=== PATIENT | female | born 1975 | race Caucasian/White ===

== ENCOUNTER 2022-01-02 11:44 | Emergency (ER) | payer MEDICAID, SELFPAY ==
--- NOTE | ~2022-01-02 | CT_ITS ---
EXAMINATION: CT ABDOMEN AND PELVIS WITHOUT CONTRAST CLINICAL INFORMATION: Left flank pain radiating to the left lower quadrant, history of stones. COMPARISON: None TECHNIQUE: Multidetector volumetric imaging was performed from the superior aspect of the liver through the pubic symphysis. Sagittal and coronal reformatted images were obtained on the technologist's workstation. Plaque of intravenous and oral contrast limits visceral evaluation. This CT examination was performed using dose optimization techniques as appropriate, variously including the following: *Automated exposure control *Adjustment of mA and/or kV according to patient size (this includes techniques or standardized protocols for targeted exams where dose is matched to indication/reason for exam; i.e. extremities or head) *Use of iterative reconstruction technique DLP: 496 mGy-cm FINDINGS: LUNG BASES: The visualized lung bases are unremarkable. LIVER, GALLBLADDER, AND BILIARY TREE: No hepatic abnormality. Status post cholecystectomy. PANCREAS: Unremarkable. SPLEEN: Unremarkable. ADRENAL GLANDS: Mild bilateral adrenal hypertrophy without definitive nodule. KIDNEYS AND URETERS: Nonobstructing intrarenal calculi bilaterally, left greater than right. A product support sales representative calculus in the interpolar left kidney measures 0.3 cm. No hydroureteronephrosis bilaterally. BLADDER: Mildly distended limiting evaluation without significant abnormality. GASTROINTESTINAL TRACT: The stomach and small bowel unremarkable. The appendix appears surgically absent with surgical changes at the cecal base. The colon shows a few scattered diverticuli without acute abnormality. LYMPH NODES: Mildly prominent inguinal lymph nodes bilaterally a product support sales representative right inguinal lymph node measures 1.1 cm VASCULAR: Unremarkable. PELVIC VISCERA: Unremarkable. Minimal free fluid in the cul-de-sac. OSSEOUS STRUCTURES: L5-S1 mild degenerative disc disease. SOFT TISSUES: Very small fat-containing umbilical and 2 adjacent midline supraumbilical ventral hernias (image 67, series 6). A subcutaneous nodule opacity seen posteriorly in the left inferior gluteal region measuring approximately 1.9 x 1.3 cm with surrounding subcutaneous infiltrative changes (image 88, series 3). This is seen to a lesser extent at the same level in the right side. An additional collection is seen to the left of midline at the level the distal coccyx extending anteriorly inferomedially into the peritoneum measuring approximately 7 cm in length (image 86, series 3). Linear tracts also extend to the level the left external and a running. CT/CT abdomen pelvis wo con IMPRESSION: 1. No acute intra-abdominal/pelvic abnormality to explain the patient's left flank pain. Nonobstructing intrarenal calculi, left greater than right, without hydronephrosis. 2. A few scattered colonic diverticuli without evidence for acute diverticulitis. 3. Subcutaneous changes and collections in the inferior gluteal region suggesting small cysts/abscesses. There is also a more linear tract on the left medially extending to the perineum and to the perianal region suggestive of fistulous tracts. Correlate with physical exam. Further evaluation with a contrast-enhanced MRI of the pelvis of this region is recommended. Mildly enlarged bilateral inguinal lymph nodes may be reactive to this process. 4. Several other incidental findings detailed above without significant/acute associated abnormality.
[2022-01-02 11:50] VITALS: BP 141/91; PULSE 99; RESP 18; TEMP 532.1; TEMP 989.8; O2SAT 97; BMI 26.5
[2022-01-02 12:22] VITALS: BP 109/65; PULSE 81; RESP 18; TEMP 37.2; O2SAT 97
--- NOTE | 2022-01-02 12:26 | ED_ITS ---
HPI - Abdominal Pain General Chief Complaint: Abdominal Pain Stated Complaint: kidney stones/infection Time Seen by Provider: 01/02/22 12:19 Source: patient Mode of arrival: ambulatory History of Present Illness HPI narrative: 46-year-old female with a past medical history renal stones, frequent UTIs, presenting to the ED complaining of left flank pain radiating to LLQ since yesterday. Reports pain initially intermittent and now constant/worsening. Admits to associated nausea and concentrated urine. Denies fever, chills, vomiting, dysuria, hematuria. Reports symptoms feel similar to prior stones/pyelo MD elicited complaint: flank pain Pertinent past history: kidney stones Onset (ago): day(s) Related Data Previous Rx's Medication Instructions Recorded ketorolac 10 mg tablet 10 mg PO TID PRN pain 5 days #15 01/02/22 tabs phenazopyridine 200 mg tablet 200 mg PO TID PRN pain 6 doses #6 01/02/22 (Pyridium) tabs Allergies Allergy/AdvReac Type Severity Reaction Status Date / Time Iodinated Contrast Media Allergy Unknown Verified 01/02/22 12:12 [Contrast Dye] Penicillins [PCN] Allergy Unknown Verified 01/02/22 12:12 shellfish derived Allergy Unknown Verified 01/02/22 12:12 Sulfa (Sulfonamide Allergy Unknown Verified 01/02/22 12:12 Antibiotics) tamsulosin [From Flomax] AdvReac Involuntary Verified 01/02/22 12:12 Spasms Review of Systems Review of Systems Constitutional: No Fever, No Chills, No Fatigue, No Malaise ENT/Mouth: No Hearing loss, No Ear Pain, No Nasal Congestion, No sore throat, No Rhinorrhea, No Swallowing Difficulty Eyes: No Eye Pain, No Swelling, No Redness Cardiovascular: No Chest Pain, No SOB, No Edema, No Palpitations Respiratory: No Cough, No Sputum, No Wheezing, No Smoke Exposure, No Dyspnea Gastrointestinal: + Nausea, No Vomiting, No Diarrhea, No Constipation, + Abdominal pain Genitourinary: No irregular bleeding, No Dysuria, No Urinary Frequency, No Hematuria, No Urinary Incontinence/retention, No Urgency, + Flank Pain, No Urinary Flow Changes, No Hesitancy Musculoskeletal: No joint pain, No Myalgias, No Joint Swelling Skin: No Skin Lesions, No rash Neuro: No Weakness,No Dizziness, No Headache Yes all other systems are reviewed and are negative Constitutional: Reports as per [facility] Past Medical History Attestation statement: The following information was validated with the patient. Medical History (Updated 01/02/22 @ 17:14 by Ronnie Ny MD) Hidradenitis suppurativa Social History Social History Alcohol intake: never Patient Tobacco Use Status: Current everyday Tobacco user Use of substances other than those prescribed or required for medical reasons: No Advance Directives: No Advance Directives Information Provided: No Physical Exam ED Vital Signs: Vital Signs - 24 hr 01/02/22 11:50 01/02/22 12:22 01/02/22 13:04 Temperature 989.8 F H 98.9 F Pulse Rate 99 81 79 Respiratory Rate 18 18 Blood Pressure 141/91 H 109/65 121/80 Pulse Oximetry 97 97 97 Oxygen Delivery Method Room Air Room Air Room Air BMI result Body Mass Index 26.5 Const General: cooperative, healthy appearing and no acute distress Orientation/consciousness: patient oriented x3 Limitations: no limitations HENMT Head: Yes normal to inspection and Yes atraumatic Ears: hearing grossly normal bilaterally General nose exam: Normal external nose present Face and sinus: Yes normal facial exam Eyes General: appearance normal, both eyes and all related structures EOM: EOMs intact bilaterally Neck Neck: Yes normal visual inspection and Yes no meningeal signs Resp Effort & Inspection: normal respiratory effort and no respiratory distress Auscultation: clear to auscultation bilaterally Cardio Rate: regular rate Heart sounds: S1 normal heart sound present and S2 normal heart sound present GI Inspection: Yes normal to inspection Palpation (GI): Soft to palpation, Tenderness to palpation present (GI) in the LLQ and suprapubicly, no guarding and not rigid General: Yes CVA tenderness on the left Back/Spine/Pelvis Back: CVA tenderness Skin Rashes: no rashes Wounds: no wounds Neuro General: patient oriented x3, tone normal and no meningeal signs Gait exam (Neuro): Normal gait present Extrem General: Yes normal to inspection Course Course Course Narrative: -1335--noted leukocytosis of 17.4 > likely reactive from pain. Labs otherwise reassuring >> lactic/blood cultures added. Low suspicion for severe sepsis at this time -UA with RBC's/not infected CT abdomen pelvis wo con IMPRESSION: 1. No acute intra-abdominal/pelvic abnormality to explain the patient's left flank pain. Nonobstructing intrarenal calculi, left greater than right, without hydronephrosis. 2. A few scattered colonic diverticuli without evidence for acute diverticulitis. 3. Subcutaneous changes and collections in the inferior gluteal region suggesting small cysts/abscesses. There is also a more linear tract on the left medially extending to the perineum and to the perianal region suggestive of fistulous tracts. Correlate with physical exam. Further evaluation with a contrast-enhanced MRI of the pelvis of this region is recommended. Mildly enlarged bilateral inguinal lymph nodes may be reactive to this process. 4. Several other incidental findings detailed above without significant/acute associated abnormality. ? > upon further evaluation patient reports history of hidradenitis has had multiple gluteal/rectal surgeries. On exam multiple indurated abscesses noted, no appreciable fluctuance/cellulitis, on rectal exam no appreciable fistula/drainage noted. Denies any pus drainage, rectal pain, vaginal bleeding/discharge >> will consult General surgery Dr. Ny -lactic acid negative -1700--Dr. Ny, general surgery evaluated patient in the ED, does not feel patient needs admission at this time. Patient refusing to take antibiotics due to past experiences. Results/plan discussed with patient, she is tearful, irritated/agitated no source of her pain was found. Discussed with patient cannot discharge on opiates without source of pain, she became very upset. Did offer patient admission for IV pain control, patient refused. Will give additional dose of IV morphine prior to discharge and discharged with prescription for Toradol and close PCP follow-up. Patient is in agreement with plan MDM - Abdominal Pain MDM Narrative Medical decision making narrative: 46-year-old female with a past medical history renal stones, frequent UTIs, presenting to the ED complaining of left flank pain radiating to LLQ since yesterday. On exam vital signs stable, NAD, nontoxic appearing, abdomen soft LLQ/suprapubic tenderness and left CVA tenderness, rebound or guarding. Concern for renal stone vs UTI/pyelo. Diverticulitis on differential, however lower. Lower suspicion for appendicitis/pancreatitis or cholecystitis/lithiasis Plan: Labs, UA, CT abdomen/pelvis, IVF, Zofran, pain management Differential Diagnosis Differential diagnosis: Likely abdominal pain, calculus of kidney, diverticulitis and renal colic Medical Records Attestation: I reviewed the patient's medical records. Lab Data Attestation: I reviewed the patient's lab results. Result diagrams: 01/02/22 12:54 01/02/22 12:54 Labs: Lab Results 01/02/22 01/02/22 01/02/22 Range/Units 12:54 12:54 12:54 WBC 17.4 H (4.8-10.8) X10*3/uL RBC 4.72 (4.20-5.50) X10*6/uL Hgb 15.7 (12.0-16.0) g/dl Hct 45.8 (37.0-47.0) % MCV 97.0 (80.0-98.0) fL MCH 33.3 H (27.0-33.0) pg MCHC 34.3 (31.0-35.0) g/dl RDW 12.5 (11.0-16.0) % Plt Count 390 (160-400) X10*3/uL MPV 8.5 L (9.4-12.3) fL Immature Gran % (Auto) 0.4 (0.0-0.4) % Neut % (Auto) 77.6 H (45-73) % Lymph % (Auto) 12.5 L (20-40) % [place] % (Auto) 7.9 (2-11) % Eos % (Auto) 1.2 (0-4) % Baso % (Auto) 0.4 (0-2) % Lymph # (Auto) 2.2 (1.2-4.9) X10*3/uL [place] # (Auto) 1.4 H (0.1-1.2) X10*3/uL Eos # (Auto) 0.2 (0.0-0.4) X10*3/uL Baso # (Auto) 0.1 (0.0-0.2) X10*3/uL Abs Immat Gran (auto) 0.07 H (0.00-0.03) X10*3/uL Absolute Neuts (auto) 13.5 H (2.0-8.3) x10*3/uL Absolute Nucleated RBC 0.000 (0.0-0.012) X10*3/uL Nucleated RBC % (auto) 0.0 (0.0-0.2) /100WBC Sodium 141 (135-145) mmol/L Potassium 4.0 (3.3-5.1) mmol/L Chloride 105 (96-108) mmol/L Carbon Dioxide 24 (22-29) mmol/L Anion Gap 16 (12-20) BUN 9 (9-16) mg/dL Creatinine 0.69 (0.5-1.4) mg/dL Estim Creat Clear Calc 94.3 Estimated GFR > 60 Random Glucose 94 (60-115) mg/dL Lactic Acid (0.5-2.0) mmol/L Calcium 9.6 (8.4-10.2) mg/dL Magnesium 2.0 (1.6-2.6) mg/dL Total Bilirubin 1.1 H (0.0-1.0) mg/dL Direct Bilirubin 0.5 (0.0-0.5) mg/dL AST 12 (5-31) U/L ALT 10 (0-31) U/L Alkaline Phosphatase 111 (39-117) U/L Total Protein 7.8 (6.5-8.0) g/dL Albumin 4.8 (3.5-5.0) g/dL Lipase 23 (8-78) U/L Urine Color YELLOW Urine Appearance HAZY Urine pH 6.0 (5.0-8.0) Ur Specific [place] 1.025 (1.005-1.025) Urine Protein 1+ H (NEG-TRACE) MG/DL Urine Glucose (UA) NEG (NEG) MG/DL Urine Ketones 5 (NEG) MG/DL Urine Blood 2+ H (NEG) Urine Nitrite NEG (NEG) Ur Leukocyte Esterase NEG (NEG) Urine RBC 5-9 H (0) /HPF Urine WBC 1-4 (0-4) /HPF Ur Squamous Epith Cells 1+ /LPF Calcium Oxalate Crystal 2+ /LPF Urine Bacteria TRACE /LPF Urine Mucus 2+ /LPF 01/02/22 Range/Units 14:30 WBC (4.8-10.8) X10*3/uL RBC (4.20-5.50) X10*6/uL Hgb (12.0-16.0) g/dl Hct (37.0-47.0) % MCV (80.0-98.0) fL MCH (27.0-33.0) pg MCHC (31.0-35.0) g/dl RDW (11.0-16.0) % Plt Count (160-400) X10*3/uL MPV (9.4-12.3) fL Immature Gran % (Auto) (0.0-0.4) % Neut % (Auto) (45-73) % Lymph % (Auto) (20-40) % [place] % (Auto) (2-11) % Eos % (Auto) (0-4) % Baso % (Auto) (0-2) % Lymph # (Auto) (1.2-4.9) X10*3/uL [place] # (Auto) (0.1-1.2) X10*3/uL Eos # (Auto) (0.0-0.4) X10*3/uL Baso # (Auto) (0.0-0.2) X10*3/uL Abs Immat Gran (auto) (0.00-0.03) X10*3/uL Absolute Neuts (auto) (2.0-8.3) x10*3/uL Absolute Nucleated RBC (0.0-0.012) X10*3/uL Nucleated RBC % (auto) (0.0-0.2) /100WBC Sodium (135-145) mmol/L Potassium (3.3-5.1) mmol/L Chloride (96-108) mmol/L Carbon Dioxide (22-29) mmol/L Anion Gap (12-20) BUN (9-16) mg/dL Creatinine (0.5-1.4) mg/dL Estim Creat Clear Calc Estimated GFR Random Glucose (60-115) mg/dL Lactic Acid 0.6 (0.5-2.0) mmol/L Calcium (8.4-10.2) mg/dL Magnesium (1.6-2.6) mg/dL Total Bilirubin (0.0-1.0) mg/dL Direct Bilirubin (0.0-0.5) mg/dL AST (5-31) U/L ALT (0-31) U/L Alkaline Phosphatase (39-117) U/L Total Protein (6.5-8.0) g/dL Albumin (3.5-5.0) g/dL Lipase (8-78) U/L Urine Color Urine Appearance Urine pH (5.0-8.0) Ur Specific [place] (1.005-1.025) Urine Protein (NEG-TRACE) MG/DL Urine Glucose (UA) (NEG) MG/DL Urine Ketones (NEG) MG/DL Urine Blood (NEG) Urine Nitrite (NEG) Ur Leukocyte Esterase (NEG) Urine RBC (0) /HPF Urine WBC (0-4) /HPF Ur Squamous Epith Cells /LPF Calcium Oxalate Crystal /LPF Urine Bacteria /LPF Urine Mucus /LPF Discharge Plan Discharge Clinical Impression: Abdominal pain Patient Disposition: Home, Self-Care Instructions: Abdominal Pain (ED) Additional Instructions: Your blood work showed an elevated white blood cell count, otherwise was reassuring. Her CT scan does not show any intra-abdominal/pelvic findings to explain her symptoms. You do have some subcutaneous changes/abscesses on her buttock which you are aware of. Our general surgeon evaluated you did not recommend surgery at this time. Toradol is an anti-inflammatory/pain medication, take with food. Pyridium will help with urinary discomfort Please have close follow-up with her doctor. If pain persist or worsen/becomes unbearable, your unable to urinate, developed fever please return to the emergency department Prescriptions: New ketorolac 10 mg tablet 10 mg PO TID PRN (Reason: pain) 5 Days Qty: 15 0RF phenazopyridine [Pyridium] 200 mg tablet 200 mg PO TID PRN (Reason: pain) Qty: 6 0RF Referrals: Zane Kelley MD [Physician] - 5 days
--- NOTE | 2022-01-02 12:29 | PC.NURSE ---
Pt alert and oriented, c/o 10/10 rigth flanks pain, lower abd pain. Pt stats she has hx of kidney stones and kidney infection. Reports nausea and vomiting, no fever. Denies any urinary frequency, or burning
[2022-01-02] MEDS: 0.9 % Sodium Chloride 1,000 ML 999 ML IV (12:57)
[2022-01-02 13:00] LABS: MANUAL DIFF FLAG NO
[2022-01-02] MEDS: ondansetron HCL 4 MG/2 ML VIAL IVPUSH (13:01)
[2022-01-02] MEDS: Ketorolac Tromethamine 15 MG/ML VIAL IVPUSH (13:01)
[2022-01-02 13:04] VITALS: BP 121/80; PULSE 79; O2SAT 97
[2022-01-02 13:04] LABS: Appearance Urine HAZY; Color Urine YELLOW; Glucose Urine UA NEG (NEG); Leukocyte Esterase Urine NEG (NEG); Nitrite Urine NEG (NEG); Specific Gravity - Urine 1.025 (1.005-1.025); UACC Culture Trigger NO; Urine Blood 2+ (NEG); Urine Ketones 5 MG/DL (NEG); Urine Protein 1+ MG/DL (NEG-TRACE)
[2022-01-02 13:05] LABS: Basophils Absolute Auto 0.1 X10*3/uL (0.0-0.2); Basophils Percent Auto 0.4 % (0-2); Eosinophils Absolute Auto 0.2 X10*3/uL (0.0-0.4); Eosinophils Percent Auto 1.2 % (0-4); Hematocrit 45.8 % (37.0-47.0); Hemoglobin 15.7 g/dl (12.0-16.0); Imm Gran Abs Auto 0.07 X10*3/uL (0.00-0.03); Imm Gran Pct Auto 0.4 % (0.0-0.4); Lymphocytes Absolute Auto 2.2 X10*3/uL (1.2-4.9); Lymphocytes Percent Auto 12.5 % (20-40); Mean Corpuscular HGB Conc 34.3 g/dl (31.0-35.0); Mean Corpuscular Hemoglobin 33.3 pg (27.0-33.0); Mean Platelet Volume 8.5 fL (9.4-12.3); Monocytes Absolute Auto 1.4 X10*3/uL (0.1-1.2); Monocytes Percent Auto 7.9 % (2-11); Neutrophils Absolute Auto 13.5 x10*3/uL (2.0-8.3); Neutrophils Percent Auto 77.6 % (45-73); Platelet Count 390 X10*3/uL (160-400); Red Blood Count 4.72 X10*6/uL (4.20-5.50); Red Cell Distribution Width 12.5 % (11.0-16.0); White Blood Count 17.4 X10*3/uL (4.8-10.8)
[2022-01-02 13:16] LABS: Bacteria Urine TRACE /LPF; Calcium Oxalate Crystals Urine 2+ /LPF; Mucus Urine 2+ /LPF; Squamous Epithelial Cell Urine 1+ /LPF
[2022-01-02 13:22] LABS: Alanine Aminotransferase 10 U/L (0-31); Albumin Level 4.8 g/dL (3.5-5.0); Alkaline Phosphatase 111 U/L (39-117); Anion Gap 16 (12-20); Aspartate Amino Transferase 12 U/L (5-31); Bilirubin Direct 0.5 mg/dL (0.0-0.5); Bilirubin Total 1.1 mg/dL (0.0-1.0); Blood Urea Nitrogen 9 mg/dL (9-16); Calcium 9.6 mg/dL (8.4-10.2); Carbon Dioxide 24 mmol/L (22-29); Chloride 105 mmol/L (96-108); Creatinine Clr Calc Pharmacy 94.3; Estimated Glomerular Filt Rate > 60; Glucose Random 94 mg/dL (60-115); Lipase 23 U/L (8-78); Sodium 141 mmol/L (135-145); Total Protein 7.8 g/dL (6.5-8.0)
[2022-01-02 14:47] LABS: Lactic Acid 0.6 mmol/L (0.5-2.0)
[2022-01-02] MEDS: Morphine Sulfate 2 MG/ML CARTRIDGE IVPUSH ×2 (15:25→17:34)
--- NOTE | 2022-01-02 17:06 | PM.CNGS ---
History of Present Illness Consult details Consult date: 01/02/22 Narrative: 46F referred to me for hidradenitis suppurativa. She says she actually came in today because of what she describes as flank pains bilaterally. She says she has a long hx of kidney stones and was certain that she was having another episode of pain from kidney stones or urinary tract infection. She had a CT scan showing multiple areas on the buttocks and the perianal with induration and fatty stranding c/w hidradenitis. She says she has had a hx severe hidradenitis on her buttocks, perineum and groin since she was a teenager. She has had multiple surgeries all her life for this. She says she used to see a surgeon in [place] for many years for her hidradeniitis but she had moved to [place] but just recently came back to [place]. She saysy she has long been aware of her hidradenitis but says this is not what she came to the ED for. Review of Systems Constitutional: Constitutional: Denies chills and Denies fever(s) Cardiovascular: Cardiovascular: Denies chest pain, Denies dyspnea and Denies dyspnea on exertion Respiratory: Respiratory: Denies cough, Denies dyspnea and Denies dyspnea on exertion Gastrointestinal: Gastrointestinal: Denies hematochezia and Denies change in bowel habits Genitourinary: Genitourinary: Denies hematuria Musculoskeletal: Musculoskeletal: Reports back pain and Denies limited range of motion Neurologic: Denies focal weakness and Denies convulsions Psychiatric: Psychiatric: Denies depression and Denies mood swings PMFSH Past Medical History Medical History (Updated 01/02/22 @ 17:14 by Ronnie Ny MD) Hidradenitis suppurativa Social History Social History Alcohol intake: never Patient Tobacco Use Status: Current everyday Tobacco user Use of substances other than those prescribed or required for medical reasons: No Advance Directives: No Advance Directives Information Provided: No Meds Allergies Allergy/AdvReac Type Severity Reaction Status Date / Time Iodinated Contrast Media Allergy Unknown Verified 01/02/22 12:12 [Contrast Dye] Penicillins [PCN] Allergy Unknown Verified 01/02/22 12:12 shellfish derived Allergy Unknown Verified 01/02/22 12:12 Sulfa (Sulfonamide Allergy Unknown Verified 01/02/22 12:12 Antibiotics) tamsulosin [From Flomax] AdvReac Involuntary Verified 01/02/22 12:12 Spasms Physical Exam Vital Signs: Vital Signs: Last Vital Signs Temp 98.9 F 01/02/22 12:22 Pulse 79 01/02/22 13:04 Resp 18 01/02/22 12:22 BP 121/80 01/02/22 13:04 Pulse Ox 97 01/02/22 13:04 O2 Del Method 01/02/22 13:04 BMI result Body Mass Index 26.5 Const: General: comfortable and no acute distress Orientation/consciousness: patient oriented x3 Neck: Neck: Yes no lymphadenopathy Resp: Auscultation: clear to auscultation bilaterally Cardio: Rhythm: regular rhythm GI: Palpation (GI): Soft to palpation, nontender and no guarding Back/Spine/Pelvis: Other: multiple areas of induration on the buttocks and perianal regions, no fluctuance, no active drainage, c/w hidradenitis Neuro: General: patient oriented x3 Results Labs Result diagrams: 01/02/22 12:54 01/02/22 12:54 Labs: Abnormal lab results 01/02/22 01/02/22 01/02/22 Range/Units 12:54 12:54 12:54 WBC 17.4 H (4.8-10.8) X10*3/uL MCH 33.3 H (27.0-33.0) pg MPV 8.5 L (9.4-12.3) fL Neut % (Auto) 77.6 H (45-73) % Lymph % (Auto) 12.5 L (20-40) % [place] # (Auto) 1.4 H (0.1-1.2) X10*3/uL Abs Immat Gran (auto) 0.07 H (0.00-0.03) X10*3/uL Absolute Neuts (auto) 13.5 H (2.0-8.3) x10*3/uL Total Bilirubin 1.1 H (0.0-1.0) mg/dL Urine Protein 1+ H (NEG-TRACE) MG/DL Urine Blood 2+ H (NEG) Urine RBC 5-9 H (0) /HPF Short CBC 01/02/22 Range/Units 12:54 WBC 17.4 H (4.8-10.8) X10*3/uL Hgb 15.7 (12.0-16.0) g/dl Hct 45.8 (37.0-47.0) % Plt Count 390 (160-400) X10*3/uL BMP 01/02/22 12:54 Sodium 141 Potassium 4.0 Chloride 105 Carbon Dioxide 24 BUN 9 Creatinine 0.69 Calcium 9.6 Liver Function 01/02/22 Range/Units 12:54 Total Bilirubin 1.1 H (0.0-1.0) mg/dL Direct Bilirubin 0.5 (0.0-0.5) mg/dL AST 12 (5-31) U/L ALT 10 (0-31) U/L Alkaline Phosphatase 111 (39-117) U/L Albumin 4.8 (3.5-5.0) g/dL Urine 01/02/22 Range/Units 12:54 Urine Color YELLOW Urine Appearance HAZY Urine pH 6.0 (5.0-8.0) Ur Specific [place] 1.025 (1.005-1.025) Urine Protein 1+ H (NEG-TRACE) MG/DL Urine Glucose (UA) NEG (NEG) MG/DL All other labs normal. Imaging Additional studies: Laboratory Results WBC 17.4 X10*3/uL (4.8-10.8) H 01/02/22 12:54 RBC 4.72 X10*6/uL (4.20-5.50) 01/02/22 12:54 Hgb 15.7 g/dl (12.0-16.0) 01/02/22 12:54 Hct 45.8 % (37.0-47.0) 01/02/22 12:54 MCV 97.0 fL (80.0-98.0) 01/02/22 12:54 MCH 33.3 pg (27.0-33.0) H 01/02/22 12:54 MCHC 34.3 g/dl (31.0-35.0) 01/02/22 12:54 RDW 12.5 % (11.0-16.0) 01/02/22 12:54 Plt Count 390 X10*3/uL (160-400) 01/02/22 12:54 MPV 8.5 fL (9.4-12.3) L 01/02/22 12:54 Immature Gran % (Auto) 0.4 % (0.0-0.4) 01/02/22 12:54 Neut % (Auto) 77.6 % (45-73) H 01/02/22 12:54 Lymph % (Auto) 12.5 % (20-40) L 01/02/22 12:54 [place] % (Auto) 7.9 % (2-11) 01/02/22 12:54 Eos % (Auto) 1.2 % (0-4) 01/02/22 12:54 Baso % (Auto) 0.4 % (0-2) 01/02/22 12:54 Lymph # (Auto) 2.2 X10*3/uL (1.2-4.9) 01/02/22 12:54 [place] # (Auto) 1.4 X10*3/uL (0.1-1.2) H 01/02/22 12:54 Eos # (Auto) 0.2 X10*3/uL (0.0-0.4) 01/02/22 12:54 Baso # (Auto) 0.1 X10*3/uL (0.0-0.2) 01/02/22 12:54 Abs Immat Gran (auto) 0.07 X10*3/uL (0.00-0.03) H 01/02/22 12:54 Absolute Neuts (auto) 13.5 x10*3/uL (2.0-8.3) H 01/02/22 12:54 Absolute Nucleated RBC 0.000 X10*3/uL (0.0-0.012) 01/02/22 12:54 Nucleated RBC % (auto) 0.0 /100WBC (0.0-0.2) 01/02/22 12:54 Sodium 141 mmol/L (135-145) 01/02/22 12:54 Potassium 4.0 mmol/L (3.3-5.1) 01/02/22 12:54 Chloride 105 mmol/L (96-108) 01/02/22 12:54 Carbon Dioxide 24 mmol/L (22-29) 01/02/22 12:54 Anion Gap 16 (12-20) 01/02/22 12:54 BUN 9 mg/dL (9-16) 01/02/22 12:54 Creatinine 0.69 mg/dL (0.5-1.4) 01/02/22 12:54 Estim Creat Clear Calc 94.3 01/02/22 12:54 Estimated GFR > 60 01/02/22 12:54 Random Glucose 94 mg/dL (60-115) 01/02/22 12:54 Lactic Acid 0.6 mmol/L (0.5-2.0) 01/02/22 14:30 Calcium 9.6 mg/dL (8.4-10.2) 01/02/22 12:54 Magnesium 2.0 mg/dL (1.6-2.6) 01/02/22 12:54 Total Bilirubin 1.1 mg/dL (0.0-1.0) H 01/02/22 12:54 Direct Bilirubin 0.5 mg/dL (0.0-0.5) 01/02/22 12:54 AST 12 U/L (5-31) 01/02/22 12:54 ALT 10 U/L (0-31) 01/02/22 12:54 Alkaline Phosphatase 111 U/L (39-117) 01/02/22 12:54 Total Protein 7.8 g/dL (6.5-8.0) 01/02/22 12:54 Albumin 4.8 g/dL (3.5-5.0) 01/02/22 12:54 Lipase 23 U/L (8-78) 01/02/22 12:54 Urine Color YELLOW 01/02/22 12:54 Urine Appearance HAZY 01/02/22 12:54 Urine pH 6.0 (5.0-8.0) 01/02/22 12:54 Ur Specific [place] 1.025 (1.005-1.025) 01/02/22 12:54 Urine Protein 1+ MG/DL (NEG-TRACE) H 01/02/22 12:54 Urine Glucose (UA) NEG MG/DL (NEG) 01/02/22 12:54 Urine Ketones 5 MG/DL (NEG) 01/02/22 12:54 Urine Blood 2+ (NEG) H 01/02/22 12:54 Urine Nitrite NEG (NEG) 01/02/22 12:54 Ur Leukocyte Esterase NEG (NEG) 01/02/22 12:54 Urine RBC 5-9 /HPF (0) H 01/02/22 12:54 Urine WBC 1-4 /HPF (0-4) 01/02/22 12:54 Ur Squamous Epith Cells 1+ /LPF 01/02/22 12:54 Calcium Oxalate Crystal 2+ /LPF 01/02/22 12:54 Urine Bacteria TRACE /LPF 01/02/22 12:54 Urine Mucus 2+ /LPF 01/02/22 12:54 Impressions Abdomen/Pelvis CT 01/02/22 12:43 IMPRESSION: 1. No acute intra-abdominal/pelvic abnormality to explain the patient's left flank pain. Nonobstructing intrarenal calculi, left greater than right, without hydronephrosis. 2. A few scattered colonic diverticuli without evidence for acute diverticulitis. 3. Subcutaneous changes and collections in the inferior gluteal region suggesting small cysts/abscesses. There is also a more linear tract on the left medially extending to the perineum and to the perianal region suggestive of fistulous tracts. Correlate with physical exam. Further evaluation with a contrast-enhanced MRI of the pelvis of this region is recommended. Mildly enlarged bilateral inguinal lymph nodes may be reactive to this process. 4. Several other incidental findings detailed above without significant/acute associated abnormality. Assessment and Plan (1) Hidradenitis suppurativa: Status: Acute She has hidradenitis suppurativa of her buttocks and perianal areas. She says she is aware of this and has had these for years. She says that these are not what is bothering her at this time. She says she used to see a surgeon in [place] for these. She says she is worried about kidney stones causing her flank pains. Her leukocytosis may be from her hidradenitis but there is no actual drainable abscess collection at this time. She does not want to be on oral antibiotics because she says she easily gets C diff colitis. I did tell her that if she has a problem with seeing her surgeon in [facility], she can see me in the office. Procedures Date of Service Date of Service: 01/06/22
[2022-01-02] MEDS: Phenazopyridine HCL 200 MG TABLET PO (17:33)
== END 2022-01-02 17:55 | disposition home or self-care (01) ==
PROVIDERS: Physician Assistant; Emergency Provider Internal Medicine
DX: R10.9 Unspecified abdominal pain (principal); F17.200 Nicotine dependence, unspecified, uncomplicated; L73.2 Hidradenitis suppurativa
CPT/HCPCS: 36415; 74176; 80048; 80076; 81001; 81003; 83605; 83690; 83735; 85025; 87040; 96361; 96374; 96375; 96376; 99284; J1885; J2270; J2405

== ENCOUNTER 2022-01-06 20:56 | Emergency (ER) | payer MEDICAID, SELFPAY ==
[2022-01-06 21:03] VITALS: BP 136/79; PULSE 96; RESP 18; TEMP 36.6; O2SAT 98; BMI 26.5
== END 2022-01-07 00:53 | disposition left against medical advice (07) ==
PROVIDERS: Emergency Provider Emergency Medicine
DX: L02.811 Cutaneous abscess of head [any part, except face] (principal)
CPT/HCPCS: 99281

== ENCOUNTER 2022-01-29 11:38 | Outpatient (REF) | payer MEDICAID, SELFPAY ==
[2022-01-29 13:33] LABS: MANUAL DIFF FLAG NO
[2022-01-29 13:39] LABS: Basophils Absolute Auto 0.1 X10*3/uL (0.0-0.2); Basophils Percent Auto 0.7 % (0-2); Eosinophils Absolute Auto 0.3 X10*3/uL (0.0-0.4); Eosinophils Percent Auto 2.1 % (0-4); Hematocrit 44.3 % (37.0-47.0); Hemoglobin 15.1 g/dl (12.0-16.0); Imm Gran Abs Auto 0.07 X10*3/uL (0.00-0.03); Imm Gran Pct Auto 0.4 % (0.0-0.4); Lymphocytes Absolute Auto 3.2 X10*3/uL (1.2-4.9); Lymphocytes Percent Auto 20.7 % (20-40); Mean Corpuscular HGB Conc 34.1 g/dl (31.0-35.0); Mean Corpuscular Hemoglobin 33.6 pg (27.0-33.0); Mean Corpuscular Volume 98.4 fL (80.0-98.0); Mean Platelet Volume 8.6 fL (9.4-12.3); Monocytes Percent Auto 6.7 % (2-11); Neutrophils Absolute Auto 10.9 x10*3/uL (2.0-8.3); Neutrophils Percent Auto 69.4 % (45-73); Platelet Count 391 X10*3/uL (160-400); Red Cell Distribution Width 12.5 % (11.0-16.0); White Blood Count 15.6 X10*3/uL (4.8-10.8)
[2022-01-29 13:51] LABS: Alanine Aminotransferase 12 U/L (0-31); Albumin Level 4.6 g/dL (3.5-5.0); Alkaline Phosphatase 95 U/L (39-117); Anion Gap 15 (12-20); Aspartate Amino Transferase 13 U/L (5-31); Bilirubin Total 0.3 mg/dL (0.0-1.0); Blood Urea Nitrogen 15 mg/dL (9-16); Calcium 9.5 mg/dL (8.4-10.2); Carbon Dioxide 25 mmol/L (22-29); Chloride 105 mmol/L (96-108); Cholesterol 134 mg/dL; Estimated Glomerular Filt Rate > 60; Glucose Random 81 mg/dL (60-115); HDL Cholesterol 48 mg/dL; LDL Cholesterol Calculated 79 mg/dl; Potassium 4.6 mmol/L (3.3-5.1); Sodium 140 mmol/L (135-145); Total Protein 7.7 g/dL (6.5-8.0); Triglycerides 36 mg/dL
[2022-01-29 14:13] LABS: Thyroid Stimulating Hormone 1.22 uIU/mL (0.32-4.0)
== END 2022-01-29 11:39 | disposition home or self-care (01) ==
LOC: HO.10HDL 11:38
PROVIDERS: Visit Provider Internal Medicine
DX: Z00.00 Encounter for general adult medical examination without abnormal findings (principal); N20.0 Calculus of kidney; F43.12 Post-traumatic stress disorder, chronic; L73.2 Hidradenitis suppurativa
CPT/HCPCS: 36415; 80053; 80061; 84443; 85025

== ENCOUNTER 2022-02-27 11:36 | Outpatient (REF) | payer MEDICAID, SELFPAY ==
[2022-02-28 06:17] LABS: HBsAGNum1 0.21 S/CO (0.00-0.99); HIV AB/AG Nonreactive (Nonreactive); HIV Num 1 0.07 S/CO (0.00-0.99); Hepatitis A Antibody IgM 0.14 Index (0-0.79); Hepatitis B Core Antibody Nonreactive (Nonreactive); Hepatitis B Surface Antigen Negative (Negative); ~HepC Num1 0.06 S/CO (0.00-0.79); ~Hepatitis A Antibody IgM Nonreactive (Nonreactive); ~Hepatitis B Surface Antibody REACTIVE (Nonreactive); ~Hepatitis C Antibody Nonreactive (Nonreactive)
[2022-02-28 18:32] LABS: Herpes Simplex Type 2 IgG <0.90 index
== END 2022-02-27 11:37 | disposition home or self-care (01) ==
LOC: HO.10HDL 11:36
PROVIDERS: Visit Provider Internal Medicine
DX: Z11.4 Encounter for screening for human immunodeficiency virus [HIV] (principal); F43.12 Post-traumatic stress disorder, chronic; M51.16 Intervertebral disc disorders with radiculopathy, lumbar region; Z72.0 Tobacco use
CPT/HCPCS: 36415; 86695; 86696; 86704; 86706; 86709; 86803; 87340; 87389

== ENCOUNTER 2023-05-19 13:31 | Outpatient (REF) | payer MEDICAID, SELFPAY ==
--- NOTE | ~2023-05-19 | MM_ITS ---
EXAMINATION: MM SCREENING DIGITAL BREAST TOMOSYNTHESIS, BILATERAL CLINICAL INFORMATION: Screening. Asymptomatic. COMPARISON: Mammography: There are no prior mammograms available for comparison. TECHNIQUE: Digital breast tomosynthesis is performed in both the craniocaudal and mediolateral oblique views along with computer-aided detection (CAD). Synthesized 2D images are generated from the tomosynthesis. FINDINGS: There are scattered areas of fibroglandular density (ACR BI-RADS breast composition Category b). There are no significant masses, abnormal calcifications, or other abnormalities. MM/MM tomosynthesis screening BI IMPRESSION: No mammographic evidence of malignancy. ASSESSMENT: BI-RADS BI-RADS 1 - Negative RECOMMENDATION: Routine annual mammography screening. 1 year F/U This examination should not preclude the clinical evaluation of a suspicious palpable abnormality. This patient's information was entered into a reminder system with a target due date for their next mammogram.
== END 2023-05-19 13:32 | disposition home or self-care (01) ==
LOC: HO.MAMMO 13:31
PROVIDERS: Visit Provider Internal Medicine
DX: Z12.31 Encounter for screening mammogram for malignant neoplasm of breast (principal)
CPT/HCPCS: 77063; 77067

== ENCOUNTER → 2023-05-19 13:45 | Outpatient (BNV) | payer MEDICAID, SELFPAY | PROVIDERS: Visit Provider Radiology Diagnostic Radiology | DX: Z12.31 Encounter for screening mammogram for malignant neoplasm of breast (principal) | CPT/HCPCS: 77063; 77067 ==

== ENCOUNTER 2023-09-09 14:03 | Emergency (ER) | payer MEDICAID, SELFPAY ==
--- NOTE | 2023-09-09 | ECG_ITS ---
Test Reason : cp Blood Pressure : / mmHG Vent. Rate : 102 BPM Atrial Rate : 102 BPM P-R Int : 134 ms QRS Dur : 078 ms QT Int : 334 ms P-R-T Axes : 064 079 049 degrees QTc Int : 435 ms Sinus tachycardia Otherwise normal ECG No previous ECGs available Referred By: Generic ED Physician Electronically Signed By:Demario Raman
--- NOTE | ~2023-09-09 | CT_ITS ---
EXAMINATION: CT ABDOMEN AND PELVIS WITHOUT CONTRAST CLINICAL INFORMATION: Question renal stone COMPARISON: CT abdomen pelvis 01/02/2022 TECHNIQUE: Multidetector volumetric imaging was performed from the superior aspect of the liver through the pubic symphysis. Sagittal and coronal reformatted images were obtained on the technologist's workstation. This CT examination was performed using dose optimization techniques as appropriate, variously including the following: *Automated exposure control *Adjustment of mA and/or kV according to patient size (this includes techniques or standardized protocols for targeted exams where dose is matched to indication/reason for exam; i.e. extremities or head) *Use of iterative reconstruction technique DLP: 454 mGy-cm FINDINGS: LUNG BASES: The visualized lung bases are unremarkable. LIVER, GALLBLADDER, AND BILIARY TREE: The liver is enlarged at 18.4 cm in greatest length but attenuation and shape is normal. No focal hepatic lesion or biliary ductal dilatation is present. Status post cholelithiasis. PANCREAS: Unremarkable. SPLEEN: Unremarkable. ADRENAL GLANDS: Unremarkable. KIDNEYS AND URETERS: The kidneys are normal in size, shape, and attenuation. No right-sided calculi are present. At least 10 small nonobstructing calculi are present in the left kidney the largest at the upper pole measuring 3 mm and 650 Hounsfield units. This was 8.9 cm from the posterior axillary line. When compared to the 01/02/2022 study the stone burden appears about the same to slightly decreased. No hydronephrosis, hydroureter, or ureteral calculi seen. No perinephric stranding. BLADDER: The but unremarkable. GASTROINTESTINAL TRACT: The small and large bowel are unremarkable. The appendix appears to have been removed. ABDOMINAL WALL: No significant hernia is appreciated. LYMPH NODES: Some shotty retroperitoneal lymph nodes are seen but there is no adenopathy. VASCULAR: Calcific atherosclerotic changes are present in the aorta and iliofemoral vessels. There is no evidence of an abdominal aortic aneurysm. PELVIC VISCERA: Unremarkable. OSSEOUS STRUCTURES: Mild degenerative changes present at L4-L5 and L5-S1. No bony destructive lesions. CT/CT abdomen pelvis wo IV con IMPRESSION: 1. Multiple nonobstructing left-sided renal calculi. 2. Incidental note made of mild hepatomegaly, cholelithiasis, appendectomy and degenerative changes in the spine. Fleischner guidelines were followed.
[2023-09-09 15:33] VITALS: BP 113/70; PULSE 99; RESP 18; TEMP 36.8; O2SAT 97; BMI 28.3
--- NOTE | 2023-09-09 15:33 | ED.GENADULT ---
HPI - General Adult General Chief complaint: Urogenital-Female Stated complaint: chest pain, kidney stone, fever Time Seen by Provider: 09/10/23 01:47 Source: patient Mode of arrival: ambulatory Limitations: no limitations History of Present Illness HPI narrative: 48-year-old female with a history of kidney stones, urinary tract infections, hidradenitis who presents emergency department for evaluation of fever left flank and left lower quadrant pain. Patient states that her symptoms began yesterday at around 18:00 hours. The patient developed fatigue, malaise and body aches. She then developed a fever of 103 degrees F and was incontinent of urine several times. She states that when she has had urinary tract infections in the past becomes incontinent. She denied dysuria or frequency. Patient states that she has not been able to eat or drink for the last 12 hours. She is currently complaining of moderate to severe right flank and right lower quadrant pain. Related Data Previous Rx's ?Medication ?Instructions ?Recorded ketorolac 10 mg tablet 10 mg PO TID PRN pain 5 days #15 01/02/22 tabs phenazopyridine 200 mg tablet 200 mg PO TID PRN pain 6 doses #6 01/02/22 (Pyridium) tabs cefuroxime axetil 250 mg tablet 250 mg PO Q12H 5 days #10 tabs 09/10/23 morphine 15 mg immediate release 15 mg PO Q6H PRN pain #10 tabs 09/10/23 tablet ondansetron 4 mg disintegrating 4 mg PO Q6-8H PRN nausea and 09/10/23 tablet vomiting #14 tabs phenazopyridine 200 mg tablet 200 mg PO TID PRN Burning with 09/10/23 (Pyridium) urination 3 days #9 tabs Allergies Allergy/AdvReac Type Severity Reaction Status Date / Time Iodinated Contrast Media Allergy Unknown Verified 09/09/23 15:37 [Contrast Dye] Penicillins [PCN] Allergy Unknown Verified 09/09/23 15:37 shellfish derived Allergy Unknown Verified 09/09/23 15:37 Sulfa (Sulfonamide Allergy Unknown Verified 09/09/23 15:37 Antibiotics) tamsulosin [From Flomax] AdvReac Involuntary Verified 09/09/23 15:37 Spasms Review of Systems Review of Systems: Yes all other systems are reviewed and are negative [facility] Past Medical History [facility] Narrative: Social history: She does smoke cigarettes. She denies alcohol use. She smokes marijuana. Medical History Hidradenitis suppurativa Social History Social History Alcohol intake: never Patient Tobacco Use Status: Current everyday Tobacco user Smoked in Last 30 Days: Yes Use of substances other than those prescribed or required for medical reasons: Yes Substance Use Type: Marijuana Advance Directives: No Advance Directives Information Provided: Yes Patient : No Physical Exam ED Vital Signs: Vital Signs - 24 hr 09/09/23 15:33 09/09/23 18:16 09/09/23 23:16 Temperature 98.2 F 98.0 F 97.1 F Pulse Rate 99 94 81 Respiratory Rate 18 16 16 Blood Pressure 113/70 138/80 141/84 H Pulse Oximetry 97 97 97 Oxygen Delivery Method Room Air Room Air Room Air 09/10/23 02:17 09/10/23 06:19 Temperature 98.3 F 97.5 F Pulse Rate 70 53 Respiratory Rate 15 16 Blood Pressure 123/60 114/62 Pulse Oximetry 97 97 Oxygen Delivery Method Room Air Room Air BMI result Body Mass Index 28.3 Vital signs were normal Exam: General: Awake, alert in no distress Head: Normocephalic, atraumatic EENT: PERRL, Lids normal, sclera normal, conjunctiva normal, nose normal , ears normal, throat without erythema or exudates Neck: Supple, no adenopathy Lung: breath sounds symmetric, no wheezing, rales or rhonchi Chest: symmetric movement, nontender Heart: regular rate and rhythm, normal S1, S2 no murmurs or rubs Abdomen: Soft, moderate left lower quadrant tenderness, normoactive bowel sounds, no rebound Back: no vertebral tenderness, mild to moderate left CVAT Extremities: no deformities, moves all extremities symmetrically Neuro: Awake, alert, oriented, normal speech, cranial nerves intact, moves all extremities symmetrically Psych: Pleasant, cooperative Course Course Course Narrative: RME: 48 yo female hx of renal stones, here with multiple complaints beginning yesterday. Reports?fever tmax 103 last night. endorses associated chest pain, urinary incontinence, left flank pain w/ radiation to left groin. denies hematuria, dysuria. labs, UA, viral swabs, ekg, ct ordered. Full HPI, ROS and PE to be performed by the primary ED provider. Medications Administered Discontinued Medications Generic Name Dose Route Start Last Admin Trade Name Azarq PRN Reason Stop Dose Admin Sodium Chloride 1,000 mls @ 999 mls/hr 09/10/23 02:06 09/10/23 03:42 Ns IV 09/10/23 03:06 Infused .Q1H1M STA Infusion Ceftriaxone Sodium 1 gm/ 50 mls @ 100 mls/hr 09/10/23 02:06 09/10/23 03:13 Sodium Chloride IV 09/10/23 02:35 Infused ONCE ONE Infusion Ibuprofen 600 mg 09/09/23 17:09 09/09/23 17:12 Ibuprofen 600 Mg Tablet PO 09/09/23 17:10 600 mg ONCE ONE Administration Ketorolac Tromethamine 15 mg 09/10/23 02:06 09/10/23 02:43 Ketorolac Tromethamine 15 Mg/Ml Vial IVPUSH 09/10/23 02:07 15 mg ONCE STA Administration Morphine Sulfate 4 mg 09/10/23 02:06 09/10/23 02:43 Morphine Sulfate 4 Mg/Ml Cartridge IVPUSH 09/10/23 02:07 4 mg ONCE STA Administration Protocol Morphine Sulfate 4 mg 09/10/23 04:15 09/10/23 04:28 Morphine Sulfate 4 Mg/Ml Cartridge IVPUSH 09/10/23 04:16 4 mg ONCE STA Administration Protocol Ondansetron HCl 4 mg 09/09/23 23:18 09/09/23 23:19 Ondansetron Odt 4 Mg Tab.Rapdis TRANSLINGU 09/09/23 23:19 4 mg ONCE ONE Administration Medical Decision Making Medical Decision Making MDM Narrative: 48-year-old female with a history of kidney stones, urinary tract infections, hidradenitis who presents emergency department for evaluation of fever, left flank and left lower quadrant pain, incontinent of urine x2 days. Vital signs were unremarkable, physical examination did reveal left lower quadrant and left CVA tenderness. Differential diagnosis: ?Includes but is not limited to pyelonephritis, urinary tract infection, viral syndrome, renal colic, ureteral colic, ureteral stone Following evaluation was ordered: CBC, CMP, lipase, magnesium, troponin, urinalysis, quantitative beta-hCG, urinalysis Patient was initially treated with the following: Normal saline IV x1 L, Toradol 15 mg IV, morphine 4 mg IV and ceftriaxone 1 g IV Course: 02:17 My interpretation patient's laboratory evaluation as follows: Elevated white blood count 27041. Elevated glucose 129. Troponin was below detectable limits. COVID, influenza and RSV were negative. Lipase was normal at 18. Urinalysis was positive for blood and leukocyte esterase. Microscopic revealed greater than 20 RBCs, 0-5 WBCs, 4+ bacteria and greater than [address] scan of the abdomen pelvis did not reveal a clear cause for the patient's pain, time I suspect the patient does have a urinary tract infection and possible early pyelonephritis. 08:57 The patient was ordered to get 1 more L of normal saline and 4 mg of morphine. Patient was discharged home with prescriptions for cefuroxime 250 mg q.12 hours x5 days, Pyridium, morphine and Zofran. She was given printed and verbal instructions prior to discharge Admission/Observation Consideration of admission/observation: Escalation of care including admission/observation considered Lab Data [facility] Lab Attestation statement: I reviewed the patient's lab results. 09/09/23 17:05 09/09/23 17:05 Labs: Lab Results 09/09/23 Range/Units 17:05 WBC 15.8 H (4.8-10.8) X10*3/uL RBC 4.64 (4.20-5.50) X10*6/uL Hgb 15.6 (12.0-16.0) g/dl Hct 44.8 (37.0-47.0) % MCV 96.6 (80.0-98.0) fL MCH 33.6 H (27.0-33.0) pg MCHC 34.8 (31.0-35.0) g/dl RDW 13.3 (11.0-16.0) % Plt Count 350 (160-400) X10*3/uL MPV 8.5 L (9.4-12.3) fL Immature Gran % (Auto) 0.4 (0.0-0.4) % Neut % (Auto) 72.9 (45-73) % Lymph % (Auto) 15.2 L (20-40) % Graves % (Auto) 10.5 (2-11) % Eos % (Auto) 0.4 (0-4) % Baso % (Auto) 0.6 (0-2) % Lymph # (Auto) 2.4 (1.2-4.9) X10*3/uL Graves # (Auto) 1.7 H (0.1-1.2) X10*3/uL Eos # (Auto) 0.1 (0.0-0.4) X10*3/uL Baso # (Auto) 0.1 (0.0-0.2) X10*3/uL Abs Immat Gran (auto) 0.06 H (0.00-0.03) X10*3/uL Absolute Neuts (auto) 11.5 H (2.0-8.3) x10*3/uL Absolute Nucleated RBC 0.000 (0.0-0.012) X10*3/uL Nucleated RBC % (auto) 0.0 (0.0-0.2) /100WBC Smear Tech's Comments VERIFIED Sodium 139 (135-145) mmol/L Potassium 3.6 (3.3-5.1) mmol/L Chloride 108 (96-108) mmol/L Carbon Dioxide 22 (22-29) mmol/L Anion Gap 13 (12-20) BUN 12 (9-16) mg/dL Creatinine 0.66 (0.5-1.4) mg/dL Estim Creat Clear Calc 99.5 Estimated GFR > 60 Random Glucose 129 H (60-115) mg/dL Calcium 9.3 (8.4-10.2) mg/dL Magnesium 2.2 (1.6-2.6) mg/dL Total Bilirubin 0.7 (0.0-1.0) mg/dL AST 11 (5-31) U/L ALT 11 (0-31) U/L Alkaline Phosphatase 100 (39-117) U/L Troponin I High Sens < 2.7 (<3.5-17.0) ng/L Total Protein 7.4 (6.5-8.0) g/dL Albumin 4.5 (3.5-5.0) g/dL Lipase 18 (8-78) U/L Beta HCG, Quant < 2 mIU/mL Urine Color Dark Yellow Urine Appearance Cloudy Urine pH 5.5 (5.0-9.0) Ur Specific [place] 1.025 (1.005-1.025) Urine Protein 30 (1+) H (Neg-Trace) mg/dL Urine Glucose (UA) Negative (Negative) mg/dL Urine Ketones 15 (Negative) mg/dL Urine Blood Small (1+) H (Negative) Urine Nitrite Negative (Negative) Ur Leukocyte Esterase Small (1+) H (Negative) Urine RBC >20 H (0-2) /HPF Urine WBC 0-5 (0-5) /HPF Ur Squamous Epith Cells >20 (0-2) /HPF Urine Bacteria 4+ (None Seen) Hyaline Casts 3-5 (0-2) /LPF Influenza Type A (PCR) NEGATIVE (Negative) Influenza Type B (PCR) NEGATIVE (Negative) RSV RNA Qual (PCR) NEGATIVE (Negative) SARS-CoV-2 RNA (RT-PCR) NEGATIVE (Negative) Radiology Impression Discussion of test interpretation with radiology: I have reviewed the radiologist's reading. Radiologist Impression: CT abdomen pelvis wo IV con IMPRESSION: 1. Multiple nonobstructing left-sided renal calculi. 2. Incidental note made of mild hepatomegaly, cholelithiasis, appendectomy and degenerative changes in the spine. Fleischner guidelines were followed. Dictated By: Guille Florence MD Prescription Management I considered prescription management with: Pain Medication and Antibiotic Critical Care Time Critical Care Time Critical Care Time: Yes Total Critical Care Time: 35 Attestation: Critical Care: The patient was critically ill with a high probability of imminent or life threatening deterioration. I spent greater than 30 minutes of discontinuous time evaluating the patient,delivering critical care at the bedside, discussing and evaluating pertinent data with consultants. Critical care time does not include time spent performing separately billable procedures or teaching. Total time spent performing critical care was 35 minutes. Discharge Plan Discharge Clinical Impression: Pyelonephritis, Fever, Acute dehydration Patient Disposition: Home, Self-Care Instructions: Kidney Infection (ED) Additional Instructions: Your treated with ceftriaxone 1 g IV, this is a cephalosporin antibiotic that will last for 24 hours. Take cefuroxime 250 mg pills, 1 pill every 12 hours for 5 days. Take your 1st dose this evening. Take morphine 15 mg pills, 1 pill every 6 hours as needed for pain. This medication will make you sleepy, do not drive or work while taking this medication. Morphine is a narcotic medication and can be addicting. If you are concerned about addiction you can ask the pharmacist for less pills or do not get this prescription filled. Take Zofran ODT 4 mg pills, 1 pill dissolved in your mouth every 8 hours as needed for nausea and vomiting. Take Pyridium 200 mg pills, 1 pill 3 times a day as needed for burning or discomfort with urination Follow-up with your doctor in 2 days. Please return to the emergency department if your symptoms get worse or if you develop any symptoms that are concerning to you. Prescriptions: New cefuroxime axetil 250 mg tablet 250 mg PO Q12H 5 Days Qty: 10 0RF morphine 15 mg tablet 15 mg PO Q6H PRN (Reason: pain) Qty: 10 0RF Rx Instructions: The patient may ask for partial fill; Partial Fill upon patient request. phenazopyridine [Pyridium] 200 mg tablet 200 mg PO TID PRN (Reason: Burning with urination) 3 Days Qty: 9 0RF ondansetron 4 mg tablet,disintegrating 4 mg PO Q6-8H PRN (Reason: nausea and vomiting) Qty: 14 0RF No Action ketorolac 10 mg tablet 10 mg PO TID PRN (Reason: pain) 5 Days Qty: 15 0RF phenazopyridine [Pyridium] 200 mg tablet 200 mg PO TID PRN (Reason: pain) Qty: 6 0RF Print Language: Ecuadorean
[2023-09-09] MEDS: Ibuprofen 600 MG TABLET PO (17:12)
[2023-09-09 17:14] LABS: Basophils Absolute Auto 0.1 X10*3/uL (0.0-0.2); Basophils Percent Auto 0.6 % (0-2); Eosinophils Absolute Auto 0.1 X10*3/uL (0.0-0.4); Eosinophils Percent Auto 0.4 % (0-4); Hematocrit 44.8 % (37.0-47.0); Hemoglobin 15.6 g/dl (12.0-16.0); Imm Gran Abs Auto 0.06 X10*3/uL (0.00-0.03); Imm Gran Pct Auto 0.4 % (0.0-0.4); Lymphocytes Absolute Auto 2.4 X10*3/uL (1.2-4.9); Lymphocytes Percent Auto 15.2 % (20-40); MANUAL DIFF FLAG SCAN; Mean Corpuscular HGB Conc 34.8 g/dl (31.0-35.0); Mean Corpuscular Hemoglobin 33.6 pg (27.0-33.0); Mean Corpuscular Volume 96.6 fL (80.0-98.0); Mean Platelet Volume 8.5 fL (9.4-12.3); Monocytes Absolute Auto 1.7 X10*3/uL (0.1-1.2); Monocytes Percent Auto 10.5 % (2-11); Neutrophils Absolute Auto 11.5 x10*3/uL (2.0-8.3); Neutrophils Percent Auto 72.9 % (45-73); Platelet Count 350 X10*3/uL (160-400); Red Blood Count 4.64 X10*6/uL (4.20-5.50); Red Cell Distribution Width 13.3 % (11.0-16.0); SCAN SMEAR FLAG 1; White Blood Count 15.8 X10*3/uL (4.8-10.8)
[2023-09-09 17:25] LABS: Appearance Urine Cloudy; Color Urine Dark Yellow; Glucose Urine UA Negative (Negative); Leukocyte Esterase Urine Small (1+) (Negative); Nitrite Urine Negative (Negative); PH 5.5 (5.0-9.0); Specific Gravity - Urine 1.025 (1.005-1.025); UMIC TRIGGER UACC YES; Urine Blood Small (1+) (Negative); Urine Ketones 15 mg/dL (Negative); Urine Protein 30 (1+) mg/dL (Neg-Trace)
[2023-09-09 17:31] LABS: Alanine Aminotransferase 11 U/L (0-31); Albumin Level 4.5 g/dL (3.5-5.0); Alkaline Phosphatase 100 U/L (39-117); Anion Gap 13 (12-20); Aspartate Amino Transferase 11 U/L (5-31); Bilirubin Total 0.7 mg/dL (0.0-1.0); Blood Urea Nitrogen 12 mg/dL (9-16); Calcium 9.3 mg/dL (8.4-10.2); Carbon Dioxide 22 mmol/L (22-29); Chloride 108 mmol/L (96-108); Creatinine Clr Calc Pharmacy 99.5; Estimated Glomerular Filt Rate > 60; Glucose Random 129 mg/dL (60-115); Lipase 18 U/L (8-78); Magnesium 2.2 mg/dL (1.6-2.6); Potassium 3.6 mmol/L (3.3-5.1); Sodium 139 mmol/L (135-145); Total Protein 7.4 g/dL (6.5-8.0)
[2023-09-09 17:39] LABS: Bacteria Urine 4+ (None Seen); RBC Urine >20 /HPF (0-2); Squamous Epithelial Cell Urine >20 /HPF (0-2); UACC Culture Trigger YES; WBC Urine 0-5 /HPF (0-5)
[2023-09-09 17:40] LABS: HCG Quantitative < 2 mIU/mL; Troponin-I High Sensitivity < 2.7 ng/L (<3.5-17.0)
[2023-09-09 17:49] LABS: SLIDE REVIEW VERIFIED
[2023-09-09 18:02] LABS: Influenza A PCR NEGATIVE (Negative); Influenza B PCR NEGATIVE (Negative); Resp Syncy Virus RNA Qual PCR NEGATIVE (Negative); SARS COV2 PCR INHOUSE NEGATIVE (Negative)
[2023-09-09 18:16] VITALS: BP 138/80; PULSE 94; RESP 16; TEMP 36.7; O2SAT 97
[2023-09-09 23:16] VITALS: BP 141/84; PULSE 81; RESP 16; TEMP 36.2; O2SAT 97
[2023-09-09] MEDS: Ondansetron ODT 4 MG TAB.RAPDIS TRANSLINGU (23:19)
--- OUTSIDE RECORDS SUMMARY | 2023-09-10 01:48 | XMS_ITS | Continuity of Care Document ---
[facility] [address] [id number]- Care Team Providers Care Rental Boats Caretaker Name Role Phone Not on Staff, PCP Primary Care Physician Unavail able Encounter [facility] NBR [id number] Date(s): 01/20/22 - 02/19/22 [facility] [address] [place] [address]- Attending Physician: Rao Allen Admitting Physician: Rao Allen Referring Physician: Rao Allen Allergies, Adverse Reactions, Alerts Substance Reaction Severity Status doxycycline vomiting Unknown Active shellfish throat closes Active Cipro rash vomiting Active Flomax Active Inapsine paranoia Unknown Active Prozac tremors vomiting Persistent Severe Active Betadine RASH Active Bactrim anaphylactic, hives Persistent Severe Act carter Optiray 320 1 hives Unknown Active traMADol agitation Active 1patient states previous reaction of hives following optiray IV contrast injection administered after a benadryl prep. Allergy was prep given due to family hx of radiocontrast dye injection Immunizations Not Given Vaccine Date Status Refusal Reason pneumococcal 23-valent vaccine 07/05/17 Not Given Parent Or Guardian Refuses pneumococcal 23-valent vaccine 08/09/13 Not Given Patient Refuses pneumococcal 23-valent vaccine 03/17/13 Not Given Parent Or Guardian Refuses influenza virus vaccine, inactivated 03/17/13 Not Given Parent Or Guardian Refuses Medications diazepam 5 mg oral tablet 5 mg, 1, tablet, By Mouth, 4 times a day, PRN, Refills 0, Maintenance, for anxiety, 07/01/17 15:21:38 Start Date: 07/01/17 Status: Ordered ProAir HFA 90 mcg/inh inhalation aerosol with adapter 1, puffs, Inhalation, Every 6 hours, PRN, # 8.5 Gm, Refills 2, Tot. Refills 2, Maintenance, 01/06/18 14:33:09 EDT, Aerosol, Route to Pharmacy Electronically, [id number], [facility] Start Date: 01/06/18 Status: Ordered Vicodin 5 mg-300 mg oral tablet 1 tablet, By Mouth, Every 4 hours, PRN as needed for pain, pt reports that she gets 20 of these a month, 0 Refills, Maintenance, 03/09/19 13:54:13 EDT, Tablet, Partial fill upon patient request Start Date: 03/09/19 Status: Ordered Problem List Condition Effective Dates Status Health Status Inform ant Abnormal androgen(Confirmed) Active Abnormal LFTs (liver functio n tests)(Confirmed) 01/27/13 Active Anxiety(Confirmed) Active Choledocholithiasis(Confirmed) 08/09/12 Active Clostridium difficile infection(Confirmed) Active Endometrial polyp(Confirmed) Active Endometriosis(Confirmed) Active Furunculosis(Confirmed) Active GERD (gastroesophageal reflu x disease)(Confirmed) Active Hypertrophy of breast(Confirmed) Active Bilateral kidney stones(Confirmed) Active LBP (low back pain)(Confirmed) 01/27/13 Active Low back pain(Confirmed) Active Chronic low back pain(Confirmed) Active PCO - Polycystic ovaries(Confirmed) Active Recurrent otitis externa(Confirmed) 10/11/12 Active Tobacco Use Disorder(Confirmed) 08/09/12 Active Moderate tobacco use disorder(Confirmed) Active Social History Social History Type Response Smoking Status Current every day harshil kirby; Other: quit in 2013; entered on: 11/05/17 Sex Care Team Personnel Name: Not on Staff, PCP
--- OUTSIDE RECORDS SUMMARY | 2023-09-10 01:48 | XMS_ITS | Continuity of Care Document ---
Author Organization [employer] Nikki nresmios [place] Address [address], [address] [place] [address]- Care Team Providers Care Forensic Pathologist Name Role Phone Not on Staff, PCP Primary Care Physician Unavail able Encounter [facility] Date(s): 06/06/22 - 07/06/22 [facility] [place] [facility] [address], [address]th [place] [address]- Attending Physician: Rao Allen Admitting Physician: Rao Allen Referring Physician: Rao Allen Allergies, Adverse Reactions, Alerts Substance Reaction Severity Status doxycycline vomiting Unknown Active shellfish throat closes Active Prozac tremors vomiting Persistent Severe Active traMADol agitation Active Cipro rash vomiting Active Flomax Active Inapsine paranoia Unknown Active Bactrim anaphylactic, hives Persistent Severe Act carter Betadine RASH Active Optiray 320 1 hives Unknown Active 1patient states previous reaction of hives [...] 14:33:09 EDT, Aerosol, Route to Pharmacy Electronically, [id number], [facility] Start Date: 01/06/18 Status: Ordered Vicodin 5 mg-300 mg oral tablet 1 tablet, By Mouth, Every 4 hours, PRN as needed for pain, pt reports that she gets 20 of these a month, 0 Refills, Maintenance, 03/09/19 13:54:13 EDT, Tablet, Partial fill upon patient request Start Date: 03/09/19 Status: Ordered Problem List Condition Confirmation Course Effective Dates Status Health Status Informant Abnormal androgen Confirmed Active Abnormal LFTs (liver function tests) Confirmed 01/27/13 Active Anxiety Confirmed Active Choledocholithiasis Confirmed 08/09/12 Active Clostridium difficile infection Confirmed Active Endometrial polyp Confirmed Active Endometriosis Confirmed Active Furunculosis Confirmed Active GERD (gastroesophageal reflux disease) Confirmed Active Hypertrophy of breast Confirmed Active Bilateral kidney stones Confirmed Active LBP (low back pain) Confirmed 01/27/13 Active Low back pain Confirmed Active Chronic low back pain Confirmed Active PCO - Polycystic ovaries Confirmed Active Recurrent otitis externa Confirmed 10/11/12 Active Tobacco Use Disorder Confirmed 08/09/12 Active Moderate tobacco use disorder Confirmed Active Social History Social History Type Response Smoking Status Current every day sm oker; Other: quit in 2013; entered on: 11/05/17 Sex Patient Care team information Care Team Personnel Name: Not on Staff, PCP Position: [facility] Physician (General Medicine) Member Role: PCP Name: Malorie Albrecht DO Position: [facility] INTERNET MEDIA PLANNER MD Member Role: [employer] INTERNET MEDIA PLANNER Physician Address: Address: [address] [place] [address] [place] [address]- Name: Suyapa Henry RN Position: [facility] RN Member Role: Primary Care Nurse Name: Candelario HANSON, Sangeeta Bhakta Position: [facility] Onco RN Member Role: Primary Care Nurse Care Team Related Persons Name: SALOMON HERMAN Address: home [address] [place] [id number] Name: OLIVIA CRAWLEY Address: home [address] [place] [address]
--- OUTSIDE RECORDS SUMMARY | 2023-09-10 01:48 | XMS_ITS | Continuity of Care Document ---
Author Organization [facility] Address [address] [id number]- Care Team Providers Care Cutter Inspector Name Role Phone Not on Staff, PCP Primary Care Physician Unavail able Encounter [facility] [id number] Date(s): 01/07/22 - 02/19/22 [facility] [address] [place] [id number]- Attending Physician: Seng Suarez MD Allergies, Adverse Reactions, Alerts Substance Reaction Severity [...] 14:33:09 EDT, Aerosol, Route to Pharmacy Electronically, [id number], [facility] Start Date: [...]
[2023-09-10 02:17] VITALS: BP 123/60; PULSE 70; RESP 15; TEMP 36.8; O2SAT 97
[2023-09-10] MEDS: 0.9 % Sodium Chloride 1,000 ML 999 ML IV ×2 (02:41→09:08)
[2023-09-10] MEDS: Morphine Sulfate 4 MG/ML CARTRIDGE IVPUSH ×3 (02:43→09:16)
[2023-09-10] MEDS: Ketorolac Tromethamine 15 MG/ML VIAL IVPUSH (02:43)
[2023-09-10] MEDS: cefTRIAXone sodium 1 GM in 0.9 % Sodium Chloride 50 ML IV (02:43)
--- NOTE | 2023-09-10 02:57 | PC.NURSE ---
assumed care of pt. pt a&ox4, respirations even and unlabored, reports x2 days of lower abdominal pain, urinary discomfort and headache. pt reports hx of kidney stones and hx of chronic infections. pt reports 8/10 pain at this time. pt denies n/v/d. 22G placed in right hand, pt medicated per jul. normal sinus on tele 80-84bpm.
[2023-09-10 06:19] VITALS: BP 114/62; PULSE 53; RESP 16; TEMP 36.4; O2SAT 97
--- NOTE | 2023-09-10 09:55 | PC.NURSE ---
LATE ENTRY: meds given and fluids started as ordered and documented.
[2023-09-10 10:41] VITALS: BP 132/70; PULSE 70; RESP 16; TEMP 36.6; O2SAT 98
[2023-09-10 11:02] VITALS: BP 144/84; PULSE 87; RESP 18; TEMP 36.9; O2SAT 100
== END 2023-09-10 11:04 | disposition home or self-care (01) ==
PROVIDERS: Physician Assistant Medical; Emergency Provider Emergency Medicine Emergency Medical Services; PCP Internal Medicine
DX: N12 Tubulo-interstitial nephritis, not specified as acute or chronic (principal); R07.89 Other chest pain; R50.9 Fever, unspecified; E86.0 Dehydration; F17.200 Nicotine dependence, unspecified, uncomplicated; Z11.52 Encounter for screening for COVID-19; Z20.822 Contact with and (suspected) exposure to COVID-19; Z79.899 Other long term (current) drug therapy
CPT/HCPCS: 0241U; 36415; 74176; 80053; 81001; 83690; 83735; 84484; 84702; 85025; 87086; 93005; 96361; 96374; 96375; 96376; 99285; J0696; J1885; J2270

== ENCOUNTER → 2023-09-09 14:06 | Outpatient (BNV) | payer MEDICAID, SELFPAY | PROVIDERS: Emergency Provider Emergency Medicine Emergency Medical Services; PCP Internal Medicine; Visit Provider Internal Medicine Cardiovascular Disease | DX: R07.9 Chest pain, unspecified (principal) | CPT/HCPCS: 93010 ==

== ENCOUNTER 2023-09-26 16:34 | Emergency (ER) | payer MEDICAID, SELFPAY ==
[2023-09-26 16:36] VITALS: BP 130/70; PULSE 100; RESP 16; TEMP 36.6; O2SAT 99; BMI 28.3
--- NOTE | 2023-09-26 16:37 | ED.GENADULT ---
HPI - General Adult General Chief complaint: Skin/Abscess/Foreign Body Stated complaint: abscess on back, ?infection Time Seen by Provider: 09/26/23 18:09 Source: patient, RN notes reviewed and old records reviewed Mode of arrival: ambulatory Limitations: no limitations History of Present Illness HPI narrative: 48-year-old female with past medical history significant for hidradenitis presents for evaluation abscess to her right upper back. Patient reports it has been there for a few days. She reports subjective fevers and feeling generally unwell She reports that she was given an antibiotic for a UTI 2 and half weeks ago She reports that she completed the antibiotic but still does not feel improved Patient follows with general surgery at [facility] for her hidradenitis Related Data Previous Rx's ?Medication ?Instructions ?Recorded ketorolac 10 mg tablet 10 mg PO TID PRN pain 5 days #15 01/02/22 tabs phenazopyridine 200 mg tablet 200 mg PO TID PRN pain 6 doses #6 01/02/22 (Pyridium) tabs cefuroxime axetil 250 mg tablet 250 mg PO Q12H 5 days #10 tabs 09/10/23 morphine 15 mg immediate release 15 mg PO Q6H PRN pain #10 tabs 09/10/23 tablet ondansetron 4 mg disintegrating 4 mg PO Q6-8H PRN nausea and 09/10/23 tablet vomiting #14 tabs phenazopyridine 200 mg tablet 200 mg PO TID PRN Burning with 09/10/23 (Pyridium) urination 3 days #9 tabs cephalexin 500 mg capsule 500 mg PO QID #28 caps 09/26/23 morphine 15 mg immediate release 15 mg PO Q8H PRN severe pain 09/26/23 tablet (scale score 7-10) #6 tabs Allergies Allergy/AdvReac Type Severity Reaction Status Date / Time Iodinated Contrast Media Allergy Unknown Verified 09/26/23 16:36 [Contrast Dye] Penicillins [PCN] Allergy Unknown Verified 09/26/23 16:36 shellfish derived Allergy Unknown Verified 09/26/23 16:36 Sulfa (Sulfonamide Allergy Unknown Verified 09/26/23 16:36 Antibiotics) tamsulosin [From Flomax] AdvReac Involuntary Verified 09/26/23 16:36 Spasms Review of Systems Constitutional: Constitutional: Denies body ache(s), Reports chills and Reports fever(s) Eyes: Eyes: Denies blurry vision ENT: Denies sinus pain and Denies sore throat Cardiovascular: Cardiovascular: Denies chest pain Respiratory: Respiratory: Denies cough Gastrointestinal: Gastrointestinal: Denies abdominal pain, Denies nausea and Denies vomiting Musculoskeletal: Musculoskeletal: Reports back pain Integumentary/Breasts: Skin/Breast: Reports erythema, Reports skin pain and Reports skin swelling PMFSH Past Medical History Medical History Hidradenitis suppurativa Social History Social History Alcohol intake: never Patient Tobacco Use Status: Current everyday Tobacco user Substance Use Type: Marijuana Advance Directives: No Advance Directives Information Provided: No Do you have a plan to hurt others: No Plan Physical Exam ED Vital Signs: Vital Signs - 24 hr 09/26/23 16:36 Temperature 97.9 F Pulse Rate 100 Respiratory Rate 16 Blood Pressure 130/70 Pulse Oximetry 99 Oxygen Delivery Method Room Air BMI result Body Mass Index 28.3 Const General: healthy appearing, comfortable, no acute distress, alert and awake Nutritional Appearance: well nourished Orientation/consciousness: patient oriented x3 HENMT Head: Yes normocephalic and Yes atraumatic Eyes Eyelids: Yes eyelids normal Conjunctivae: conjunctivae normal Sclerae: sclerae normal Corneas: corneas normal Pupils: Equal, round and reactive pupils present EOM: EOMs intact bilaterally Neck Neck: Yes full ROM Resp Effort & Inspection: normal respiratory effort, able to speak in complete sentences and not labored Skin Other: Patient has a 2 x 3 cm area of erythema with fluctuance to the right thoracic paraspinous region. This area is tender to palpation, there is no active drainage. General skin exam: elasticity normal Neuro General: patient oriented x3 Cranial nerves: Yes Equal, round and reactive pupils present and Yes Bilaterally intact EOM present Cognition (Neuro): normal cognition Extrem Other: Moving all extremities well without any obvious deformities Course Course Course Narrative: RME performed by Zandra Trinidad PA-C. Patient is a 48 year old assigned female at presenting to the emergency department with back pain and concern for infection. Patient seen on 09/09/2023 for a urinary tract infection. Detailed physical exam and review of systems are deferred to the correctional case manager. Labs and swabs ordered. Patient placed back in the waiting room pending room availability and results. Procedures Abscess I/D Site: back Side (if applicable): right Local Anesthetic: lidocaine 2% and with epi Amount of anesthesia used (mL): 3 Technique: incised with blade Amount of fluid expressed (mL): 6 Sent for culture/gram staining?: No Irrigation: Yes Packing used?: none Complications: pain Medical Decision Making Medical Decision Making [facility] Narrative: Patient had a simple abscess to the right upper back. See procedure note. There is no evidence of sepsis. She has a chronically elevated leukocytosis. Chemistries are within normal limits except for a slightly elevated glucose which was random draw. The patient reports that she will try to see your general surgeon next week Differential Diagnosis Differential Diagnoses: The differential diagnosis associated with the presentation includes Cellulitis Abscess Hidradenitis Sebaceous cyst Lab Data [facility] Lab Attestation statement: I reviewed the patient's lab results. See above 09/26/23 16:52 09/26/23 16:52 Labs: Lab Results 09/26/23 Range/Units 16:52 WBC 16.7 H (4.8-10.8) X10*3/uL RBC 4.51 (4.20-5.50) X10*6/uL Hgb 15.2 (12.0-16.0) g/dl Hct 43.1 (37.0-47.0) % MCV 95.6 (80.0-98.0) fL MCH 33.7 H (27.0-33.0) pg MCHC 35.3 H (31.0-35.0) g/dl RDW 13.0 (11.0-16.0) % Plt Count 360 (160-400) X10*3/uL MPV 8.6 L (9.4-12.3) fL Immature Gran % (Auto) 0.4 (0.0-0.4) % Neut % (Auto) 71.8 (45-73) % Lymph % (Auto) 20.0 (20-40) % Moffat % (Auto) 6.3 (2-11) % Eos % (Auto) 1.0 (0-4) % Baso % (Auto) 0.5 (0-2) % Lymph # (Auto) 3.3 (1.2-4.9) X10*3/uL [place]offat # (Auto) 1.1 (0.1-1.2) X10*3/uL Eos # (Auto) 0.2 (0.0-0.4) X10*3/uL Baso # (Auto) 0.1 (0.0-0.2) X10*3/uL Abs Immat Gran (auto) 0.07 H (0.00-0.03) X10*3/uL Absolute Neuts (auto) 11.9 H (2.0-8.3) x10*3/uL Absolute Nucleated RBC 0.000 (0.0-0.012) X10*3/uL Nucleated RBC % (auto) 0.0 (0.0-0.2) /100WBC Sodium 140 (135-145) mmol/L Potassium 3.9 (3.3-5.1) mmol/L Chloride 107 (96-108) mmol/L Carbon Dioxide 22 (22-29) mmol/L Anion Gap 15 (12-20) BUN 13 (9-16) mg/dL Creatinine 0.71 (0.5-1.4) mg/dL Estim Creat Clear Calc 92.5 Estimated GFR > 60 Random Glucose 138 H (60-115) mg/dL Calcium 9.3 (8.4-10.2) mg/dL Magnesium 1.9 (1.6-2.6) mg/dL Total Bilirubin 0.4 (0.0-1.0) mg/dL AST 13 (5-31) U/L ALT 11 (0-31) U/L Alkaline Phosphatase 92 (39-117) U/L Total Protein 7.3 (6.5-8.0) g/dL Albumin 4.3 (3.5-5.0) g/dL Beta HCG, Quant < 2 mIU/mL Influenza Type A (PCR) NEGATIVE (Negative) Influenza Type B (PCR) NEGATIVE (Negative) RSV RNA Qual (PCR) NEGATIVE (Negative) SARS-CoV-2 RNA (RT-PCR) NEGATIVE (Negative) Discharge Plan Discharge Clinical Impression: Abscess, Hidradenitis suppurativa Patient Disposition: Home, Self-Care Instructions: Abscess (ED), Hidradenitis Suppurativa (ED) Additional Instructions: Take cephalexin 4 times daily for the next week. Apply warm compresses to the area that was drained Use ibuprofen/Tylenol for pain You may use morphine as needed for severe breakthrough pain This may make you sleepy, did not drink alcohol or drive after taking it Follow-up with your primary doctor Prescriptions: New cephalexin 500 mg capsule 500 mg PO QID Qty: 28 0RF morphine 15 mg tablet 15 mg PO Q8H PRN (Reason: severe pain (scale score 7-10)) Qty: 6 0RF Rx Instructions: Partial Fill upon patient request. No Action ketorolac 10 mg tablet 10 mg PO TID PRN (Reason: pain) 5 Days Qty: 15 0RF phenazopyridine [Pyridium] 200 mg tablet 200 mg PO TID PRN (Reason: pain) Qty: 6 0RF cefuroxime axetil 250 mg tablet 250 mg PO Q12H 5 Days Qty: 10 0RF morphine 15 mg tablet 15 mg PO Q6H PRN (Reason: pain) Qty: 10 0RF Rx Instructions: The patient may ask for partial fill; Partial Fill upon patient request. phenazopyridine [Pyridium] 200 mg tablet 200 mg PO TID PRN (Reason: Burning with urination) 3 Days Qty: 9 0RF ondansetron 4 mg tablet,disintegrating 4 mg PO Q6-8H PRN (Reason: nausea and vomiting) Qty: 14 0RF Print Language: Tamazight
[2023-09-26 16:57] LABS: MANUAL DIFF FLAG NO
[2023-09-26 17:01] LABS: Basophils Absolute Auto 0.1 X10*3/uL (0.0-0.2); Basophils Percent Auto 0.5 % (0-2); Eosinophils Absolute Auto 0.2 X10*3/uL (0.0-0.4); Hematocrit 43.1 % (37.0-47.0); Hemoglobin 15.2 g/dl (12.0-16.0); Imm Gran Abs Auto 0.07 X10*3/uL (0.00-0.03); Imm Gran Pct Auto 0.4 % (0.0-0.4); Lymphocytes Absolute Auto 3.3 X10*3/uL (1.2-4.9); Mean Corpuscular HGB Conc 35.3 g/dl (31.0-35.0); Mean Corpuscular Hemoglobin 33.7 pg (27.0-33.0); Mean Corpuscular Volume 95.6 fL (80.0-98.0); Mean Platelet Volume 8.6 fL (9.4-12.3); Monocytes Absolute Auto 1.1 X10*3/uL (0.1-1.2); Monocytes Percent Auto 6.3 % (2-11); Neutrophils Absolute Auto 11.9 x10*3/uL (2.0-8.3); Neutrophils Percent Auto 71.8 % (45-73); Platelet Count 360 X10*3/uL (160-400); Red Blood Count 4.51 X10*6/uL (4.20-5.50); White Blood Count 16.7 X10*3/uL (4.8-10.8)
[2023-09-26 17:19] LABS: Alanine Aminotransferase 11 U/L (0-31); Albumin Level 4.3 g/dL (3.5-5.0); Alkaline Phosphatase 92 U/L (39-117); Anion Gap 15 (12-20); Aspartate Amino Transferase 13 U/L (5-31); Bilirubin Total 0.4 mg/dL (0.0-1.0); Blood Urea Nitrogen 13 mg/dL (9-16); Calcium 9.3 mg/dL (8.4-10.2); Carbon Dioxide 22 mmol/L (22-29); Chloride 107 mmol/L (96-108); Creatinine Clr Calc Pharmacy 92.5; Estimated Glomerular Filt Rate > 60; Glucose Random 138 mg/dL (60-115); Magnesium 1.9 mg/dL (1.6-2.6); Potassium 3.9 mmol/L (3.3-5.1); Sodium 140 mmol/L (135-145); Total Protein 7.3 g/dL (6.5-8.0)
[2023-09-26 17:25] LABS: HCG Quantitative < 2 mIU/mL
[2023-09-26 17:35] LABS: Influenza A PCR NEGATIVE (Negative); Influenza B PCR NEGATIVE (Negative); Resp Syncy Virus RNA Qual PCR NEGATIVE (Negative); SARS COV2 PCR INHOUSE NEGATIVE (Negative)
[2023-09-26] MEDS: cephALEXin 500 MG CAPSULE PO (19:10)
[2023-09-26 19:22] VITALS: BP 128/80; PULSE 95; RESP 16; TEMP 36.9; O2SAT 99
== END 2023-09-26 19:23 | disposition home or self-care (01) ==
PROVIDERS: Physician Assistant Medical; Emergency Provider Internal Medicine; PCP Internal Medicine
DX: L02.212 Cutaneous abscess of back [any part, except buttock and flank] (principal); L73.2 Hidradenitis suppurativa
CPT/HCPCS: 0241U; 10060; 80053; 83735; 84702; 85025; 99282; 99283

== ENCOUNTER 2024-09-06 10:43 | Outpatient (REF) | payer MEDICAID, SELFPAY ==
[2024-09-06 13:08] LABS: MANUAL DIFF FLAG NO
[2024-09-06 13:34] LABS: Basophils Absolute Auto 0.1 X10*3/uL (0.0-0.2); Basophils Percent Auto 0.6 % (0-2); Eosinophils Absolute Auto 0.3 X10*3/uL (0.0-0.4); Eosinophils Percent Auto 2.3 % (0-4); Hematocrit 45.3 % (37.0-47.0); Hemoglobin 15.2 g/dl (12.0-16.0); Imm Gran Abs Auto 0.06 X10*3/uL (0.00-0.03); Imm Gran Pct Auto 0.5 % (0.0-0.4); Lymphocytes Absolute Auto 2.8 X10*3/uL (1.2-4.9); Lymphocytes Percent Auto 22.2 % (20-40); Mean Corpuscular HGB Conc 33.6 g/dl (31.0-35.0); Mean Corpuscular Hemoglobin 33.2 pg (27.0-33.0); Mean Corpuscular Volume 98.9 fL (80.0-98.0); Mean Platelet Volume 8.4 fL (9.4-12.3); Monocytes Absolute Auto 0.9 X10*3/uL (0.1-1.2); Monocytes Percent Auto 7.5 % (2-11); Neutrophils Absolute Auto 8.3 x10*3/uL (2.0-8.3); Neutrophils Percent Auto 66.9 % (45-73); Platelet Count 523 X10*3/uL (160-400); Red Blood Count 4.58 X10*6/uL (4.20-5.50); Red Cell Distribution Width 12.4 % (11.0-16.0); White Blood Count 12.4 X10*3/uL (4.8-10.8)
[2024-09-06 14:19] LABS: Alanine Aminotransferase 10 U/L (0-31); Albumin Level 4.3 g/dL (3.5-5.0); Alkaline Phosphatase 116 U/L (39-117); Anion Gap 11 (12-20); Aspartate Amino Transferase 26 U/L (5-31); Bilirubin Total 0.5 mg/dL (0.0-1.0); Blood Urea Nitrogen 11 mg/dL (9-16); Calcium 9.9 mg/dL (8.4-10.2); Carbon Dioxide 26 mmol/L (22-29); Chloride 107 mmol/L (96-108); Cholesterol 138 mg/dL (<200); Estimated Glomerular Filt Rate > 60; Glucose Random 88 mg/dL (60-115); HDL Cholesterol 34 mg/dL (>40); LDL Cholesterol Calculated 90 mg/dL (<100); Potassium 3.8 mmol/L (3.3-5.1); Sodium 140 mmol/L (135-145); Total Protein 7.8 g/dL (6.5-8.0); Triglycerides 73 mg/dL (<150)
== END 2024-09-06 10:44 | disposition home or self-care (01) ==
LOC: HO.HMGCLDS 10:43
PROVIDERS: PCP Internal Medicine; Visit Provider Internal Medicine
DX: Z00.01 Encounter for general adult medical examination with abnormal findings (principal); F43.12 Post-traumatic stress disorder, chronic; I10 Essential (primary) hypertension; L73.2 Hidradenitis suppurativa; M26.622 Arthralgia of left temporomandibular joint
CPT/HCPCS: 36415; 80053; 80061; 85025

== ENCOUNTER 2024-11-23 22:53 | Inpatient (IN) | payer MEDICAID, SELFPAY ==
--- NOTE | ~2024-11-23 | CT_ITS ---
CLINICAL HISTORY: left flank pain, UTI, h o kidney stones Exam: CT abdomen pelvis without intravenous contrast. Comparison: September 09, 2023. Findings: CT abdomen: Minor scarring or atelectasis within the lung bases without pleural effusion or focal infiltrate. No acute bony abnormality. Gallbladder is surgically absent. Continued hepatomegaly. No focal hepatic lesions seen on the unenhanced exam. Unenhanced spleen, pancreas, and adrenal glands are unremarkable for acute findings. Numerous small stones are seen within the left kidney. These measure up to 3 mm in size. No hydronephrosis or perinephric stranding. No left ureteral calculi. Unenhanced right kidney is unremarkable. Moderate ingested contents within the stomach. Mild small bowel wall thickening within the central abdomen and left midabdomen. No significant small bowel dilation. No free fluid or free air. CT pelvis: No bladder calculi. No focal areas of colonic wall thickening. Appendix is surgically absent. Vascular calcification of the abdominal aorta and iliac arteries. Uterus and adnexa are unremarkable for a noncontrast exam. Impression: Numerous nonobstructing left renal calculi. Mild small bowel wall thickening within the central abdomen and left midabdomen can be seen with mild enteritis. No findings of obstruction. This document has been electronically signed by: Romel Arias MD on 11/24/2024 01:54:29
[2024-11-23 22:57] VITALS: BP 117/76; PULSE 107; RESP 18; TEMP 36.8; O2SAT 97; BMI 29.0
[2024-11-23 23:22] LABS: Hematocrit 43.7 % (37.0-47.0); Hemoglobin 15.4 g/dl (12.0-16.0); Mean Corpuscular HGB Conc 35.2 g/dl (31.0-35.0); Mean Corpuscular Hemoglobin 33.8 pg (27.0-33.0); Mean Platelet Volume 8.7 fL (9.4-12.3); Platelet Count 356 X10*3/uL (160-400); Red Blood Count 4.55 X10*6/uL (4.20-5.50); Red Cell Distribution Width 12.7 % (11.0-16.0); White Blood Count 14.5 X10*3/uL (4.8-10.8)
[2024-11-23 23:24] LABS: Appearance Urine Cloudy; Color Urine Dark Yellow; Glucose Urine UA Negative (Negative); Leukocyte Esterase Urine Trace (Negative); Nitrite Urine Positive (Negative); PH 5.5 (5.0-9.0); Specific Gravity - Urine 1.025 (1.005-1.025); UMIC TRIGGER UACC YES; Urine Blood Large (3+) (Negative); Urine Ketones Trace mg/dL (Negative); Urine Protein 30 (1+) mg/dL (Neg-Trace)
[2024-11-23 23:26] LABS: UPreg QC Valid YES; Urine Pregnancy NEGATIVE (NEGATIVE)
[2024-11-23 23:34] LABS: Bacteria Urine 4+ (None Seen); Calcium Oxalate Crystals Urine Present; Epith (RTE) Cast Present; Hyaline Casts Urine >20 /LPF (0-2); UACC Culture Trigger YES; WBC Urine 21-50 /HPF (0-5)
[2024-11-23 23:39] LABS: Alanine Aminotransferase 12 U/L (0-31); Albumin Level 4.7 g/dL (3.5-5.0); Alkaline Phosphatase 125 U/L (39-117); Anion Gap 15 (12-20); Aspartate Amino Transferase 17 U/L (5-31); Bilirubin Total 0.4 mg/dL (0.0-1.0); Blood Urea Nitrogen 23 mg/dL (9-16); Calcium 9.2 mg/dL (8.4-10.2); Carbon Dioxide 20 mmol/L (22-29); Chloride 108 mmol/L (96-108); Creatinine Clr Calc Pharmacy 73.6; Estimated Glomerular Filt Rate 53; Glucose Random 96 mg/dL (60-115); Potassium 4.5 mmol/L (3.3-5.1); Sodium 138 mmol/L (135-145); Total Protein 7.8 g/dL (6.5-8.0)
--- NOTE | 2024-11-23 23:54 | ED_ITS ---
HPI - Female Genitourinary General Chief complaint: Urogenital-Female Stated complaint: KIDNEY STONES Time Seen by Provider: 11/23/24 23:54 Source: patient Mode of arrival: ambulatory Limitations: no limitations History of Present Illness ED Provider: HPI Narrative: Patient's history of recurrent kidney stones status post lithotripsy and stent placement in the past last 1 was about 2 years ago comes here for 1 week of urgency frequency and left flank pain radiating to the suprapubic area no fever had chills yesterday and slight nausea no vomiting no gross hematuria Related Data Previous Rx's ?Medication ?Instructions ?Recorded ketorolac 10 mg tablet 10 mg PO TID PRN pain 5 days #15 01/02/22 tabs phenazopyridine 200 mg tablet 200 mg PO TID PRN pain 6 doses #6 01/02/22 (Pyridium) tabs cefuroxime axetil 250 mg tablet 250 mg PO Q12H 5 days #10 tabs 09/10/23 morphine 15 mg immediate release 15 mg PO Q6H PRN pain #10 tabs 09/10/23 tablet ondansetron 4 mg disintegrating 4 mg PO Q6-8H PRN naus ea and 09/10/23 tablet vomiting #14 tabs phenazopyridine 200 mg tablet 200 mg PO TID PRN Burnin g with 09/10/23 (Pyridium) urination 3 days #9 tabs cephalexin 500 mg capsule 500 mg PO QID #28 caps 09/25 morphine 15 mg immediate release 15 mg PO Q8H PRN angella re pain 09/26/23 tablet (scale score 7-10) #6 tabs Allergies Allergy/AdvReac Type Severity Reaction Status Date / Time Iodinated Contrast Media Allergy Unknown Verified 11/23/24 23:01 (Contrast Dye) Penicillins (PCN) Allergy Unknown Verified 11/23/24 23:01 shellfish derived Allergy Unknown Verified 11/23/24 23:01 Sulfa (Sulfonamide Allergy Unknown Verified 11/23/24 23:01 Antibiotics) prednisone AdvReac Agitated Verified 11/23/24 23:01 tamsulosin (From Flomax) AdvReac Involuntary Verified 11/23/24 23:01 Spasms Review of Systems 2 Review of Systems: Yes all other systems are reviewed and are negative PMFSH Past Medical History Medical History Hidradenitis suppurativa Social History Social History Alcohol intake: never Patient Tobacco Use Status: Current everyday Tobacco user Smoked in Last 30 Days: Yes Use of substances other than those prescribed or required for medical reasons: Yes Substance Use Type: Marijuana Advance Directives: No Advance Directives Information Provided: Yes Nutrition Risks: No Nutritional Risk Patient : No Physical Exam 2 Vital Signs: Vital Signs: Last Vital Signs Temp 98.2 F 11/24/24 01:16 Pulse 66 11/24/24 01:16 Resp 18 11/24/24 01:16 BP 87/38 L 11/24/24 01:16 Pulse Ox 97 11/24/24 01:16 O2 Del Method Room Air 11/24/24 01:16 BMI result Body Mass Index 29.0 Appearance: Alert. Oriented X3. No acute distress. Eyes: PERRLA, No Nystagmus ENT: Pharynx normal. Oral Mucosa moist Neck: Normal inspection. Neck supple. CVS: Normal heart rate and rhythm. Pulses normal. Respiratory: No respiratory distress. Equal air entry bilateral, no wheezing/rales/rhonchi Abdomen: Soft and nontender. Bowel sounds are present, no mass palpable, L CVA tenderness Skin: Skin warm and dry. Normal skin color. Normal skin turgor. Extremities: No lower extremity edema. No calf tenderness Neuro: Oriented X 3. No motor deficit. Medications Administered Discontinued Medications Generic Name Dose Route Start Last Admin Trade Name Freq PRN Reason Stop Dose Admin Ceftriaxone Sodium 1 gm 11/24/24 00:11 11/24/24 00:40 Ceftriaxone Sodium 1 Gm Vial IVPUSH 11/24/24 00:12 1 gm ONCE ONE Administration Sodium Chloride 1,000 mls @ 999 mls/hr 11/24/24 00:11 11/24/24 00:40 Ns IV 11/24/24 01:11 999 mls/hr .Q1H1M ONE Administration Ketorolac Tromethamine 30 mg 11/24/24 00:11 11/24/24 00:41 Ketorolac Tromethamine 30 Mg/Ml Vial IVPUSH 11/24/24 00:12 30 mg ONCE ONE Administration Morphine Sulfate 4 mg 11/24/24 00:11 11/24/24 00:40 Morphine Sulfate 4 Mg/Ml Cartridge IVPUSH 11/24/24 00:12 4 mg ONCE ONE Administration Protocol Nicotine 14 mg 11/24/24 01:38 11/24/24 01:48 Nicotine 14 Mg Patch.Td24 TRANSDERMA 11/24/24 01:39 14 mg ONCE ONE Administration Ondansetron HCl 4 mg 11/24/24 00:11 11/24/24 00:41 Ondansetron Hcl 4 Mg/2 Ml Vial IVPUSH 11/24/24 00:12 4 mg ONCE ONE Administration Phenazopyridine HCl 100 mg 11/24/24 01:38 11/24/24 01:49 Phenazopyridine Hcl 100 Mg Tablet PO 11/24/24 01:39 100 mg ONCE ONE Administration Medical Decision Making Medical Decision Making [facility] Narrative: Patient with UTI with history of kidney stone with leukocytosis meeting the criteria for pyelonephritis no obstructive kidney stone were seen will admit patient for IV antibiotic treatment Differential Diagnosis Differential Diagnoses: The differential diagnosis associated with the presentation includes Pyelonephritis/kidney stone Admission/Observation Consideration of admission/observation: Escalation of care including admission/observation considered Consult Healthcare Provider Management of the patient was discussed with: Hospitalist Lab Data [facility] Lab Attestation statement: I reviewed the patient's lab results. 11/23/24 23:17 11/23/24 23:17 Labs: Lab Results 11/23/24 11/24/24 Range/Units 23:17 00:34 WBC 14.5 H (4.8-10.8) X10*3/uL RBC 4.55 (4.20-5.50) X10*6/uL Hgb 15.4 (12.0-16.0) g/dl Hct 43.7 (37.0-47.0) % MCV 96.0 (80.0-98.0) fL MCH 33.8 H (27.0-33.0) pg MCHC 35.2 H (31.0-35.0) g/dl RDW 12.7 (11.0-16.0) % Plt Count 356 D (160-400) X10*3/uL MPV 8.7 L (9.4-12.3) fL Absolute Nucleated RBC 0.000 (0.0-0.012) X10*3/uL Nucleated RBC % (auto) 0.0 (0.0-0.2) /100WBC Sodium 138 (135-145) mmol/L Potassium 4.5 (3.3-5.1) mmol/L Chloride 108 (96-108) mmol/L Carbon Dioxide 20 L (22-29) mmol/L Anion Gap 15 (12-20) BUN 23 H (9-16) mg/dL Creatinine 1.10 (0.5-1.4) mg/dL Estim Creat Clear Calc 73.6 Estimated GFR 53 Random Glucose 96 (60-115) mg/dL Lactic Acid 0.7 (0.5-2.0) mmol/L Calcium 9.2 D (8.4-10.2) mg/dL Total Bilirubin 0.4 (0.0-1.0) mg/dL AST 17 (5-31) U/L ALT 12 (0-31) U/L Alkaline Phosphatase 125 H (39-117) U/L Total Protein 7.8 (6.5-8.0) g/dL Albumin 4.7 (3.5-5.0) g/dL Urine Color Dark Yellow Urine Appearance Cloudy Urine pH 5.5 (5.0-9.0) Ur Specific [place] 1.025 (1.005-1.025) Urine Protein 30 (1+) H (Neg-Trace) mg/dL Urine Glucose (UA) Negative (Negative) mg/dL Urine Ketones Trace (Negative) mg/dL Urine Blood Large (3+) H (Negative) Urine Nitrite Positive H (Negative) Ur Leukocyte Esterase Trace H (Negative) Urine RBC 6-10 H (0-2) /HPF Urine WBC 21-50 H (0-5) /HPF Ur Squamous Epith Cells 11-20 (0-2) /HPF Calcium Oxalate Crystal Present Urine Bacteria 4+ (None Seen) Epithelial Casts Present Hyaline Casts >20 (0-2) /LPF Urine Test NEGATIVE (NEGATIVE) Independent Interpretation I performed an independent interpretation of an: CT Scan Radiology Impression Discussion of test interpretation with radiology: I have reviewed the radiologist's reading. Radiologist Impression: Numerous nonobstructing left renal calculi. Mild small bowel wall thickening within the central abdomen and left midabdomen can be seen with mild enteritis. No findings of obstruction. Discharge Plan Discharge Clinical Impression: Acute pyelonephritis, Kidney calculi Patient Disposition: Admitted As Inpatient Print Language: Iraqi
[2024-11-24] VITALS (19 sets, daily range): BP systolic 73–130; BP diastolic 38–70; PULSE 56–78; RESP 16–18; TEMP 36.4–36.8; O2SAT 96–98
--- NOTE | 2024-11-24 00:25 | PM.IMHP ---
History of Present Illness Date of Service: 11/24/24 Chief Complaint: Flank pain, urinary urgency This has a 49-year-old female with pertinent history of UTI, kidney stones, mood disorder, hidradenitis suppurativa who presents to the emergency department for evaluation of dysuria and left flank pain. Patient states her symptoms started 1 week prior to presentation. She has been having dysuria and increased urinary frequency. Also has been having left flank pain which intermittently radiates to the suprapubic area and is without any relieving factors. She reports nausea and episodes of chills 1 day prior to presentation. No documented fever. Does have a history of lithotripsy and stent placement in the past. Patient denies chest pain, palpitations, shortness of breath, changes in bowel habits. In the emergency department, patient was found to be septic and resuscitated with IV crystalloids and given IV antibiotics. Urine concerning for UTI. Review of Systems Constitutional: Constitutional: Reports fatigue and Reports malaise Cardiovascular: Cardiovascular: Reports no additional cardiovascular complaints Respiratory: Respiratory: Reports no additional respiratory complaints Gastrointestinal: Gastrointestinal: Reports nausea Genitourinary: Genitourinary: Reports dysuria, Reports flank pain and Reports urinary urgency Endocrine: Endocrine: Reports fatigue PMFSH Medical History Hidradenitis suppurativa Pertinent family history: No family history of early CAD Social History Alcohol intake: never Patient Tobacco Use Status: Current everyday Tobacco user Smoked in Last 30 Days: Yes Use of substances other than those prescribed or required for medical reasons: Yes Substance Use Type: Marijuana Advance Directives: No Advance Directives Information Provided: Yes Nutrition Risks: No Nutritional Risk Patient : No Meds Allergies Allergy/AdvReac Type Severity Reaction Status Date / Time Iodinated Contrast Media Allergy Unknown Verified 11/23/24 23:01 (Contrast Dye) Penicillins (PCN) Allergy Unknown Verified 11/23/24 23:01 shellfish derived Allergy Unknown Verified 11/23/24 23:01 Sulfa (Sulfonamide Allergy Unknown Verified 11/23/24 23:01 Antibiotics) prednisone AdvReac Agitated Verified 11/23/24 23:01 tamsulosin (From Flomax) AdvReac Involuntary Verified 11/23/24 23:01 Spasms Active Medications: Current Medications Sodium Chloride (Ns) 1,000 mls @ 999 mls/hr IV .Q1H1M ONE Stop: 11/24/24 01:11 Physical Exam Vital Signs and Narrative: Vital Signs: Last Vital Signs Temp 98.2 F 11/23/24 22:57 Pulse 107 H 11/23/24 22:57 Resp 18 11/23/24 22:57 BP 117/76 11/23/24 22:57 Pulse Ox 97 11/23/24 22:57 O2 Del Method Room Air 11/23/24 22:57 BMI result Body Mass Index 29.0 Middle-aged female lying in bed in mild distress Neck supple, no JVD Regular rate and rhythm, S1-S2 heard Regular breath sounds bilaterally, no wheezing or crackles appreciated Left-sided CVA tenderness present Patient is awake, alert and oriented to self, place, time and person ; no focal motor deficit Psych: Normal mood No pedal edema Results Labs 11/23/24 23:17 11/23/24 23:17 Labs: Laboratory Results - last 24 hr 11/23/24 23:17 MCV 96.0 MCH 33.8 H MCHC 35.2 H RDW 12.7 Plt Count 356 D MPV 8.7 L Absolute Nucleated RBC 0.000 Nucleated RBC % (auto) 0.0 Anion Gap 15 Estim Creat Clear Calc 73.6 Estimated GFR 53 Random Glucose 96 Calcium 9.2 D Total Bilirubin 0.4 AST 17 ALT 12 Alkaline Phosphatase 125 H Total Protein 7.8 Albumin 4.7 Urine Color Dark Yellow Urine Appearance Cloudy Urine pH 5.5 Ur Specific [place] 1.025 Urine Protein 30 (1+) H Urine Glucose (UA) Negative Urine Ketones Trace Urine Blood Large (3+) H Urine Nitrite Positive H Ur Leukocyte Esterase Trace H Urine RBC 6-10 H Urine WBC 21-50 H Ur Squamous Epith Cells 11-20 Calcium Oxalate Crystal Present Urine Bacteria 4+ Epithelial Casts Present Hyaline Casts >20 Urine Test NEGATIVE Assessment and Plan (1) Acute pyelonephritis: Status: Acute Plan This has a 49-year-old female with pertinent history of UTI, kidney stones, mood disorder, hidradenitis suppurativa who presents to the emergency department for evaluation of dysuria and left flank pain. #. Sepsis due to acute left-sided clinical pyelonephritis: Resuscitated with IV crystalloids. Lactic acid and blood culture obtained. Initiating IV ceftriaxone. Follow urine culture #. Mood disorder: Continue home mood stabilizers Med rec pending DVT prophylaxis: Ryan Full code Admit as inpatient and will require two night minimum hospital stay for IV antibiotics (as above), which is not possible in a lesser acute setting. Quality Stroke Does the patient have a stroke diagnosis?: No VTE Prior VTE?: No VTE Risk Level:: Medical - moderate - high VTE Device Contraindication: Treatment Not Indicated VTE Drug Contraindication: N/A - Med Ordered
[2024-11-24] MEDS: 0.9 % Sodium Chloride 1,000 ML 999 ML IV (00:40)
[2024-11-24] MEDS: cefTRIAXone sodium 1 GM VIAL IVPUSH ×2 (00:40→21:11)
[2024-11-24] MEDS: Morphine Sulfate 4 MG/ML CARTRIDGE IVPUSH (00:40)
[2024-11-24] MEDS: ondansetron HCL 4 MG/2 ML VIAL IVPUSH ×2 (00:41→05:17)
[2024-11-24] MEDS: Ketorolac Tromethamine 30 MG/ML VIAL IVPUSH ×2 (00:41→05:17)
[2024-11-24 00:55] LABS: Lactic Acid 0.7 mmol/L (0.5-2.0)
[2024-11-24] MEDS: Nicotine 14 MG PATCH.TD24 TRANSDERMA ×2 (01:48→21:27)
[2024-11-24] MEDS: Phenazopyridine HCL 100 MG TABLET PO (01:49)
--- NOTE | 2024-11-24 01:56 | PC.NURSE ---
pt's BP decreased to 87/38, then 73/44. Hospitalist aware, LR bolus ordered.
[2024-11-24 03:26] LABS: Lactic Acid 1.3 mmol/L (0.5-2.0)
--- NOTE | 2024-11-24 04:47 | PC.NURSE ---
pt ambulated to the bathroom, asymptomatic. pt report she vomited while there d/t abd pain from not eating. pt provided with snacks and drinks. MD chacon
--- NOTE | 2024-11-24 05:22 | PC.NURSE ---
pt went to the bathroom again after trying to eat, vomited. pt medicated per JUL for pain and nausea. BP was 130/70 while sitting up eating.
[2024-11-24] MEDS: Magnesium Hydrox/Alum Hydrox 30 ML ORAL.SUSP PO (06:06)
[2024-11-24] MEDS: Lidocaine HCl Viscous 2 % 15 ML SOLUTION MUCOUS MEM (06:06)
[2024-11-24 06:24] LABS: Basophils Absolute Auto 0.1 X10*3/uL (0.0-0.2); Basophils Percent Auto 0.5 % (0-2); Eosinophils Absolute Auto 0.3 X10*3/uL (0.0-0.4); Eosinophils Percent Auto 1.8 % (0-4); Hematocrit 37.4 % (37.0-47.0); Hemoglobin 13.2 g/dl (12.0-16.0); Imm Gran Abs Auto 0.05 X10*3/uL (0.00-0.03); Imm Gran Pct Auto 0.3 % (0.0-0.4); Lymphocytes Absolute Auto 2.6 X10*3/uL (1.2-4.9); Lymphocytes Percent Auto 17.4 % (20-40); MANUAL DIFF FLAG NO; Mean Corpuscular HGB Conc 35.3 g/dl (31.0-35.0); Mean Corpuscular Hemoglobin 34.1 pg (27.0-33.0); Mean Corpuscular Volume 96.6 fL (80.0-98.0); Mean Platelet Volume 8.8 fL (9.4-12.3); Monocytes Percent Auto 6.9 % (2-11); Neutrophils Absolute Auto 10.9 x10*3/uL (2.0-8.3); Neutrophils Percent Auto 73.1 % (45-73); Platelet Count 292 X10*3/uL (160-400); Red Blood Count 3.87 X10*6/uL (4.20-5.50); Red Cell Distribution Width 12.8 % (11.0-16.0)
--- NOTE | 2024-11-24 06:41 | PC.NURSE ---
pt reporting abd pain/ sick stomach is worse now than the flank pain. MD aware. BP 96/53. pt in trendelenburg position for duration of low BPs
--- NOTE | 2024-11-24 06:43 | PC.NURSE ---
admission note: pt present to ED for 1 week L flank pain, and urinary sx. hx kidney stones. ADMIT: L pyelonephritis and stones, UTI. pt was hypotensive last night, after morphine. 2600ml LR given but BP remained around 80s/40s. lactic 0.7. BP got up to 130/70 while sitting up eating, pt then vomited. Bp now soft again. pt c/o abd pain now, n/v while in ED. pt A/O x4, ambulates independently, calm and cooperative with care. 20g IV RAC and L forearm. nicotine patch to L shoulder
[2024-11-24 06:53] LABS: Anion Gap 12 (12-20); Blood Urea Nitrogen 20 mg/dL (9-16); Calcium 8.2 mg/dL (8.4-10.2); Carbon Dioxide 22 mmol/L (22-29); Chloride 110 mmol/L (96-108); Creatinine Clr Calc Pharmacy 110.9; Estimated Glomerular Filt Rate > 60; Glucose Random 92 mg/dL (60-115); Potassium 3.7 mmol/L (3.3-5.1); Sodium 140 mmol/L (135-145)
--- NOTE | 2024-11-24 06:58 | PC.NURSE ---
Accepted care of pt - Pt still nauseas. Pt VSS at this time. Pt a&o x4. NAD
[2024-11-24] MEDS: Pantoprazole Sodium 40 MG/10 ML VIAL IVPUSH (07:46)
--- NOTE | 2024-11-24 08:21 | PHA.MEDREC ---
Pharmacy Consult ? Medication Reconciliation Pharmacy has completed the medication reconciliation. Spoke with pt at bedside. Pt states she is on Clonazepam but this has not been filled since 12/06/23, but this was left on the med rec as it is PRN. Pt states she is not consistent with nicotine, this was left off the med rec.
[2024-11-24] MEDS: 0.9 % Sodium Chloride Flush 3 ML SYRINGE IVFLUSH ×2 (08:42→08:43)
[2024-11-24] MEDS: Lactated Ringers 1,000 ML 100 ML IVCONT ×2 (08:51→19:30)
--- NOTE | 2024-11-24 08:56 | MHC.CM.PN ---
CM met with Patient at bedside, in the ED. 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 Home/self care is Patient's goal; her car is here for transport to home and her Mother can transport, if needed. CM has initiated and will follow for dc planning. PCP is Dr. Ayse Pierce.
[2024-11-24] MEDS: oxyCODONE HCl Immed Release 5 MG TABLET PO ×3 (10:06→19:29)
[2024-11-24] MEDS: Nicotine Polacrilex 2 MG GUM BUCCAL ×4 (10:10→22:09)
--- NOTE | 2024-11-24 11:11 | HO.PM.IMPN ---
Subjective Subjective Date of Service: 11/24/24 Interval History: F/u sepsis, pyelonephritis Patient feeling better. Still having left-sided flank pain as well as suprapubic pain radiating to the groin. Denies nausea, vomiting, fever or chills No history of hypotension in the past Review of Systems Review of Systems: Yes all other systems are reviewed and are negative Physical Exam Vital Signs: Vital Signs: Last Vital Signs Temp 97.9 F 11/24/24 06:37 Pulse 78 11/24/24 09:26 Resp 18 11/24/24 09:26 BP 107/61 11/24/24 09:26 Pulse Ox 96 11/24/24 09:26 O2 Del Method Room Air 11/24/24 09:26 BMI result Body Mass Index 29.0 General: AOx3, no acute distress Resp: no respiratory distress GI: L CVAT Skin: Warm, dry Neuro: Cranial nerves II-XII grossly intact bilaterally. Motor grossly intact bilaterally Extremities: No LE edema Psych: Appropriate affect Objective Data Active Medications Acetaminophen (Acetaminophen 325 Mg Tablet) 650 mg PO Q6H PRN PRN Reason: Pain, Mild 1-3,fever,headache Calcium Carbonate (Calcium Carbonate 750 Mg Tab.Chew) 750 mg PO Q4H PRN PRN Reason: Heartburn Ceftriaxone Sodium (Ceftriaxone Sodium 1 Gm Vial) 1 gm IVPUSH Q24H [facility] Lactated Ringer's (Lr) 1,000 mls @ 100 mls/hr IVCONT .Q10H [facility] Last Admin: 11/24/24 08:51 Dose: 100 mls/hr Documented By: TEJ Magnesium Hydroxide (Milk Of Magnesia 30 Ml Oral.Susp) 30 ml PO DAILY PRN PRN Reason: Constipation Melatonin (Melatonin 3 Mg Tablet) 6 mg PO BEDTIME PRN PRN Reason: Insomnia Morphine Sulfate (Morphine Sulfate 2 Mg/Ml Cartridge) 2 mg IVPUSH Q4H PRN; Protocol PRN Reason: Pain, Severe (Pain Scale 7-10) Nicotine (Nicotine 14 Mg Patch.Td24) 14 mg TRANSDERMA DAILY [facility] Nicotine Polacrilex (Nicotine Polacrilex 2 Mg Gum) 2 mg BUCCAL Q1H PRN PRN Reason: Nicotine Cravings Last Admin: 11/24/24 10:10 Dose: 2 mg Documented By: TEJ Ondansetron HCl (Ondansetron Hcl 4 Mg/2 Ml Vial) 4 mg IVPUSH Q8H PRN PRN Reason: Nausea and Vomiting Last Admin: 11/24/24 05:17 Dose: 4 mg Documented By: WENDY Oxycodone HCl (Oxycodone Hcl Immed Release 5 Mg Tablet) 5 mg PO Q4H PRN PRN Reason: Pain, Moderate(Pain Scale 4-6) Last Admin: 11/24/24 10:06 Dose: 5 mg Documented By: TEJ Sodium Chloride (0.9 % Sodium Chloride Flush 3 Ml Syringe) 3 ml IVFLUSH [facility] Last Admin: 11/24/24 08:43 Dose: 3 ml Documented By: TEJ Labs 11/24/24 06:11 11/24/24 06:11 Labs: Laboratory Results - last 24 hr 11/23/24 11/24/24 11/24/24 23:17 00:34 03:04 MCV 96.0 MCH 33.8 H MCHC 35.2 H RDW 12.7 Plt Count 356 D MPV 8.7 L Immature Gran % (Auto) Neut % (Auto) Lymph % (Auto) [place] % (Auto) Eos % (Auto) Baso % (Auto) Lymph # (Auto) [place] # (Auto) Eos # (Auto) Baso # (Auto) Abs Immat Gran (auto) Absolute Neuts (auto) Absolute Nucleated RBC 0.000 Nucleated RBC % (auto) 0.0 Anion Gap 15 Estim Creat Clear Calc 73.6 Estimated GFR 53 Random Glucose 96 Lactic Acid 0.7 1.3 Calcium 9.2 D Total Bilirubin 0.4 AST 17 ALT 12 Alkaline Phosphatase 125 H Total Protein 7.8 Albumin 4.7 Urine Color Dark Yellow Urine Appearance Cloudy Urine pH 5.5 Ur Specific [place] 1.025 Urine Protein 30 (1+) H Urine Glucose (UA) Negative Urine Ketones Trace Urine Blood Large (3+) H Urine Nitrite Positive H Ur Leukocyte Esterase Trace H Urine RBC 6-10 H Urine WBC 21-50 H Ur Squamous Epith Cells 11-20 Calcium Oxalate Crystal Present Urine Bacteria 4+ Epithelial Casts Present Hyaline Casts >20 Urine Test NEGATIVE 11/24/24 06:11 MCV 96.6 MCH 34.1 H MCHC 35.3 H RDW 12.8 Plt Count 292 MPV 8.8 L Immature Gran % (Auto) 0.3 Neut % (Auto) 73.1 H Lymph % (Auto) 17.4 L [place] % (Auto) 6.9 Eos % (Auto) 1.8 Baso % (Auto) 0.5 Lymph # (Auto) 2.6 [place] # (Auto) 1.0 Eos # (Auto) 0.3 Baso # (Auto) 0.1 Abs Immat Gran (auto) 0.05 H Absolute Neuts (auto) 10.9 H Absolute Nucleated RBC 0.000 Nucleated RBC % (auto) 0.0 Anion Gap 12 Estim Creat Clear Calc 110.9 Estimated GFR > 60 Random Glucose 92 Lactic Acid Calcium 8.2 L D Total Bilirubin AST ALT Alkaline Phosphatase Total Protein Albumin Urine Color Urine Appearance Urine pH Ur Specific [place] Urine Protein Urine Glucose (UA) Urine Ketones Urine Blood Urine Nitrite Ur Leukocyte Esterase Urine RBC Urine WBC Ur Squamous Epith Cells Calcium Oxalate Crystal Urine Bacteria Epithelial Casts Hyaline Casts Urine Test Assessment and Plan (1) Sepsis: Status: Acute (2) Acute pyelonephritis: Status: Acute (3) Tobacco use: Status: Acute Plan 49-year-old female admitted for sepsis, acute left-sided pyelonephritis Sepsis due to acute left-sided clinical pyelonephritis - improving, no longer meets sepsis criteria - leukocytosis unchanged - blood pressure soft but stable - Continue LR 100ml/hr - lactic acid x2 negative - blood cultures pending - UA+, culture pending - continue ceftriaxone - monitor CBC and BMP Mood disorder - continue clonazepam p.r.n. tobacco use disorder - smoking cessation discussed - nicotine gum/patch DVT prophylaxis: Lovenox Full code Continued need for inpatient stay: Sepsis, pyelonephritis Quality Stroke Does the patient have a stroke diagnosis?: No VTE Prior VTE?: No VTE Risk Level:: Medical - moderate - high VTE Device Contraindication: Treatment Not Indicated VTE Drug Contraindication: N/A - Med Ordered
[2024-11-24] MEDS: Morphine Sulfate 2 MG/ML CARTRIDGE IVPUSH ×3 (11:41→22:09)
[2024-11-24] MEDS: Ketorolac Tromethamine 15 MG/ML VIAL IVPUSH (21:26)
--- NOTE | 2024-11-24 21:34 | PC.NURSE ---
pt was given her first nicotine patch in the er 11/24/24 at 0148 and she refused the patch that was orderd this morning.she took a shower this evening and the patch she had on fell off and was requesting her patch, so new nicotine patch applied for todays dose.
[2024-11-25] MEDS: Nicotine Polacrilex 2 MG GUM BUCCAL ×7 (01:07→23:23)
[2024-11-25] MEDS: oxyCODONE HCl Immed Release 5 MG TABLET PO ×5 (03:10→23:30)
[2024-11-25] MEDS: Lactated Ringers 1,000 ML 100 ML IVCONT ×2 (04:24→16:47)
[2024-11-25 06:10] VITALS: BP 103/54
[2024-11-25] MEDS: Morphine Sulfate 2 MG/ML CARTRIDGE IVPUSH ×4 (06:15→22:16)
[2024-11-25 06:20] LABS: Hematocrit 38.2 % (37.0-47.0); Mean Corpuscular Hemoglobin 33.2 pg (27.0-33.0); Mean Corpuscular Volume 97.4 fL (80.0-98.0); Mean Platelet Volume 8.8 fL (9.4-12.3); Platelet Count 297 X10*3/uL (160-400); Red Blood Count 3.92 X10*6/uL (4.20-5.50); Red Cell Distribution Width 12.6 % (11.0-16.0); White Blood Count 10.4 X10*3/uL (4.8-10.8)
[2024-11-25 06:46] LABS: Anion Gap 11 (12-20); Blood Urea Nitrogen 12 mg/dL (9-16); Calcium 8.1 mg/dL (8.4-10.2); Carbon Dioxide 23 mmol/L (22-29); Chloride 109 mmol/L (96-108); Creatinine Clr Calc Pharmacy 144.6; Estimated Glomerular Filt Rate > 60; Glucose Random 85 mg/dL (60-115); Potassium 3.8 mmol/L (3.3-5.1); Sodium 139 mmol/L (135-145)
[2024-11-25 07:16] VITALS: BP 111/54; PULSE 67; RESP 16; TEMP 36.4; O2SAT 97
[2024-11-25] MEDS: Multivitamin TABLET 1 TAB PO (08:10)
[2024-11-25] MEDS: ondansetron HCL 4 MG/2 ML VIAL IVPUSH (08:24)
[2024-11-25 11:15] VITALS: BP 115/59; PULSE 71; RESP 16; TEMP 36.2; O2SAT 96
--- NOTE | 2024-11-25 11:27 | P.PNIM_ITS ---
Subjective Subjective Date of Service: 11/25/24 Interval History: F/U for pt with UTI/ question of pyelonephritis/nephrolithiasis Pt continues to complain of significant left flank pain radiating to lower abdomen, pelvis, and down left leg Poorly controlled with current analgesic regimen Pt describes pain as sharp and stabbing Reports significant hx of nephrolithiasis requiring previous surgical intervention x3 No N/V, fever or chills; has been able to tolerate p.o. intake Review of Systems Negative except for that which is stated in the HPI Physical Exam 2 Vital Signs: Vital Signs: Last Vital Signs Temp 97.2 F 11/25/24 11:15 Pulse 71 11/25/24 11:15 Resp 16 11/25/24 11:15 BP 115/59 L 11/25/24 11:15 Pulse Ox 96 11/25/24 11:15 O2 Del Method Room Air 11/25/24 11:15 BMI result Body Mass Index 29.0 General: AOx3, no acute distress Resp: CTA bilaterally CVS: S1, S2, RRR GI: +BS, no distention, mild LLQ tenderness though overall relatively benign Back: mild left CVA tenderness Skin: Warm, dry Neuro: Cranial nerves II-XII grossly intact bilaterally. Motor grossly intact bilaterally Extremities: No edema Psych: Appropriate affect Objective Data Active Medications Acetaminophen (Acetaminophen 325 Mg Tablet) 650 mg PO Q6H PRN PRN Reason: Pain, Mild 1-3,fever,headache Calcium Carbonate (Calcium Carbonate 750 Mg Tab.Chew) 750 mg PO Q4H PRN PRN Reason: Heartburn Ceftriaxone Sodium (Ceftriaxone Sodium 1 Gm Vial) 1 gm IVPUSH Q24H [facility] Last Admin: 11/24/24 21:11 Dose: 1 gm Documented By: ANDERSON Clonazepam (Clonazepam 0.5 Mg Tablet) 0.5 mg PO DAILY PRN PRN Reason: severe anxiety or insomnia Enoxaparin Sodium (Enoxaparin Sodium 40 Mg/0.4 Ml Syringe) 40 mg SUBCUT Q24H [facility] Last Admin: 11/24/24 17:37 Dose: Not Given Documented By: TL Non-Admin Reason: Patient Refused Lactated Ringer's (Lr) 1,000 mls @ 100 mls/hr IVCONT .Q10H [facility] Last Infusion: 11/25/24 10:46 Dose: 0 mls/hr Documented By: TL Ibuprofen (Ibuprofen 400 Mg Tablet) 400 mg PO Q6H PRN PRN Reason: Pain, Mild (Pain Scale 1-3) Magnesium Hydroxide (Milk Of Magnesia 30 Ml Oral.Susp) 30 ml PO DAILY PRN PRN Reason: Constipation Melatonin (Melatonin 3 Mg Tablet) 6 mg PO BEDTIME PRN PRN Reason: Insomnia Morphine Sulfate (Morphine Sulfate 2 Mg/Ml Cartridge) 2 mg IVPUSH Q4H PRN; Protocol PRN Reason: Pain, Severe (Pain Scale 7-10) Last Admin: 11/25/24 11:18 Dose: 2 mg Documented By: TL Multivitamins/Vitamin C (Multivitamin Tablet) 1 tab PO DAILY [facility] Last Admin: 11/25/24 08:10 Dose: 1 tab Documented By: TL Nicotine (Nicotine 14 Mg Patch.Td24) 14 mg TRANSDERMA DAILY [facility] Last Admin: 11/25/24 08:12 Dose: Not Given Documented By: TL Non-Admin Reason: Previously Administered Nicotine Polacrilex (Nicotine Polacrilex 2 Mg Gum) 2 mg BUCCAL Q1H PRN PRN Reason: Nicotine Cravings Last Admin: 11/25/24 09:43 Dose: 2 mg Documented By: TL Ondansetron HCl (Ondansetron Hcl 4 Mg/2 Ml Vial) 4 mg IVPUSH Q8H PRN PRN Reason: Nausea and Vomiting Last Admin: 11/25/24 08:24 Dose: 4 mg Documented By: TL Oxycodone HCl (Oxycodone Hcl Immed Release 5 Mg Tablet) 5 mg PO Q4H PRN PRN Reason: Pain, Moderate(Pain Scale 4-6) Last Admin: 11/25/24 08:10 Dose: 5 mg Documented By: TL Sodium Chloride (0.9 % Sodium Chloride Flush 3 Ml Syringe) [address] [facility] Last Admin: 11/25/24 07:16 Dose: Not Given Documented By: TL Non-Admin Reason: IV Running Labs 11/25/24 05:34 11/25/24 05:34 Labs: Laboratory Results - last 24 hr 11/25/24 05:34 MCV 97.4 MCH 33.2 H MCHC 34.0 RDW 12.6 Plt Count 297 MPV 8.8 L Absolute Nucleated RBC 0.000 Nucleated RBC % (auto) 0.0 Anion Gap 11 L Estim Creat Clear Calc 144.6 Estimated GFR > 60 Random Glucose 85 Calcium 8.1 L Microbiology Microbiology Results: Microbiology 11/24/24 00:40 Blood Culture - Preliminary Blood - Venous No growth after 24 hours. 11/24/24 00:34 Blood Culture - Preliminary Blood - Venous No growth after 24 hours. Assessment and Plan (1) Left flank pain: Status: Acute Plan Pt is a 49-year-old female with pertinent history of UTI, kidney stones, mood disorder, and hidradenitis suppurativa who presents to the emergency department for evaluation of dysuria and left flank pain. Admitted for sepsis, acute left- sided pyelonephritis. Sepsis due to acute left-sided clinical pyelonephritis Improving, no longer meets sepsis criteria Initially met sepsis criteria with tachycardia and leukocytosis, hypotension; currently no meeting sepsis criteria Blood pressure soft but stable Continue LR 100ml/hr UA consistent with UTI, culture pending; CT without diagnostic pyelonephritis Continue ceftriaxone, day 3 Follow urine cultures Hx of nephrolithiasis CT showing numerous nonobstructing left renal calculi Pt with continued significant left flank pain Analgesics for pain management Urology consult Mood disorder Continue clonazepam p.r.n. Tobacco use disorder Smoking cessation discussed Nicotine gum/patch DVT prophylaxis: Lovenox Full code Continued need for inpatient stay: Sepsis, pyelonephritis Quality Stroke Does the patient have a stroke diagnosis?: No VTE Prior VTE?: No VTE Risk Level:: Medical - moderate - high VTE Device Contraindication: Treatment Not Indicated VTE Drug Contraindication: N/A - Med Ordered
--- NOTE | 2024-11-25 15:09 | MHC.CM.PN ---
PER MD ROUNDS PT NOT CLEARED FOR DC, UROLOGY CONSULT PENDING DCP: HOME VIA PRIVATE TRANSPORT
[2024-11-25] MEDS: Phenazopyridine HCL 100 MG TABLET PO (15:15)
[2024-11-25] MEDS: Ketorolac Tromethamine 15 MG/ML VIAL IVPUSH (15:15)
[2024-11-25 15:37] VITALS: BP 98/55; PULSE 60; RESP 18; TEMP 36.6; O2SAT 98
[2024-11-25 17:18] VITALS: BP 129/58
[2024-11-25 19:02] VITALS: BP 118/56; PULSE 60; RESP 18; TEMP 36.7; O2SAT 98
[2024-11-25] MEDS: cefTRIAXone sodium 1 GM VIAL IVPUSH (21:47)
[2024-11-25] MEDS: 0.9 % Sodium Chloride Flush 3 ML SYRINGE IVFLUSH (21:47)
[2024-11-26 03:06] VITALS: BP 117/55; PULSE 67; RESP 16; TEMP 36.8; O2SAT 93
[2024-11-26] MEDS: Lactated Ringers 1,000 ML 100 ML IVCONT (03:26)
[2024-11-26] MEDS: Nicotine Polacrilex 2 MG GUM BUCCAL ×4 (03:32→12:02)
[2024-11-26] MEDS: Morphine Sulfate 2 MG/ML CARTRIDGE IVPUSH ×2 (03:32→09:02)
[2024-11-26 03:35] VITALS: BP 127/70; PULSE 67; RESP 18; TEMP 36.3; O2SAT 100
[2024-11-26] MEDS: Ketorolac Tromethamine 15 MG/ML VIAL IVPUSH ×2 (04:22→10:29)
[2024-11-26] MEDS: Phenazopyridine HCL 100 MG TABLET PO (04:37)
[2024-11-26 05:37] VITALS: RESP 18
[2024-11-26 07:53] VITALS: BP 124/63; PULSE 58; RESP 16; TEMP 36.6; O2SAT 94
[2024-11-26] MEDS: Multivitamin TABLET 1 TAB PO (09:03)
[2024-11-26] MEDS: Nicotine 14 MG PATCH.TD24 TRANSDERMA (09:05)
[2024-11-26] MEDS: oxyCODONE HCl Immed Release 5 MG TABLET PO (10:43)
[2024-11-26] MEDS: clonazePAM 0.5 MG TABLET PO (11:50)
--- NOTE | 2024-11-26 11:55 | PM.UROCN ---
History of Present Illness Consult details Consult date: 11/26/24 Narrative: CC: Left Flank Pain 49-year-old female Prior medical history of UTI, kidney stones, mood disorder Presents with dysuria and left flank pain proximally 7 days Ongoing spasm UA positive nitrites WBC 15 Imaging - CT Numerous small stones are seen within the left kidney. These measure up to 3 mm in size. No hydronephrosis or perinephric stranding. No left ureteral calculi.Unenhanced right kidney is unremarkable.Moderate ingested contents within the stomach.Mild small bowel wall thickening within the central abdomen and left midabdomen. No significant small bowel dilation - images reviewed, proximally 4 small stones all peripheral Does use marijuana recreationally Reports unable to take Tylenol secondary to liver function elevation, unable to take Toradol due to undefined allergy, unable to take Flomax due to non tolerability. Suggest medications from other classes including Myrbetriq. Useful for bladder spasm. Treat UTI conservatively 5 days antibiotics GI spasm pain may represent cannabinoid induced gastrointestinal disorder Review of Systems Constitutional: Constitutional: Reports as per HPI and Reports no additional constitutional complaints Cardiovascular: Cardiovascular: Reports as per HPI and Reports no additional cardiovascular complaints Respiratory: Respiratory: Reports as per HPI and Reports no additional respiratory complaints Gastrointestinal: Gastrointestinal: Reports as per HPI and Reports no additional gastrointestinal complaints Genitourinary: Genitourinary: Reports as per HPI Musculoskeletal: Musculoskeletal: Reports no additional musculoskeletal complaints and Reports as per HPI Neurologic: Reports system reviewed and no additional complaints, except as documented and Reports as per HPI [facility]LY [facility] Past Medical History Medical History Hidradenitis suppurativa Social History Social History Household Members: Family Housing: House Do you presently have visiting nurse or other home services: No Alcohol intake: never Patient Tobacco Use Status: Current everyday Tobacco user Tobacco use type: Cigarette Cigarette Packs Per Day: 1 Cigarettes Per Day: 20.0 Substance Use Type: Marijuana service: No Meds Allergies Allergy/AdvReac Type Severity Reaction Status Date / Time Iodinated Contrast Media Allergy Unknown Verified 11/23/24 23:01 (Contrast Dye) Penicillins (PCN) Allergy Unknown Verified 11/23/24 23:01 shellfish derived Allergy Unknown Verified 11/23/24 23:01 Sulfa (Sulfonamide Allergy Unknown Verified 11/23/24 23:01 Antibiotics) prednisone AdvReac Agitated Verified 11/23/24 23:01 tamsulosin (From Flomax) AdvReac Involuntary Verified 11/23/24 23:01 Spasms tramadol AdvReac Agitated Verified 11/24/24 09:56 Active Medications: Current Medications Acetaminophen (Acetaminophen 325 Mg Tablet) 650 mg PO Q6H PRN PRN Reason: Pain, Mild 1-3,fever,headache Calcium Carbonate (Calcium Carbonate 750 Mg Tab.Chew) 750 mg PO Q4H PRN PRN Reason: Heartburn Ceftriaxone Sodium (Ceftriaxone Sodium 1 Gm Vial) 1 gm IVPUSH Q24H [facility] Last Admin: 11/25/24 21:47 Dose: 1 gm Clonazepam (Clonazepam 0.5 Mg Tablet) 0.5 mg PO DAILY PRN PRN Reason: severe anxiety or insomnia Last Admin: 11/26/24 11:50 Dose: 0.5 mg Enoxaparin Sodium (Enoxaparin Sodium 40 Mg/0.4 Ml Syringe) 40 mg SUBCUT Q24H [facility] Last Admin: 11/25/24 16:45 Dose: Not Given Ibuprofen (Ibuprofen 400 Mg Tablet) 400 mg PO Q6H PRN PRN Reason: Pain, Mild (Pain Scale 1-3) Ketorolac Tromethamine (Ketorolac Tromethamine 15 Mg/Ml Vial) 15 mg IVPUSH Q6H PRN PRN Reason: Pain, Moderate(Pain Scale 4-6) Last Admin: 11/26/24 10:29 Dose: 15 mg Magnesium Hydroxide (Milk Of Magnesia 30 Ml Oral.Susp) 30 ml PO DAILY PRN PRN Reason: Constipation Melatonin (Melatonin 3 Mg Tablet) 6 mg PO BEDTIME PRN PRN Reason: Insomnia Morphine Sulfate (Morphine Sulfate 2 Mg/Ml Cartridge) 2 mg IVPUSH Q4H PRN; Protocol PRN Reason: Pain, Severe (Pain Scale 7-10) Last Admin: 11/26/24 09:02 Dose: 2 mg Multivitamins/Vitamin C (Multivitamin Tablet) 1 tab PO DAILY [facility] Last Admin: 11/26/24 09:03 Dose: 1 tab Nicotine (Nicotine 14 Mg Patch.Td24) 14 mg TRANSDERMA DAILY [facility] Last Admin: 11/26/24 09:05 Dose: 14 mg Nicotine Polacrilex (Nicotine Polacrilex 2 Mg Gum) 2 mg BUCCAL Q1H PRN PRN Reason: Nicotine Cravings Last Admin: 11/26/24 10:43 Dose: 2 mg Ondansetron HCl (Ondansetron Hcl 4 Mg/2 Ml Vial) 4 mg IVPUSH Q8H PRN PRN Reason: Nausea and Vomiting Last Admin: 11/25/24 08:24 Dose: 4 mg Oxycodone HCl (Oxycodone Hcl Immed Release 5 Mg Tablet) 5 mg PO Q4H PRN PRN Reason: Pain, Moderate(Pain Scale 4-6) Last Admin: 11/26/24 10:43 Dose: 5 mg Phenazopyridine HCl (Phenazopyridine Hcl 100 Mg Tablet) 100 mg PO TIDWM PRN PRN Reason: Urinary discomfort Stop: 11/27/24 14:17 Last Admin: 11/26/24 04:37 Dose: 100 mg Sodium Chloride (0.9 % Sodium Chloride Flush 3 Ml Syringe) 3 ml IVFLUSH [facility] Last Admin: 11/26/24 10:14 Dose: Not Given Home Medications ?Medication ?Instructions ?Recorded ?Confirmed ?Last Taken ?Type clonazepam 0.5 mg tablet 0.25 - 0.5 mg PO DAILY PRN severe 11/24/24 11/24/24 Unknown History anxiety or insomnia multivitamin 1 tab PO DAILY 11/24/24 11/24/24 2 Days Ago History ~11/22/24 Physical Exam Vital Signs: Vital Signs: Last Vital Signs Temp 98 F 11/26/24 07:53 Pulse 58 11/26/24 07:53 Resp 16 11/26/24 07:53 BP 124/63 11/26/24 07:53 Pulse Ox 94 11/26/24 07:53 O2 Del Method Room Air 11/26/24 07:53 BMI result Body Mass Index 29.0 Const: General: cooperative, healthy appearing, comfortable and no acute distress Orientation/consciousness: patient oriented x3 HEENT: Face and sinus: Yes normal facial exam Mouth: moist mucous membranes Neck: Neck: Yes normal visual inspection, Yes full ROM and Yes trachea midline Chest: Chest palpation & inspection: normal inspection of the chest Resp: Effort & Inspection: normal respiratory effort, able to speak in complete sentences and no respiratory distress GI: Inspection: Yes normal to inspection Back/Spine/Pelvis: Cervical Spine: normal cervical lordosis Thoracic/Lumbar Spine: thoracic and lumbar spine normal to inspection Skin: General skin exam: no rashes or lesions noted Neuro: General: patient oriented x3, tone normal and moves all extremities Extrem: General: Yes normal to inspection and Yes capillary refill normal Results Labs 11/25/24 05:34 11/25/24 05:34 Labs: Urine 11/23/24 Range/Units 23:17 Urine Color Dark Yellow Urine Appearance Cloudy Urine pH 5.5 (5.0-9.0) Ur Specific [place] 1.025 (1.005-1.025) Urine Protein 30 (1+) H (Neg-Trace) mg/dL Urine Glucose (UA) Negative (Negative) mg/dL Urine Test NEGATIVE (NEGATIVE) All other labs normal. Assessment and Plan (1) Kidney calculi: Status: Acute (2) Left flank pain: Status: Acute (3) Acute pyelonephritis: Status: Acute Plan Will require 7-10 days total antibiotics Procedures Date of Service Date of Service: 11/26/24
--- NOTE | 2024-11-26 12:14 | PM.DS ---
DS: Providers Provider Date of Service: 11/26/24 Date of admission: 11/24/24 00:24 Date of discharge: 11/26/24 Primary care physician: Ayse Pierce MD Consults: 11/25/24 09:12 Consult to Urology Routine Consulting Provider: [facility] Reason for consultation: Continue left flank pain, hx of stones DS: Diagnosis Discharge Diagnosis (1) Kidney calculi: Status: Acute (2) Left flank pain: Status: Acute (3) Acute pyelonephritis: Status: Acute DS: Summary Hospital Course Hospital Course: From the history and physical by the admitting hospitalist, David Herron MD, 11/24/24: This has a 49-year-old female with pertinent history of UTI, kidney stones, mood disorder, hidradenitis suppurativa who presents to the emergency department for evaluation of dysuria and left flank pain. Patient states her symptoms started 1 week prior to presentation. She has been having dysuria and increased urinary frequency. Also has been having left flank pain which intermittently radiates to the suprapubic area and is without any relieving factors. She reports nausea and episodes of chills 1 day prior to presentation. No documented fever. Does have a history of lithotripsy and stent placement in the past. Patient denies chest pain, palpitations, shortness of breath, changes in bowel habits. In the emergency department, patient was found to be septic and resuscitated with IV crystalloids and given IV antibiotics. Urine concerning for UTI. She was admitted to the medical-surgical unit and given IV fluid hydration and 3 days of IV ceftriaxone. Pain was treated with IV ketorolac, oxycodone, and IV morphine. Blood and urine cultures ultimately were negative. She was found to have nonobstructing L renal calculi on CT. Leukocytosis was likely reactive and tachycardia from pain from nephrolithiasis. She was discharged home and referred to [facility] as an outpatient. She was prescribed ibuprofen and oxycodone for pain control. She was prescribed NRT for smoking cessation. Time Attestation Discharge Coordination Time (in mins): 35 Quality: Safe Use of Opioids Does Pt have an Active Cancer Diagnosis on the Problem List?: No Quality: Stroke Does the patient have a stroke diagnosis?: No Physical Exam Vital Signs: Vital Signs: Last Vital Signs Temp 98 F 11/26/24 07:53 Pulse 58 11/26/24 07:53 Resp 16 11/26/24 07:53 BP 124/63 11/26/24 07:53 Pulse Ox 94 11/26/24 07:53 O2 Del Method Room Air 11/26/24 07:53 BMI result Body Mass Index 29.0 Gen: in no acute distress HEENT: sclera anicteric, moist mucus membranes Neck: supple Lungs: clear to auscultation bilaterally Heart: regular rate and rhythm, no murmurs Abd: soft, non-tender, non-distended Ext: no edema Skin: warm/well-perfused Neuro: alert and oriented x3, no focal findings Psych: appropriate affect DS: Data Data Completed and Pending Completed studies during hospitalization [Text1]: Laboratory Results WBC 10.4 X10*3/uL (4.8-10.8) 11/25/24 05:34 RBC 3.92 X10*6/uL (4.20-5.50) L 11/25/24 05:34 Hgb 13.0 g/dl (12.0-16.0) 11/25/24 05:34 Hct 38.2 % (37.0-47.0) 11/25/24 05:34 MCV 97.4 fL (80.0-98.0) 11/25/24 05:34 MCH 33.2 pg (27.0-33.0) H 11/25/24 05:34 MCHC 34.0 g/dl (31.0-35.0) 11/25/24 05:34 RDW 12.6 % (11.0-16.0) 11/25/24 05:34 Plt Count 297 X10*3/uL (160-400) 11/25/24 05:34 MPV 8.8 fL (9.4-12.3) L 11/25/24 05:34 Immature Gran % (Auto) 0.3 % (0.0-0.4) 11/24/24 06:11 Neut % (Auto) 73.1 % (45-73) H 11/24/24 06:11 Lymph % (Auto) 17.4 % (20-40) L 11/24/24 06:11 [place] % (Auto) 6.9 % (2-11) 11/24/24 06:11 Eos % (Auto) 1.8 % (0-4) 11/24/24 06:11 Baso % (Auto) 0.5 % (0-2) 11/24/24 06:11 Lymph # (Auto) 2.6 X10*3/uL (1.2-4.9) 11/24/24 06:11 [place] # (Auto) 1.0 X10*3/uL (0.1-1.2) 11/24/24 06:11 Eos # (Auto) 0.3 X10*3/uL (0.0-0.4) 11/24/24 06:11 Baso # (Auto) 0.1 X10*3/uL (0.0-0.2) 11/24/24 06:11 Abs Immat Gran (auto) 0.05 X10*3/uL (0.00-0.03) H 11/24/24 06:11 Absolute Neuts (auto) 10.9 x10*3/uL (2.0-8.3) H 11/24/24 06:11 Absolute Nucleated RBC 0.000 X10*3/uL (0.0-0.012) 11/25/24 05:34 Nucleated RBC % (auto) 0.0 /100WBC (0.0-0.2) 11/25/24 05:34 Sodium 139 mmol/L (135-145) 11/25/24 05:34 Potassium 3.8 mmol/L (3.3-5.1) 11/25/24 05:34 Chloride 109 mmol/L (96-108) H 11/25/24 05:34 Carbon Dioxide 23 mmol/L (22-29) 11/25/24 05:34 Anion Gap 11 (12-20) L 11/25/24 05:34 BUN 12 mg/dL (9-16) 11/25/24 05:34 Creatinine 0.56 mg/dL (0.5-1.4) 11/25/24 05:34 Estim Creat Clear Calc 144.6 11/25/24 05:34 Estimated GFR > 60 11/25/24 05:34 Random Glucose 85 mg/dL (60-115) 11/25/24 05:34 Lactic Acid 1.3 mmol/L (0.5-2.0) 11/24/24 03:04 Calcium 8.1 mg/dL (8.4-10.2) L 11/25/24 05:34 Total Bilirubin 0.4 mg/dL (0.0-1.0) 11/23/24 23:17 AST 17 U/L (5-31) 11/23/24 23:17 ALT 12 U/L (0-31) 11/23/24 23:17 Alkaline Phosphatase 125 U/L (39-117) H 11/23/24 23:17 Total Protein 7.8 g/dL (6.5-8.0) 11/23/24 23:17 Albumin 4.7 g/dL (3.5-5.0) 11/23/24 23:17 Urine Color Dark Yellow 11/23/24 23:17 Urine Appearance Cloudy 11/23/24 23:17 Urine pH 5.5 (5.0-9.0) 11/23/24 23:17 Ur Specific [place] 1.025 (1.005-1.025) 11/23/24 23:17 Urine Protein 30 (1+) mg/dL (Neg-Trace) H 11/23/24 23:17 Urine Glucose (UA) Negative mg/dL (Negative) 11/23/24 23:17 Urine Ketones Trace mg/dL (Negative) 11/23/24 23:17 Urine Blood Large (3+) (Negative) H 11/23/24 23:17 Urine Nitrite Positive (Negative) H 11/23/24 23:17 Ur Leukocyte Esterase Trace (Negative) H 11/23/24 23:17 Urine RBC 6-10 /HPF (0-2) H 11/23/24 23:17 Urine WBC 21-50 /HPF (0-5) H 11/23/24 23:17 Ur Squamous Epith Cells 11-20 /HPF (0-2) 11/23/24 23:17 Calcium Oxalate Crystal Present 11/23/24 23:17 Urine Bacteria 4+ (None Seen) 11/23/24 23:17 Epithelial Casts Present 11/23/24 23:17 Hyaline Casts >20 /LPF (0-2) 11/23/24 23:17 Urine Test NEGATIVE (NEGATIVE) 11/23/24 23:17 CT A/P 11/24/24 Numerous nonobstructing left renal calculi. Mild small bowel wall thickening within the central abdomen and left midabdomen can be seen with mild enteritis. No findings of obstruction. Discharge Plan Discharge Anticipated Discharge Date/Time: 11/26/24 12:02 Patient Disposition: Home, Self-Care Discharge Diagnosis: flank pain, non-obstructing kidney stones Referrals: [facility] [Provider Group, Urology] - 2 Weeks Ayse Pierce MD [Primary Care Provider, Internal Medicine] - 1 Week Discharge Medications: New nicotine 14 mg/24 hr Patch 24 Hour 14 mg transdermal DAILY Qty: 30 0RF nicotine (polacrilex) 2 mg Gum 2 mg buccal Q1H PRN (Reason: Nicotine Cravings) Qty: 100 0RF ibuprofen 400 mg Tablet 400 mg PO Q6H PRN (Reason: pain, mild-mod) Qty: 30 0RF oxycodone 5 mg Tablet 5 mg PO Q6H PRN (Reason: pain, severe) Qty: 12 0RF Rx Instructions: Partial Fill upon patient request. Continued multivitamin Tablet 1 tab PO DAILY clonazepam 0.5 mg tablet 0.25 - 0.5 mg PO DAILY PRN (Reason: severe anxiety or insomnia) Discharge Orders: Discharge Order (Routine); Ordered 11/26/24 Ordered By: Greer Mays Diet: Advance to usual diet Activity on Discharge: As tolerated Stand Alone Forms: Patient Portal Discharge page Print Language: Vietnamese Care Plan Goals: resolution of flank pain Health Concerns: flank pain, non-obstructing kidney stones Plan of Treatment: drink plenty of fluids take ibuprofen for mild-moderate pain, oxycodone for severe pain outpatient Urology referral Please follow up with your primary care doctor within 1 week. Return to the hospital if you experience recurrent or worsening symptoms. Assessment: See Discharge Summary. Discharge Date/Time: 11/26/24 13:40
--- NOTE | 2024-11-26 12:21 | MHC.CM.PN ---
Patient medically cleared for dc home self care via private transport.
== END 2024-11-26 13:40 | disposition home or self-care (01) | DRG 720 ==
LOC: HO.ED 11-24 01:54 → HO.EDOVER 11-24 03:02 → HO.S3 11-24 11:27
PROVIDERS: Physician Assistant; Admitting Provider Student in an Organized Health Care Education/Training Program; Emergency Provider Internal Medicine; PCP Internal Medicine; Visit Provider Family Medicine
DX: A41.9 Sepsis, unspecified organism (principal); F17.210 Nicotine dependence, cigarettes, uncomplicated; N20.0 Calculus of kidney; N10 Acute pyelonephritis; F39 Unspecified mood [affective] disorder; Z71.6 Tobacco abuse counseling; Z87.442 Personal history of urinary calculi; Z79.899 Other long term (current) drug therapy
CPT/HCPCS: 36415; 74176; 80048; 80053; 81001; 81025; 83605; 85025; 85027; 87040; 87086; 99285; J0696; J1885; J2270; J2405; J2470; J7120

== ENCOUNTER → 2024-11-24 00:24 | Outpatient (BNV) | payer MEDICAID, SELFPAY | PROVIDERS: Admitting Provider Student in an Organized Health Care Education/Training Program; Emergency Provider Internal Medicine; PCP Internal Medicine; Visit Provider Urology | DX: N20.0 Calculus of kidney (principal); R10.9 Unspecified abdominal pain; N10 Acute pyelonephritis | CPT/HCPCS: 99222 ==

== ENCOUNTER → 2024-11-24 00:24 | Outpatient (BNV) | payer MEDICAID, SELFPAY | PROVIDERS: Admitting Provider Student in an Organized Health Care Education/Training Program; Emergency Provider Internal Medicine; PCP Internal Medicine; Visit Provider Student in an Organized Health Care Education/Training Program | DX: N20.0 Calculus of kidney (principal); R10.9 Unspecified abdominal pain; N10 Acute pyelonephritis | CPT/HCPCS: 99233; 99239 ==

== ENCOUNTER → 2024-11-24 23:16 | Outpatient (BNV) | payer MEDICAID, SELFPAY | PROVIDERS: Emergency Provider Internal Medicine; PCP Internal Medicine; Visit Provider Radiology Diagnostic Radiology | DX: N20.0 Calculus of kidney (principal) | CPT/HCPCS: 74176 ==

== ENCOUNTER 2024-12-05 23:01 | Emergency (ER) | payer MEDICAID, SELFPAY ==
--- NOTE | ~2024-12-05 | CT_ITS ---
EXAMINATION: CT ABDOMEN PELVIS WITHOUT IV CONTRAST HISTORY: L flank pain, hematuria COMPARISON: Comparison is made with the prior examination dated 11/24/2024. TECHNIQUE: CT scan of the abdomen and pelvis was performed without contrast using standard departmental protocol. Coronal and sagittal reformatted images were generated and reviewed. Oral contrast material was not administered per department protocol. This CT exam was performed with one or more of the following dose reduction techniques: automated exposure control, adjustment of the mA and/or kV according to patient size, use of iterative reconstruction technique. DLP: 499 mGy-cm FINDINGS: LOWER CHEST: The visualized lung bases are clear. There is no pleural effusion. CARDIOVASCULATURE: The heart is normal in size. There is no pericardial effusion. LIVER: The liver is normal in size and contour. The liver has an unremarkable unenhanced appearance. GALLBLADDER / BILE DUCTS: The gallbladder is surgically absent. There is no intra or extrahepatic biliary ductal dilatation. SPLEEN: The spleen is normal in size and has an unremarkable unenhanced appearance. PANCREAS: The pancreas has an unremarkable unenhanced appearance. ADRENAL GLANDS: Unremarkable. KIDNEYS/RETROPERITONEUM: No right renal calculi are identified. There are multiple nonobstructing left renal calculi measuring up to 3 mm in size. There is no hydronephrosis or hydroureter. No ureteral calculi are identified. LYMPH NODES: No retroperitoneal lymphadenopathy is identified in the abdomen or pelvis. VASCULATURE: The abdominal aorta demonstrates atherosclerotic calcification, but is normal in caliber. MESENTERY/PERITONEUM: No free fluid. No masses. There is no free intraperitoneal gas. STOMACH: The stomach is collapsed, limiting evaluation. SMALL BOWEL: The small bowel is normal in caliber. COLON: There are scattered diverticula of the sigmoid colon, without evidence of diverticulitis. APPENDIX: The appendix is surgically absent. URINARY BLADDER/PELVIC ORGANS: The urinary bladder is collapsed, limiting evaluation. The uterus has an unremarkable unenhanced appearance. BONES / SOFT TISSUES: No suspicious bony or soft tissue abnormalities. CT/CT abdomen pelvis wo IV con IMPRESSION: Left nephrolithiasis as described, without evidence of ureteral obstruction. Electronically signed by: Sung Mendoza MD 12/06/2024 08:11 AM EDT
--- NOTE | ~2024-12-05 | US_ITS ---
EXAMINATION: US PELVIS TRANSABDOMINAL AND TRANSVAGINAL HISTORY: severe lower pelvic pain COMPARISON: Correlation is made with a CT of the abdomen and pelvis without contrast dated 12/06/2024. TECHNIQUE: Transabdominal and endovaginal real-time 2D rodarte-scale ultrasound was performed. FINDINGS: Uterus: The uterus is normal in size, measuring 9.4 x 3.9 x 5.8 cm. Myometrium has a normal echotexture. There is a fundal fibroid measuring 3.0 x 1.9 x 2.9 cm. Endometrium: The endometrial stripe measures 8 mm in thickness. There are nabothian cysts in the cervix. Right ovary: The right ovary measures 3.6 x 2.4 x 2.9 cm. There is a 2.1 x 1.5 x 2.2 cm simple cyst and a 1.8 x 1.6 x 2.0 cm complex cyst demonstrating low level internal echoes and a septation. Left ovary: The left ovary is surgically absent. Pelvic fluid: none. US/US pelvic and transvaginal IMPRESSION: 1. 3.0 x 1.9 x 2.9 cm fundal fibroid. 2. Multiple right ovarian cysts, one of which is complex, as described. A follow-up examination in 6 weeks, at a different time in the patient's menstrual cycle, is recommended to document resolution. Electronically signed by: Sung Mendoza MD 12/06/2024 10:19 AM [facility]MAN[facility]EL
[2024-12-05 23:16] VITALS: BP 128/70; PULSE 101; RESP 20; TEMP 36.3; O2SAT 97; BMI 26.7
[2024-12-05 23:40] LABS: Appearance Urine Cloudy; Glucose Urine UA Negative (Negative); Hematocrit 41.6 % (37.0-47.0); Hemoglobin 14.6 g/dl (12.0-16.0); Imm Gran Abs Auto 0.06 X10*3/uL (0.00-0.03); Imm Gran Pct Auto 0.4 % (0.0-0.4); Lymphocytes Absolute Auto 4.8 X10*3/uL (1.2-4.9); MANUAL DIFF FLAG NO; Mean Corpuscular HGB Conc 35.1 g/dl (31.0-35.0); Mean Corpuscular Hemoglobin 33.6 pg (27.0-33.0); Mean Corpuscular Volume 95.6 fL (80.0-98.0); NRBC Abs Auto 0.000 X10*3/uL (0.0-0.012); NRBC Pct Auto 0.0 /100WBC (0.0-0.2); PH 5.5 (5.0-9.0); PLT CLUMP 1; Red Blood Count 4.35 X10*6/uL (4.20-5.50); SCAN SMEAR FLAG 1; Specific Gravity - Urine 1.025 (1.005-1.025); UMIC TRIGGER UACC YES; White Blood Count 16.1 X10*3/uL (4.8-10.8)
[2024-12-05 23:52] LABS: UACC Culture Trigger YES
[2024-12-05 23:57] LABS: Platelet Count 410 X10*3/uL (160-400)
[2024-12-05 23:58] LABS: Alanine Aminotransferase 11 U/L (0-31); Albumin Level 4.2 g/dL (3.5-5.0); Alkaline Phosphatase 97 U/L (39-117); Anion Gap 14 (12-20); Aspartate Amino Transferase 21 U/L (5-31); Blood Urea Nitrogen 16 mg/dL (9-16); Calcium 8.9 mg/dL (8.4-10.2); Carbon Dioxide 18 mmol/L (22-29); Chloride 111 mmol/L (96-108); Creatinine Clr Calc Pharmacy 95.6; Estimated Glomerular Filt Rate > 60; Potassium 3.8 mmol/L (3.3-5.1); Sodium 139 mmol/L (135-145); Total Protein 7.2 g/dL (6.5-8.0)
[2024-12-06 06:25] VITALS: BP 116/70; PULSE 75; RESP 14; TEMP 36.3; O2SAT 99
--- NOTE | 2024-12-06 06:30 | ED.FEMALEGU ---
HPI - Female Genitourinary General Chief complaint: Urogenital-Female Stated complaint: Flank pain/Lower abdominal pain Time Seen by Provider: 12/06/24 06:25 Source: patient and old records reviewed Mode of arrival: ambulatory Limitations: no limitations History of Present Illness ED Provider: MICHAEL SOLIS Narrative: 49 yo female with PMH of renal colic, endometriosis s/p CT scan October 2024 with left renal calculi s/p admission on November 04 -11/26 for pyelo though urine negative she continues to have the pain and did not take her oxycodone as she didn't want to mask it. She c/o pelvic pain down into both legs along with urethra pain and feeling pressure. NO concern for STI not sexually active. She is frustrated as she is not feeling better. She has urinary symptoms and nausea but no fever MD elicited complaint: dysuria, pelvic pain and flank pain Onset (ago): day(s) (14 days but much worse over past 5 days) Location of symptoms: suprapubic Severity: moderate Consistency: constant Vaginal discharge: none Vaginal bleeding: none Urinary symptoms: Dysuria and Urgency Exacerbating factors: movement and palpation Relieving factors: none Associated symptoms: nausea Treatment prior to arrival: none Sexual activity: No Related Data Home Medications ?Medication ?Instructions ?Recorded ?Confirmed clonazepam 0.5 mg tablet 0.25 - 0.5 mg PO DAILY PRN severe 11/24/24 11/24/24 anxiety or insomnia multivitamin 1 tab PO DAILY 11/24/24 11/24/24 Previous Rx's ?Medication ?Instructions ?Recorded ibuprofen 400 mg tablet 400 mg PO Q6H PRN pain, mild-mod 11/26/24 #30 tabs nicotine (polacrilex) 2 mg gum 2 mg buccal Q1H PRN Nicotine 11/26/24 Cravings #100 ea nicotine 14 mg/24 hr daily 14 mg transdermal DAILY #30 ea 11/26/24 transdermal patch oxycodone 5 mg tablet 5 mg PO Q6H PRN pain, severe #12 11/26/24 tabs Allergies Allergy/AdvReac Type Severity Reaction Status Date / Time Iodinated Contrast Media Allergy Unknown Verified 12/05/24 23:19 (Contrast Dye) Penicillins (PCN) Allergy Unknown Verified 12/05/24 23:19 shellfish derived Allergy Unknown Verified 12/05/24 23:19 Sulfa (Sulfonamide Allergy Unknown Verified 12/05/24 23:19 Antibiotics) prednisone AdvReac Agitated Verified 12/05/24 23:19 tamsulosin (From Flomax) AdvReac Involuntary Verified 12/05/24 23:19 Spasms tramadol AdvReac Agitated Verified 12/05/24 23:19 Review of Systems Review of Systems: Constitutional : No Fever, No Chills ENT/Mouth : No sore throat Eyes: No Eye Pain, No Swelling, No Redness Cardiovascular : No Chest Pain, No SOB Respiratory : No Cough, No Sputum, No Wheezing Gastrointestinal : positive Nausea, no Vomiting, No Diarrhea, positive abdominal pain Genitourinary : positive Dysuria, positive urinary frequency, no Hematuria, positive Flank Pain Musculoskeletal : No joint pain, No Myalgias Skin : No Skin Lesions, No rash Neuro : No Weakness, No Numbness, No Headache Psych : No Anxiety/Panic, No Depression All other systems reviewed and are negative [facility] Past Medical History Attestation statement: The following information was validated with the patient. Source: old records reviewed Medical History Kidney calculi Hidradenitis suppurativa Social History Social History Household Members: Family Housing: House Do you presently have visiting nurse or other home services: No Alcohol intake: never Patient Tobacco Use Status: Current everyday Tobacco user Tobacco use type: Cigarette Cigarette Packs Per Day: 1 Cigarettes Per Day: 20.0 Smoked in Last 30 Days: No Use of substances other than those prescribed or required for medical reasons: No Substance Use Type: Marijuana Advance Directives: No Advance Directives Information Provided: Yes Do you have a plan to hurt others: No Plan Patient : No service: No Physical Exam Vital Signs: Vital Signs: Last Vital Signs Temp 97.6 F 12/06/24 10:28 Pulse 60 12/06/24 10:28 Resp 12 12/06/24 10:28 BP 111/76 12/06/24 10:28 Pulse Ox 98 12/06/24 10:28 O2 Del Method Room Air 12/06/24 10:28 BMI result Body Mass Index 26.7 Appearance: Alert. Oriented X3. No acute distress. Eyes: Pupils equal, round and reactive to light. ENT: Pharynx normal. Neck: Normal inspection. Neck supple. CVS: Normal heart rate and rhythm. Pulses normal. Respiratory: No respiratory distress. Breath sounds normal. Abdomen: Soft and ttp in lower abdomen but no rebound Skin: Skin warm and dry. Normal skin color. Normal skin turgor. Extremities: No lower extremity edema. No calf ttp Neuro: Oriented X 3. No motor deficit. No sensory deficit. CN2-12 intact Course Course Course Narrative: spoke to ultrasound they state flow in R ovary Medications Administered Discontinued Medications Generic Name Dose Route Start Last Admin Trade Name Azarq PRN Reason Stop Dose Admin Lactated Ringer's 1,000 mls @ 999 mls/hr 12/06/24 06:27 12/06/24 09:16 Lr IV 12/06/24 07:27 Infused .Q1H1M ONE Infusion Ketorolac Tromethamine 15 mg 12/06/24 07:50 12/06/24 08:16 Ketorolac Tromethamine 15 Mg/Ml Vial IVPUSH 12/06/24 07:51 15 mg ONCE ONE Administration Morphine Sulfate 4 mg 12/06/24 06:25 12/06/24 06:40 Morphine Sulfate 4 Mg/Ml Cartridge IVPUSH 12/06/24 06:26 4 mg ONCE ONE Administration Protocol Ondansetron HCl 4 mg 12/06/24 06:25 12/06/24 06:40 Ondansetron Hcl 4 Mg/2 Ml Vial IVPUSH 12/06/24 06:26 4 mg ONCE ONE Administration Medical Decision Making Medical Decision Making [facility] Narrative: 49 yo female with PMH of renal colic, endometriosis s/p CT scan October 2024 now here with recurrent pelvic pain and pain at urethra she states she think sit is a stone feels different from her endometriosis - at this time will give IV toradol/IV morphine for pain obtain labs, CT scan and UA - possible stone, endometriosis, constipation, ovarian cyst. Differential Diagnosis Differential Diagnoses: The differential diagnosis associated with the presentation includes ovarian cyst, renal colic, interstitial cystitis Admission/Observation Consideration of admission/observation: Escalation of care including admission/observation considered work up reassuring stable for DC Lab Data [facility] Lab Attestation statement: I reviewed the patient's lab results. wbc count is chronic and has hx of same 12/05/24 23:32 12/05/24 23:32 Labs: Lab Results 12/05/24 Range/Units 23:32 WBC 16.1 H (4.8-10.8) X10*3/uL RBC 4.35 (4.20-5.50) X10*6/uL Hgb 14.6 (12.0-16.0) g/dl Hct 41.6 (37.0-47.0) % MCV 95.6 (80.0-98.0) fL MCH 33.6 H (27.0-33.0) pg MCHC 35.1 H (31.0-35.0) g/dl RDW 12.9 (11.0-16.0) % Plt Count 410 H D (160-400) X10*3/uL MPV 8.8 L (9.4-12.3) fL Immature Gran % (Auto) 0.4 (0.0-0.4) % Neut % (Auto) 58.2 (45-73) % Lymph % (Auto) 29.6 (20-40) % Mcdonald % (Auto) 8.4 (2-11) % Eos % (Auto) 2.7 (0-4) % Baso % (Auto) 0.7 (0-2) % Lymph # (Auto) 4.8 (1.2-4.9) X10*3/uL Mcdonald # (Auto) 1.4 H (0.1-1.2) X10*3/uL Eos # (Auto) 0.4 (0.0-0.4) X10*3/uL Baso # (Auto) 0.1 (0.0-0.2) X10*3/uL Abs Immat Gran (auto) 0.06 H (0.00-0.03) X10*3/uL Absolute Neuts (auto) 9.4 H (2.0-8.3) x10*3/uL Absolute Nucleated RBC 0.000 (0.0-0.012) X10*3/uL Nucleated RBC % (auto) 0.0 (0.0-0.2) /100WBC Sodium 139 (135-145) mmol/L Potassium 3.8 (3.3-5.1) mmol/L Chloride 111 H (96-108) mmol/L Carbon Dioxide 18 L (22-29) mmol/L Anion Gap 14 (12-20) BUN 16 (9-16) mg/dL Creatinine 0.66 (0.5-1.4) mg/dL Estim Creat Clear Calc 95.6 Estimated GFR > 60 Random Glucose 107 (60-115) mg/dL Calcium 8.9 D (8.4-10.2) mg/dL Total Bilirubin 0.3 (0.0-1.0) mg/dL Direct Bilirubin 0.1 (0.0-0.5) mg/dL AST 21 (5-31) U/L ALT 11 (0-31) U/L Alkaline Phosphatase 97 (39-117) U/L Total Protein 7.2 (6.5-8.0) g/dL Albumin 4.2 (3.5-5.0) g/dL Urine Color Dark Yellow Urine Appearance Cloudy Urine pH 5.5 (5.0-9.0) Ur Specific Bulan 1.025 (1.005-1.025) Urine Protein Trace (Neg-Trace) mg/dL Urine Glucose (UA) Negative (Negative) mg/dL Urine Ketones Trace (Negative) mg/dL Urine Blood Moderate (2+) H (Negative) Urine Nitrite Negative (Negative) Ur Leukocyte Esterase Trace H (Negative) Urine RBC >20 H (0-2) /HPF Urine WBC 6-10 H (0-5) /HPF Ur Squamous Epith Cells >20 (0-2) /HPF Calcium Oxalate Crystal Present Urine Bacteria 1+ (None Seen) Hyaline Casts 3-5 (0-2) /LPF Independent Interpretation I performed an independent interpretation of an: Ultrasound (ovarian cyst) and CT Scan (no acute pathology ) Radiology Impression Discussion of test interpretation with radiology: I have reviewed the radiologist's reading. External Record Review External record reviewed: Inpatient record and Outpatient record Prescription Management I considered prescription management with: Pain Medication Discharge Plan Discharge Clinical Impression: Ovarian cyst Qualifiers: Laterality: right Qualified Code(s): N83.201 - Unspecified ovarian cyst, right side Patient Disposition: Home, Self-Care Instructions: Ovarian Cyst (ED) Additional Instructions: urine shows no infection CT scan shows chronic kidney stones but no obstruction your wbc count is 16 which is baseline for you ultrasound shows complex R ovarian cyst not seen on CT scan this should resolve but you need pain control and to see your OGBYN - should get repeat ultrasound in 6 weeks to ensure it is decreasing return for fevers, vomiting, unable to eat or drink, change in pain or any other concerns. FINDINGS: Uterus: The uterus is normal in size, measuring 9.4 x 3.9 x 5.8 cm. Myometrium has a normal echotexture. There is a fundal fibroid measuring 3.0 x 1.9 x 2.9 cm. Endometrium: The endometrial stripe measures 8 mm in thickness. There are nabothian cysts in the cervix. Right ovary: The right ovary measures 3.6 x 2.4 x 2.9 cm. There is a 2.1 x 1.5 x 2.2 cm simple cyst and a 1.8 x 1.6 x 2.0 cm complex cyst demonstrating low level internal echoes and a septation. Left ovary: The left ovary is surgically absent. Pelvic fluid: none. US/US pelvic and transvaginal IMPRESSION: 1. 3.0 x 1.9 x 2.9 cm fundal fibroid. 2. Multiple right ovarian cysts, one of which is complex, as described. A follow-up examination in 6 weeks, at a different time in the patient's menstrual cycle, is recommended to document resolution. Prescriptions: No Action multivitamin Tablet 1 tab PO DAILY clonazepam 0.5 mg tablet 0.25 - 0.5 mg PO DAILY PRN (Reason: severe anxiety or insomnia) nicotine 14 mg/24 hr Patch 24 Hour 14 mg transdermal DAILY Qty: 30 0RF nicotine (polacrilex) 2 mg Gum 2 mg buccal Q1H PRN (Reason: Nicotine Cravings) Qty: 100 0RF ibuprofen 400 mg Tablet 400 mg PO Q6H PRN (Reason: pain, mild-mod) Qty: 30 0RF oxycodone 5 mg Tablet 5 mg PO Q6H PRN (Reason: pain, severe) Qty: 12 0RF Rx Instructions: Partial Fill upon patient request. Print Language: [place]
[2024-12-06] MEDS: Lactated Ringers 1,000 ML 999 ML IV (06:41)
--- NOTE | 2024-12-06 07:07 | PC.NURSE ---
assumed care of pt. Pt medicated per MAR. respirations even and unlabored.
[2024-12-06 07:39] VITALS: BP 91/47; PULSE 63; RESP 18; TEMP 36.5; O2SAT 98
--- NOTE | 2024-12-06 07:45 | PC.NURSE ---
pt is calm, cooperative. A+Ox4 and ambulatory. C/o bilateral flank to central abdomen pain that radiates down to bilat knees, 01/08. Sts nausea but no recent vomitting. RR even and unlabored, denies SOB. Pt denies CP.
[2024-12-06 08:21] VITALS: BP 93/45; PULSE 55; RESP 16; TEMP 36.5; O2SAT 98
[2024-12-06 09:17] VITALS: BP 109/68; PULSE 73; RESP 16; O2SAT 97
--- NOTE | 2024-12-06 09:18 | PC.NURSE ---
Pt to US at this time.
[2024-12-06 10:28] VITALS: BP 111/76; PULSE 60; RESP 12; TEMP 36.4; O2SAT 98
[2024-12-06 10:52] VITALS: BP 111/76; PULSE 60; RESP 12; TEMP 36.4; O2SAT 98
[2024-12-06 11:10] LABS: Bacterial Vaginosis PCR POSITIVE (Negative); Candida Group PCR NOT DETECTED (Not Detect); Candida glab krusei PCR NOT DETECTED (Not Detect); Trichomonas vaginalis PCR NOT DETECTED (Not Detect)
[2024-12-06 11:40] LABS: CT PCR NOT DETECTED (Not Detect.); NG PCR NOT DETECTED (Not Detect.)
== END 2024-12-06 10:53 | disposition home or self-care (01) ==
PROVIDERS: Emergency Provider Emergency Medicine; PCP Internal Medicine
DX: N76.0 Acute vaginitis (principal); N83.201 Unspecified ovarian cyst, right side; R10.2 Pelvic and perineal pain
CPT/HCPCS: 36415; 74176; 76830; 76856; 80048; 80076; 81001; 81515; 85025; 87086; 87491; 87591; 96361; 96374; 96375; 99285; J1885; J2270; J2405; J7120

== ENCOUNTER → 2024-12-06 06:25 | Outpatient (BNV) | payer MEDICAID, SELFPAY | PROVIDERS: Emergency Provider Emergency Medicine; PCP Internal Medicine; Visit Provider Radiology Diagnostic Radiology | DX: R10.9 Unspecified abdominal pain (principal) | CPT/HCPCS: 74176; 76830; 76856 ==

== ENCOUNTER 2024-12-19 21:35 | Emergency (ER) | payer MEDICAID, SELFPAY ==
[2024-12-19 21:45] VITALS: BP 141/75; PULSE 82; RESP 18; TEMP 36.3; O2SAT 98; BMI 28.2
--- NOTE | 2024-12-20 03:32 | ED.SKABFB ---
HPI - Skin/Abscess/Foreign Bdy General Chief complaint: Skin/Abscess/Foreign Body Stated complaint: infection Time Seen by Provider: 12/20/24 03:23 Source: patient Mode of arrival: ambulatory Limitations: no limitations History of Present Illness ED Provider: Dr. Mary Cordero HPI narrative: Patient comes to the emergency room complaining of an abscess on the right middle back. Patient states that she has a history of hidradenitis suppurativa and has had multiple abscesses drained. Patient states that this 1 is particularly bigger than usual. Patient states it has been present for about 3 weeks. Denies fever chills. Related Data Home Medications ?Medication ?Instructions ?Recorded ?Confirmed clonazepam 0.5 mg tablet 0.25 - 0.5 mg PO DAILY PRN severe 11/24/24 11/24/24 anxiety or insomnia multivitamin 1 tab PO DAILY 11/24/24 11/24/24 Previous Rx's ?Medication ?Instructions ?Recorded ibuprofen 400 mg tablet 400 mg PO Q6H PRN pain, mild-mod 11/26/24 #30 tabs nicotine (polacrilex) 2 mg gum 2 mg buccal Q1H PRN Nicotine 11/26/24 Cravings #100 ea nicotine 14 mg/24 hr daily 14 mg transdermal DAILY #30 ea 11/26/24 transdermal patch oxycodone 5 mg tablet 5 mg PO Q6H PRN pain, severe #12 11/26/24 tabs metronidazole 500 mg tablet 500 mg PO BID #14 tabs 12/08/24 cephalexin 500 mg capsule 500 mg PO BID #14 caps 12/20/24 doxycycline monohydrate 100 mg 100 mg PO BID #14 caps 12/20/24 capsule ibuprofen 800 mg tablet 800 mg PO Q8H #20 tabs 12/20/24 oxycodone 5 mg tablet 5 mg PO BID PRN pain #7 tabs 12/20/24 Allergies Allergy/AdvReac Type Severity Reaction Status Date / Time Iodinated Contrast Media Allergy Unknown Verified 12/19/24 21:47 (Contrast Dye) Penicillins (PCN) Allergy Unknown Verified 12/19/24 21:47 shellfish derived Allergy Unknown Verified 12/19/24 21:47 Sulfa (Sulfonamide Allergy Unknown Verified 12/19/24 21:47 Antibiotics) prednisone AdvReac Agitated Verified 12/19/24 21:47 tamsulosin (From Flomax) AdvReac Involuntary Verified 12/19/24 21:47 Spasms tramadol AdvReac Agitated Verified 12/19/24 21:47 Review of Systems Review of Systems: Constitutional : No Weight loss, No Fever, No Chills, No Night Sweats, No Fatigue, No Malaise ENT/Mouth : No Hearing loss, No Ear Pain, No Nasal Congestion, No Sinus Pain, No Hoarseness, No sore throat, No Rhinorrhea, No Swallowing Difficulty Eyes: No Eye Pain, No Swelling, No Redness, No Foreign Body, No Discharge, No Vision Changes Cardiovascular : No Chest Pain, No SOB, No Dyspnea on Exertion, No Orthopnea, No Edema, No Palpitations Respiratory : No Cough, No Sputum, No Wheezing, No Smoke Exposure, No Dyspnea Gastrointestinal : No Nausea, No Vomiting, No Diarrhea, No Constipation, No abdominal Pain, No Hematochezia, No Melena Genitourinary : no irregular bleeding, No Dysuria, No Urinary Frequency, No Hematuria, No Urinary Incontinence, No Urgency, No Flank Pain, No Urinary Flow Changes, No Hesitancy Musculoskeletal : No joint pain, No Myalgias, No Joint Swelling Skin : Complaining of an abscess in the right upper back. Patient states she has had 0s of abscesses due to history of hidradenitis suppurativa Neuro : No Weakness, No Numbness, No Paresthesias, No Loss of Consciousness, No Dizziness, No Headache Psych : No Anxiety/Panic, No Depression, No SI/HI/AH/VH, No Social Issues, Heme/Lymph: No Bruising, No Bleeding,No Lymphadenopathy Endocrine : No Polyuria, No Polydipsia, No Temperature Intolerance [facility] Past Medical History Medical History Kidney calculi Hidradenitis suppurativa Social History Social History Household Members: Family Housing: House Do you presently have visiting nurse or other home services: No Alcohol intake: never Patient Tobacco Use Status: Current everyday Tobacco user Tobacco use type: Cigarette Cigarette Packs Per Day: 1 Cigarettes Per Day: 20.0 Substance Use Type: Marijuana Advance Directives: No Advance Directives Information Provided: Yes Do you have a plan to hurt others: No Plan service: No Physical Exam Exam: Exam: Appearance: Alert. Oriented X3. No acute distress. Eyes: Pupils equal, round and reactive to light. ENT: Pharynx normal. Neck: Normal inspection. Neck supple. No lymph nodes noted. No crepitus CVS: Normal heart rate and rhythm. Pulses normal. Normal S1 and S2 Respiratory: No respiratory distress. Breath sounds normal. No Wheezing. No rales Abdomen: Soft and nontender. No rigidity. No distention. Skin: Skin warm and dry. Normal skin color. Normal skin turgor. In the back, patient has a large abscess, a proximally 3 x 3 cm. Extremities: No lower extremity edema. No Lacerations. No Rash Neuro: Oriented X 3. No motor deficit. No sensory deficit. Moving all extremities. No slurred speech. CN 2 through 12 grossly intact Psych: calm, cooperative, normal affect Vital Signs: Vital Signs: Last Vital Signs Temp 97.4 F 12/19/24 21:45 Pulse 82 12/19/24 21:45 Resp 18 12/19/24 21:45 BP 141/75 H 12/19/24 21:45 Pulse Ox 98 12/19/24 21:45 O2 Del Method Room Air 12/19/24 21:45 BMI result Body Mass Index 28.2 Const: Other: Appearance: Alert. Oriented X3. No acute distress. Eyes: Pupils equal, round and reactive to light. ENT: Pharynx normal. Neck: Normal inspection. Neck supple. No lymph nodes noted. No crepitus CVS: Normal heart rate and rhythm. Pulses normal. Normal S1 and S2 Respiratory: No respiratory distress. Breath sounds normal. No Wheezing. No rales Abdomen: Soft and nontender. No rigidity. No distention. Skin: Skin warm and dry. Normal skin color. Normal skin turgor. On the patient's back in the right side, there is a 3 cm x 3 cm significantly enlarged abscess. Extremities: No lower extremity edema. No Lacerations. No Rash Neuro: Oriented X 3. No motor deficit. No sensory deficit. Moving all extremities. No slurred speech. CN 2 through 12 grossly intact Psych: calm, cooperative, normal affect Course Course Course Narrative: Patient has an abscess in the right middle back. Patient will be given p.o. cephalexin, doxycycline, oxycodone and then the area will be infiltrated with 2% lidocaine. I discussed with the patient that given the size of the abscess, she will need an I and D, patient is agreeable. Patient states she has had 0s of this abscesses drained before. Medications Administered Discontinued Medications Generic Name Dose Route Start Last Admin Trade Name Cassidy PRN Reason Stop Dose Admin Cephalexin HCl 500 mg 12/20/24 03:30 12/20/24 03:47 Cephalexin 500 Mg Capsule PO 12/20/24 03:31 500 mg ONCE ONE Administration Doxycycline Monohydrate 100 mg 12/20/24 03:30 12/20/24 03:47 Doxycycline Monohydrate 100 Mg Capsule PO 12/20/24 03:31 100 mg ONCE ONE Administration Lidocaine HCl 10 ml 12/20/24 03:30 12/20/24 03:47 Lidocaine Hcl 2 % Mpf 5 Ml Vial INFILTRATI 12/20/24 03:31 10 ml ONCE ONE Administration Oxycodone HCl 5 mg 12/20/24 03:31 12/20/24 03:47 Oxycodone Hcl Immed Release 5 Mg Tablet PO 12/20/24 03:32 5 mg ONCE ONE Administration Medical Decision Making Medical Decision Making MDM Narrative: I discussed with the patient that the abscesses about to burst. The patient's back was infiltrated with lidocaine 2% 4 mL. A small incision was made with an 11 size plate. A very large amount of pus was extracted. The cavity was thoroughly rinsed with normal saline and packing was applied. Patient received p.o. doxycycline and cephalexin and p.o. oxycodone. Patient instructed to return to the emergency room in 24-48 hours for a wound check. Procedures Abscess I/D Site: back Local Anesthetic: lidocaine 2% Amount of anesthesia used (mL): 4 Technique: incised with blade Sent for culture/gram staining?: No Irrigation: Yes Packing used?: iodoform Complications: pain Discharge Plan Discharge Clinical Impression: Abscess Patient Disposition: Home, Self-Care Instructions: Abscess (ED), Incision and Drainage (ED) Additional Instructions: Please return in 24-48 hours to have a wound check and possibly having your packing removed Please follow-up with your primary care physician tomorrow. If you have any worsening or new symptoms, please return to the emergency room or call 911 Prescriptions: New doxycycline monohydrate 100 mg capsule 100 mg PO BID Qty: 14 0RF ibuprofen 800 mg tablet 800 mg PO Q8H Qty: 20 0RF cephalexin 500 mg capsule 500 mg PO BID Qty: 14 0RF oxycodone 5 mg tablet 5 mg PO BID PRN (Reason: pain) Qty: 7 0RF Rx Instructions: Partial Fill upon patient request. No Action metronidazole 500 mg tablet 500 mg PO BID Qty: 14 0RF multivitamin Tablet 1 tab PO DAILY clonazepam 0.5 mg tablet 0.25 - 0.5 mg PO DAILY PRN (Reason: severe anxiety or insomnia) nicotine 14 mg/24 hr Patch 24 Hour 14 mg transdermal DAILY Qty: 30 0RF nicotine (polacrilex) 2 mg Gum 2 mg buccal Q1H PRN (Reason: Nicotine Cravings) Qty: 100 0RF ibuprofen 400 mg Tablet 400 mg PO Q6H PRN (Reason: pain, mild-mod) Qty: 30 0RF oxycodone 5 mg Tablet 5 mg PO Q6H PRN (Reason: pain, severe) Qty: 12 0RF Rx Instructions: Partial Fill upon patient request. Print Language: Irish
[2024-12-20] MEDS: Lidocaine HCl 2 % MPF 5 ML VIAL 10 ML INFILTRATI (03:47)
[2024-12-20] MEDS: oxyCODONE HCl Immed Release 5 MG TABLET PO (03:47)
[2024-12-20 06:00] VITALS: BP 141/75; PULSE 82; RESP 18; TEMP 36.3; O2SAT 98
== END 2024-12-20 06:00 | disposition home or self-care (01) ==
PROVIDERS: Emergency Provider Emergency Medicine; PCP Internal Medicine
DX: L02.212 Cutaneous abscess of back [any part, except buttock and flank] (principal); F17.210 Nicotine dependence, cigarettes, uncomplicated
CPT/HCPCS: 10060; 99283; 99284; J2003

== ENCOUNTER 2024-12-21 18:23 | Emergency (ER) | payer MEDICAID, SELFPAY ==
--- NOTE | 2024-12-21 18:29 | ED.GENADULT ---
HPI - General Adult General Chief complaint: Wound/Laceration Stated complaint: coming back for wound packing Time Seen by Provider: 12/21/24 18:38 Source: patient, RN notes reviewed, old records reviewed and sports physical therapist Mode of arrival: ambulatory Limitations: no limitations History of Present Illness ED Provider: Margie HPI narrative: Patient is a 49-year-old female with history of hidradenitis suppurativa presenting to the emergency department for wound check of abscess to her right mid back. She was seen here on 12/20 and advised to return in 24-48 hours for a wound check and packing removal. She reports that the packing fell out on its own in the shower prior to arrival. She denies any fevers, chills, body aches. Has been taking her antibiotics as prescribed MD complaint: wound check Related Data Home Medications ?Medication ?Instructions ?Recorded ?Confirmed clonazepam 0.5 mg tablet 0.25 - 0.5 mg PO DAILY PRN severe 11/24/24 11/24/24 anxiety or insomnia multivitamin 1 tab PO DAILY 11/24/24 11/24/24 Previous Rx's ?Medication ?Instructions ?Recorded ibuprofen 400 mg tablet 400 mg PO Q6H PRN pain, mild-mod 11/26/24 #30 tabs nicotine (polacrilex) 2 mg gum 2 mg buccal Q1H PRN Nicotine 11/26/24 Cravings #100 ea nicotine 14 mg/24 hr daily 14 mg transdermal DAILY #30 ea 11/26/24 transdermal patch oxycodone 5 mg tablet 5 mg PO Q6H PRN pain, severe #12 11/26/24 tabs metronidazole 500 mg tablet 500 mg PO BID #14 tabs 12/08/24 cephalexin 500 mg capsule 500 mg PO BID #14 caps 12/20/24 doxycycline monohydrate 100 mg 100 mg PO BID #14 caps 12/20/24 capsule ibuprofen 800 mg tablet 800 mg PO Q8H #20 tabs 12/20/24 oxycodone 5 mg tablet 5 mg PO BID PRN pain #7 tabs 12/20/24 Allergies Allergy/AdvReac Type Severity Reaction Status Date / Time Iodinated Contrast Media Allergy Unknown Verified 12/21/24 18:31 (Contrast Dye) Penicillins (PCN) Allergy Unknown Verified 12/21/24 18:31 shellfish derived Allergy Unknown Verified 12/21/24 18:31 Sulfa (Sulfonamide Allergy Unknown Verified 12/21/24 18:31 Antibiotics) prednisone AdvReac Agitated Verified 12/21/24 18:31 tamsulosin (From Flomax) AdvReac Involuntary Verified 12/21/24 18:31 Spasms tramadol AdvReac Agitated Verified 12/21/24 18:31 Review of Systems Review of Systems: as per hpi Yes all other systems are reviewed and are negative Constitutional: Constitutional: Reports as per HPI [facility] Past Medical History Medical History Kidney calculi Hidradenitis suppurativa Social History Social History Household Members: Family Housing: House Do you presently have visiting nurse or other home services: No Alcohol intake: never Patient Tobacco Use Status: Current everyday Tobacco user Tobacco use type: Cigarette Cigarette Packs Per Day: 1 Cigarettes Per Day: 20.0 Substance Use Type: Marijuana service: No Physical Exam ED Vital Signs: Vital Signs - 24 hr 12/21/24 18:30 Temperature 97.4 F Pulse Rate 90 Respiratory Rate 18 Blood Pressure 133/77 Pulse Oximetry 97 Oxygen Delivery Method Room Air BMI result Body Mass Index 27.5 Vital signs have been reviewed and appear to be correct. Blood pressure normal. Heart rate normal. Respiratory rate normal. Temperature normal. Oxygen saturation normal. Const General: cooperative, healthy appearing and no acute distress Orientation/consciousness: oriented to person, oriented to place, oriented to time and patient oriented x3 Limitations: no limitations [facility] Head: Yes normocephalic and Yes atraumatic Ears: external ears normal General nose exam: Normal external nose present Face and sinus: Yes face symmetric Mouth: oropharynx normal and moist mucous membranes Throat: Yes uvula midline Eyes Pupils: Equal, round and reactive pupils present Neck Neck: Yes normal visual inspection and Yes supple Resp Effort & Inspection: normal respiratory effort and able to speak in complete sentences Auscultation: clear to auscultation bilaterally Cardio Rate: regular rate Rhythm: regular rhythm Heart sounds: S1 normal heart sound present and S2 normal heart sound present GI Palpation (GI): Soft to palpation and nontender Auscultation: normoactive bowel sounds General: Yes no CVA tenderness Back/Spine/Pelvis Back: no CVA tenderness Skin General skin exam: elasticity normal and turgor normal Full body images:  1. erythema with 1cm incision, scant amount of purulent drainage Neuro General: oriented to person, oriented to place, oriented to time, patient oriented x3, moves all extremities, no focal motor deficits and CN's II-XI intact bilaterally Cranial nerves: Yes Equal, round and reactive pupils present Cognition (Neuro): normal cognition Extrem General: Yes full ROM, Yes no pedal edema and Yes no calf tenderness Psych Mental Status: mental status grossly normal Affect: normal affect Thought process: Normal thought process present Medical Decision Making Medical Decision Making [facility] Narrative: Patient is a 49-year-old female with history of hidradenitis suppurativa presenting to the emergency department for wound check of abscess to her right mid back. On exam patient is awake, A+Ox3, VS WNL, afebrile, normal neurological exam without focal deficits, physical exam findings as above. Given reported symptoms and physical exam findings, initial differential includes but is not limited to wound check, abscess, cellulitis. No significant discharge or drainage from wound. No evidence of worsening infection. Patient requesting wound be repacked. Given depth of wound, I am agreeable to this. Wound packed with quarter-inch iodoform gauze and covered with dressing. Advised patient to continue antibiotics as prescribed, return in 24-48 hours to have packing removed and/or wound checked. Return precautions discussed. Patient verbalized understanding of and agreement with plan. Differential Diagnosis Differential Diagnoses: The differential diagnosis associated with the presentation includes As per MDM Admission/Observation Consideration of admission/observation: Escalation of care including admission/observation considered Patient would have been admitted to the hospital had their clinical presentation warranted hospital admission. External Record Review External record reviewed: Inpatient record, Office record and Outpatient record Discharge Plan Discharge Clinical Impression: Visit for wound check Patient Disposition: Home, Self-Care Additional Instructions: You were evaluated in the emergency department today for a wound check. Your wound was packed with gauze which may fall out on it's own, or you can follow up with your PCP or return here in 24-48 hours for packing removal. Continue to take the previously prescribed antibiotics. Return to the emergency department with worsening redness, swelling, drainage, fevers or any other new or concerning symptoms. Prescriptions: No Action metronidazole 500 mg tablet 500 mg PO BID Qty: 14 0RF multivitamin Tablet 1 tab PO DAILY clonazepam 0.5 mg tablet 0.25 - 0.5 mg PO DAILY PRN (Reason: severe anxiety or insomnia) nicotine 14 mg/24 hr Patch 24 Hour 14 mg transdermal DAILY Qty: 30 0RF nicotine (polacrilex) 2 mg Gum 2 mg buccal Q1H PRN (Reason: Nicotine Cravings) Qty: 100 0RF ibuprofen 400 mg Tablet 400 mg PO Q6H PRN (Reason: pain, mild-mod) Qty: 30 0RF oxycodone 5 mg Tablet 5 mg PO Q6H PRN (Reason: pain, severe) Qty: 12 0RF Rx Instructions: Partial Fill upon patient request. doxycycline monohydrate 100 mg capsule 100 mg PO BID Qty: 14 0RF ibuprofen 800 mg tablet 800 mg PO Q8H Qty: 20 0RF cephalexin 500 mg capsule 500 mg PO BID Qty: 14 0RF oxycodone 5 mg tablet 5 mg PO BID PRN (Reason: pain) Qty: 7 0RF Rx Instructions: Partial Fill upon patient request. Print Language: Divehi
[2024-12-21 18:30] VITALS: BP 133/77; PULSE 90; RESP 18; TEMP 36.3; O2SAT 97; BMI 27.5
[2024-12-21 18:45] VITALS: BP 133/77; PULSE 90; RESP 18; TEMP 36.3; O2SAT 97
== END 2024-12-21 18:45 | disposition home or self-care (01) ==
PROVIDERS: Emergency Provider Emergency Medicine Emergency Medical Services; PCP Internal Medicine
DX: Z48.00 Encounter for change or removal of nonsurgical wound dressing (principal)
CPT/HCPCS: 99282

== ENCOUNTER 2025-01-16 15:56 | Inpatient (IN) | payer MEDICAID, SELFPAY ==
--- NOTE | ~2025-01-16 | CT_ITS ---
CLINICAL HISTORY: hx Hidradenitis, right lower deep perineum abscess --- Additional Notes or Special Instructions: PT WITH UNKNOWN IV CONTRAST ALLERGY, BARI BLOOM PREMEDICATING PT W BENEDRYL SOLUMEDROL CT Abdomen and Pelvis W Contrast COMPARISON: CT/[place]/[facility] - ABDOMEN ABD_PEL_WITHOUT (ADULT) - 12/06/24 07:24 EDT FINDINGS: Bibasilar atelectasis. Hepatomegaly. Normal spleen. Nonobstructing bilateral renal calculi. No visible ureteral calculi. Subcentimeter hypodensities in both kidneys, too small to accurately characterize. No hydronephrosis. Mild nonspecific hypertrophy of the bilateral adrenal glands. Normal pancreas. Status post cholecystectomy. No abnormal biliary dilation. No evidence of bowel obstruction. Mild thickening of the hogue of the rectum. No pneumatosis. Mild colonic diverticulosis without evidence of acute diverticulitis. Status post appendectomy. Unremarkable bladder. Unremarkable uterus. Unremarkable right ovary. Left ovary not well visualized. No ascites. No pneumoperitoneum. No lymphadenopathy. No acute fracture. Degenerative changes in the spine. No abdominal aortic aneurysm. Fat-containing umbilical hernia. Partially visualized asymmetric soft tissue induration in the right perineum measuring 4.7 x 1.8 cm (series 4, image [id number]). IMPRESSION: Partially visualized asymmetric right peroneal soft tissue induration, which could be due to cellulitis or partially visualized abscess. Rectal wall thickening, which could be due to underdistention or proctitis. Nonemergent/incidental findings above. This document has been electronically signed by: Josep Negron MD on 01/17/2025 04:18:05
[2025-01-16 16:54] VITALS: BP 118/56; PULSE 86; RESP 20; TEMP 37; O2SAT 98; BMI 25.7
--- NOTE | 2025-01-16 16:55 | ED.SKABFB ---
HPI - Skin/Abscess/Foreign Bdy General Chief complaint: Wound/Laceration Stated complaint: infection in groin Time Seen by Provider: 01/16/25 20:35 Source: patient Limitations: no limitations History of Present Illness ED Provider: Sofía Duran PA-C HPI narrative: 49-year-old female with a history of hidradenitis suppurativa, kidney stones, presents with abscess. Patient states she has a known region of inflammation within right gluteal cleft. Patient states she knows that she has a known ?fistulous tract . Over the past week, she has developed generalized malaise, new redness, swelling, warmth surrounding the site, it is now actively draining pus. Denies fever. Patient states she has required surgical intervention in the past. Related Data Home Medications ?Medication ?Instructions ?Recorded ?Confirmed No Known Home Meds 01/17/25 01/17/25 Allergies Allergy/AdvReac Type Severity Reaction Status Date / Time Iodinated Contrast Media Allergy Unknown Verified 01/16/25 16:57 (Contrast Dye) Penicillins (PCN) Allergy Unknown Verified 01/16/25 16:57 shellfish derived Allergy Unknown Verified 01/16/25 16:57 Sulfa (Sulfonamide Allergy Unknown Verified 01/16/25 16:57 Antibiotics) prednisone AdvReac Agitated Verified 01/16/25 16:57 tamsulosin (From Flomax) AdvReac Involuntary Verified 01/16/25 16:57 Spasms tramadol AdvReac Agitated Verified 01/16/25 16:57 Review of Systems Review of Systems: Yes all other systems are reviewed and are negative Constitutional: Constitutional: Reports fatigue, Denies fever(s) and Reports malaise Cardiovascular: Cardiovascular: Denies chest pain and Denies dyspnea Respiratory: Respiratory: Denies dyspnea Gastrointestinal: Gastrointestinal: Denies abdominal pain, Denies nausea and Denies vomiting Integumentary/Breasts: Skin/Breast: Reports sores and Reports wounds Endocrine: Endocrine: Reports fatigue PMFSH Past Medical History Attestation statement: The following information was validated with the patient. Medical History Kidney calculi Hidradenitis suppurativa Surgical History Hx of wisdom tooth extraction Hx of breast reduction, elective Hx of unilateral oophorectomy Hx of laparoscopy Hx of cholecystectomy Hx of appendectomy Hx of cystoscopy Social History Social History Household Members: Family Housing: House Do you presently have visiting nurse or other home services: No Alcohol intake: never Patient Tobacco Use Status: Current everyday Tobacco user Tobacco use type: Cigarette Cigarette Packs Per Day: 1 Cigarettes Per Day: 20.0 Use of substances other than those prescribed or required for medical reasons: Yes Substance Use Type: Marijuana Substance Use Type Other:: smoked--last used 01/16 Are you DNR?: No Advance Directives: No Advance Directives Information Provided: No service: No Physical Exam Exam: Exam: Alert, appears older than stated age Vital Signs: Vital Signs: Last Vital Signs Temp 97.3 F 01/17/25 17:35 Pulse 57 01/17/25 17:35 Resp 16 01/17/25 17:35 BP 135/64 01/17/25 17:35 Pulse Ox 98 01/17/25 17:35 O2 Del Method Room Air 01/17/25 17:35 BMI result Body Mass Index 25.7 Const: Orientation/consciousness: patient oriented x3 Resp: Effort & Inspection: normal respiratory effort Cardio: Other: Normal peripheral perfusion Skin: Other: Warm dry no rash Neuro: General: patient oriented x3, gait normal, no focal motor deficits and CN's II-XI intact bilaterally Extrem: Other: Indurated, erythematous lesion noted within right gluteal cleft, actively draining purulence where it is fluctuant Psych: Other: Cooperative Course Course Course Narrative: This is a Rapid Medical Examination (RME) performed by Cheryl Ramírez PA-C in triage. Full HPI, ROS, assessment and treatment plan per primary provider in the Main ED. Hx: 49 yo F hx of HS here for eval of abscess to right groin x2-3 days. has been attempting to drain the area with noted brown/red/green discharge. reports increasing redness surrounding the area. previously followed with a general surgeon however they recently retired. has been unable to follow up with them. no fevers but has felt chills the last few nights. PE/vitals: unable to visualize the area in triage. Plan: labs, further eval in back Reevaluation(s) Reevaluation #1: Signed out to night team pending consult by Dr. Pierre and final disposition Reevaluation #2: Patient with continued pain, added on Tylenol IV. Remains afebrile. Vital signs stable. Awaiting surgical consult. Time: 06:11 Consultations Consultation #1: per Gabby.... He will see the patient this morning on his morning rounds, will hold her in ED for now Time: 04:30 Consultation #2: Patient evaluated by Dr. Pierre, admitted to hospital for further care and evaluation of abscess. Time: 08:10 Medications Administered Generic Name Dose Route Start Last Admin Trade Name Freq PRN Reason Stop Dose Admin Hydromorphone HCl 0.5 mg 01/17/25 07:28 01/17/25 10:14 Hydromorphone Hcl 0.5 Mg/0.5 Ml Syringe IVPUSH 0.5 mg Q3H PRN Administration Pain, Severe (Pain Scale 7-10) Protocol Dextrose/Lactated Ringer's 1,000 mls @ 125 mls/hr 01/17/25 07:30 01/17/25 18:02 D5lr IVCONT 0 mls/hr .Q8H KIRTI Infusion Vancomycin HCl 1,250 mg/ 250 mls @ 166.667 mls/hr 01/17/25 17:00 01/17/25 17:57 Sodium Chloride IV 166.67 mls/hr Q12H KIRTI Administration Ondansetron HCl 4 mg 01/17/25 07:28 01/17/25 10:14 Ondansetron Hcl 4 Mg/2 Ml Vial IVPUSH 4 mg QID PRN Administration Nausea Sodium Chloride 3 ml 01/17/25 08:00 01/17/25 18:02 0.9 % Sodium Chloride Flush 3 Ml Syringe IVFLUSH 3 ml QSHIFT KIRTI Administration Discontinued Medications Generic Name Dose Route Start Last Admin Trade Name Freq PRN Reason Stop Dose Admin Diphenhydramine HCl 25 mg 01/16/25 21:25 01/17/25 01:38 Diphenhydramine Hcl 50 Mg/Ml Vial IVPUSH 01/16/25 21:26 25 mg ONCE ONE Administration Fentanyl 25 mcg 01/17/25 14:52 01/17/25 16:25 Fentanyl Citrate/Pf 100 Mcg/2 Ml Vial IVPUSH 01/17/25 20:52 25 mcg Q5M PRN Administration Pain, Moderate to Severe (Pain Scale 4-10) Sodium Chloride 1,000 mls @ 999 mls/hr 01/16/25 21:30 01/17/25 03:30 Ns IV 01/16/25 22:30 Infused .Q1H1M KIRTI Infusion Vancomycin HCl 1,500 mg/ 500 mls @ 333.333 mls/hr 01/17/25 04:43 01/17/25 09:37 Sodium Chloride IV 01/17/25 06:12 Infused ONCE ONE Infusion Acetaminophen 1,000 mg in 100 mls @ 400 mls/hr 01/17/25 05:25 01/17/25 06:30 Ofirmev IV 01/17/25 05:39 Infused ONCE ONE Infusion Lactated Ringer's 1,000 mls @ 50 mls/hr 01/17/25 13:30 01/17/25 17:35 Lr IVCONT Infused .Q20H KIRTI Infusion Iohexol 85 ml 01/17/25 02:51 01/17/25 02:52 Iohexol 350 Mg/Ml 100 Ml Infus..Btl IV 01/17/25 02:52 85 ml ONCE ONE Administration Methylprednisolone Sodium Succinate 60 mg 01/16/25 21:25 01/16/25 22:30 Methylprednisolone Sod Succ 125 Mg/2 Ml Vial IVPUSH 01/16/25 21:26 60 mg ONCE ONE Administration Medical Decision Making Medical Decision Making MDM Narrative: 49-year-old female with a history of hidradenitis suppurativa, kidney stones, presents with abscess. Patient states she has a known region of inflammation within right gluteal cleft. Patient states she knows that she has a known ?fistulous tract . Over the past week, she has developed generalized malaise, new redness, swelling, warmth surrounding the site, it is now actively draining pus. Denies fever. Patient states she has required surgical intervention in the past. Problem: Known hidradenitis History: Per patient I have considered the following differential diagnoses: Cellulitis, purulent cellulitis, abscess, deep fistula formation Plan: We will obtain imaging, the patient will not allow for I and D at bedside, she is also apprehensive about starting antibiotics unless absolutely necessary. Screening labs already obtained, we will order a CT scan. There was question whether the patient had a contrast dye allergy, she verified with her mother that she does not. She states she has a strong family history of iodine allergies. Airing on the side of caution we will premedicate. The patient emphatically denies that she has ever developed angioedema, difficulty swallowing, anaphylaxis, after having CT contrast dye scans. We will premedicate with Solu-Medrol and Benadryl, giving IV fluid therapy. I have independently reviewed the following tests: Labs: Leukocytosis noted, not anemic, no electrolyte abnormality, CRP CT abdomen and pelvis: FINDINGS: Bibasilar atelectasis. Hepatomegaly. Normal spleen. Nonobstructing bilateral renal calculi. No visible ureteral calculi. Subcentimeter hypodensities in both kidneys, too small to accurately characterize. No hydronephrosis. Mild nonspecific hypertrophy of the bilateral adrenal glands. Normal pancreas. Status post cholecystectomy. No abnormal biliary dilation. No evidence of bowel obstruction. Mild thickening of the hogue of the rectum. No pneumatosis. Mild colonic diverticulosis without evidence of acute diverticulitis. Status post appendectomy. Unremarkable bladder. Unremarkable uterus. Unremarkable right ovary. Left ovary not well visualized. No ascites. No pneumoperitoneum. No lymphadenopathy. No acute fracture. Degenerative changes in the spine. No abdominal aortic aneurysm. Fat-containing umbilical hernia. Partially visualized asymmetric soft tissue induration in the right perineum measuring 4.7 x 1.8 cm (series 4, image [id number]). IMPRESSION: Partially visualized asymmetric right peroneal soft tissue induration, which could be due to cellulitis or partially visualized abscess. Rectal wall thickening, which could be due to underdistention or proctitis. Nonemergent/incidental findings above. Admission/Observation Consideration of admission/observation: Escalation of care including admission/observation considered Consult Healthcare Provider Management of the patient was discussed with: Lens Molding Equipment Operator (general surgeon, Dr. Pierre) Lab Data MDM Lab Attestation statement: I reviewed the patient's lab results. 01/16/25 17:55 01/17/25 09:34 Labs: Lab Results 01/16/25 Range/Units 17:55 WBC 13.9 H (4.8-10.8) X10*3/uL RBC 4.25 (4.20-5.50) X10*6/uL Hgb 14.3 (12.0-16.0) g/dl Hct 41.7 (37.0-47.0) % MCV 98.1 H (80.0-98.0) fL MCH 33.6 H (27.0-33.0) pg MCHC 34.3 (31.0-35.0) g/dl RDW 12.9 (11.0-16.0) % Plt Count 357 (160-400) X10*3/uL MPV 8.6 L (9.4-12.3) fL Immature Gran % (Auto) 0.3 (0.0-0.4) % Neut % (Auto) 62.9 (45-73) % Lymph % (Auto) 24.9 (20-40) % [place] % (Auto) 8.3 (2-11) % Eos % (Auto) 3.0 (0-4) % Baso % (Auto) 0.6 (0-2) % Lymph # (Auto) 3.5 (1.2-4.9) X10*3/uL [place] # (Auto) 1.2 (0.1-1.2) X10*3/uL Eos # (Auto) 0.4 (0.0-0.4) X10*3/uL Baso # (Auto) 0.1 (0.0-0.2) X10*3/uL Abs Immat Gran (auto) 0.04 H (0.00-0.03) X10*3/uL Absolute Neuts (auto) 8.7 H (2.0-8.3) x10*3/uL Absolute Nucleated RBC 0.000 (0.0-0.012) X10*3/uL Nucleated RBC % (auto) 0.0 (0.0-0.2) /100WBC ESR 7 (0-20) MM/HR Sodium 141 (135-145) mmol/L Potassium 3.7 (3.3-5.1) mmol/L Chloride 111 H (96-108) mmol/L Carbon Dioxide 22 (22-29) mmol/L Anion Gap 12 (12-20) BUN 17 H (9-16) mg/dL Creatinine 0.60 (0.5-1.4) mg/dL Estim Creat Clear Calc 115.3 Estimated GFR > 60 Random Glucose 107 (60-115) mg/dL Calcium 8.8 (8.4-10.2) mg/dL Magnesium 2.0 (1.6-2.6) mg/dL Total Bilirubin 0.3 (0.0-1.0) mg/dL AST 17 (5-31) U/L ALT 12 (0-31) U/L Alkaline Phosphatase 110 (39-117) U/L C-Reactive Protein 1.18 H (< or = 0.50) mg/dL Total Protein 7.0 (6.5-8.0) g/dL Albumin 4.3 (3.5-5.0) g/dL Radiology Impression Discussion of test interpretation with radiology: I have reviewed the radiologist's reading. Chronic Conditions Patient?s care impacted by: Other (Hidradenitis suppurativa) Procedures Procedure Narrative Procedure Narrative: Ultrasound-guided IV 20 gauge 1-3/4 inch IV placed in left upper extremity. Adequate blood return, flushes well, secured with Tegaderm Discharge Plan Discharge Clinical Impression: Hidradenitis suppurativa, Abscess Patient Disposition: Admitted As Inpatient Discharge Date/Time: 01/17/25 13:00
[2025-01-16 18:00] LABS: MANUAL DIFF FLAG NO
[2025-01-16 18:03] LABS: Hematocrit 41.7 % (37.0-47.0); Hemoglobin 14.3 g/dl (12.0-16.0); Imm Gran Abs Auto 0.04 X10*3/uL (0.00-0.03); Imm Gran Pct Auto 0.3 % (0.0-0.4); Lymphocytes Absolute Auto 3.5 X10*3/uL (1.2-4.9); Mean Corpuscular HGB Conc 34.3 g/dl (31.0-35.0); Mean Corpuscular Hemoglobin 33.6 pg (27.0-33.0); Mean Corpuscular Volume 98.1 fL (80.0-98.0); NRBC Abs Auto 0.000 X10*3/uL (0.0-0.012); NRBC Pct Auto 0.0 /100WBC (0.0-0.2); Platelet Count 357 X10*3/uL (160-400); Red Blood Count 4.25 X10*6/uL (4.20-5.50); White Blood Count 13.9 X10*3/uL (4.8-10.8)
[2025-01-16 18:16] LABS: Alanine Aminotransferase 12 U/L (0-31); Albumin Level 4.3 g/dL (3.5-5.0); Alkaline Phosphatase 110 U/L (39-117); Anion Gap 12 (12-20); Aspartate Amino Transferase 17 U/L (5-31); Blood Urea Nitrogen 17 mg/dL (9-16); Calcium 8.8 mg/dL (8.4-10.2); Carbon Dioxide 22 mmol/L (22-29); Chloride 111 mmol/L (96-108); Creatinine Clr Calc Pharmacy 115.3; Estimated Glomerular Filt Rate > 60; Magnesium 2.0 mg/dL (1.6-2.6); Potassium 3.7 mmol/L (3.3-5.1); Sodium 141 mmol/L (135-145); Total Protein 7.0 g/dL (6.5-8.0)
[2025-01-16 18:39] LABS: Erythrocyte Sedimentation Rate 7 MM/HR (0-20)
--- NOTE | 2025-01-16 22:10 | PC.NURSE ---
unable to obtain IV access- PA Duran notified, willplace US line
--- NOTE | 2025-01-16 22:36 | PC.NURSE ---
CT aware of solumedrol administration, plan for administration of benadryl @ 0140, and CT scan @ 0240.
[2025-01-16 23:16] VITALS: BP 100/56; PULSE 61; RESP 18; TEMP 36.6; O2SAT 96
[2025-01-17] VITALS (16 sets, daily range): BP systolic 90–149; BP diastolic 40–92; PULSE 57–82; RESP 12–22; TEMP 36.1–36.6; O2SAT 97–100; BMI 26.9
[2025-01-17] MEDS: iohexoL 350 MG/ML 100 ML INFUS..BTL 85 ML IV (02:52)
--- NOTE | 2025-01-17 07:38 | PM.HPGS ---
History of Present Illness History of Present Illness Date of Service: 01/17/25 Chief complaint: infection in groin Narrative: Gini Fraga is a 49 year old female presenting with complaints of a chronic perineal hidradenitis previously operated by Dr. Manning at [facility] now presenting with a several week onset abscess located in the upper inner thigh. She is able to occasionally expressed some purulent material but recently the drainage has decreased. She reports increased pain with the associated malaise. She denies fever or chills but does feel weaker. She presented to the emergency department and was noted to have a mildly elevated WBC. A CT abdomen and pelvis did reveal areas of asymmetric soft tissue induration in the right perineum measuring 4.7 x 1.8 cm. She is admitted to the surgical service for management of this perineal infection/hidradenitis. Review of Systems Review of Systems: Yes all other systems are reviewed and are negative PMF Past Medical History Medical History Kidney calculi Hidradenitis suppurativa Social History Social History Household Members: Family Housing: House Do you presently have visiting nurse or other home services: No Alcohol intake: never Patient Tobacco Use Status: Current everyday Tobacco user Tobacco use type: Cigarette Cigarette Packs Per Day: 1 Cigarettes Per Day: 20.0 Substance Use Type: Marijuana Advance Directives: No Advance Directives Information Provided: No service: No Meds Allergies Allergy/AdvReac Type Severity Reaction Status Date / Time Iodinated Contrast Media Allergy Unknown Verified 01/16/25 16:57 (Contrast Dye) Penicillins (PCN) Allergy Unknown Verified 01/16/25 16:57 shellfish derived Allergy Unknown Verified 01/16/25 16:57 Sulfa (Sulfonamide Allergy Unknown Verified 01/16/25 16:57 Antibiotics) prednisone AdvReac Agitated Verified 01/16/25 16:57 tamsulosin (From Flomax) AdvReac Involuntary Verified 01/16/25 16:57 Spasms tramadol AdvReac Agitated Verified 01/16/25 16:57 Active Medications: Current Medications Hydromorphone HCl (Hydromorphone Hcl 0.5 Mg/0.5 Ml Syringe) 0.5 mg IVPUSH Q3H PRN; Protocol PRN Reason: Pain, Severe (Pain Scale 7-10) Acetaminophen (Ofirmev) 1,000 mg in 100 mls @ 400 mls/hr IV Q6H PRN PRN Reason: Pain, Mild (Pain Scale 1-3) Dextrose/Lactated Ringer's (D5lr) 1,000 mls @ 125 mls/hr IVCONT .Q8H KIRTI Ondansetron HCl (Ondansetron Hcl 4 Mg/2 Ml Vial) 4 mg IVPUSH QID PRN PRN Reason: Nausea Oxycodone HCl (Oxycodone Hcl Immed Release 5 Mg Tablet) 5 mg PO Q6H PRN PRN Reason: Pain, Moderate(Pain Scale 4-6) Pharmacy Consult (Consult Rx Vancomycin Dosing) 1 each MISCELLANE DAILY PRN PRN Reason: Consult order Sodium Chloride (0.9 % Sodium Chloride Flush 3 Ml Syringe) 3 ml IVFLUSH QSHIFT [facility] Home Medications ?Medication ?Instructions ?Recorded ?Confirmed ?Last Taken ?Type clonazepam 0.5 mg tablet 0.25 - 0.5 mg PO DAILY PRN severe 11/24/24 11/24/24 Unknown History anxiety or insomnia multivitamin 1 tab PO DAILY 11/24/24 11/24/24 2 Days Ago History ~11/22/24 Physical Exam Vital Signs: Vital Signs: Last Vital Signs Temp 97.8 F 01/16/25 23:16 Pulse 61 01/16/25 23:16 Resp 18 01/16/25 23:16 BP 100/56 L 01/16/25 23:16 Pulse Ox 96 01/16/25 23:16 O2 Del Method Room Air 01/16/25 23:16 BMI result Body Mass Index 25.7 Const: General: cooperative and no acute distress Nutritional Appearance: well nourished Orientation/consciousness: patient oriented x3 Limitations: no limitations HEENT: Head: Yes normocephalic and Yes atraumatic Ears: hearing grossly normal bilaterally Resp: Effort & Inspection: normal respiratory effort, no audible wheezes, no cough and no respiratory distress Cardio: Jugular venous distension: no JVD GI: Inspection: Yes normal to inspection : Female genitals images:  1. Area of induration located in the upper inner thigh extending inferiorly with an apparent fistulous track measuring at least 10 cm in length by 4 cm in width. An area of fluctuance is noted at the upper portion of the induration. This is exquisitely tender to palpation. Skin: Other: Warm, dry, no rash Neuro: General: patient oriented x3 Extrem: General: Yes no clubbing, cyanosis or edema Results Results Labs: Short CBC 01/16/25 Range/Units 17:55 WBC 13.9 H (4.8-10.8) X10*3/uL Hgb 14.3 (12.0-16.0) g/dl Hct 41.7 (37.0-47.0) % Plt Count 357 (160-400) X10*3/uL BMP 01/16/25 17:55 Sodium 141 Potassium 3.7 Chloride 111 H Carbon Dioxide 22 BUN 17 H Creatinine 0.60 Calcium 8.8 Liver Function 01/16/25 Range/Units 17:55 Total Bilirubin 0.3 (0.0-1.0) mg/dL AST 17 (5-31) U/L ALT 12 (0-31) U/L Alkaline Phosphatase 110 (39-117) U/L Albumin 4.3 (3.5-5.0) g/dL Abdomen CT scan report/results: image reviewed CT scan - pelvis: image reviewed Assessment and Plan (1) Hidradenitis suppurativa: Status: Acute (2) Abscess: Status: Acute Plan 49-year-old female patient with a long history of hidradenitis presenting now with a progressively enlarging abscess in the right upper inner thigh, causing increased pain and malaise. On examination there appears to be a large fluctuant collection with extension inferiorly suggestive of a fistulous track. I recommended admission for IV antibiotics as well as incision and drainage of the right upper inner thigh abscess in the OR. After discussion of the procedure, risks, and alternatives, she consents to the incision and drainage of right upper inner thigh abscess. She has been added onto the operative schedule for today. Quality Stroke Does the patient have a stroke diagnosis?: No VTE Prior VTE?: No VTE Risk Level:: Surgical - low VTE Device Contraindication: N/A - Device Ordered VTE Drug Contraindication: Treatment Not Indicated Procedures Date of Service Date of Service: 01/17/25
--- NOTE | 2025-01-17 08:57 | PHA.PROG ---
Admission Date/Time: January 17, 2025 07:29 Indication: SKIN Weight in k.1 kg Adjusted body weight in Kg: [place] body weight in Kg: Obesity Dosing Indication % IBW: Serum Creatinine - Last 168 Hours 01/16/25 17:55 Creatinine 0.60 Estimated CrCl and GFR - Last 168 Hours 01/16/25 17:55 Estim Creat Clear Calc 115.3 Estimated GFR > 60 Vancomycin Loading Dose: 1500 mg Current Vancomycin Dosing Regimen: 1250 mg Q12H Vancomycin Monitoring using AUC goal of 400 - 600 range with trough as surrogate marker: Predicted AUC = 524, Trough 15.3 Date and Time for next Vancomycin Level to be drawn: 01/18 @1500 Pharmacist Comments on Vancomycin Plan: Initial dosing regimen more aggressive due to improper load (correct load: 1750 mg). Will reevaluate with trough tomorrow. Vancomycin dosing will take advantage of [employer] as a clinical decision support tool that uses Bayesian modeling to calculate individual patient's pharmacokinetic parameters and forecast the patient's drug concentration time course with the target goal AUC 24 range of 400 - 600 mg/L/hr.
--- NOTE | 2025-01-17 09:09 | P.CONAN_ITS ---
Documented by User: Doreen Marrero NP 01/17/25 09:15 HPI - Anesthesia Eval Consult details Narrative: *HCG pending 49 yr old female for right thigh I&D Hidradenitis Inner Thigh No CP/SOB with mderate activity No recent illness; +smoker, occasional cough, no wheezing/SOB No problems with GA for multiple past surgeries PMFSH Active Problems Active Problems: All Active Problems (Updated 01/17/25 @ 04:25 by BARI Rojas) Abscess (Acute) Left flank pain (Acute) Tobacco use (Acute) Hidradenitis suppurativa (Acute) Past Medical History Medical History Kidney calculi Hidradenitis suppurativa Family History Family history of problems with anesthesia: No Surgical History Surgical History Hx of wisdom tooth extraction Hx of breast reduction, elective Hx of unilateral oophorectomy Hx of laparoscopy Hx of cholecystectomy Hx of appendectomy Hx of cystoscopy History of Problems with Anesthesia: No Social History Social History Household Members: Family Housing: House Do you presently have visiting nurse or other home services: No Alcohol intake: never Patient Tobacco Use Status: Current everyday Tobacco user Tobacco use type: Cigarette Cigarette Packs Per Day: 1 Cigarettes Per Day: 20.0 Use of substances other than those prescribed or required for medical reasons: Yes Substance Use Type: Marijuana Substance Use Type Other:: smoked--last used 01/16 Are you DNR?: No Advance Directives: No Advance Directives Information Provided: No service: No Meds Allergies Allergy/AdvReac Type Severity Reaction Status Date / Time Iodinated Contrast Media Allergy Unknown Verified 01/16/25 16:57 (Contrast Dye) Penicillins (PCN) Allergy Unknown Verified 01/16/25 16:57 shellfish derived Allergy Unknown Verified 01/16/25 16:57 Sulfa (Sulfonamide Allergy Unknown Verified 01/16/25 16:57 Antibiotics) prednisone AdvReac Agitated Verified 01/16/25 16:57 tamsulosin (From Flomax) AdvReac Involuntary Verified 01/16/25 16:57 Spasms tramadol AdvReac Agitated Verified 01/16/25 16:57 Active Medications: Current Medications Hydromorphone HCl (Hydromorphone Hcl 0.5 Mg/0.5 Ml Syringe) 0.5 mg IVPUSH Q3H PRN; Protocol PRN Reason: Pain, Severe (Pain Scale 7-10) Acetaminophen (Ofirmev) 1,000 mg in 100 mls @ 400 mls/hr IV Q6H PRN PRN Reason: Pain, Mild (Pain Scale 1-3) Dextrose/Lactated Ringer's (D5lr) 1,000 mls @ 125 mls/hr IVCONT .Q8H KIRTI Vancomycin HCl 1,250 mg/ (Sodium Chloride) 250 mls @ 166.667 mls/hr IV Q12H KIRTI Ondansetron HCl (Ondansetron Hcl 4 Mg/2 Ml Vial) 4 mg IVPUSH QID PRN PRN Reason: Nausea Oxycodone HCl (Oxycodone Hcl Immed Release 5 Mg Tablet) 5 mg PO Q6H PRN PRN Reason: Pain, Moderate(Pain Scale 4-6) Pharmacy Consult (Consult Rx Vancomycin Dosing) 1 each MISCELLANE DAILY PRN PRN Reason: Consult order Sodium Chloride (0.9 % Sodium Chloride Flush 3 Ml Syringe) 3 ml IVFLUSH QSHIFT [facility] Home Medications ?Medication ?Instructions ?Recorded ?Confirmed ?Last Taken ?Type No Known Home Meds 01/17/25 01/17/25 Un known History Exam Height,Weight and Vital Signs: Height 5 ft 6 in Weight 72.1 kg Last Vital Signs Temp 97.8 F 01/16/25 23:16 Pulse 61 01/16/25 23:16 Resp 18 01/16/25 23:16 BP 100/56 L 01/16/25 23:16 Pulse Ox 96 01/16/25 23:16 O2 Del Method Room Air 01/16/25 23:16 Pertinent Lab Results Pertinent Lab Results: Laboratory Tests 01/16/25 17:55 WBC 13.9 H RBC 4.25 Hgb 14.3 Hct 41.7 MCV 98.1 H MCH 33.6 H MCHC 34.3 RDW 12.9 Plt Count 357 MPV 8.6 L Immature Gran % (Auto) 0.3 Neut % (Auto) 62.9 Lymph % (Auto) 24.9 [place] % (Auto) 8.3 Eos % (Auto) 3.0 Baso % (Auto) 0.6 Lymph # (Auto) 3.5 [place] # (Auto) 1.2 Eos # (Auto) 0.4 Baso # (Auto) 0.1 Abs Immat Gran (auto) 0.04 H Absolute Neuts (auto) 8.7 H Absolute Nucleated RBC 0.000 Nucleated RBC % (auto) 0.0 ESR 7 Sodium 141 Potassium 3.7 Chloride 111 H Carbon Dioxide 22 Anion Gap 12 BUN 17 H Creatinine 0.60 Estim Creat Clear Calc 115.3 Estimated GFR > 60 Random Glucose 107 Calcium 8.8 Magnesium 2.0 Total Bilirubin 0.3 AST 17 ALT 12 Alkaline Phosphatase 110 C-Reactive Protein 1.18 H Total Protein 7.0 Albumin 4.3 Airway Mallampati Class: I TM Dist: >3cm Neck ROM: Full Loose/Missing/Broken Teeth: No Heart: RRR Lungs: CTAB Assessment and Plan Final Anesthetic Review Family History of Problems with Anesthesia: No History of Problems with Anesthesia: No Documented by User: Romana Deleon MD 01/17/25 14:52 PMFSH Past Medical History Medical History Kidney calculi Hidradenitis suppurativa Surgical History Surgical History Hx of wisdom tooth extraction Hx of breast reduction, elective Hx of unilateral oophorectomy Hx of laparoscopy Hx of cholecystectomy Hx of appendectomy Hx of cystoscopy Social History Social History Household Members: Family Housing: House Do you presently have visiting nurse or other home services: No Alcohol intake: never Patient Tobacco Use Status: Current everyday Tobacco user Tobacco use type: Cigarette Cigarette Packs Per Day: 1 Cigarettes Per Day: 20.0 Use of substances other than those prescribed or required for medical reasons: Yes Substance Use Type: Marijuana Substance Use Type Other:: smoked--last used 01/16 Are you DNR?: No Advance Directives: No Advance Directives Information Provided: No service: No Meds Allergies Allergy/AdvReac Type Severity Reaction Status Date / Time Iodinated Contrast Media Allergy Unknown Verified 01/16/25 16:57 (Contrast Dye) Penicillins (PCN) Allergy Unknown Verified 01/16/25 16:57 shellfish derived Allergy Unknown Verified 01/16/25 16:57 Sulfa (Sulfonamide Allergy Unknown Verified 01/16/25 16:57 Antibiotics) prednisone AdvReac Agitated Verified 01/16/25 16:57 tamsulosin (From Flomax) AdvReac Involuntary Verified 01/16/25 16:57 Spasms tramadol AdvReac Agitated Verified 01/16/25 16:57 Home Medications ?Medication ?Instructions ?Recorded ?Confirmed ?Last Taken ?Type No Known Home Meds 01/17/25 01/17/25 Un known History Assessment and Plan Assessment Anesthesia Assessment: Anesthesia Plan Discussed and Chart Reviewed Final Anesthetic Review NPO: Yes ASA Class: II Final Preanesthetic Review: No Changes in Pt Med Stat, Meds/Allgs Chart Reviewed, Consent Obtained/Reviewed and Anes Risks/Benef Reviewed Patient Risk: Intermediate Procedure Risk: Low Anesthetic Plan Anesthetic Plan: GA Disposition: Standard PACU
--- NOTE | 2025-01-17 09:37 | PHA.MEDREC ---
Addendum entered by Natali Gambino RPh 01/17/25 11:19: MED REC REVIEWED BY [facility] Original Note: Pharmacy Consult ? Medication Reconciliation Pharmacy has completed the medication reconciliation. Patient states she is not on any medications.
[2025-01-17] MEDS: Dextrose 5 % and Lactated Ring 1,000 ML 125 ML IVCONT ×2 (09:44→18:01)
[2025-01-17] MEDS: 0.9 % Sodium Chloride Flush 3 ML SYRINGE IVFLUSH ×2 (09:46→18:02)
[2025-01-17 09:48] LABS: UPreg QC Valid YES
[2025-01-17 10:16] LABS: Creatinine Clr Calc Pharmacy 121.4; Estimated Glomerular Filt Rate > 60
--- NOTE | 2025-01-17 12:41 | PC.NURSE ---
report given to LARRY Kramer RN
[2025-01-17] MEDS: Lactated Ringers 1,000 ML 50 ML IVCONT (13:29)
--- NOTE | 2025-01-17 15:28 | W.PM.OPN ---
Operative Note Operative Note Date of Service: 01/17/25 Narrative: Preoperative diagnosis: Hidradenitis right upper inner thigh Postoperative diagnosis: Same Procedure: Incision and drainage, debridement hidradenitis right upper inner thigh Surgeon: Vasyl Pierre MD Statistics Intern: Esther Magdaleno PA-C; Anesthesia: General LMA Indications for procedure: 49-year-old female patient with a chronic history of hidradenitis presenting with a painful swollen and fluctuant collection in the right upper inner thigh which would not drain spontaneously. She presented to the emergency department for further evaluation was noted to have an elevated WBC. CT confirmed a probable abscess collection. Operative findings: Acute and chronic inflammatory changes and small purulence collection Specimen: Wound culture, abscess cavity Estimated blood loss: 5 mL Complications: None Procedure details: Patient was brought to the OR placed in a supine position. After administering general anesthesia she was placed in a frog-leg position. The upper inner thigh was prepped with ChloraPrep and draped in a sterile fashion. Local anesthesia was then infiltrated circumferentially around the abscess cavity. An elliptical incision was then made directly over the abscess cavity and carried down into the subcutaneous tissue. Hard granulation tissue was noted in the subcutaneous tissue. This was grasped with an Allis clamp and excised using electrocautery. This granulation tissue was further debrided down to healthy fatty tissue. Hemostasis was assured using electrocautery. Wounds were irrigated with saline solution and suctioned dry. The incision was then packed with 1/2 inch iodoform gauze followed by fluff gauze and paper tape. The patient tolerated the procedure well. Sponge, instrument, and needle counts were reported as correct. The patient was transferred to PACU in stable condition.
[2025-01-18] MEDS: oxyCODONE HCl Immed Release 5 MG TABLET PO ×2 (00:01→08:15)
[2025-01-18 03:21] VITALS: BP 133/67; PULSE 64; RESP 18; TEMP 36.3; O2SAT 98
--- NOTE | 2025-01-18 05:09 | PC.NURSE ---
2300: pt reporting increased anxiety along d/t I&D packing falling out when she uses the bathroom, and reports that it is bleeding a lot. On assessment site has a steady flow of blood with visible clots in the wound bed, Dr. Bains made aware, with new orders placed. 2330: Dr. Bains at bedside assisting with sliver nitrate cauterization to stop the bleed, and pack the wound. Wound dressed CDI.
[2025-01-18 07:35] LABS: MANUAL DIFF FLAG NO
[2025-01-18 07:46] LABS: Hematocrit 41.2 % (37.0-47.0); Hemoglobin 13.6 g/dl (12.0-16.0); Imm Gran Abs Auto 0.07 X10*3/uL (0.00-0.03); Imm Gran Pct Auto 0.4 % (0.0-0.4); Lymphocytes Absolute Auto 3.1 X10*3/uL (1.2-4.9); Mean Corpuscular HGB Conc 33.0 g/dl (31.0-35.0); Mean Corpuscular Hemoglobin 32.7 pg (27.0-33.0); Mean Corpuscular Volume 99.0 fL (80.0-98.0); NRBC Abs Auto 0.000 X10*3/uL (0.0-0.012); NRBC Pct Auto 0.0 /100WBC (0.0-0.2); Platelet Count 344 X10*3/uL (160-400); Red Blood Count 4.16 X10*6/uL (4.20-5.50); White Blood Count 17.3 X10*3/uL (4.8-10.8)
[2025-01-18 07:56] VITALS: BP 126/63; PULSE 51; RESP 16; TEMP 36.3; O2SAT 97
[2025-01-18] MEDS: Dextrose 5 % and Lactated Ring 1,000 ML 125 ML IVCONT (08:07)
[2025-01-18 08:08] LABS: Creatinine Clr Calc Pharmacy 130.8; Estimated Glomerular Filt Rate > 60
--- NOTE | 2025-01-18 08:48 | HO.POSTANES ---
Post Anesthesia Evaluation Post Anesthesia Evaluation Date of Service: 01/18/25 Vital Signs: Vital Signs Temp Pulse Resp BP Pulse Ox O2 Del Method 01/18/25 07:56 97.4 F 51 16 126/63 97 Room Air 01/18/25 03:21 97.4 F 64 18 133/67 98 Room Air Anesthesia: General Mental Status: Awake Pain Control: Satisfactory Nausea/Vomiting: None Hydration: Adequate Anesthesia-Related Issues: No Anes. Related Issues
--- NOTE | 2025-01-18 08:58 | P.PNGS_ITS ---
Subjective Subjective Date of Service: 01/18/25 Interval history: Very tearful and anxious this morning. Apparently packing fell out multiple times last night. She was oozing from wound and bleeding all over the floor . Required cauterization with silver nitrate at bedside last night per patient. No dressing or packing in place at all at time of examination. Requiring IV dilaudid q3h for pain at the wound site. Physical Exam 2 Vital Signs: Vital Signs: Last Vital Signs Temp 97.4 F 01/18/25 07:56 Pulse 51 01/18/25 07:56 Resp 16 01/18/25 07:56 BP 126/63 01/18/25 07:56 Pulse Ox 97 01/18/25 07:56 O2 Del Method Room Air 01/18/25 07:56 BMI result Body Mass Index 26.9 Const: General: alert and anxious; No ill appearing O rientation/consciousness: patient oriented x3 Resp: Effort & Inspection: normal respiratory effort Skin: Other: right groin debridement site- wound base clean, small amount of granulation tissue, no active bleeding noted, surrounding erythema significantly improved. Neuro: General: patient oriented x3 and moves all extremities Objective Data Active Medications Hydromorphone HCl (Hydromorphone Hcl 0.5 Mg/0.5 Ml Syringe) 0.5 mg IVPUSH Q3H PRN; Protocol PRN Reason: Pain, Severe (Pain Scale 7-10) Last Admin: 01/18/25 05:48 Dose: 0.5 mg Documented By: JENNYFER Acetaminophen (Ofirmev) 1,000 mg in 100 mls @ 400 mls/hr IV Q6H PRN PRN Reason: Pain, Mild (Pain Scale 1-3) Dextrose/Lactated Ringer's (D5lr) 1,000 mls @ 125 mls/hr IVCONT .Q8H [facility] Last Admin: 01/18/25 08:07 Dose: 125 mls/hr Documented By: MAYCOL Vancomycin HCl 1,250 mg/ (Sodium Chloride) 250 mls @ 166.667 mls/hr IV Q12H [facility] Last Infusion: 01/18/25 07:23 Dose: Infused Documented By: MAYCOL Ketorolac Tromethamine (Ketorolac Tromethamine 15 Mg/Ml Vial) 15 mg IVPUSH Q6H PRN PRN Reason: Pain, Mild (Pain Scale 1-3) Lorazepam (Lorazepam 1 Mg Tablet) 1 mg PO Q6H PRN PRN Reason: Anxiety Ondansetron HCl (Ondansetron Hcl 4 Mg/2 Ml Vial) 4 mg IVPUSH QID PRN PRN Reason: Nausea Last Admin: 01/17/25 10:14 Dose: 4 mg Documented By: MELQUIADES Oxycodone HCl (Oxycodone Hcl Immed Release 5 Mg Tablet) 5 mg PO Q6H PRN PRN Reason: Pain, Moderate(Pain Scale 4-6) Last Admin: 01/18/25 08:15 Dose: 5 mg Documented By: MAYCOL Pharmacy Consult (Consult Rx Vancomycin Dosing) 1 each MISCELLANE DAILY PRN PRN Reason: Consult order Sodium Chloride (0.9 % Sodium Chloride Flush 3 Ml Syringe) 3 ml IVFLUSH QSHIFT [facility] Last Admin: 01/18/25 07:23 Dose: Not Given Documented By: MAYCOL Non-Admin Reason: IV Running Labs 01/18/25 07:22 01/18/25 07:22 Labs: Laboratory Results - last 24 hr 01/17/25 01/17/25 01/18/25 09:34 09:36 07:22 MCV 99.0 H MCH 32.7 MCHC 33.0 RDW 12.9 Plt Count 344 MPV 8.9 L Immature Gran % (Auto) 0.4 Neut % (Auto) 72.5 Lymph % (Auto) 18.1 L [place] % (Auto) 8.6 Eos % (Auto) 0.2 Baso % (Auto) 0.2 Lymph # (Auto) 3.1 [place] # (Auto) 1.5 H Eos # (Auto) 0.0 Baso # (Auto) 0.0 Abs Immat Gran (auto) 0.07 H Absolute Neuts (auto) 12.6 H Absolute Nucleated RBC 0.000 Nucleated RBC % (auto) 0.0 Estim Creat Clear Calc 121.4 130.8 Estimated GFR > 60 > 60 Urine Test NEGATIVE Microbiology Microbiology Results: Microbiology 01/17/25 Unknown Gram Stain - Final Groin, Right Routine Culture - Preliminary No growth to date. 01/17/25 05:13 Blood Culture - Preliminary Blood - Venous No growth after 24 hours. 01/17/25 04:52 Blood Culture - Preliminary Blood - Venous No growth after 24 hours. Procedures Date of Service Date of Service: 01/18/25 Progress Note: A&P Assessment and plan (1) Hidradenitis suppurativa: Status: Acute (2) Abscess: Status: Acute Plan POD #1 s/p Incision and drainage, debridement hidradenitis right upper inner thigh. Surrounding cellulitis improved. She is significantly anxious about the dressing changed and tearful. Wound itself is clean appearing with some granulation, no active bleeding. She is insistent on using a 2x2 to ensure tight packing of the area despite being educated that the wound is larger and requires more than one 2x2 sponge which increases chance of retained packing. Cont wet to dry saline soaked 2x2 to wound base followed by dry fluff and tape. Cont IV abx. F/u wound culture. Likely home tomorrow if pain controlled. Time Spent With Patient Time: Total time managing care of this patient today ____ minutes. Quality Stroke Does the patient have a stroke diagnosis?: No VTE Prior VTE?: No VTE Risk Level:: Surgical - low VTE Device Contraindication: N/A - Device Ordered VTE Drug Contraindication: Treatment Not Indicated
[2025-01-18 15:27] VITALS: BP 116/60; PULSE 54; RESP 16; TEMP 36.7; O2SAT 95
--- NOTE | 2025-01-18 15:37 | HE.PHANOTE ---
Re: Lisa Pt's renal has improved. Trough returned at 15.4. Pt is therapeutic. Dose slightly reduced to keep in goal trough range of 10-15. Dose of 1,000mg q12h with predicted AUC 417, predicted trough 12. Next trough 01/19 @ 1500.
--- NOTE | 2025-01-18 15:44 | MHC.CM.PN ---
DX Abscess and hidradentis R UPPER/INNER THIGH s/p OR 01/17/25 She lives with her Mother. She is independent, no AD No DME PCP Ayse Pierce Requested copy of HCP. DP home self care. Patient's Mother will provide transportation home.
[2025-01-18 19:09] VITALS: BP 138/69; PULSE 58; RESP 16; TEMP 36.2; O2SAT 98
--- NOTE | 2025-01-18 19:16 | PC.NURSE ---
OR team assessing and speaking with pt this AM. BARI performed dressing change pt c/o constipation, informed.
--- NOTE | 2025-01-18 23:55 | PC.NURSE ---
2039 pt's blood sugar was 285, pt bolused herself with 1 unit and her basal rate is 0.55.
[2025-01-19] MEDS: 0.9 % Sodium Chloride Flush 3 ML SYRINGE IVFLUSH ×2 (00:27→08:53)
[2025-01-19 03:24] VITALS: BP 111/59; PULSE 53; RESP 16; TEMP 36.1; O2SAT 98
[2025-01-19] MEDS: Milk of Magnesia 30 ML ORAL.SUSP PO (04:55)
[2025-01-19] MEDS: oxyCODONE HCl Immed Release 5 MG TABLET PO (06:09)
[2025-01-19 06:48] LABS: Creatinine Clr Calc Pharmacy 123.9; Estimated Glomerular Filt Rate > 60
[2025-01-19 07:59] VITALS: BP 154/70; PULSE 57; RESP 18; TEMP 36.1; O2SAT 99
--- NOTE | 2025-01-19 12:55 | PM.PNGS ---
Subjective Subjective Date of Service: 01/19/25 Interval history: Feels well. Pain improved. Comfortable doing dressing changes at home. Would like to go home. Physical Exam Vital Signs: Vital Signs: Last Vital Signs Temp 96.9 F 01/19/25 07:59 Pulse 57 01/19/25 07:59 Resp 18 01/19/25 07:59 BP 154/70 H 01/19/25 07:59 Pulse Ox 99 01/19/25 07:59 O2 Del Method Room Air 01/19/25 07:59 BMI result Body Mass Index 26.9 Const: General: comfortable, no acute distress and alert Orientation/consciousness: patient oriented x3 Resp: Effort & Inspection: normal respiratory effort Skin: Other: right groin erythema resolved, very mild residual induration ; packing changed previously by RN Neuro: General: patient oriented x3 and moves all extremities Objective Data Active Medications Diphenhydramine HCl (Diphenhydramine Hcl 50 Mg/Ml Vial) 12.5 mg IVPUSH Q6H PRN PRN Reason: itching Docusate Sodium (Docusate Sodium 100 Mg Capsule) 100 mg PO BID PRN PRN Reason: Constipation Hydromorphone HCl (Hydromorphone Hcl 0.5 Mg/0.5 Ml Syringe) 0.5 mg IVPUSH Q3H PRN; Protocol PRN Reason: Pain, Severe (Pain Scale 7-10) Last Admin: 01/19/25 08:48 Dose: 0.5 mg Documented By: ELISEO Acetaminophen (Ofirmev) 1,000 mg in 100 mls @ 400 mls/hr IV Q6H PRN PRN Reason: Pain, Mild (Pain Scale 1-3) Vancomycin HCl 1,000 mg/ (Sodium Chloride) 270 mls @ 270 mls/hr IV Q12H KIRTI Last Infusion: 01/19/25 07:37 Dose: Infused Documented By: ELISEO Ketorolac Tromethamine (Ketorolac Tromethamine 15 Mg/Ml Vial) 15 mg IVPUSH Q6H PRN PRN Reason: Pain, Mild (Pain Scale 1-3) Last Admin: 01/19/25 10:22 Dose: 15 mg Documented By: ELISEO Lorazepam (Lorazepam 1 Mg Tablet) 1 mg PO Q6H PRN PRN Reason: Anxiety Last Admin: 01/19/25 12:15 Dose: 1 mg Documented By: TOMMY Magnesium Hydroxide (Milk Of Magnesia 30 Ml Oral.Susp) 30 ml PO DAILY PRN PRN Reason: Constipation Last Admin: 01/19/25 04:55 Dose: 30 ml Documented By: ANDERSON Ondansetron HCl (Ondansetron Hcl 4 Mg/2 Ml Vial) 4 mg IVPUSH QID PRN PRN Reason: Nausea Last Admin: 01/18/25 18:26 Dose: 4 mg Documented By: SOFFAHazel Oxycodone HCl (Oxycodone Hcl Immed Release 5 Mg Tablet) 5 mg PO Q6H PRN PRN Reason: Pain, Moderate(Pain Scale 4-6) Last Admin: 01/19/25 06:09 Dose: 5 mg Documented By: ANDERSON Pharmacy Consult (Consult Rx Vancomycin Dosing) 1 each MISCELLANE DAILY PRN PRN Reason: Consult order Polyethylene Glycol (Polyethylene Glycol 3350 17 Gm Powd.Pack) 17 gm PO DAILY PRN PRN Reason: Constipation Sodium Chloride (0.9 % Sodium Chloride Flush 3 Ml Syringe) 3 ml IVFLUSH QSHIFT [facility] Last Admin: 01/19/25 08:53 Dose: 3 ml Documented By: KELLENBBAJ Labs 01/18/25 07:22 01/19/25 05:54 Labs: Laboratory Results - last 24 hr 01/18/25 01/19/25 15:01 05:54 Estim Creat Clear Calc 123.9 Estimated GFR > 60 Vancomycin Trough 15.4 Microbiology Microbiology Results: Microbiology 01/17/25 Unknown Gram Stain - Final Groin, Right Routine Culture - Preliminary No growth to date. 01/17/25 05:13 Blood Culture - Preliminary Blood - Venous No growth after 48 hours. 01/17/25 04:52 Blood Culture - Preliminary Blood - Venous No growth after 48 hours. Procedures Date of Service Date of Service: 01/19/25 Progress Note: A&P Assessment and plan (1) Hidradenitis suppurativa: Status: Acute Plan POd # 2 s/p I&D and debridement of hidradenitis suppurativa. Clinically improved and cellulitis appears resolved. She feels comfortable for dc to home today, pain well controlled, transition to oral abx. F/u in office in 1 week. She will do wound care herself. Time Spent With Patient Time: Total time managing care of this patient today ____ minutes. Quality Stroke Does the patient have a stroke diagnosis?: No VTE Prior VTE?: No VTE Risk Level:: Surgical - low VTE Device Contraindication: N/A - Device Ordered VTE Drug Contraindication: Treatment Not Indicated
--- NOTE | 2025-01-19 13:28 | MHC.CM.PN ---
Patient is discharged to home self care. She will perform dressing changes. She has experience with wound management. She will self transport home. [place] [facility] [place]
[2025-01-19 13:36] VITALS: BP 142/67; PULSE 73; TEMP 36.1; O2SAT 98
--- NOTE | 2025-01-19 14:51 | PM.DS ---
DS: Providers Provider Date of Service: 01/19/25 Date of admission: 01/17/25 07:29 Date of discharge: 01/19/25 Primary care physician: Ayse Pierce MD Attending physician on admission: Vasyl Pierre Attending physician on discharge: Vasyl Pierre DS: Diagnosis Discharge Diagnosis (1) Hidradenitis suppurativa: Status: Acute DS: Summary Hospital Course Hospital Course: HPI AT ADMISSION: Gini Fraga is a 49 year old female presenting with complaints of a chronic perineal hidradenitis previously operated by Dr. Manning at [facility] now presenting with a several week onset abscess located in the upper inner thigh. She is able to occasionally expressed some purulent material but recently the drainage has decreased. She reports increased pain with the associated malaise. She denies fever or chills but does feel weaker. She presented to the emergency department and was noted to have a mildly elevated WBC. A CT abdomen and pelvis did reveal areas of asymmetric soft tissue induration in the right perineum measuring 4.7 x 1.8 cm. HOSPITAL COURSE: She was admitted to the surgical service for management of this perineal infection/hidradenitis. Given the concern for abscess, it was recommended to proceed with I&D and debridement of the area under anesthesia in the OR. On 01/17/25, incision and drainage, debridement hidradenitis right upper inner thigh was performed by Dr. Pierre without immediate complications. The patient tolerated the procedure well. She remained inpatient for 2 days for IV abx and pain control. On the day of discharge, the cellulitis was significantly improved and nearly resolved. She was hemodynamically stable. She was comfortable with her own wound care at home with wet to dry packing followed by dry dressing and tape. She was discharged to home on 01/19/25 in stable condition. She is to follow up in the office in 1 week for wound check. Status at Discharge Functional status at discharge: independent ambulation Overall status at discharge: patient is progressing back to baseline Time Attestation Discharge Coordination Time (in mins): 25 Quality: Safe Use of Opioids Does Pt have an Active Cancer Diagnosis on the Problem List?: No Quality: Stroke Does the patient have a stroke diagnosis?: No Physical Exam Vital Signs: Vital Signs: Last Vital Signs Temp 96.9 F 01/19/25 13:36 Pulse 73 01/19/25 13:36 Resp 18 01/19/25 07:59 BP 142/67 H 01/19/25 13:36 Pulse Ox 98 01/19/25 13:36 O2 Del Method Room Air 01/19/25 13:36 BMI result Body Mass Index 26.9 Const: General: comfortable, no acute distress, alert and anxious Orientation/consciousness: patient oriented x3 Resp: Effort & Inspection: normal respiratory effort Skin: Other: right groin- debridement site- clean appearing, very mild residual induration, no erythema, no purulent drainage, no fluctuance Neuro: General: patient oriented x3 and moves all extremities DS: Data Data Completed and Pending Completed studies during hospitalization [Text1]: Pending at discharge 01/17/25 15:22 Surgical [PTH] Routine Skin, right groin, excision: Benign skin and subcutis with fibrosis, inflammation, abscess, and granulation tissue Labs on day of discharge: Preliminary micro results at discharge 01/17/25 05:13 Blood Culture - Preliminary Blood - Venous No growth after 48 hours. 01/17/25 04:52 Blood Culture - Preliminary Blood - Venous No growth after 48 hours. Discharge Plan Discharge Anticipated Discharge Date/Time: 01/19/25 12:41 Patient Disposition: Home, Self-Care Discharge Diagnosis: hidradenitis right groin, s/p I&D and debridement Referrals: Vasyl Pierre MD [Physician, General Surgery] - 1 Week PhysicianHowie [Physician, Medical] - 1 Week Discharge Medications: New docusate sodium [Colace] 100 mg capsule 100 mg PO BID PRN (Reason: constipation) Qty: 30 0RF oxycodone 5 mg tablet 5 mg PO Q4H PRN (Reason: pain (scale score 7-10)) Qty: 26 0RF Rx Instructions: Partial Fill upon patient request. doxycycline monohydrate 100 mg capsule 100 mg PO BID Qty: 10 0RF ondansetron 8 mg tablet,disintegrating 8 mg PO Q8H PRN (Reason: nausea and vomiting) Qty: 30 0RF Discharge Orders: Discharge Order (Routine); Ordered 01/19/25 Ordered By: Esther Magdaleno Diet: Advance to usual diet Activity on Discharge: As tolerated Stand Alone Forms: Patient Portal Discharge page Print Language: Filipino Activity Restrictions/Additional Instructions: Wound care: Wet to dry saline soaked 2x2 gauze packed into wound bed followed by dry fluff and tape. Daily dressing change and as needed. Follow up in office in a week. ([phone]) Call Your Doctor Or Return to ED If: -Your temperature exceeds 101.5? F -You experience excessive pain or swelling -You have an unexpected reaction to medication -You experience continued vomiting/nausea Care Plan Goals: Return to baseline health and resume normal activities as tolerated. Wound care and eventual wound healing. Health Concerns: hidradenitis suppurative with cellulitis and abscess Plan of Treatment: s/p I&D and debridement of abscess and hidradenitis suppurative IV transitioned to oral antibiotics Assessment: Improved. Patient Instructions: Abscess (GEN), Acute Wounds (DC) Discharge Date/Time: 01/19/25 13:29
== END 2025-01-19 13:29 | disposition home or self-care (01) | DRG 364 ==
LOC: HO.ED 01-17 07:47 → HO.EDOVER 01-17 07:52 → HO.S3 01-17 15:27
PROVIDERS: Nurse Practitioner; Physician Assistant Medical; Admitting Provider Surgery; Emergency Provider Emergency Medicine; PCP Internal Medicine; Visit Provider Surgery
PROC: 0JDL0ZZ Extraction of Right Upper Leg Subcutaneous Tissue and Fascia, Open Approach (ICD-10-PCS; CPT 11462; principal; 2025-01-17 14:20)
DX: L73.2 Hidradenitis suppurativa (principal)
CPT/HCPCS: 11462; 36415; 74177; 80053; 80202; 81025; 82565; 83735; 85025; 85652; 86140; 87040; 87070; 87205; 88305; 99221; 99284; J0131; J1100; J1171; J1200; J1885; J2405; J2704; J2919; J3010; J3374; J7120; Q9967

== ENCOUNTER → 2025-01-16 17:47 | Outpatient (BNV) | payer MEDICAID, SELFPAY | PROVIDERS: Emergency Provider Emergency Medicine; Visit Provider Surgery | DX: L73.2 Hidradenitis suppurativa (principal); L02.91 Cutaneous abscess, unspecified | CPT/HCPCS: 11462; 99024; 99222; 99238 ==

== ENCOUNTER → 2025-01-17 02:40 | Outpatient (BNV) | payer MEDICAID, SELFPAY | PROVIDERS: Emergency Provider Emergency Medicine; Visit Provider Radiology Diagnostic Radiology | DX: L02.91 Cutaneous abscess, unspecified (principal) | CPT/HCPCS: 74177 ==

== ENCOUNTER 2025-01-27 10:01 | Outpatient (AMB) | payer MEDICAID, SELFPAY ==
--- NOTE | 2025-01-27 10:07 | MHC.OFFVIS ---
Vital Signs 01/27/25 10:15 Height 5 ft 6 in Weight 161 lb 4 oz BMI 26.0 BP 107/52 L Blood Pressure Location Lt brachial Position Sitting Pulse 79 Intake Visit Reasons: s/p hidranitis Intake Note: Patient is seen in office for post op assessment post Incision and drainage, debridement hidradenitis right upper inner thigh. 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: No Revenue Accounting Manager: Revenue Accounting Manager Present Accompanied by: Self / Same As Patient Allergies Iodinated Contrast Media (Contrast Dye) Allergy (Verified 01/27/25 10:15) Unknown Penicillins (PCN) Allergy (Verified 01/27/25 10:15) Unknown shellfish derived Allergy (Verified 01/27/25 10:15) Unknown Sulfa (Sulfonamide Antibiotics) Allergy (Verified 01/27/25 10:15) Unknown prednisone Adverse Reaction (Verified 01/27/25 10:15) Agitated tamsulosin (From Flomax) Adverse Reaction (Verified 01/27/25 10:15) Involuntary Spasms tramadol Adverse Reaction (Verified 01/27/25 10:15) Agitated HPI Comments Details: 49-year-old female returning following recent admission for an abscess of the right upper inner thigh related to hidradenitis. She underwent incision and drainage with debridement of the overlying skin and returns today for wound check. She feels the wounds are healing appropriately. She is packing the wound wet-to-dry feels the pain is much improved. She is also concerned about a cyst on the left foot which was previously excised by her previous surgeon but has subsequently returned. She also has an ulcer on the plantar surface over the metatarsal head. She denies diabetes. [facility] Medical History Abscess Kidney calculi Hidradenitis suppurativa Surgical History History of incision and drainage (01/17/25) Hx of wisdom tooth extraction Hx of breast reduction, elective Hx of unilateral oophorectomy Hx of laparoscopy Hx of cholecystectomy Hx of appendectomy Hx of cystoscopy Social History Household Members: Family Household Members Other:: mother Housing: House Do you presently have visiting nurse or other home services: No Alcohol intake: never Patient Tobacco Use Status: Current everyday Tobacco user Tobacco use type: Cigarette Cigarette Packs Per Day: 1 Cigarettes Per Day: 20.0 Second Hand Smoke Exposure: No Substance Use Type: Marijuana service: No Physical Exam Vital Signs: Last Vital Signs Pulse 79 01/27/25 10:15 BP 107/52 L 01/27/25 10:15 BMI result Body Mass Index 26.0 Const General: no acute distress Nutritional Appearance: well nourished Orientation/consciousness: patient oriented x3 Limitations: no limitations Resp Effort & Inspection: normal respiratory effort Skin Other: Warm, dry, no rash Neuro General: patient oriented x3 Extrem Other: Open wound of the right upper inner thigh is clean with granulation tissue at the base. Wounds were repacked with saline soaked 3 x 3 gauze followed by dry gauze and paper tape. No evidence of residual abscess. Left foot with a cystic lesion over the 3rd to 4th metatarsal, nontender to palpation. Does not appear to be ganglion. Also has an ulcer measuring approximately 0.5 cm with no surrounding erythema. Assessment & Plan Assessment & Plan (1) Hidradenitis suppurativa: Comment: multiple i&d's Code(s): L73.2 - Hidradenitis suppurativa Category: Medical Plan: Continue local wound care wet-to-dry dressings. Follow up in 1 month for wound check (2) Plantar ulcer of left foot: Code(s): L97.529 - Non-pressure chronic ulcer of other part of left foot with unspecified severity Category: Medical Plan: Recommend Podiatry consultation for evaluation of the recurrent cyst and plantar ulcer. Referral placed. Orders: Referrals Podiatry Referral L72.9 - Follicular cyst of the skin and subcutaneous tissue, unspecified, L97.529 - Non-pressure chronic ulcer of other part of left foot with unspecified severity Coding Level of Care Code Est Pt Level 3 (35257) Diagnoses Hidradenitis suppurativa L73.2 Plantar ulcer of left foot L97.529
[2025-01-27 10:15] VITALS: BP 107/52; PULSE 79; BMI 26.0
--- OUTSIDE RECORDS SUMMARY | 2025-01-27 10:46 | XMS_ITS | Encounter Summary ---
Author Organization [facility] Address [address] [place] [id number] Phone Care Team Providers Care Mobility Manager Name Role Phone Jong Nolen MD Unavailable [phone] Ayse Pierce MD Primary Care Provider Encounter Details Date Type Department Care Team (Late st Contact Info) Description 06/29/2023 Procedure Pass OR Admitting Dept - Virtual Department [address] [place] [address] Social History Tobacco Use Types Packs/Day Years Used Date Smoking Tobacco: Every Day Cigarettes Smokeless Tobacco: Current Comments:using E cigarette Alcohol Use Standard Drinks/Week Comments No 0 (1 standard drink = 0.6 oz pur e alcohol) Education Answer Date Recorded Are you interested in more education? Not on bekah e 09/26/2022 Are you concerned about learning? Not on file 09/26/2022 No 09/26/2022 No 09/26/2022 Digital Access Answer Date Recorded No 10/27/2022 No 10/27/2022 Reliable internet access at home? Not on file 10/27/2022 Device with a working camera? Not on file Intimate Partner Violence Answer Date R ecorded Are you denied basic needs s uch as food, clothing, or medical care? No 06/29/2023 In the past 12 months have y ou been in a relationship with a person who hurts, threatens, or tries to control you? No 06/29/2023 Are you denied basic needs s uch as food, clothing, or medical care? No 06/29/2023 In the past 12 months have y ou been in a relationship with a person who hurts, threatens, or tries to control you? No 06/29/2023 Comments No Sex and Gender Information Value Date Recorded Sex Assigned at Not on file Legal Sex Female 9:28 PM EDT Gender Identity Not on file Sexual Orientation Not on file Occupation Industry Job Start Date Job End Date Disability Not on file Not on file Not on file documented as of this encounter Plan of Treatment Scheduled Procedures Name Priority Associated Diagnoses Date/Ti me LAPAROSCOPIC HYSTERECTOMY TO HATTIE WITH BILATERAL SALPINGECTOMY Endometriosis determined by laparoscopy documented as of this encounter Visit Diagnoses Not on filedocumented in this encounter Care Teams Mobility Manager Relationship Specialty Start Date End Date Ayse Pierce MD [address] [place] [address] [place] [address] PCP - General Internal Medicine 02/05/22 Jong Nolen MD [address] [place] [address], [facility] [address] [place] [address] [email or web address] Historical LMR Provider 03/21/17 documented as of this encounter Additional Source Comments The information contained in this document represents components of the legal health record. It is not the complete legal health record.[facility]
--- OUTSIDE RECORDS SUMMARY | 2025-01-27 10:46 | XMS_ITS | Clinical Summary ---
Author Organization [facility] Address [address] [place], [place] [id number] Phone Care Team Providers Care Door Frame Builder Name Role Phone Jong Nolen MD Unavailable [phone] Ayse Pierce MD Primary Care Provider Allergies Active Allergy Reactions Criticality Noted Date Comments Adhesive Unknown Low 06/26/2017 Sulfamethoxazole-Trimethoprim Anaphylaxis High 06/26 Povidone-Iodine Unknown Low 06/26/2017 Oxybutynin Chloride Tremor Low 04/08/2018 Doxycycline Hyclate Unknown Low 05/12/2017 Tamsulosin Unknown Low 07/02/2017 Droperidol Unknown Low 06/26/2017 Milk Containing Products (Dairy) Unknown Low Penicillins Unknown Low 06/26/2017 Fluoxetine Dizziness Low 06/26/2017 Shellfish Containing Products Unknown Low 2017 Sulfa (Sulfonamide Antibiotics) Anaphylaxis High 05/2017 Tramadol Anxiety Low 04/08/2018 Medications nicotine (NICODERM CQ) 14 mg/24 hr APPLY 1 PATCH TOPICALLY TO THE SKIN DAILY 5 Active nicotine polacrilex (NICORETTE) [address] GUM ON INSIDE OF CHEEK EVERY 1 HOUR NEEDED 5 Active Active Problems Problem Noted Date Diagnosed Date Endometriosis 07/22/2017 Endometriosis determined by laparoscopy 06/29/19 18 Overview (06/29/2017): Maintained on 20 of Vicodin per month Assessment & Plan (08/16/2024 5:09 PM EDT): She has not reached the point where her symptoms have worsened and she would like to consider definitive treatment via hysterectomy. She has tried multiple medical modalities in the past without success. She essentially has been dealing with it for many years and would just like the process to be over. I explained that hysterectomy would certainly lead to resolution of her heavy bleeding and dysmenorrhea but I could not guarantee resolution of her chronic pelvic pain. She feels strongly about proceeding with definitive treatment via hysterectomy for the heavy bleeding and for possible chronic pelvic pain. Encounters Date Type Department Care Team Description 01/16/2025 Telephone [facility] [address] [place] [address] Keo Garcia LPN Imaging Follow Up 12/19/2024 Telephone [facility] [address] [place] [address] Jong Nolen MD Surgery Scheduling 12/16/2024 2:30 PM EDT Office Visit [facility] [address] [place] [address] Jong Nolen MD Endometriosis determined by laparoscopy (Primary Dx); Breast pain, left from Last 3 Months Family History Medical History Relation Comments Cancer Father Tumor in jaw Breast cancer Maternal Aunt Diabetes mellitus Maternal Grandfather Lung cancer Maternal Grandfather Urinary tract infection Maternal Grandmother Diabetes Mother Obesity Mother Uterine cancer Mother Breast cancer Paternal Aunt hepatitis c Paternal Aunt Heart attack Paternal Grandfather Diabetes Paternal Grandmother Cervical cancer Sister Relation Status Comments Father Maternal Aunt Alive Maternal Grandfather Maternal Grandmother Mother Alive Paternal Aunt Paternal Grandfather Paternal Grandmother Sister Social History Tobacco Use Types Packs/Day Years Used Date Smoking Tobacco: Every Day Cigarettes Smokeless Tobacco: Current Tobacco Cessation:Ready to Q uit: Not Asked; Counseling Given: Not Answered Comments:using E cigarette Alcohol Use Standard Drinks/Week [...] file Not on file Not on file Last Filed Vital Signs Vital Sign Reading Time Taken Comments Blood Pressure 118/74 12/16/2024 2:44 PM EDT Pulse 81 06/29/2023 9:00 AM EST Temperature 36.6 C (97.9 F) 06/29/2023 9:44 AM EST Respiratory Rate 18 06/29/2023 9:44 AM EST Oxygen Saturation 97% 06/29/2023 9:44 AM EST Inhaled Oxygen Concentration - - Weight 71.2 kg (157 lb) 08/16/2024 1:54 PM EDT Height 160 cm (5' 3 ) 08/16/2024 1:54 PM EDT Body Mass Index 27.81 08/16/2024 1:54 PM EDT Plan of Treatment Scheduled Procedures Name Priority Associated Diagnoses Date/Ti me LAPAROSCOPIC HYSTERECTOMY TO HATTIE WITH BILATERAL SALPINGECTOMY Endometriosis determined by laparoscopy Health Maintenance Due Date Last Done Comments Adult Td,Tdap Booster 1975 LIPID PANEL 1975 DEPRESSION SCREENING 1987 SMOKING Hx and SMOKELESS TOBACCO SCREENING 1988 PNEUMOCOCCAL VACCINES (0-49 years) (1 of 2 - PCV) 1994 MAMMOGRAM 2015 COLOGUARD 2020 COLONOSCOPY 2020 COLORECTAL CANCER SCREENING 2020 FIT TEST 2020 FOBT 2020 SIGMOIDOSCOPY 2020 VIRTUAL COLONOSCOPY 2020 SCREENING FOR DIABETES 03/12/2021 03/12/2018 COVID-19 VACCINE (1 - 2023-2 5 season) 2024 INFLUENZA VACCINE (#1) 2024 PAP SMEAR 06/17/2026 06/17/2023, 01/05/2017 HEPATITIS C SCREENING Completed 08/16/2024 , 06/17/2023 HIV ONE-TIME SCREENING (18-6 5 YEARS) Completed 08/16/2024 HEPATITIS A VACCINES Aged Out No long er eligible based on patient's age to complete this topic HIB VACCINES Aged Out No longer eligi ble based on patient's age to complete this topic MENINGOCOCCAL VACCINES (ACWY) Aged Out No longer eligible based on patient's age to complete this topic MENINGOCOCCAL VACCINES (B) Aged Out N o longer eligible based on patient's age to complete this topic Medical Devices Not on file Procedures Procedure Name Priority Date/Time Associated Diagnosis Comments HEPATITIS C ANTIBODY, QUALITATIVE Routine 08/16/2024 2:43 PM EDT Screening for STD (sexually transmitted disease) PAP TEST Routine 06/17/2023 12:00 AM EST from Last 3 Months or Most Recently Relevant to Health Maintenance Results * Hepatitis C antibody, qualitative (08/16/2024 2:43 PM EDT) HCV NON-REACTIV E NON-REACTI VE [facility] Blood 08/16/2024 2:43 PM EDT 08/16/2024 2:45 PM EDT us Jong Nolen MD LAB BLOOD ORDERABLES Final Re sult [facility] [address] [place] [address] * Pap Test (06/17/2023 12:00 AM EST) 06/17/2023 06/18/2023 9:3 4 AM EST Narrative SEE NARRATIVE - 06/19/2023 3:33 [place] [address] Assistant Corporate Controller: Alisha Dean MD MANAGER SUBWAY Cytology Report FINAL DIAGNOSIS A. PAP SMEAR (SUREPATH) CE: SPECIMEN ADEQUACY: Satisfactory for evaluation; transformation zone present. INTERPRETATION: NEGATIVE FOR INTRAEPITHELIAL LESION OR MALIGNANCY. Coccobacilli consistent with shift in shane Electronically Signed Out By: ALICE Myers(ASCP) The Pap test is a screening test primarily for squamous cancers and precursors and has associated false-negative and false-positive results. New technologies such as liquid-based preparations may decrease but will not eliminate all false-negative results. Regular sampling and follow-up of unexplained clinical signs and symptoms are recommended to minimize false negative results. PROCEDURES/ADDENDA HPV Testing (Requested) Ordered Date: 06/18/2023 A. PAP SMEAR (SUREPATH) CE: Human Papilloma Virus Test NEGATIVE for high-risk Human Papilloma Virus types 16, 18, 45 and the Other high risk probe set (Includes 31, 33, 35, 39, 51, 52, 56, 58, 59, 66, 68) Note: Testing performed by [facility] Onclarity HR-HPV analysis. Clinical correlation is advised. This HPV test was performed at [facility], [address] [place] [address]. This test has been FDA approved for SurePath cervical cytology specimens. The accuracy and precision of this test for all other specimen sources has been verified in the Cytopathology Laboratory of the [facility] and has not been cleared or approved by the U.S. Food and Drug Administration. Clinical correlation is advised. CLINICAL HISTORY Date of Last Menstrual Period: 04-15-2023 Other Clinical Conditions: Screening Pap SPECIMEN SOURCE A: PAP SMEAR (SUREPATH) CE Patient Name: GINI FRAGA : 1975 (Age: 48) Sex: F Institution: [facility] Location: [facility] Date of Collection: 06/17/2023 Date of Reported: 06/19/2023 15:33 Results to: Jong Nolen MD, BS us Jong Nolen MD CYTOLOGY ORDERABLES Final Res ult SEE NARRATIVE from Last 3 Months or Most Recently Relevant to Health Maintenance Insurance [facility] [place] [address] [place] [address] [place] [address] [place] [address] [place] [address] PCC Care Teams Door Frame Builder Relationship Specialty Start Date End Date Ayse Pierce MD [address] [place] [address] [place] [address] PCP - General Internal Medicine 02/05/22 Jong Nolen MD 22 [facility], [address] [address] [email or web address] Historical LMR Provider 03/21/17 Additional Source Comments The information contained in this document represents components of the legal health record. It is not the complete legal health record.[facility]
--- OUTSIDE RECORDS SUMMARY | 2025-01-27 10:47 | XMS_ITS | Encounter Summary ---
Author Organization [facility] Address [address] [place], [place] [address] Phone Care Team Providers Care Missileman Name Role Phone Seng Suarez MD Unavailable [phone] Emily Albrecht CNM Unavailable [phone] Nia Skinner SIGN SHOP SUPERVISOR Unavailable [phone] Georgiana Mcknight SIGN SHOP SUPERVISOR Unavailable [phone] Jong Nolen MD Unavailable [phone] Star Ramon MD Unavailable [phone] Seng Suarez MD Primary Care Provider [phone] Ayse Pierce MD Primary Care Provider Encounter Details Date Type Department Care Team (Late st Contact Info) Description 07/22/2017 Procedure Pass OR Admitting Dept - Virtual Department [address] [place] [address] Social History Tobacco Use Types Packs/Day Years Used Date Smoking Tobacco: Every Day Smokeless Tobacco: Current Comments:using E cigarette Alcohol Use Standard Drinks/Week Comments No 0 (1 standard drink = 0.6 oz pur e alcohol) Comments No Sex and Gender Information Value [...] Diagnoses Not on filedocumented in this encounter Additional Health Concerns Infection Onset Date Last Indicated Resolved Time 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 Infection Utility 07/19/2012 07/19/2012 07/16/2022 1:[address] documented as of this encounter Care Teams Missileman Relationship Specialty Start Date End Date Seng Suarez MD [address] [place] [address] PCP - General 06/04/17 02/04/22 Ayse Pierce MD [address] [place] [address] [place] [address] PCP - General Internal Medicine 02/05/22 Seng Suarez MD [address] [place] [address] Historical LMR Provider 03/21/17 2 Emily Albrecht CNM [address] [place] [address] Historical LMR Provider 03/21/17 2 Nia Skinner NP [address] [place] [address] Historical LMR Provider 03/21/17 06/08/21 Georgiana Mcknight NP [address] [place] [address] Historical LMR Provider 03/21/17 2 Jong Nolen MD [address] [place] [address] Historical LMR Provider 03/21/17 Star Ramon MD [address] [place] [address] Historical LMR Provider 03/21/1706/08/ 2 documented as of this encounter Additional Source Comments The information contained in this document represents components of the legal health record. It is not the complete legal health record.[facility]
--- OUTSIDE RECORDS SUMMARY | 2025-01-27 10:47 | XMS_ITS | Encounter Summary ---
Author Organization [facility] Address [address] [place], [place] [address] Phone Care Team Providers Care Program Therapist Name Role Phone Jong Nolen MD Unavailable [phone] Ayse Pierce MD Primary Care Provider Encounter Details Date Type Department Care Team (Late st Contact Info) Description 02/13/2022 Procedure Pass OR Admitting Dept - Virtual Department [address] [place] [address] Social History Tobacco Use Types Packs/Day Years [...] documented as of this encounter Care Teams Program Therapist Relationship Specialty Start Date End Date Ayse Pierce MD [address] [place] [address] [place] [address] PCP - General Internal Medicine 02/05/22 Jong Nolen MD [address] [place] [address] [email or web address] Historical LMR Provider 03/21/17 documented as of this encounter Additional Source Comments The information contained in this document represents components of the legal health record. It is not the complete legal health record.[facility]
--- OUTSIDE RECORDS SUMMARY | 2025-01-27 10:47 | XMS_ITS | Encounter Summary ---
Author Organization [facility] Address [address] [place], [place] [address] Phone Care Team Providers Care Residential Treatment Specialist Name Role Phone Seng Suarez MD Unavailable [phone] Emily Albrecht CNM Unavailable [phone] Nia Skinner CERTIFIED MASTER SAFE TECHNICIAN Unavailable [phone] Georgiana Mcknight CERTIFIED MASTER SAFE TECHNICIAN Unavailable [phone] Jong Nolen MD Unavailable [phone] Star Ramon MD Unavailable [phone] Seng Suarez MD Primary Care Provider Ayse Pierce MD Primary Care Provider Encounter Details Date Type Department Care Team (Late st Contact Info) Description 04/08/2018 Procedure Pass OR Admitting Dept - Virtual Department [address] [place] [address] Social History Tobacco Use Types Packs/Day Years [...] documented as of this encounter Care Teams Residential Treatment Specialist Relationship Specialty Start Date End Date Seng Suarez MD [address] [place] [address] PCP - General 06/04/17 02/04/22 Ayse Pierce MD [address] [place] [address] [place] [address] PCP - General Internal Medicine 02/05/22 Seng Suarez MD [address] [place] [address] Historical LMR Provider 03/21/17 2 Emily Albrecht CNM [address] [place] [address] Historical LMR Provider 03/21/17 2 Nia Skinner NP [address] [place] [address] Historical LMR Provider 03/21/17 06/08/21 Georgiana Mcknight NP [address] [place] [address] Historical LMR Provider 03/21/17 2 Jong Nolen MD [address] [place] [address] Historical LMR Provider 03/21/17 Star Ramon MD [address] [place] [address] Historical LMR Provider 03/21/1706/08/ 2 documented as of this encounter Additional Source Comments The information contained in this document represents components of the legal health record. It is not the complete legal health record.[facility]
--- OUTSIDE RECORDS SUMMARY | 2025-01-27 10:47 | XMS_ITS | Encounter Summary ---
Author Organization [facility] Address [address] [place], [place] [address] Phone Care Team Providers Care Auto Slip Cover Installer Name Role Phone Seng Suarez MD Unavailable [phone] Emily Albrecht CNM Unavailable [phone] Nia Skinner ECOMMERCE MARKETING MANAGER Unavailable [phone] Georgiana Mcknight ECOMMERCE MARKETING MANAGER Unavailable [phone] Jong Nolen MD Unavailable [phone] Star Ramon MD Unavailable [phone] Seng Suarez MD Primary Care Provider [phone] Ayse Pierce MD Primary Care Provider Encounter Details Date Type Department Care Team (Late st Contact Info) Description 03/13/2018 Ancillary Orders [facility], [address] [address] Judson Martínez MD [address] [place] [address] [email or web address] Pelvic pain; Hematuria, unspecified type; Urinary urgency Social History Tobacco Use Types Packs/Day Years [...] by laparoscopy documented as of this encounter Results * US Kidneys and Bladder (03/13/2018 12:06 PM EDT) Anatomical Region Laterality Modality Abdomen, Kidney Ultrasound 03/13/2018 7:15 PM EDT Impressions 03/13/2018 7:18 PM EDT Questionable small non-obstructing calculus in the interpolar region of the left kidney. No other significant renal abnormalities. Bladder could not be adequately evaluated due to underdistention. POS [id number] Narrative 03/13/2018 7:18 PM EDT HISTORY: Hematuria, urgency. COMPARISON: MRI abdomen 07/22/2012 FINDINGS: Right Kidney: The kidney is normal in size and echogenicity. It measures 12.1 cm in the long axis. No evidence of masses, calculi, pelvocaliectasis or significant cortical thinning. Left Kidney: The kidneys normal in size measuring 11.0 cm in the long axis. 4 mm echogenic focus near the cortical medullary junction in the interpolar region does not clearly attenuate sound posteriorly. No other findings suspicious for calculi. No suspicious masses. No pelvocaliectasis. No evidence of significant cortical thinning. Bladder: The bladder is poorly evaluated due to underdistention. Procedure Note Lion Elise MD - 03/13/2018 HISTORY: Hematuria, urgency. COMPARISON: MRI abdomen 07/22/2012 FINDINGS: Right Kidney: The kidney is normal in size and echogenicity. It nkwsmtyp62.1 cm in the long axis. No evidence of masses, calculi,pelvocaliectasis or significant cortical thinning. Left Kidney: The kidneys normal in size measuring 11.0 cm in the longaxis. 4 mm echogenic focus near the cortical medullary junction in theinterpolar region does not clearly attenuate sound posteriorly. No otherfindings suspicious for calculi. No suspicious masses. Nopelvocaliectasis. No evidence of significant cortical thinning. Bladder: The bladder is poorly evaluated due to underdistention. IMPRESSION: Questionable small non-obstructing calculus in the interpolar region ofthe left kidney. No other significant renal abnormalities. Bladder couldnot be adequately evaluated due to underdistention. POS [id number] us Judson Martínez MD IMG US RENAL Final Re sult * US PELVIS TRANSABDOMINAL PLUS TRANSVAGINAL (03/13/2018 12:06 PM EDT) Anatomical Region Laterality Modality Pelvis, Uterus/Adnexa Ultrasound 03/13/2018 7:13 PM EDT Impressions 03/13/2018 7:15 PM EDT No explanation for pain. POS - [id number] Narrative 03/13/2018 7:15 PM EDT HISTORY: Pelvic pain, history of endometriosis. Status post left oophorectomy. COMPARISON: Pelvic ultrasound 06/30/2017 FINDINGS: Initially transabdominal study performed. This is followed by transvaginal exam for attempted better detail the ovaries and endometrium. Uterus normal in size and echogenicity measuring 7.2 cm x 4.2 cm x 3.4 cm. No evidence of uterine masses. Endometrial stripe normal measuring 5 mm in diameter. The right ovary is normal in size and contains small follicles. It measures 3.4 cm x 3.0 cm x 2.0 cm. Small amount of free fluid within the dependent portion of the pelvis, within physiologic range. Procedure Note Lion Elise MD - 03/13/2018 HISTORY: Pelvic pain, history of endometriosis. Status post leftoophorectomy. COMPARISON: Pelvic ultrasound 06/30/2017 FINDINGS: Initially transabdominal study performed. This is followed bytransvaginal exam for attempted better detail the ovaries andendometrium. Uterus normal in size and echogenicity measuring 7.2 cm x 4.2 cm x 3.4 cm.No evidence of uterine masses. Endometrial stripe normal measuring 5 mmin diameter. The right ovary is normal in size and contains small follicles. Itmeasures 3.4 cm x 3.0 cm x 2.0 cm. Small amount of free fluid within the dependent portion of the pelvis,within physiologic range. IMPRESSION: No explanation for pain. 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 Infection Utility 07/19/2012 07/19/2012 07/16/2022 1:[address] documented as of this encounter Care Teams Auto Slip Cover Installer Relationship Specialty Start Date End Date Seng Suarez MD [address] [place] [address] PCP - General 06/04/17 02/04/22 Ayse Pierce MD [address] [place] [address] [place] [address] PCP - General Internal Medicine 02/05/22 Seng Suarez MD [address] [place] [address] Historical LMR Provider 03/21/17 2 Emily Albrecht CNM [address] [place] [address] Historical LMR Provider 03/21/17 2 Nia Skinner NP [address] [place] [address] Historical LMR Provider 03/21/17 06/08/21 Georgiana Mcknight NP [address] [place] [address] Historical LMR Provider 03/21/17 2 Jong Nolen MD [address] [place] [address] [email or web address] Historical LMR Provider 03/21/17 Star Ramon MD [address] [place] [address] Historical LMR Provider 03/21/17 2 documented as of this encounter Additional Source Comments The information contained in this document represents components of the legal health record. It is not the complete legal health record.[facility]
== END 2025-01-27 15:10 | disposition home or self-care (01) ==
LOC: HO.HGS 10:02
PROVIDERS: PCP Internal Medicine; Visit Provider Surgery
DX: L73.2 Hidradenitis suppurativa (principal); L97.529 Non-pressure chronic ulcer of other part of left foot with unspecified severity
CPT/HCPCS: 99024

== ENCOUNTER → 2025-01-27 10:01 | Outpatient (BNVA) | payer MEDICAID, SELFPAY | PROVIDERS: PCP Internal Medicine; Visit Provider Surgery | DX: L73.2 Hidradenitis suppurativa (principal); L97.429 Non-pressure chronic ulcer of left heel and midfoot with unspecified severity | CPT/HCPCS: 99212 ==

== ENCOUNTER 2025-02-10 15:43 | Outpatient (AMB) | payer MEDICAID, SELFPAY ==
--- NOTE | 2025-02-10 15:51 | A.OFFVIS_ITS ---
Vital Signs 02/10/25 15:53 Height 5 ft 3 in Weight 161 lb BMI 28.5 Intake Visit Reasons: New Pt- Ulcer and cyst of the left foot Intake Note: Gini is a 49 year old female who presents today as a new patient for an evaluation of her plantar ulcer and cyst of the left foot. She mentions this has been going on for about 2 years. Patient reports she has had prior surgery on your left foot to remove the cyst but it re grew back. Allergies Iodinated Contrast Media (Contrast Dye) Allergy (Verified 02/10/25 15:51) Unknown Penicillins (PCN) Allergy (Verified 02/10/25 15:51) Unknown shellfish derived Allergy (Verified 02/10/25 15:51) Unknown Sulfa (Sulfonamide Antibiotics) Allergy (Verified 02/10/25 15:51) Unknown prednisone Adverse Reaction (Verified 02/10/25 15:51) Agitated tamsulosin (From Flomax) Adverse Reaction (Verified 02/10/25 15:51) Involuntary Spasms tramadol Adverse Reaction (Verified 02/10/25 15:51) Agitated HPI HPI New Pt- Ulcer and cyst of the left foot: Details: The patient is a 49-year-old female no pertinent past medical history, presents for initial evaluation of a recurrent left foot mass and a painful lesion to the ball of her foot. The mass was previously excised about 12 to 13 months ago with her general surgeon but has since reappeared, causing discomfort, especially when wearing certain footwear. She notes a lump in the ball of her foot with recent fluid/drainage, which is causing her increased pain. The patient also reports significant foot pain due to high arches, and also reports a leg length discrepancy that affects her posture and gait. The patient has a history of chronic kidney stones, with three stones surgically removed and others passed spontaneously. She also has a history of hidradenitis suppurativa, previously managed by a general surgeon. [facility] Medical History Abscess Kidney calculi Hidradenitis suppurativa Surgical History History of incision and drainage (01/17/25) Hx of wisdom tooth extraction Hx of breast reduction, elective Hx of unilateral oophorectomy Hx of laparoscopy Hx of cholecystectomy Hx of appendectomy Hx of cystoscopy Social History Household Members: Family Household Members Other:: mother Housing: House Do you presently have visiting nurse or other home services: No Alcohol intake: never Patient Tobacco Use Status: Current everyday Tobacco user Tobacco use type: Cigarette Cigarette Packs Per Day: 1 Cigarettes Per Day: 20.0 Second Hand Smoke Exposure: No Substance Use Type: Marijuana service: No Review of Systems Const All systems reviewed & are unremarkable except as noted in HPI and below Physical Exam Vital Signs: BMI result Body Mass Index 28.5 Extrem Other: *Bilateral Lower Extremity Focused Exam Vascular: DP/PT 2/4, CFT<3s to digits, TG warm to cool, no pedal edema Derm: - Left dorsal lateral 0.5cm x 0.5cm nodule, firm, mobile, no pain on palpation or motion. - Left sub-met-1 0.2cm x 0.1cm opening with no drainage, hyperkeratotic borders. - Palpable firm posibly fluctuant mass at the medial aspect of the sesamoid complex. - left submet5 and right plantar hallux hyperkeratotic lesion. Neuro: Protective sensation grossly intact to bilateral lower extremities MSK: Mild tenderness on palpation along the left submet 1 lesion. - On weight-bearing exam, moderate to high arch bilaterally. Right calcaneus relatively neutral, right rearfoot slightly pronating with mild knee flexion. Office Procedures AMB Debridement/Avulsion Podia Details: Debridement of left submet 1 lesion was performed sharply using a 15. Blade. After debridement, it was noted that she has an opening to the plantar aspect of the foot to the level of deep dermis, no noted exposed subcutaneous tissue layer. No fluid collection visible at this time, no sinus tract. 24503-Vcsybhaihwc of active wound <20cm Procedure code (CPT) selection complete Assessment & Plan Assessment & Plan (1) Mass of soft tissue of foot: Comment: Dorsal left foot Code(s): M79.89 - Other specified soft tissue disorders Category: Medical Plan: * Discussed the etiology of her recurrence soft tissue mass. Explained that it does appear to be superficial and does not violate the deeper aspects of her foot. * An MRI is recommended to assess the depth and origin of the recurrent foot mass, particularly to determine if it involves deeper structures at the level of fascia, muscle, tendon. * Surgical excision is planned, with consideration for a larger margin if the MRI indicates deeper involvement. * Rx left foot MRI without contrast. (2) Metatarsalgia of both feet: Code(s): M77.41 - Metatarsalgia, right foot; M77.42 - Metatarsalgia, left foot Category: Medical Plan: * Rx weight-bearing x-ray bilateral feet * Recommended supportive shoe wear and high arch orthotics. * If there is minimal improvement by next visit, we will fabricate metatarsal pad and dancer's pads. (3) Other bursal cyst, left ankle and foot: Code(s): M71.372 - Other bursal cyst, left ankle and foot Category: Medical Plan: * Differential diagnosis includes verrucous wart, ganglion cyst, pressure ulcer. * Debrided left submet 1 lesion. Applied triple antibiotic ointment and Band- Aid. * Instructed patient to begin use of antibiotic ointment and Band-Aid daily for the next 2 weeks. * Recommended supportive shoe wear to offload the forefoot. She is currently wearing sandals, which is likely contributing to her abnormal loading. (4) Leg length discrepancy: Code(s): M21.70 - Unequal limb length (acquired), unspecified site Plan: * Patient will require a CT scanogram to evaluate for limb length discrepancy. There may be a muscular in nature component, as there was not an obvious structural discrepancy from the level of the knee to the ankles. * We will plan to formally perform a full length biomechanical exam and measure possible discrepancy at next visit. She may require heel lifts if there is a noted structural deformity limb length discrepancy. (5) Cavus deformity of both feet: Code(s): Q66.71 - Congenital pes cavus, right foot; Q66.72 - Congenital pes cavus, left foot Category: Medical Plan: * Educated the patient on her foot type. Explained that his high arch foot type (Cavus feet) can lead to altered weight distribution, resulting in increased pressure on the heel and forefoot. Patients may experience symptoms such as pain, callus formation, tendinitis, instability, lateral ankle sprains, and, in some cases, development of digital deformities (e.g., claw toes or hammertoes). Discussed the importance of shoe type with heel and forefoot padding and support. Orders: Orders MR foot LT wo con 02/10/25 M79.89 - Other specified soft tissue disorders XR Foot Ji 3V 02/10/25 M77.41 - Metatarsalgia, right foot, M77.42 - Metatarsalgia, left foot AMB Debridement/Avulsion Podiatry 02/10/25 M71.372 - Other bursal cyst, left ankle and foot Coding Level of Care Code New Pt Level 3 (48635) Diagnoses Mass of soft tissue of foot M79.89 Metatarsalgia of both feet M77.41; M77.42 Other bursal cyst, left ankle and foot M71.372 Leg length discrepancy M21.70 Cavus deformity of both feet Q66.71; Q66.72 CPT Codes Skin Debridement - CPT: 50326-Igoxttglyhb of active wound <20cm ([id number]) Time Spent (min) 35
[2025-02-10 15:53] VITALS: BMI 28.5
--- OUTSIDE RECORDS SUMMARY | 2025-02-10 17:46 | XMS_ITS | Encounter Summary ---
Author Organization [facility] Address [address] [place], [place] [address] Phone Care Team Providers Care Pump Room Operator Name Role Phone Seng Suarez MD Unavailable [phone] Emily Albrecht CNM Unavailable [phone] Nia Skinner PAPER FOLDING MACHINE OPERATOR Unavailable [phone] Georgiana Mckinght PAPER FOLDING MACHINE OPERATOR Unavailable [phone] Jong Nolen MD Unavailable [phone] Star Ramon MD Unavailable [phone] Seng Suarez MD Primary Care Provider [phone] Ayse Pierce MD Primary Care Provider Encounter Details Date Type Department Care Team (Late st Contact Info) Description 03/13/2018 Ancillary Orders [facility], [address] [address] Judson Martínez MD [address] [place] [phone] [email or web address] Pelvic pain; Hematuria, unspecified type; [...] be adequately evaluated due to underdistention. POS [id number] Narrative 03/13/2018 7:18 PM EDT HISTORY: Hematuria, [...] is normal in size and echogenicity. It yrjilsrb12.1 cm in the long axis. No evidence [...] be adequately evaluated due to underdistention. POS [id number] us Judson Martínez MD IMG US RENAL Final Re sult * US PELVIS TRANSABDOMINAL PLUS TRANSVAGINAL (03/13/2018 12:06 PM EDT) Anatomical Region Laterality Modality Pelvis, Uterus/Adnexa Ultrasound 03/13/2018 7:13 PM EDT Impressions 03/13/2018 7:15 PM EDT No explanation for pain. POS - [id number] Narrative 03/13/2018 7:15 PM EDT HISTORY: Pelvic [...] IMPRESSION: No explanation for pain. POS - [id number] us Judson Martínez MD IMG US PELVIS [...] documented as of this encounter Care Teams Pump Room Operator Relationship Specialty Start Date End Date Seng Suarez MD [address] [place] [address] PCP - General 06/04/17 02/04/22 Ayse Pierce MD [address] [place] [address] [place] [address] PCP - General Internal Medicine 02/05/22 Seng Suarez MD [address] [place] [address] Historical LMR Provider 03/21/17 2 Emily Albrecht CNM [address] [place] [address] Historical LMR Provider 03/21/17 2 Nia Skinner NP [address] [place] [address] Historical LMR Provider 03/21/17 06/08/21 Georgiana Mcknight NP [address] [place] [address] Historical LMR Provider 03/21/17 2 Jong Nolen MD [address] [place] [address] [email or web address] Historical LMR Provider 03/21/17 Star Ramon MD [address] [place] [address] Historical LMR Provider 03/21/17 2 documented as of this encounter Additional Source Comments The information contained in this document represents components of the legal health record. It is not the complete legal health record.[facility]
--- OUTSIDE RECORDS SUMMARY | 2025-02-10 17:46 | XMS_ITS | Encounter Summary ---
Author Organization [facility] Address [address] [place], [place] [address] Phone Care Team Providers Care Shank Sander Name Role Phone Seng Suarez MD Unavailable [phone] Emily Albrecht CNM Unavailable [phone] Nia Skinner TANK TERMINAL GAUGER Unavailable [phone] Georgiana Mcknight TANK TERMINAL GAUGER Unavailable [phone] Jong Nolen MD Unavailable [phone] Star Ramon MD Unavailable [phone] Seng Suarez MD Primary Care Provider [phone] Ayse Pierce MD Primary Care Provider Encounter Details Date Type Department Care Team (Late st Contact Info) Description 04/08/2018 Procedure Pass OR Admitting Dept - Virtual Department [address] [place] [address] Social History Tobacco Use Types Packs/Day Years [...] documented as of this encounter Care Teams Shank Sander Relationship Specialty Start Date End Date Seng Suarez MD [address] [place] [address] PCP - General 06/04/17 02/04/22 Ayse Pierce MD [address] [place] [address] [place] [address] PCP - General Internal Medicine 02/05/22 Seng Suarez MD [address] [place] [address] Historical LMR Provider 03/21/17 2 Emily Albrecht CNM [address] [place] [address] Historical LMR Provider 03/21/17 2 Nia Skinner NP [address] [place] [address] Historical LMR Provider 03/21/17 06/08/21 Georgiana Mcknight NP [address] [place] [address] Historical LMR Provider 03/21/17 2 Jong Nolen MD [address] [place] [address] Historical LMR Provider 03/21/17 Star Ramon MD [address] [place] [address] Historical LMR Provider 03/21/1706/08/ 2 documented as of this encounter Additional Source Comments The information contained in this document represents components of the legal health record. It is not the complete legal health record.[facility]
--- OUTSIDE RECORDS SUMMARY | 2025-02-10 17:46 | XMS_ITS | Encounter Summary ---
Author Organization [facility] Address [address] [place], [place] [address] Phone Care Team Providers Care Bottle Line Worker Name Role Phone Seng Suarez MD Unavailable [phone] Emily Albrecht CNM Unavailable [phone] Nia Skinner CLINICAL SAFETY MANAGER Unavailable [phone] Georgiana Mcknight CLINICAL SAFETY MANAGER Unavailable [phone] Jong Nolen MD Unavailable [phone] Star Ramon MD Unavailable [phone] Seng Suarez MD Primary Care Provider [phone] Ayse Pierce MD Primary Care Provider Encounter Details Date Type Department Care Team (Late st Contact Info) Description 07/22/2017 Procedure Pass [place] Admitting Dept - Virtual Department [address] [place] [address] Social History Tobacco Use Types Packs/Day Years [...] documented as of this encounter Care Teams Bottle Line Worker Relationship Specialty Start Date End Date Seng Suarez MD [address] [place] [address] PCP - General 06/04/17 02/04/22 Ayse Pierce MD [address] [place] [address] [place] [address] PCP - General Internal Medicine 02/05/22 Seng Suarez MD [address] [place] [address] Historical LMR Provider 03/21/17 2 Emily Albrecht CNM [address] [place] [address] Historical LMR Provider 03/21/17 2 Nia Skinner NP [address] [place] [address] Historical LMR Provider 03/21/17 06/08/21 Georgiana Mcknight NP [address] [place] [address] Historical LMR Provider 03/21/17 2 Jong Nolen MD [address] [place] [address] Historical LMR Provider 03/21/17 Star Ramon MD [address] [place] [address] Historical LMR Provider 03/21/1706/08/ 2 documented as of this encounter Additional Source Comments The information contained in this document represents components of the legal health record. It is not the complete legal health record.[facility]
--- OUTSIDE RECORDS SUMMARY | 2025-02-10 17:46 | XMS_ITS | Encounter Summary ---
Author Organization [facility] Address [address] [place] [address] Phone Care Team Providers Care Optical Coating Technician Name Role Phone Jong Nolen MD Unavailable [phone] Ayse Pierce MD Primary Care Provider Encounter Details Date Type Department Care Team (Late st Contact Info) Description 06/29/2023 Procedure Pass [place] Admitting Dept - Virtual Department [address] [place] [address] Social History Tobacco Use Types Packs/Day Years [...] on filedocumented in this encounter Care Teams Optical Coating Technician Relationship Specialty Start Date End Date Ayse Pierce MD [address] [place] [address] [place] [address] PCP - General Internal Medicine 02/05/22 Jong Nolen MD [address] [place] [address], [facility] [address] [place] [address] [email or web address] Historical LMR Provider 03/21/17 documented as of this encounter Additional Source Comments The information contained in this document represents components of the legal health record. It is not the complete legal health record.[facility]
--- OUTSIDE RECORDS SUMMARY | 2025-02-10 17:46 | XMS_ITS | Encounter Summary ---
Author Organization [facility] Address [address] [place], [place] [address] Phone Care Team Providers Care Cnc Mill Set Up Operator Name Role Phone Jong Nolen MD Unavailable [phone] Ayse Pierce MD Primary Care Provider Encounter Details Date Type Department Care Team (Late st Contact Info) Description 02/13/2022 Procedure Pass [place] Admitting Dept - Virtual Department [address] [place] [address] Social History Tobacco Use Types Packs/Day Years [...] documented as of this encounter Care Teams Cnc Mill Set Up Operator Relationship Specialty Start Date End Date Ayse Pierce MD [address] [place] [address] [place] [address] PCP - General Internal Medicine 02/05/22 Jong Nolen MD [address] [place] [address] [email or web address] Historical LMR Provider 03/21/17 documented as of this encounter Additional Source Comments The information contained in this document represents components of the legal health record. It is not the complete legal health record.[facility]
--- OUTSIDE RECORDS SUMMARY | 2025-02-10 17:46 | XMS_ITS | Clinical Summary ---
Author Organization [facility] Address [address] [place], [place] [address] Phone Care Team Providers Care Hebrew Professor Name Role Phone Jong Nolen MD Unavailable [phone] Ayse Pierce MD Primary Care Provider Allergies [...] Telephone [facility] [address] [place] [address] Keo Garcia LPN Imaging Follow Up 12/19/2024 Telephone [facility] [address] [place] [address] Jong Nolen MD Surgery Scheduling 12/16/2024 2:30 PM EDT Office Visit [facility] [address] [place] [address] Jong Nolen MD Endometriosis determined by laparoscopy [...] COLONOSCOPY 2020 SCREENING FOR DIABETES 03/12/2021 03/12/2018 INFLUENZA VACCINE (#1) 2024 COVID-19 VACCINE (2023-2 5 season) 2025 PAP SMEAR 06/17/2026 06/17/2023, 01/05/2017 HEPATITIS C [...] PM EDT) HCV NON-REACTIV E NON-REACTI VE [facility] Blood 08/16/2024 2:43 PM EDT 08/16/2024 2:45 PM EDT us Jong Nolen MD LAB BLOOD ORDERABLES Final Re sult [facility] [address] [place] [address] * Pap Test (06/17/2023 12:00 AM EST) 06/17/2023 06/18/2023 9:3 4 AM EST Narrative SEE NARRATIVE - 06/19/2023 3:33 [place] [address] Shot Hole Shooter: Alisha Dean MD UPHOLSTERY HANDLER Cytology Report FINAL DIAGNOSIS A. PAP SMEAR [...] 59, 66, 68) Note: Testing performed by [employer] On[employer] HR-HPV analysis. Clinical correlation is advised. This HPV test was performed at [facility], [address] [place] [address]. This test has been FDA approved for [facility] cervical cytology specimens. The accuracy and precision of this test for all other specimen sources has been verified in the Cytopathology Laboratory of the [facility] and has not been cleared or approved by the U.S. Food and Drug Administration. Clinical correlation is advised. CLINICAL HISTORY Date of Last Menstrual Period: 04-15-2023 Other Clinical Conditions: Screening Pap SPECIMEN SOURCE A: PAP SMEAR (SUREPATH) CE Patient Name: GINI FRAGA : 1975 (Age: 48) Sex: F Institution: [facility] Location: [facility] Date of Collection: 06/17/2023 Date of Reported: 06/19/2023 15:33 Results to: Jong Nolen MD, BS us Jong Nolen MD CYTOLOGY ORDERABLES Final Res ult SEE NARRATIVE from Last 3 Months or Most Recently Relevant to Health Maintenance Insurance [facility] [place] [address] [place] [address] [place] [address] [place] [address] [place] [address] PCC Care Teams Hebrew Professor Relationship Specialty Start Date End Date Ayse Pierce MD [address] [place] [address] [place] [address] PCP - General Internal Medicine 02/05/22 Jong Nolen MD 22 [facility], [address] [address] [email or web address] Historical LMR Provider 03/21/17 Additional Source Comments The information contained in this document represents components of the legal health record. It is not the complete legal health record.[facility]
== END 2025-02-10 16:24 | disposition home or self-care (01) ==
LOC: HO.HPODS 15:44
PROVIDERS: PCP Internal Medicine; Visit Provider Student in an Organized Health Care Education/Training Program
DX: M79.89 Other specified soft tissue disorders (principal); M77.41 Metatarsalgia, right foot; M77.42 Metatarsalgia, left foot; M71.372 Other bursal cyst, left ankle and foot; M21.70 Unequal limb length (acquired), unspecified site; Q66.71 Congenital pes cavus, right foot; Q66.72 Congenital pes cavus, left foot
CPT/HCPCS: 97597; 99203

== ENCOUNTER → 2025-02-10 15:43 | Outpatient (BNVA) | payer MEDICAID, SELFPAY | PROVIDERS: PCP Internal Medicine; Visit Provider Student in an Organized Health Care Education/Training Program | DX: M79.89 Other specified soft tissue disorders (principal); M71.372 Other bursal cyst, left ankle and foot; M21.70 Unequal limb length (acquired), unspecified site; Q66.71 Congenital pes cavus, right foot; Q66.72 Congenital pes cavus, left foot | CPT/HCPCS: 97597; 99202 ==

== ENCOUNTER 2025-02-20 09:57 | Outpatient (AMB) | payer MEDICAID, SELFPAY ==
--- NOTE | 2025-02-20 10:01 | MHC.OFFVIS ---
Vital Signs 02/20/25 10:03 Height 5 ft 3 in Weight 161 lb BMI 28.5 Intake Visit Reasons: Lt foot cyst infected, swollen, Intake Note: Gini is a 49 year old female who presents today for a follow up in her left foot Cyst due to possible infection. Cyst site is red and swollen and 2 days ago it had drained puss. She states pain prevents her from walking. Allergies Iodinated Contrast Media (Contrast Dye) Allergy (Verified 02/20/25 10:04) Unknown Penicillins (PCN) Allergy (Verified 02/20/25 10:04) Unknown shellfish derived Allergy (Verified 02/20/25 10:04) Unknown Sulfa (Sulfonamide Antibiotics) Allergy (Verified 02/20/25 10:04) Unknown prednisone Adverse Reaction (Verified 02/20/25 10:04) Agitated tamsulosin (From Flomax) Adverse Reaction (Verified 02/20/25 10:04) Involuntary Spasms tramadol Adverse Reaction (Verified 02/20/25 10:04) Agitated HPI HPI Lt foot cyst infected, swollen,: Details: The patient is a 49-year-old female past medical history of hidradenitis, spine infection, (+) tobacco use, presenting for 2 week follow up for left foot cyst. She states that starting yesterday, her left foot started to become more swollen with increased redness, pain, and drainage. The patient reports a history of hydradenitis, which she attributes to her father's side of the family. She has undergone multiple treatments, including a breast reduction to alleviate symptoms associated with hydradenitis. 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 The patient is a smoker, which she monitors closely Medical History: - Spine infection between T6 and T7 - Hydradenitis - History of Clostridioides difficile infection Social History: - Smoker [facility] Medical History Abscess Kidney calculi Hidradenitis suppurativa Surgical History History of incision and drainage (01/17/25) Hx of wisdom tooth extraction Hx of breast reduction, elective Hx of unilateral oophorectomy Hx of laparoscopy Hx of cholecystectomy Hx of appendectomy Hx of cystoscopy Social History Household Members: Family Household Members Other:: mother Housing: House Do you presently have visiting nurse or other home services: No Alcohol intake: never Patient Tobacco Use Status: Current everyday Tobacco user Tobacco use type: Cigarette Cigarette Packs Per Day: 1 Cigarettes Per Day: 20.0 Second Hand Smoke Exposure: No Substance Use Type: Marijuana service: No Review of Systems Const All systems reviewed & are unremarkable except as noted in HPI and below Physical Exam Vital Signs: BMI result Body Mass Index 28.5 Extrem Other: *Bilateral Lower Extremity Focused Exam Vascular: DP/PT 2/4, CFT<3s to digits, TG warm to cool, moderate plantar left submet 1 edema. Derm: - Left dorsal lateral 0.5cm x 0.5cm nodule, firm, mobile, no pain on palpation or motion. - Left sub-met-1 0.2cm x 0.1cm opening with no active drainage, periwound erythema, no extension to the midfoot or hallux. Neuro: Protective sensation grossly intact to bilateral lower extremities MSK: Moderate tenderness on palpation along the left submet 1 wound/lesion. - On weight-bearing exam, moderate to high arch bilaterally. Right calcaneus relatively neutral, right rearfoot slightly pronating with mild knee flexion. Office Procedures AMB Podiatry Dressing Details of Procedure: Procedure: left lower extremity ankle/foot dressing Indication: Left lower extremity wound/abscess Description: The left foot and ankle was dressed using topical antibiotic ointment to the submet 1 ulcer, 4 x 4 gauze, and Lance bandage wrapped past the level of the ankle. Tolerance: Patient tolerated procedure well, no immediate complications. *The patient was dispensed a surgical shoe. 56933 - Strapping of foot/ankle Procedure code (CPT) selection complete Assessment & Plan Assessment & Plan (1) Foot abscess, left: Code(s): L02.612 - Cutaneous abscess of left foot Category: Medical Plan: The patient was advised to present to the emergency room for treatment of left foot abscess and infection. This will require imaging studies, lab studies to rule out sepsis, antibiotic treatment, and likely an incision and drainage procedure. She was recommended an incision and drainage procedure today in the office however the patient states that she prefers going to the emergency room to have the procedure done there. The left foot wound was dressed with antibiotic ointment, 4 x 4 gauze, and an Lance bandage. Orders: Orders AMB Podiatry Dressing Today L02.612 - Cutaneous abscess of left foot Coding Level of Care Code Est Pt Level 3 (84216) Diagnoses Foot abscess, left L02.612 CPT Codes Podiatry Dressing - CPT: 24858 - Strapping of foot/ankle ([id number]) Time Spent (min) 20 Comment Patient was recommended presentation to the ER for foot infection
[2025-02-20 10:03] VITALS: BMI 28.5
--- OUTSIDE RECORDS SUMMARY | 2025-02-20 12:13 | XMS_ITS | Encounter Summary ---
Author Organization [facility] Address [address] [place] [address] Phone Care Team Providers Care Rail Splitter Name Role Phone Jong Nolen MD Unavailable Ayse Pierce MD Primary Care Provider Encounter Details Date Type Department Care Team (Late st Contact Info) Description 06/29/2023 Procedure Pass OR Admitting Dept - Virtual Department [address] [place] [address] Social History Tobacco Use Types Packs/Day Years [...] on filedocumented in this encounter Care Teams Rail Splitter Relationship Specialty Start Date End Date Ayse Pierce MD [address] [place] [address] [place] [address] PCP - General Internal Medicine 02/05/22 Jong Nolen MD [address] [place] [address], [facility] [address] [place] [address] [email or web address] Historical LMR Provider 03/21/17 documented as of this encounter Additional Source Comments The information contained in this document represents components of the legal health record. It is not the complete legal health record.[facility]
--- OUTSIDE RECORDS SUMMARY | 2025-02-20 12:13 | XMS_ITS | Encounter Summary ---
Author Organization [facility] Address [address] [place], [place] [address] Phone Care Team Providers Care Mill House Supervisor Name Role Phone Seng Suarez MD Unavailable [phone] Emily Albrecht CNM Unavailable [phone] Nia Skinner WEBLOGIC ADMINISTRATOR Unavailable [phone] Georgiana Mcknight WEBLOGIC ADMINISTRATOR Unavailable [phone] Jong Nolen MD Unavailable [phone] Star Ramon MD Unavailable [phone] Seng Suarez MD Primary Care Provider [phone] Ayse Pierce MD Primary Care Provider Encounter Details Date Type Department Care Team (Late st Contact Info) Description 03/13/2018 Ancillary Orders [facility], [address] [address] Judson Martínez MD [address] [place] [address] [email or web address] Pelvic pain; Hematuria, unspecified type; [...] be adequately evaluated due to underdistention. POS [id number] Narrative 03/13/2018 7:18 PM EDT HISTORY: Hematuria, [...] is normal in size and echogenicity. It [id number] cm in the long axis. No evidence [...] be adequately evaluated due to underdistention. POS [id number] us Judson Martínez MD IMG US RENAL Final Re sult * US PELVIS TRANSABDOMINAL PLUS TRANSVAGINAL (03/13/2018 12:06 PM EDT) Anatomical Region Laterality Modality Pelvis, Uterus/Adnexa Ultrasound 03/13/2018 7:13 PM EDT Impressions 03/13/2018 7:15 PM EDT No explanation for pain. POS - [id number] Narrative 03/13/2018 7:15 PM EDT HISTORY: Pelvic [...] IMPRESSION: No explanation for pain. POS - [id number] us Judson Martínez MD IMG US PELVIS [...] documented as of this encounter Care Teams Mill House Supervisor Relationship Specialty Start Date End Date Seng Suarez MD [address] [place] [address] PCP - General 06/04/17 02/04/22 Ayse Pierce MD [address] [place] [address] [place] [address] PCP - General Internal Medicine 02/05/22 Seng Suarez MD [address] [place] [address] Historical LMR Provider 03/21/17 2 Emily Albrecht CNM [address] [place] [address] Historical LMR Provider 03/21/17 2 Nia Skinner NP [address] [place] [address] Historical LMR Provider 03/21/17 06/08/21 Georgiana Mcknight NP [address] [place] [address] Historical LMR Provider 03/21/17 2 Jong Nolen MD [address] [place] [address] [email or web address] Historical LMR Provider 03/21/17 Star aRmon MD [address] [place] [address] Historical LMR Provider 03/21/17 2 documented as of this encounter Additional Source Comments The information contained in this document represents components of the legal health record. It is not the complete legal health record.[facility]
--- OUTSIDE RECORDS SUMMARY | 2025-02-20 12:13 | XMS_ITS | Encounter Summary ---
Author Organization [facility] Address [address] [place], [place] [address] Phone Care Team Providers Care Systems Architect Name Role Phone Seng Suarez MD Unavailable [phone] Emily Albrecht CNM Unavailable [phone] Nia Skinner OPERATIONS AND MAINTENANCE TECHNICAN Unavailable [phone] Georgiana Mcknight OPERATIONS AND MAINTENANCE TECHNICAN Unavailable [phone] Jong Nolen MD Unavailable [phone] Star Ramon MD Unavailable [phone] Seng Suarez MD Primary Care Provider [phone] Ayse Pierce MD Primary Care Provider Encounter Details Date Type Department Care Team (Late st Contact Info) Description 04/08/2018 Procedure Pass OR Admitting Dept - Virtual Department [address] [place] [address] Social History Tobacco Use Types Packs/Day Years [...] documented as of this encounter Care Teams Systems Architect Relationship Specialty Start Date End Date Seng Suarez MD [address] [place] [address] PCP - General 06/04/17 02/04/22 Ayse Pierce MD [address] [place] [address] [place] [address] PCP - General Internal Medicine 02/05/22 Seng Suarez MD [address] [place] [address] Historical LMR Provider 03/21/17 2 Emily Albrecht CNM [address] [place] [address] Historical LMR Provider 03/21/17 2 Nia Skinner NP [address] [place] [address] Historical LMR Provider 03/21/17 06/08/21 Georgiana Mcknight NP [address] [place] [address] Historical LMR Provider 03/21/17 2 Jong Nolen MD [address] [place] [address] Historical LMR Provider 03/21/17 Star Ramon MD [address] [place] [address] Historical LMR Provider 03/21/1706/08/ 2 documented as of this encounter Additional Source Comments The information contained in this document represents components of the legal health record. It is not the complete legal health record.[facility]
--- OUTSIDE RECORDS SUMMARY | 2025-02-20 12:13 | XMS_ITS | Encounter Summary ---
Author Organization [facility] Address [address] [place], [place] [address] Phone Care Team Providers Care Candy Cutter Hand Name Role Phone Jong Nolen MD Unavailable [phone] Ayse Pierce MD Primary Care Provider Encounter Details Date Type Department Care Team (Late st Contact Info) Description 02/13/2022 Procedure Pass OR Admitting Dept - Virtual Department [address] [place] [address] Social History Tobacco Use Types Packs/Day Years [...] documented as of this encounter Care Teams Candy Cutter Hand Relationship Specialty Start Date End Date Ayse Pierce MD [address] [place] [address] [place] [address] PCP - General Internal Medicine 02/05/22 Jong Nolen MD [address] [place] [address] [email or web address] Historical LMR Provider 03/21/17 documented as of this encounter Additional Source Comments The information contained in this document represents components of the legal health record. It is not the complete legal health record.[facility]
--- OUTSIDE RECORDS SUMMARY | 2025-02-20 12:13 | XMS_ITS | Encounter Summary ---
Author Organization [facility] Address [address] [place], [place] [address] Phone Care Team Providers Care Internal Affairs Commander Name Role Phone Seng Suarez MD Unavailable [phone] Emily Albrecht CNM Unavailable [phone] Nia Skinner GRAPHIC ILLUSTRATOR Unavailable [phone] Georgiana Mcknight GRAPHIC ILLUSTRATOR Unavailable [phone] Jong Nolen MD Unavailable [phone] Star Ramon MD Unavailable [phone] Seng Suarez MD Primary Care Provider Ayse Pierce MD Primary Care Provider Encounter Details Date Type Department Care Team (Late st Contact Info) Description 07/22/2017 Procedure Pass OR Admitting Dept - Virtual Department [address] [place] [address] Social History Tobacco Use Types Packs/Day Years [...] documented as of this encounter Care Teams Internal Affairs Commander Relationship Specialty Start Date End Date Seng Suarez MD [address] [place] [address] PCP - General 06/04/17 02/04/22 Ayse Pierce MD [address] [place] [address] [place] [address] PCP - General Internal Medicine 02/05/22 Seng Suarez MD [address] [place] [address] Historical LMR Provider 03/21/17 2 Emily Albrecht CNM [address] [place] [address] Historical LMR Provider 03/21/17 2 Nia Skinner NP [address] [place] [address] Historical LMR Provider 03/21/17 06/08/21 Georgiana Mcknight NP [address] [place] [phone] Historical LMR Provider 03/21/17 2 Jong Nolen MD [address] [place] [address] Historical LMR Provider 03/21/17 Star Ramon MD [address] [place] [address] Historical LMR Provider 03/21/1706/08/ 2 documented as of this encounter Additional Source Comments The information contained in this document represents components of the legal health record. It is not the complete legal health record.[facility]
--- OUTSIDE RECORDS SUMMARY | 2025-02-20 12:13 | XMS_ITS | Clinical Summary ---
Author Organization [facility] Address [address] [place], [place] [phone] Phone Care Team Providers Care Coin Counter And Wrapper Name Role Phone Jong Nolen MD Unavailable [phone] Ayse Pierce MD Primary Care Provider [...] [facility]phone [facility] [address] [place] [address] Keo Garcia LPN Imaging Follow Up 12/19/2024 Telephone [facility] [address] [place] [address] Jong Nolen MD Surgery Scheduling 12/16/2024 2:30 PM EDT Office Visit [facility] [address] [place] [address] Jong Nolen MD Endometriosis determined by laparoscopy [...] PM EDT) HCV NON-REACTIV E NON-REACTI VE [facility] Blood 08/16/2024 2:43 PM EDT 08/16/2024 2:45 PM EDT us Jong Nolen MD LAB BLOOD ORDERABLES Final Re sult [facility] [address] [place] [address] * Pap Test (06/17/2023 12:00 AM EST) 06/17/2023 06/18/2023 9:3 4 AM EST Narrative SEE NARRATIVE - 06/19/2023 3:33 [place] [address] Officer Captain: Alisha Dean MD ATMOSPHERIC TECHNICIAN Cytology Report FINAL DIAGNOSIS A. PAP SMEAR [...] 59, 66, 68) Note: Testing performed by [employer] On[employer] HR-HPV analysis. Clinical correlation is advised. This HPV test was performed at [facility], [address] [place] [address]. This test has been FDA approved for [employer] cervical cytology specimens. The accuracy and precision of this test for all other specimen sources has been verified in the Cytopathology Laboratory of the [facility] and has not been cleared or approved by the U.S. Food and Drug Administration. Clinical correlation is advised. CLINICAL HISTORY Date of Last Menstrual Period: 04-15-2023 Other Clinical Conditions: Screening Pap SPECIMEN SOURCE A: PAP SMEAR (SUREPATH) CE Patient Name: GINI FRAGA : 1975 (Age: 48) Sex: F Institution: [facility] Location: [facility] Date of Collection: 06/17/2023 Date of Reported: 06/19/2023 15:33 Results to: Jong Nolen MD, BS us Jong Nolen MD CYTOLOGY ORDERABLES Final Res ult SEE NARRATIVE from Last 3 Months or Most Recently Relevant to Health Maintenance Insurance [facility] [address] [place] [address] [place] [address] [place] [address] [place] [address] PCC Care Teams Coin Counter And Wrapper Relationship Specialty Start Date End Date Ayse Pierce MD [address] [place] [address] [place] [address] PCP - General Internal Medicine 02/05/22 Jong Nolen MD 22 [facility], [address] [address] [email or web address] Historical LMR Provider 03/21/17 Additional Source Comments The information contained in this document represents components of the legal health record. It is not the complete legal health record.[facility]
== END 2025-02-20 10:32 | disposition home or self-care (01) ==
LOC: HO.HPODS 09:57
PROVIDERS: PCP Internal Medicine; Visit Provider Student in an Organized Health Care Education/Training Program
DX: L02.612 Cutaneous abscess of left foot (principal)
CPT/HCPCS: 29540; 99214

== ENCOUNTER → 2025-02-20 09:57 | Outpatient (BNVA) | payer MEDICAID, SELFPAY | PROVIDERS: PCP Internal Medicine; Visit Provider Student in an Organized Health Care Education/Training Program | DX: L02.612 Cutaneous abscess of left foot (principal) | CPT/HCPCS: 29540; 99212 ==

== ENCOUNTER 2025-02-20 12:16 | Inpatient (IN) | payer MEDICAID, SELFPAY ==
--- NOTE | ~2025-02-20 | XR_ITS ---
EXAMINATION: XR FOOT 3 OR MORE VIEWS LEFT HISTORY: ?abscess to ball of foot, bone pain COMPARISON: There are no prior studies available for comparison. FINDINGS: Three views of the left foot are submitted. Osseous mineralization is normal. There is no fracture or dislocation. The joint spaces are preserved. The soft tissues are unremarkable. XR/XR foot LT min 3V IMPRESSION: No osseous abnormality is identified. Electronically signed by: Sung Mendoza MD 02/20/2025 12:42 PM EDT
[2025-02-20 12:24] VITALS: BP 112/55; PULSE 102; RESP 16; TEMP 36.1; O2SAT 97; BMI 23.2
--- NOTE | 2025-02-20 12:26 | ED.LOWEXIN ---
HPI - Extremity Injury (Lower) General Chief Complaint: Wound/Laceration Stated Complaint: Podiatry- abscess on foot Time Seen by Provider: 02/20/25 13:42 Source: patient Mode of arrival: ambulatory Limitations: no limitations History of Present Illness ED Provider: HPI Narrative: 49-year-old woman who was sent in by her certified medical asst Dr. Anderson for reported infected food abscess on the left side, patient was seen at his office on February 10 and afterwards patient described increased pain and reportedly drainage and subjective fevers. Patient has history of hidradenitis suppurativa. Related Data Allergies Allergy/AdvReac Type Severity Reaction Status Date / Time Iodinated Contrast Media Allergy Unknown Verified 02/20/25 12:27 (Contrast Dye) Penicillins (PCN) Allergy Unknown Verified 02/20/25 12:27 shellfish derived Allergy Unknown Verified 02/20/25 12:27 Sulfa (Sulfonamide Allergy Unknown Verified 02/20/25 12:27 Antibiotics) prednisone AdvReac Agitated Verified 02/20/25 12:27 tamsulosin (From Flomax) AdvReac Involuntary Verified 02/20/25 12:27 Spasms tramadol AdvReac Agitated Verified 02/20/25 12:27 Review of Systems Constitutional: Constitutional: Reports as per [facility] Past Medical History Medical History Abscess Kidney calculi Hidradenitis suppurativa Surgical History History of incision and drainage (01/17/25) Hx of wisdom tooth extraction Hx of breast reduction, elective Hx of unilateral oophorectomy Hx of laparoscopy Hx of cholecystectomy Hx of appendectomy Hx of cystoscopy Social History Social History Household Members: Family Household Members Other:: mother Housing: House Do you presently have visiting nurse or other home services: No Alcohol intake: never Patient Tobacco Use Status: Current everyday Tobacco user Tobacco use type: Cigarette Cigarette Packs Per Day: 1 Cigarettes Per Day: 20.0 Smoked in Last 30 Days: Yes Second Hand Smoke Exposure: No Use of substances other than those prescribed or required for medical reasons: Yes Substance Use Type: Marijuana Advance Directives: Yes Advance Directives Information Provided: Yes Advance Directives on File: No Patient : No service: No Physical Exam Vital Signs: Vital Signs: Last Vital Signs Temp 96.9 F 02/20/25 14:05 Pulse 90 02/20/25 14:05 Resp 16 02/20/25 14:05 BP 130/79 02/20/25 14:05 Pulse Ox 97 02/20/25 14:05 O2 Del Method Room Air 02/20/25 14:05 BMI result Body Mass Index 23.2 Const: Other: Submetatarsal erythema, no drainage, area of prior callus, distal pulses intact, compartments are soft, ankle joint is not involved-left side Alert and oriented x 4 Course Course Course Narrative: This is a Rapid Medical Examination (RME) performed by Cheryl Ramírez PA-C in triage. Full HPI, ROS, assessment and treatment plan per primary provider in the Main ED. Hx: 49 yo F here for concerns of abscess to L foot. presents from podiatrists office for 1 week of swelling, redness, and pain extending from ball of foot into ankle. admits this began after the certified medical asst lanced the area 1 week ago. hx of HS - follows with [facility] general surgery. no hx DM. Plan: labs, xr Medical Decision Making Medical Decision Making MDM Narrative: 2:34 PM 02/20/2025 (Dr. Sarabjit Car): Patient was sent in from Podiatry for an abscess to the plantar aspect of the left foot, ultrasound does reveal a collection in the foot, I contacted Dr. Pierre from General surgery's going to come down and evaluate the patient, I will cover the patient with IV antibiotics there was some surrounding erythema, this is possibly infected cyst, recently certified medical asst attempted incision and drainage Differential Diagnosis Differential Diagnoses: The differential diagnosis associated with the presentation includes (Abscess, cellulitis, infected cyst, DVT, osteomyelitis) Admission/Observation Consideration of admission/observation: Escalation of care including admission/observation considered Consult Healthcare Provider Management of the patient was discussed with: Rn Lpn Lvn (Dr. Pierre is going to take the patient to the OR tomorrow) Lab Data 02/20/25 13:00 02/20/25 13:00 Labs: Lab Results 02/20/25 02/20/25 Range/Units 13:00 13:48 WBC 15.4 H (4.8-10.8) X10*3/uL RBC 4.35 (4.20-5.50) X10*6/uL Hgb 14.5 (12.0-16.0) g/dl Hct 42.5 (37.0-47.0) % MCV 97.7 (80.0-98.0) fL MCH 33.3 H (27.0-33.0) pg MCHC 34.1 (31.0-35.0) g/dl RDW 12.8 (11.0-16.0) % Plt Count 341 (160-400) X10*3/uL MPV 8.7 L (9.4-12.3) fL Immature Gran % (Auto) 0.5 H (0.0-0.4) % Neut % (Auto) 66.6 (45-73) % Lymph % (Auto) 20.7 (20-40) % Rawlins % (Auto) 8.8 (2-11) % Eos % (Auto) 2.8 (0-4) % Baso % (Auto) 0.6 (0-2) % Lymph # (Auto) 3.2 (1.2-4.9) X10*3/uL Rawlins # (Auto) 1.4 H (0.1-1.2) X10*3/uL Eos # (Auto) 0.4 (0.0-0.4) X10*3/uL Baso # (Auto) 0.1 (0.0-0.2) X10*3/uL Abs Immat Gran (auto) 0.08 H (0.00-0.03) X10*3/uL Absolute Neuts (auto) 10.3 H (2.0-8.3) x10*3/uL Absolute Nucleated RBC 0.000 (0.0-0.012) X10*3/uL Nucleated RBC % (auto) 0.0 (0.0-0.2) /100WBC ESR 5 (0-20) MM/HR Sodium 141 (135-145) mmol/L Potassium 3.8 (3.3-5.1) mmol/L Chloride 110 H (96-108) mmol/L Carbon Dioxide 23 (22-29) mmol/L Anion Gap 12 (12-20) BUN 14 (9-16) mg/dL Creatinine 0.65 (0.5-1.4) mg/dL Estim Creat Clear Calc 90.4 Estimated GFR > 60 Random Glucose 75 (60-115) mg/dL Lactic Acid 1.3 (0.5-2.0) mmol/L Calcium 9.0 (8.4-10.2) mg/dL Magnesium 2.3 (1.6-2.6) mg/dL Total Bilirubin 0.4 (0.0-1.0) mg/dL AST 18 (5-31) U/L ALT 14 (0-31) U/L Alkaline Phosphatase 122 H (39-117) U/L C-Reactive Protein 0.47 (< or = 0.50) mg/dL Total Protein 7.3 (6.5-8.0) g/dL Albumin 4.6 (3.5-5.0) g/dL Procedures Ultrasound ED POC Ultrasound: Sample soft tissue ultrasound note Date of Exam:?February 20, 2025 Referring Physician:?Dr. Car Indication:?Example: Palpable subcutaneous mass on the patient's left foot, with associated pain and tenderness. The patient is requesting evaluation of the mass. High-frequency linear array transducer was used Examination was performed on the left foot Images recorded and stored Collection size 1.49 cm x1.48 cm Ovoid, non lobulated, well-defined CPT Code(s): 55999: Critical Care Time Critical Care Time Critical Care Time: Yes Total Critical Care Time: 35 Attestation: Time is exclusive of separately billable procedures. Time includes: direct patient care, patient reassessment, coordination of patient care, interpretation of data (laboratory data, pulse oximetry, arterial blood gases and chest xrays), review of patient's medical records, medical consultation and documentation of patient care. Procedures excluded from critical care time: central intravenous line placement and electrocardiography. Discharge Plan Discharge Clinical Impression: Abscess of left foot excluding toes Patient Disposition: Admitted As Inpatient Print Language: Hungarian
[2025-02-20 13:06] LABS: MANUAL DIFF FLAG NO
[2025-02-20 13:07] LABS: Hematocrit 42.5 % (37.0-47.0); Hemoglobin 14.5 g/dl (12.0-16.0); Imm Gran Abs Auto 0.08 X10*3/uL (0.00-0.03); Imm Gran Pct Auto 0.5 % (0.0-0.4); Lymphocytes Absolute Auto 3.2 X10*3/uL (1.2-4.9); Mean Corpuscular HGB Conc 34.1 g/dl (31.0-35.0); Mean Corpuscular Hemoglobin 33.3 pg (27.0-33.0); Mean Corpuscular Volume 97.7 fL (80.0-98.0); NRBC Abs Auto 0.000 X10*3/uL (0.0-0.012); NRBC Pct Auto 0.0 /100WBC (0.0-0.2); Platelet Count 341 X10*3/uL (160-400); Red Blood Count 4.35 X10*6/uL (4.20-5.50); White Blood Count 15.4 X10*3/uL (4.8-10.8)
[2025-02-20 13:24] LABS: Alanine Aminotransferase 14 U/L (0-31); Albumin Level 4.6 g/dL (3.5-5.0); Alkaline Phosphatase 122 U/L (39-117); Anion Gap 12 (12-20); Aspartate Amino Transferase 18 U/L (5-31); Blood Urea Nitrogen 14 mg/dL (9-16); Calcium 9.0 mg/dL (8.4-10.2); Carbon Dioxide 23 mmol/L (22-29); Chloride 110 mmol/L (96-108); Creatinine Clr Calc Pharmacy 90.4; Estimated Glomerular Filt Rate > 60; Magnesium 2.3 mg/dL (1.6-2.6); Potassium 3.8 mmol/L (3.3-5.1); Sodium 141 mmol/L (135-145); Total Protein 7.3 g/dL (6.5-8.0)
[2025-02-20 14:05] VITALS: BP 130/79; PULSE 90; RESP 16; TEMP 36.1; O2SAT 97
--- NOTE | 2025-02-20 14:07 | PC.NURSE ---
Patient presents to ED c/o left foot pain Patient has calus on the ball of her left foot Patient reported going to PCP who shaved the calus and pus came out. Patient reports the calus to have increased redness and swelling Patient afebrile +CMS +ROM Provider in to see patient Plan of care on going
--- NOTE | 2025-02-20 15:17 | PM.HPGS ---
History of Present Illness History of Present Illness Date of Service: 02/20/25 Chief complaint: Left Foot Abscess Narrative: Gini Fraga is a 49 year old female presenting for evaluation of a left foot abscess. She previously underwent a drainage procedure as an outpatient by her human relations manager, Dr. Anderson. She began to note increased redness and swelling with the associated pain with ambulation. She was seen today in the office and was subsequently sent in the emergency department for further evaluation. The pain is mainly located in the ball of the foot below the great toe. She denies any bleeding or discharge from the site. Review of Systems Review of Systems: Yes all other systems are reviewed and are negative PMFSH Past Medical History Medical History Abscess Kidney calculi Hidradenitis suppurativa Surgical History Surgical History History of incision and drainage (01/17/25) Hx of wisdom tooth extraction Hx of breast reduction, elective Hx of unilateral oophorectomy Hx of laparoscopy Hx of cholecystectomy Hx of appendectomy Hx of cystoscopy Social History Social History Household Members: Family Household Members Other:: mother Housing: House Do you presently have visiting nurse or other home services: No Alcohol intake: never Patient Tobacco Use Status: Current everyday Tobacco user Tobacco use type: Cigarette Cigarette Packs Per Day: 1 Cigarettes Per Day: 20.0 Smoked in Last 30 Days: Yes Second Hand Smoke Exposure: No Use of substances other than those prescribed or required for medical reasons: Yes Substance Use Type: Marijuana Advance Directives: Yes Advance Directives Information Provided: Yes Advance Directives on File: No Patient : No service: No Meds Allergies Allergy/AdvReac Type Severity Reaction Status Date / Time Iodinated Contrast Media Allergy Unknown Verified 02/20/25 12:27 (Contrast Dye) Penicillins (PCN) Allergy Unknown Verified 02/20/25 12:27 shellfish derived Allergy Unknown Verified 02/20/25 12:27 Sulfa (Sulfonamide Allergy Unknown Verified 02/20/25 12:27 Antibiotics) prednisone AdvReac Agitated Verified 02/20/25 12:27 tamsulosin (From Flomax) AdvReac Involuntary Verified 02/20/25 12:27 Spasms tramadol AdvReac Agitated Verified 02/20/25 12:27 Active Medications: Current Medications Calcium Carbonate (Calcium Carbonate 750 Mg Tab.Chew) 750 mg PO Q4H PRN PRN Reason: Heartburn Hydromorphone HCl (Hydromorphone Hcl 0.5 Mg/0.5 Ml Syringe) 0.5 mg IVPUSH Q3H PRN; Protocol PRN Reason: Pain, Severe (Pain Scale 7-10) Acetaminophen (Ofirmev) 1,000 mg in 100 mls @ 400 mls/hr IV Q6H PRN PRN Reason: Pain, Mild (Pain Scale 1-3) Dextrose/Lactated Ringer's (D5lr) 1,000 mls @ 125 mls/hr IVCONT .Q8H [facility] Levofloxacin (Levaquin) 500 mg in 100 mls @ 100 mls/hr IV Q24H [facility] Metronidazole (Flagyl) 500 mg in 100 mls @ 100 mls/hr IV Q8H [facility] Magnesium Hydroxide (Milk Of Magnesia 30 Ml Oral.Susp) 30 ml PO DAILY PRN PRN Reason: Constipation Melatonin (Melatonin 3 Mg Tablet) 6 mg PO BEDTIME PRN PRN Reason: Insomnia Ondansetron HCl (Ondansetron Hcl 4 Mg/2 Ml Vial) 4 mg IVPUSH QID PRN PRN Reason: Nausea Oxycodone HCl (Oxycodone Hcl Immed Release 5 Mg Tablet) 5 mg PO Q6H PRN PRN Reason: Pain, Moderate(Pain Scale 4-6) Sodium Chloride (0.9 % Sodium Chloride Flush 3 Ml Syringe) 3 ml IVFLUSH QSHIFT [facility] Physical Exam Vital Signs: Vital Signs: Last Vital Signs Temp 96.9 F 02/20/25 14:05 Pulse 90 02/20/25 14:05 Resp 16 02/20/25 14:05 BP 130/79 02/20/25 14:05 Pulse Ox 97 02/20/25 14:05 O2 Del Method Room Air 02/20/25 14:05 BMI result Body Mass Index 23.2 Const: General: cooperative and no acute distress Nutritional Appearance: well nourished Orientation/consciousness: patient oriented x3 Limitations: no limitations HEENT: Head: Yes normocephalic and Yes atraumatic Ears: hearing grossly normal bilaterally Resp: Effort & Inspection: normal respiratory effort, no audible wheezes, no cough and no respiratory distress Cardio: Jugular venous distension: no JVD GI: Inspection: Yes normal to inspection Skin: Other: Warm, dry, no rash Neuro: General: patient oriented x3 Extrem: Other: Left foot with an area of redness fluctuance noted at the distal metatarsal head with tenderness to palpation suggestive of an underlying abscess. The remainder of the foot appears normal. There is a skin lesion located in the dorsum which is not infected. Results Results Labs: Short CBC 02/20/25 Range/Units 13:00 WBC 15.4 H (4.8-10.8) X10*3/uL Hgb 14.5 (12.0-16.0) g/dl Hct 42.5 (37.0-47.0) % Plt Count 341 (160-400) X10*3/uL BMP 02/20/25 13:00 Sodium 141 Potassium 3.8 Chloride 110 H Carbon Dioxide 23 BUN 14 Creatinine 0.65 Calcium 9.0 Liver Function 02/20/25 Range/Units 13:00 Total Bilirubin 0.4 (0.0-1.0) mg/dL AST 18 (5-31) U/L ALT 14 (0-31) U/L Alkaline Phosphatase 122 H (39-117) U/L Albumin 4.6 (3.5-5.0) g/dL Assessment and Plan (1) Foot abscess, left: Status: Acute Plan Patient to be admitted to the surgical service for IV antibiotics. She will be scheduled for the OR tomorrow for incision and drainage of the foot abscess. I reviewed the procedure, risks and alternatives in detail with the patient she consents to the surgery. She will be NPO after midnight. Quality Stroke Does the patient have a stroke diagnosis?: No VTE Prior VTE?: No VTE Risk Level:: Surgical - low VTE Device Contraindication: N/A - Device Ordered VTE Drug Contraindication: Treatment Not Indicated Procedures Date of Service Date of Service: 02/20/25
[2025-02-20] MEDS: metroNIDAZOLE/NS 500 MG/100 ML PIGGYBACK 100 MG IV (15:24)
--- NOTE | 2025-02-20 15:54 | PHA.MEDREC ---
Addendum entered by Joyce Nuno RPh 02/20/25 15:57: Reviewed by [facility] Original Note: Pharmacy Consult ? Medication Reconciliation Pharmacy has completed the medication reconciliation. Spoke with pt and she confirmed she only takes an Efficient-C mix packet when she feels like it and has some on her person and does not take anything else at this time.
[2025-02-20] MEDS: Dextrose 5 % and Lactated Ring 1,000 ML 125 ML IVCONT (17:53)
[2025-02-20 21:47] VITALS: BP 130/73; PULSE 73; RESP 16; TEMP 36.6; O2SAT 98
[2025-02-20 22:13] VITALS: BP 128/79; PULSE 73; RESP 18; TEMP 36.7; O2SAT 99
[2025-02-21] VITALS (18 sets, daily range): BP systolic 94–143; BP diastolic 48–73; PULSE 61–98; RESP 13–18; TEMP 36–36.7; O2SAT 94–99; BMI 23.2
[2025-02-21] MEDS: metroNIDAZOLE/NS 500 MG/100 ML PIGGYBACK 100 MG IV ×3 (00:01→17:01)
--- NOTE | 2025-02-21 00:01 | PC.NURSE ---
Called pharmacy to adjust antibiotic, due to being administered and completed at a different time by previous nurse.
[2025-02-21] MEDS: Dextrose 5 % and Lactated Ring 1,000 ML 125 ML IVCONT ×3 (01:09→16:19)
--- NOTE | 2025-02-21 01:38 | PC.NURSE ---
medicated per jul, second ultra sound Iv in place, pt assisted out bed to bathroom.
--- NOTE | 2025-02-21 01:45 | PC.NURSE ---
pt medicated per mar.
--- NOTE | 2025-02-21 03:58 | PC.NURSE ---
pt sleeping at this time, no sign of distress.
--- NOTE | 2025-02-21 08:05 | PC.NURSE ---
report given to RN in short stay at this time. pt remains NPO. vss and up to date aside from being slightly hypotensive. IVF/abx continues to infuse per provider order. pending transfer to bed assignment. plan of care ongoing. call patel placed within reach.
--- NOTE | 2025-02-21 08:29 | PM.PNGS ---
Subjective Subjective Date of Service: 02/21/25 Interval history: Patient continues to report left foot pain. Reports pain medication is not helping. She has been applying warm compresses all night. Physical Exam Vital Signs: Vital Signs: Last Vital Signs Temp 98.1 F 02/21/25 07:22 Pulse 66 02/21/25 07:22 Resp 18 02/21/25 07:22 BP 105/53 L 02/21/25 07:22 Pulse Ox 97 02/21/25 07:22 O2 Del Method Room Air 02/21/25 07:22 BMI result Body Mass Index 23.2 Const: General: no acute distress Nutritional Appearance: well nourished Orientation/consciousness: patient oriented x3 Resp: Effort & Inspection: normal respiratory effort, no audible wheezes and no cough Skin: Other: Warm, dry, no rash Neuro: General: patient oriented x3 Extrem: Other: Left foot distal metatarsal head on the plantar surface remains red, fluctuant. Clear evidence of abscess in this location. Objective Data Active Medications Calcium Carbonate (Calcium Carbonate 750 Mg Tab.Chew) 750 mg PO Q4H PRN PRN Reason: Heartburn Hydromorphone HCl (Hydromorphone Hcl 0.5 Mg/0.5 Ml Syringe) 1 mg IVPUSH Q3H PRN; Protocol PRN Reason: Pain, Severe (Pain Scale 7-10) Acetaminophen (Ofirmev) 1,000 mg in 100 mls @ 400 mls/hr IV Q6H PRN PRN Reason: Pain, Mild (Pain Scale 1-3) Dextrose/Lactated Ringer's (D5lr) 1,000 mls @ 125 mls/hr IVCONT .Q8H [facility] Last Admin: 02/21/25 07:40 Dose: 125 mls/hr Documented By: BILLY Metronidazole (Flagyl) 500 mg in 100 mls @ 100 mls/hr IV Q8H [facility] Last Admin: 02/21/25 07:42 Dose: 100 mls/hr Documented By: BILLY Levofloxacin (Levaquin) 500 mg in 100 mls @ 100 mls/hr IV Q24H [facility] Magnesium Hydroxide (Milk Of Magnesia 30 Ml Oral.Susp) 30 ml PO DAILY PRN PRN Reason: Constipation Melatonin (Melatonin 3 Mg Tablet) 6 mg PO BEDTIME PRN PRN Reason: Insomnia Ondansetron HCl (Ondansetron Hcl 4 Mg/2 Ml Vial) 4 mg IVPUSH QID PRN PRN Reason: Nausea Oxycodone HCl (Oxycodone Hcl Immed Release 5 Mg Tablet) 5 mg PO Q6H PRN PRN Reason: Pain, Moderate(Pain Scale 4-6) Sodium Chloride (0.9 % Sodium Chloride Flush 3 Ml Syringe) 3 ml IVFLUSH QSHIFT [facility] Last Admin: 02/21/25 07:41 Dose: Not Given Documented By: BILLY Non-Admin Reason: IV Running Labs 02/21/25 04:14 02/21/25 04:14 Labs: Laboratory Results - last 24 hr 02/20/25 02/20/25 02/21/25 13:00 13:48 04:14 MCV 97.7 99.3 H MCH 33.3 H 33.7 H MCHC 34.1 34.0 RDW 12.8 12.7 Plt Count 341 313 MPV 8.7 L 9.0 L Immature Gran % (Auto) 0.5 H 0.4 Neut % (Auto) 66.6 55.8 Lymph % (Auto) 20.7 29.2 [place] % (Auto) 8.8 9.8 Eos % (Auto) 2.8 4.1 H Baso % (Auto) 0.6 0.7 Lymph # (Auto) 3.2 4.0 [place] # (Auto) 1.4 H 1.4 H Eos # (Auto) 0.4 0.6 H Baso # (Auto) 0.1 0.1 Abs Immat Gran (auto) 0.08 H 0.05 H Absolute Neuts (auto) 10.3 H 7.7 Absolute Nucleated RBC 0.000 0.000 Nucleated RBC % (auto) 0.0 0.0 ESR 5 Anion Gap 12 14 Estim Creat Clear Calc 90.4 89.0 Estimated GFR > 60 > 60 Random Glucose 75 93 Lactic Acid 1.3 Calcium 9.0 8.8 Magnesium 2.3 Total Bilirubin 0.4 AST 18 ALT 14 Alkaline Phosphatase 122 H C-Reactive Protein 0.47 Total Protein 7.3 Albumin 4.6 Procedures Date of Service Date of Service: 02/21/25 Progress Note: A&P Assessment and plan (1) Foot abscess, left: Status: Acute Plan Patient is scheduled for incision and drainage of the left foot abscess. I reviewed the procedure, risks, and alternatives in detail and she consents to the incision and drainage left foot. Continue NPO, IV fluids, IV antibiotics. Time Spent With Patient Time: Total time managing care of this patient today ____ minutes. Quality Stroke Does the patient have a stroke diagnosis?: No VTE Prior VTE?: No VTE Risk Level:: Surgical - low VTE Device Contraindication: N/A - Device Ordered VTE Drug Contraindication: Treatment Not Indicated
--- NOTE | 2025-02-21 09:47 | MHC.CM.PN ---
DX Foot abscess Lives with Mother Independent with all functional mobility. Plan is O.R. today 02/21 PCP Melissa Villalobos New HCP has been documented. [facility] referred at patients request DP Home with new [facility]. Mother will transport home.
[2025-02-21] MEDS: Nicotine 14 MG PATCH.TD24 TRANSDERMA (11:11)
[2025-02-21] MEDS: oxyCODONE HCl Immed Release 5 MG TABLET PO ×2 (11:18→17:18)
--- NOTE | 2025-02-21 13:15 | P.CONAN_ITS ---
Documented by User: Doreen Marrero NP 02/21/25 08:16 HPI - Anesthesia Eval Consult details Narrative: 49 yr old female for left I&D of foot abscess s/p excision hidradendritis with GA, LMA 4 12/2024 +Smoker [facility] Active Problems Active Problems: All Active Problems Abscess of left foot excluding toes (Acute) Foot abscess, left (Acute) Other bursal cyst, left ankle and foot (Acute) Cavus deformity of both feet (Acute) Mass of soft tissue of foot (Acute) Metatarsalgia of both feet (Acute) Skin cyst (Acute) Plantar ulcer of left foot (Acute) Left flank pain (Acute) Tobacco use (Acute) Hidradenitis suppurativa (Acute) Past Medical History Medical History Abscess Kidney calculi Hidradenitis suppurativa Family History Family history of problems with anesthesia: No Surgical History Surgical History History of incision and drainage (01/17/25) Hx of wisdom tooth extraction Hx of breast reduction, elective Hx of unilateral oophorectomy Hx of laparoscopy Hx of cholecystectomy Hx of appendectomy Hx of cystoscopy History of Problems with Anesthesia: No Social History Social History Household Members: Family Household Members Other:: mother Housing: House Are you a primary campground caretaker to a significant other at home: No Do you presently have visiting nurse or other home services: No Alcohol intake: never Patient Tobacco Use Status: Current everyday Tobacco user Tobacco use type: Cigarette Cigarette Packs Per Day: 1 Cigarettes Per Day: 20.0 Second Hand Smoke Exposure: No Substance Use Type: Marijuana Advance Directives Date on File: 02/21/25 service: No Meds Allergies Allergy/AdvReac Type Severity Reaction Status Date / Time Iodinated Contrast Media Allergy Unknown Verified 02/20/25 12:27 (Contrast Dye) Penicillins (PCN) Allergy Unknown Verified 02/20/25 12:27 shellfish derived Allergy Unknown Verified 02/20/25 12:27 Sulfa (Sulfonamide Allergy Unknown Verified 02/20/25 12:27 Antibiotics) prednisone AdvReac Agitated Verified 02/20/25 12:27 tamsulosin (From Flomax) AdvReac Involuntary Verified 02/20/25 12:27 Spasms tramadol AdvReac Agitated Verified 02/20/25 12:27 Active Medications: Current Medications Calcium Carbonate (Calcium Carbonate 750 Mg Tab.Chew) 750 mg PO Q4H PRN PRN Reason: Heartburn Hydromorphone HCl (Hydromorphone Hcl 0.5 Mg/0.5 Ml Syringe) 0.5 mg IVPUSH Q3H PRN; Protocol PRN Reason: Pain, Severe (Pain Scale 7-10) Last Admin: 02/21/25 06:25 Dose: 0.5 mg Acetaminophen (Ofirmev) 1,000 mg in 100 mls @ 400 mls/hr IV Q6H PRN PRN Reason: Pain, Mild (Pain Scale 1-3) Dextrose/Lactated Ringer's (D5lr) 1,000 mls @ 125 mls/hr IVCONT .Q8H [facility] Last Admin: 02/21/25 07:40 Dose: 125 mls/hr Metronidazole (Flagyl) 500 mg in 100 mls @ 100 mls/hr IV Q8H [facility] Last Admin: 02/21/25 07:42 Dose: 100 mls/hr Levofloxacin (Levaquin) 500 mg in 100 mls @ 100 mls/hr IV Q24H [facility] Magnesium Hydroxide (Milk Of Magnesia 30 Ml Oral.Susp) 30 ml PO DAILY PRN PRN Reason: Constipation Melatonin (Melatonin 3 Mg Tablet) 6 mg PO BEDTIME PRN PRN Reason: Insomnia Ondansetron HCl (Ondansetron Hcl 4 Mg/2 Ml Vial) 4 mg IVPUSH QID PRN PRN Reason: Nausea Oxycodone HCl (Oxycodone Hcl Immed Release 5 Mg Tablet) 5 mg PO Q6H PRN PRN Reason: Pain, Moderate(Pain Scale 4-6) Sodium Chloride (0.9 % Sodium Chloride Flush 3 Ml Syringe) 3 ml IVFLUSH QSHIFT [facility] Last Admin: 02/21/25 07:41 Dose: Not Given Home Medications ?Medication ?Instructions ?Recorded ?Confirmed ?Last Taken ?Type No Known Home Meds 02/20/25 02/20/25 Un known History Exam Height,Weight and Vital Signs: Height 5 ft 4 in Weight 61.235 kg Last Vital Signs Temp 98.1 F 02/21/25 07:22 Pulse 66 02/21/25 07:22 Resp 18 02/21/25 07:22 BP 105/53 L 02/21/25 07:22 Pulse Ox 97 02/21/25 07:22 O2 Del Method Room Air 02/21/25 07:22 Pertinent Lab Results Pertinent Lab Results: Laboratory Tests 02/20/25 02/20/25 02/21/25 13:00 13:48 04:14 WBC 15.4 H 13.8 H RBC 4.35 4.33 Hgb 14.5 14.6 Hct 42.5 43.0 MCV 97.7 99.3 H MCH 33.3 H 33.7 H MCHC 34.1 34.0 RDW 12.8 12.7 Plt Count 341 313 MPV 8.7 L 9.0 L Immature Gran % (Auto) 0.5 H 0.4 Neut % (Auto) 66.6 55.8 Lymph % (Auto) 20.7 29.2 [place] % (Auto) 8.8 9.8 Eos % (Auto) 2.8 4.1 H Baso % (Auto) 0.6 0.7 Lymph # (Auto) 3.2 4.0 [place] # (Auto) 1.4 H 1.4 H Eos # (Auto) 0.4 0.6 H Baso # (Auto) 0.1 0.1 Abs Immat Gran (auto) 0.08 H 0.05 H Absolute Neuts (auto) 10.3 H 7.7 Absolute Nucleated RBC 0.000 0.000 Nucleated RBC % (auto) 0.0 0.0 ESR 5 Sodium 141 142 Potassium 3.8 4.2 Chloride 110 H 111 H Carbon Dioxide 23 21 L Anion Gap 12 14 BUN 14 16 Creatinine 0.65 0.66 Estim Creat Clear Calc 90.4 89.0 Estimated GFR > 60 > 60 Random Glucose 75 93 Lactic Acid 1.3 Calcium 9.0 8.8 Magnesium 2.3 Total Bilirubin 0.4 AST 18 ALT 14 Alkaline Phosphatase 122 H C-Reactive Protein 0.47 Total Protein 7.3 Albumin 4.6 Assessment and Plan Final Anesthetic Review Family History of Problems with Anesthesia: No History of Problems with Anesthesia: No Documented by User: Kamille Sanchez DO 02/21/25 13:16 PMF Past Medical History Medical History Abscess Kidney calculi Hidradenitis suppurativa Family History Family history of problems with anesthesia: No Surgical History Surgical History History of incision and drainage (01/17/25) Hx of wisdom tooth extraction Hx of breast reduction, elective Hx of unilateral oophorectomy Hx of laparoscopy Hx of cholecystectomy Hx of appendectomy Hx of cystoscopy History of Problems with Anesthesia: No Social History Social History Household Members: Family Household Members Other:: mother Housing: House Are you a primary campground caretaker to a significant other at home: No Do you presently have visiting nurse or other home services: No Alcohol intake: never Patient Tobacco Use Status: Current everyday Tobacco user Tobacco use type: Cigarette Cigarette Packs Per Day: 1 Cigarettes Per Day: 20.0 Second Hand Smoke Exposure: No Substance Use Type: Marijuana Advance Directives Date on File: 02/21/25 service: No Meds Allergies Allergy/AdvReac Type Severity Reaction Status Date / Time Iodinated Contrast Media Allergy Unknown Verified 02/20/25 12:27 (Contrast Dye) Penicillins (PCN) Allergy Unknown Verified 02/20/25 12:27 shellfish derived Allergy Unknown Verified 02/20/25 12:27 Sulfa (Sulfonamide Allergy Unknown Verified 02/20/25 12:27 Antibiotics) prednisone AdvReac Agitated Verified 02/20/25 12:27 tamsulosin (From Flomax) AdvReac Involuntary Verified 02/20/25 12:27 Spasms tramadol AdvReac Agitated Verified 02/20/25 12:27 Home Medications ?Medication ?Instructions ?Recorded ?Confirmed ?Last Taken ?Type No Known Home Meds 02/20/25 02/20/25 Un known History Exam Exam Date and Time: 02/21/25 1315 Airway Mallampati Class: I TM Dist: >3cm Neck ROM: Full Loose/Missing/Broken Teeth: No (patient denies any loose or broken teeth) Heart: S1S2 Lungs: CTAB Assessment and Plan Assessment Anesthesia Assessment: Anesthesia Plan Discussed and Chart Reviewed Final Anesthetic Review Family History of Problems with Anesthesia: No History of Problems with Anesthesia: No NPO: Yes ASA Class: II Final Preanesthetic Review: No Changes in Pt Med Stat, Meds/Allgs Chart Reviewed, Consent Obtained/Reviewed and Anes Risks/Benef Reviewed Patient Risk: Low Procedure Risk: Low Anesthetic Plan Anesthetic Plan: GA and Agree w/ Assess. and Plan Disposition: Standard PACU
--- NOTE | 2025-02-21 13:57 | P.OP_ITS ---
Operative Note Operative Note Date of Service: 02/21/25 Narrative: Preoperative diagnosis: Abscess left foot Postoperative diagnosis: Abscess left foot Procedure: Incision and drainage abscess left foot Surgeon: Vasyl Pierre MD Emergency Department Manager: Esther Magdaleno PA-C; LATOSHA Morejon Anesthesia: General, LMA Indications for procedure: 49-year-old female patient referred by Podiatry with a new abscess located at the distal 1st metatarsal head. Patient reports severe pain with palpation. Examination reveals a fluctuant area on the plantar surface 1st metatarsal head. Findings suggestive of an underlying abscess. Operative findings: Purulence collection, foul-smelling. Specimen: Wound culture Estimated blood loss: Less than 2 mL Complications: None Procedure details: Patient was brought to the OR placed in a supine position. After administering general anesthesia the patient's left foot was prepped with Betadine and draped in a sterile fashion. A surgical time-out was called the consent confirmed. Patient received preoperative antibiotics and Venodyne boots were in place. Local anesthesia was infiltrated over the central portion of the abscess cavity on the plantar surface 1st metatarsal head. A 15 blade was then used to incise the abscess. A large collection was immediately drained of white purulent fluid. Wound cultures were obtained. Wounds were then irrigated with saline solution and peroxide. No foreign body was noted within the abscess cavity. Wounds were then packed with quarter-inch iodoform packing. This was then covered with 4 x 4 gauze ABD and Kerlix. The patient tolerated the procedure well. Sponge, instrument, and needle counts reported as correct. The patient was transferred to PACU in stable condition.
--- NOTE | 2025-02-21 14:07 | PC.NURSE ---
Pt has Levaquin IV scheduled for 1800 today. Pt received IV Levaquin today during surgery at 1340. Pharmacy contacted, [facility] states next dose will be scheduled for 1300 tomorrow.
[2025-02-21] MEDS: 0.9 % Sodium Chloride Flush 3 ML SYRINGE IVFLUSH (22:55)
--- NOTE | 2025-02-22 02:20 | PC.NURSE ---
Addendum entered by Precious Orellana RN 02/22/25 03:18: US guided 20G placed at 0240. Flagyl administration began at 0248. Original Note: pt IV infiltrated. Two nurses tried to set new IV without success. Ultrasound IV team notified. They will place IV when they can.
[2025-02-22] MEDS: metroNIDAZOLE/NS 500 MG/100 ML PIGGYBACK 100 MG IV ×3 (02:48→16:25)
[2025-02-22] MEDS: Dextrose 5 % and Lactated Ring 1,000 ML 125 ML IVCONT (04:23)
--- NOTE | 2025-02-22 07:33 | P.PNGS_ITS ---
Subjective Subjective Date of Service: 02/22/25 Interval history: Having pain at I&D site- on toradol ATC and IV dilaudid. Has been able to get OOB and ambulate to bathroom. Tolerating solid diet. Physical Exam 2 Vital Signs: Vital Signs: Last Vital Signs Temp 97.6 F 02/21/25 20:11 Pulse 83 02/21/25 20:11 Resp 18 02/21/25 20:11 BP 132/60 02/21/25 20:11 Pulse Ox 94 02/21/25 20:11 O2 Del Method Room Air 02/21/25 20:11 O2 Flow Rate 6 02/21/25 14:05 BMI result Body Mass Index 23.2 Const: General: comfortable, no acute distress and alert Resp: Effort & Inspection: normal respiratory effort Extrem: Other: left with foot with moderate edema and erythema as well as ecchymosis over plantar aspect of first metatarsal, no further purulent drainage noted or further fluctuance Objective Data Active Medications Calcium Carbonate (Calcium Carbonate 750 Mg Tab.Chew) 750 mg PO Q4H PRN PRN Reason: Heartburn Hydromorphone HCl (Hydromorphone Hcl 1 Mg/Ml Syringe) 1 mg IVPUSH Q3H PRN; Protocol PRN Reason: Pain, Severe (Pain Scale 7-10) Last Admin: 02/22/25 03:10 Dose: 1 mg Documented By: EMILIANA Acetaminophen (Ofirmev) 1,000 mg in 100 mls @ 400 mls/hr IV Q6H PRN PRN Reason: Pain, Mild (Pain Scale 1-3) Last Infusion: 02/21/25 16:14 Dose: Infused Documented By: DUSTIN Dextrose/Lactated Ringer's (D5lr) 1,000 mls @ 125 mls/hr IVCONT .Q8H [facility] Last Admin: 02/22/25 04:23 Dose: 125 mls/hr Documented By: EMILIANA Levofloxacin (Levaquin) 500 mg in 100 mls @ 100 mls/hr IV Q24H [facility] Metronidazole (Flagyl) 500 mg in 100 mls @ 100 mls/hr IV Q8H [facility] Last Infusion: 02/22/25 04:07 Dose: Infused Documented By: EMILIANA Ketorolac Tromethamine (Ketorolac Tromethamine 15 Mg/Ml Vial) 15 mg IVPUSH Q6H [facility] Stop: 02/26/25 15:59 Last Admin: 02/22/25 04:26 Dose: 15 mg Documented By: EMILIANA Magnesium Hydroxide (Milk Of Magnesia 30 Ml Oral.Susp) 30 ml PO DAILY PRN PRN Reason: Constipation Melatonin (Melatonin 3 Mg Tablet) 6 mg PO BEDTIME PRN PRN Reason: Insomnia Last Admin: 02/21/25 22:11 Dose: 6 mg Documented By: EMILIANA Naloxone HCl (Naloxone Hcl 0.4 Mg/Ml Vial) 0.04 mg IVPUSH Q5M PRN PRN Reason: Excessive sedation or RR < 8 Nicotine (Nicotine 14 Mg Patch.Td24) 14 mg TRANSDERMA DAILY [facility] Last Admin: 02/21/25 11:11 Dose: 14 mg Documented By: DUSTIN Ondansetron HCl (Ondansetron Hcl 4 Mg/2 Ml Vial) 4 mg IVPUSH QID PRN PRN Reason: Nausea Oxycodone HCl (Oxycodone Hcl Immed Release 5 Mg Tablet) 5 mg PO Q6H PRN PRN Reason: Pain, Moderate(Pain Scale 4-6) Last Admin: 02/21/25 17:18 Dose: 5 mg Documented By: DUSTIN Sodium Chloride (0.9 % Sodium Chloride Flush 3 Ml Syringe) [facility] Last Admin: 02/22/25 07:16 Dose: Not Given Documented By: ROSA MARIA Non-Admin Reason: IV Running Labs 02/21/25 04:14 02/21/25 04:14 Labs: Laboratory Results - last 24 hr 02/21/25 04:14 Beta HCG, Quant < 2 Microbiology Microbiology Results: Microbiology 02/20/25 13:48 Blood Culture - Preliminary Blood - Venous No growth after 24 hours. 02/20/25 13:48 Blood Culture - Preliminary Blood - Venous No growth after 24 hours. 02/21/25 Unknown Gram Stain - Final Foot Left Routine Culture - Preliminary Procedures Date of Service Date of Service: 02/22/25 Progress Note: A&P Assessment and plan (1) Abscess of left foot excluding toes: Status: Acute Plan POD #1 s/p I&D of left foot abscess. Doing well post op. Having difficulty with pain control especially during packing change. No further fluctuance or purulent drainage. Will need one more day of IV abx, IV analgesics pain control. Cont left leg elevation to reduce edema. F/u cultures. Bowel regimen. Time Spent With Patient Time: Total time managing care of this patient today ____ minutes. Quality Stroke Does the patient have a stroke diagnosis?: No VTE Prior VTE?: No VTE Risk Level:: Surgical - low VTE Device Contraindication: N/A - Device Ordered VTE Drug Contraindication: Treatment Not Indicated
[2025-02-22 07:55] VITALS: BP 121/63; PULSE 64; RESP 16; TEMP 36; O2SAT 99
--- NOTE | 2025-02-22 08:22 | HO.POSTANES ---
Post Anesthesia Evaluation Post Anesthesia Evaluation Date of Service: 02/22/25 Vital Signs: Vital Signs Temp Pulse Resp BP Pulse Ox O2 Del Method 02/22/25 07:55 96.8 F 64 16 121/63 99 Room Air Anesthesia: General Mental Status: Awake Pain Control: Satisfactory Nausea/Vomiting: None Hydration: Adequate Anesthesia-Related Issues: No Anes. Related Issues
[2025-02-22] MEDS: Nicotine 14 MG PATCH.TD24 TRANSDERMA (08:42)
[2025-02-22 15:37] VITALS: BP 147/77; PULSE 79; RESP 18; TEMP 36.1; O2SAT 99
--- NOTE | 2025-02-22 15:45 | MHC.CM.PN ---
S/P I+D of L foot abscess. [facility] has been notified of possible discharge tomorrow. DP home with [facility]. Pts Mother will provide transport home.
[2025-02-22] MEDS: 0.9 % Sodium Chloride Flush 3 ML SYRINGE IVFLUSH ×2 (16:25→21:14)
[2025-02-22 19:29] VITALS: BP 147/67; PULSE 93; RESP 18; TEMP 36.1; O2SAT 97
[2025-02-23] MEDS: metroNIDAZOLE/NS 500 MG/100 ML PIGGYBACK 100 MG IV ×2 (01:11→09:51)
[2025-02-23 04:00] VITALS: BP 137/62; PULSE 78; RESP 18; TEMP 36; O2SAT 97
--- NOTE | 2025-02-23 06:40 | PM.PNGS ---
Subjective Subjective Date of Service: 02/23/25 Interval history: Patient is a 49 year old female who presented for incision and drainage of an abscess on the plantar aspect of the first metatarsal of her left foot on 02/21/2025. This is post operative day #2. No events overnight. Continues to receive IV Dilaudid and Toradol for pain management. Continues to have throbbing 6/10 pain at the incision site. Pain is worse with packing changes and ambulating. However she has been ambulating to use the bathroom. Urinating without issue. Last bowel movement was yesterday 02/22. Appetite is baseline, tolerating solid food, reports had 3 meals yesterday 02/22. Physical Exam Vital Signs: Vital Signs: Last Vital Signs Temp 96.8 F 02/23/25 04:00 Pulse 78 02/23/25 04:00 Resp 18 02/23/25 04:00 BP 137/62 02/23/25 04:00 Pulse Ox 97 02/23/25 04:00 O2 Del Method Room Air 02/23/25 04:00 O2 Flow Rate 6 02/21/25 14:05 BMI result Body Mass Index 23.2 Const: General: cooperative, no acute distress and alert Orientation/consciousness: patient oriented x3 Resp: Effort & Inspection: normal respiratory effort and able to speak in complete sentences Neuro: General: patient oriented x3 Extrem: Left lower extremity: foot Details: normal capillary refill, no edema and vascular exam Details: dorsalis pedis pulse present Objective Data Active Medications Calcium Carbonate (Calcium Carbonate 750 Mg Tab.Chew) 750 mg PO Q4H PRN PRN Reason: Heartburn Docusate Sodium (Docusate Sodium 100 Mg Capsule) 100 mg PO BID [facility] Last Admin: 02/22/25 20:52 Dose: 100 mg Documented By: GENESIS Hydromorphone HCl (Hydromorphone Hcl 1 Mg/Ml Syringe) 1 mg IVPUSH Q3H PRN; Protocol PRN Reason: Pain, Severe (Pain Scale 7-10) Last Admin: 02/22/25 21:13 Dose: 1 mg Documented By: GENESIS Acetaminophen (Ofirmev) 1,000 mg in 100 mls @ 400 mls/hr IV Q6H PRN PRN Reason: Pain, Mild (Pain Scale 1-3) Last Infusion: 02/21/25 16:14 Dose: Infused Documented By: DUSTIN Levofloxacin (Levaquin) 500 mg in 100 mls @ 100 mls/hr IV Q24H [facility] Last Infusion: 02/22/25 14:37 Dose: Infused Documented By: ROSA MARIA Metronidazole (Flagyl) 500 mg in 100 mls @ 100 mls/hr IV Q8H [facility] Last Infusion: 02/23/25 02:11 Dose: Infused Documented By: GENESIS Ketorolac Tromethamine (Ketorolac Tromethamine 15 Mg/Ml Vial) 15 mg IVPUSH Q6H [facility] Stop: 02/26/25 15:59 Last Admin: 02/23/25 04:24 Dose: 15 mg Documented By: GENESIS Magnesium Hydroxide (Milk Of Magnesia 30 Ml Oral.Susp) 30 ml PO DAILY PRN PRN Reason: Constipation Melatonin (Melatonin 3 Mg Tablet) 6 mg PO BEDTIME PRN PRN Reason: Insomnia Last Admin: 02/21/25 22:11 Dose: 6 mg Documented By: EMILIANA Naloxone HCl (Naloxone Hcl 0.4 Mg/Ml Vial) 0.04 mg IVPUSH Q5M PRN PRN Reason: Excessive sedation or RR < 8 Nicotine (Nicotine 14 Mg Patch.Td24) 14 mg TRANSDERMA DAILY [facility] Last Admin: 02/22/25 08:42 Dose: 14 mg Documented By: ROSA MARIA Ondansetron HCl (Ondansetron Hcl 4 Mg/2 Ml Vial) 4 mg IVPUSH QID PRN PRN Reason: Nausea Oxycodone HCl (Oxycodone Hcl Immed Release 5 Mg Tablet) 5 mg PO Q6H PRN PRN Reason: Pain, Moderate(Pain Scale 4-6) Last Admin: 02/21/25 17:18 Dose: 5 mg Documented By: DUSTIN Sodium Chloride (0.9 % Sodium Chloride Flush 3 Ml Syringe) 3 ml IVFLUSH QSHIFT [facility] Last Admin: 02/22/25 21:14 Dose: 3 ml Documented By: GENESIS Labs 02/21/25 04:14 02/21/25 04:14 Microbiology Microbiology Results: Microbiology 02/20/25 13:48 Blood Culture - Preliminary Blood - Venous No growth after 48 hours. 02/20/25 13:48 Blood Culture - Preliminary Blood - Venous No growth after 48 hours. 02/21/25 Unknown Gram Stain - Final Foot Left Routine Culture - Preliminary No growth to date. Procedures Date of Service Date of Service: 02/23/25 Progress Note: A&P Assessment and plan Plan Patient is a 49 year old female s/p L foot abscess incision and drainage post op day #2. Plan to complete IV antibiotic administration today 02/23. May need one more day given that pain still persists and is controlled with IV Dilaudid and Toradol. Can trial PO pain medications today and assess for adequate pain management. Time Spent With Patient Time: Total time managing care of this patient today ____ minutes. Quality Stroke Does the patient have a stroke diagnosis?: No VTE Prior VTE?: No VTE Risk Level:: Surgical - low VTE Device Contraindication: N/A - Device Ordered VTE Drug Contraindication: Treatment Not Indicated
[2025-02-23 07:27] VITALS: BP 126/73; PULSE 72; RESP 16; TEMP 36.4; O2SAT 99
[2025-02-23] MEDS: Nicotine 14 MG PATCH.TD24 TRANSDERMA (07:41)
[2025-02-23] MEDS: 0.9 % Sodium Chloride Flush 3 ML SYRINGE IVFLUSH (07:42)
--- NOTE | 2025-02-23 09:04 | P.PNGS_ITS ---
Subjective Subjective Date of Service: 02/23/25 Interval history: Anxious about dressing and packing change. Thinks pain overall is better. Tolerating solid diet and ambulating to bathroom without difficulty. Physical Exam 2 Vital Signs: Vital Signs: Last Vital Signs Temp 97.6 F 02/23/25 07:27 Pulse 72 02/23/25 07:27 Resp 16 02/23/25 07:27 BP 126/73 02/23/25 07:27 Pulse Ox 99 02/23/25 07:27 O2 Del Method Room Air 02/23/25 07:27 O2 Flow Rate 6 02/21/25 14:05 BMI result Body Mass Index 23.2 Const: General: comfortable, no acute distress and alert Resp: Effort & Inspection: normal respiratory effort Skin: General skin exam: no rashes or lesions noted Extrem: Other: no purulent drainage, erythema and edema overall improved Objective Data Active Medications Calcium Carbonate (Calcium Carbonate 750 Mg Tab.Chew) 750 mg PO Q4H PRN PRN Reason: Heartburn Docusate Sodium (Docusate Sodium 100 Mg Capsule) 100 mg PO BID [facility] Last Admin: 02/23/25 07:41 Dose: Not Given Documented By: ROSA MARIA Non-Admin Reason: loose stool overnight Hydromorphone HCl (Hydromorphone Hcl 1 Mg/Ml Syringe) 1 mg IVPUSH Q3H PRN; Protocol PRN Reason: Pain, Severe (Pain Scale 7-10) Last Admin: 02/23/25 07:42 Dose: 1 mg Documented By: ROSA MARIA Acetaminophen (Ofirmev) 1,000 mg in 100 mls @ 400 mls/hr IV Q6H PRN PRN Reason: Pain, Mild (Pain Scale 1-3) Last Infusion: 02/21/25 16:14 Dose: Infused Documented By: DUSTIN Levofloxacin (Levaquin) 500 mg in 100 mls @ 100 mls/hr IV Q24H [facility] Last Infusion: 02/22/25 14:37 Dose: Infused Documented By: ROSA MARIA Metronidazole (Flagyl) 500 mg in 100 mls @ 100 mls/hr IV Q8H [facility] Last Infusion: 02/23/25 02:11 Dose: Infused Documented By: GENESIS Ketorolac Tromethamine (Ketorolac Tromethamine 15 Mg/Ml Vial) 15 mg IVPUSH Q6H [facility] Stop: 02/26/25 15:59 Last Admin: 02/23/25 04:24 Dose: 15 mg Documented By: GENESIS Magnesium Hydroxide (Milk Of Magnesia 30 Ml Oral.Susp) 30 ml PO DAILY PRN PRN Reason: Constipation Melatonin (Melatonin 3 Mg Tablet) 6 mg PO BEDTIME PRN PRN Reason: Insomnia Last Admin: 02/21/25 22:11 Dose: 6 mg Documented By: EMILIANA Naloxone HCl (Naloxone Hcl 0.4 Mg/Ml Vial) 0.04 mg IVPUSH Q5M PRN PRN Reason: Excessive sedation or RR < 8 Nicotine (Nicotine 14 Mg Patch.Td24) 14 mg TRANSDERMA DAILY [facility] Last Admin: 02/23/25 07:41 Dose: 14 mg Documented By: ROSA MARIA Ondansetron HCl (Ondansetron Hcl 4 Mg/2 Ml Vial) 4 mg IVPUSH QID PRN PRN Reason: Nausea Oxycodone HCl (Oxycodone Hcl Immed Release 5 Mg Tablet) 5 mg PO Q6H PRN PRN Reason: Pain, Moderate(Pain Scale 4-6) Last Admin: 02/21/25 17:18 Dose: 5 mg Documented By: DUSTIN Sodium Chloride (0.9 % Sodium Chloride Flush 3 Ml Syringe) [facility] Last Admin: 02/23/25 07:42 Dose: 3 ml Documented By: ROSA MARIA Labs 02/21/25 04:14 02/21/25 04:14 Microbiology Microbiology Results: Microbiology 02/21/25 Unknown Gram Stain - Final Foot Left Routine Culture - Final No growth after 2 days 02/20/25 13:48 Blood Culture - Preliminary Blood - Venous No growth after 48 hours. 02/20/25 13:48 Blood Culture - Preliminary Blood - Venous No growth after 48 hours. Procedures Date of Service Date of Service: 02/23/25 Progress Note: A&P Assessment and plan (1) Foot abscess, left: Status: Acute Plan Overall surrounding cellulitis improved, no further purulent drainage. Abscess cultures show no growth. She feels comfortable going home today. Will dc to home on course of doxycycline. F/u in office in 1 week. She is comfortable with doing wound care herself with packing to I&D site followed by dry fluffs and kerlix wrap. Time Spent With Patient Time: Total time managing care of this patient today ____ minutes. Quality Stroke Does the patient have a stroke diagnosis?: No VTE Prior VTE?: No VTE Risk Level:: Surgical - low VTE Device Contraindication: N/A - Device Ordered VTE Drug Contraindication: Treatment Not Indicated
--- NOTE | 2025-02-23 10:41 | MHC.CM.PN ---
Patient s/p I+D L foot is discharged to home today, self care. She has arranged for transportation home.
--- NOTE | 2025-02-23 14:10 | P.DS_ITS ---
DS: Providers Provider Date of Service: 02/23/25 Date of admission: 02/20/25 15:12 Date of discharge: 02/23/25 Primary care physician: Ayse Pierce MD Attending physician on admission: Vasyl Pierre Attending physician on discharge: Vasyl Pierre DS: Diagnosis Discharge Diagnosis (1) Foot abscess, left: Status: Acute DS: Summary Hospital Course Hospital Course: HPI AT ADMISSION: Gini Fraga is a 49 year old female presenting for evaluation of a left foot abscess. She previously underwent a drainage procedure as an outpatient by her building consultant, Dr. Anderson. She began to note increased redness and swelling with the associated pain with ambulation. She was seen today in the office and was subsequently sent in the emergency department for further evaluation. The pain is mainly located in the ball of the foot below the great toe. She denies any bleeding or discharge from the site. HOSPITAL COURSE: Patient was admitted to the surgical service for IV antibiotics with plan for incision and drainage of the foot abscess the following day. On 02/21/25, incision and drainage abscess left foot was performed by Dr. Pierre without immediate complications. The patient tolerated the procedure well. Her leukocytosis improved post operatively. She remained inpatient until POD #2 for IV abx therapy and pain control. Cultures had no growth. On the day of discharge she was ambulating without difficulty, her pain was controlled. Her surrounding left foot cellulitis was improved. She was discharged to home on 02/23/25 on course of doxycycline with follow up in office in 1 week. She is comfortable with doing wound care herself with packing to I&D site followed by dry fluffs and kerlix wrap. Status at Discharge Functional status at discharge: independent ambulation Overall status at discharge: patient is progressing back to baseline Time Attestation Discharge Coordination Time (in mins): 30 Quality: Safe Use of Opioids Does Pt have an Active Cancer Diagnosis on the Problem List?: No Quality: Stroke Does the patient have a stroke diagnosis?: No Physical Exam Vital Signs: Vital Signs: Last Vital Signs Temp 97.6 F 02/23/25 07:27 Pulse 72 02/23/25 07:27 Resp 16 02/23/25 07:27 BP 126/73 02/23/25 07:27 Pulse Ox 99 02/23/25 07:27 O2 Del Method Room Air 02/23/25 07:27 O2 Flow Rate 6 02/21/25 14:05 BMI result Body Mass Index 23.2 Const: General: comfortable, no acute distress and alert Resp: Effort & Inspection: normal respiratory effort Skin: Other: warm and dry foot as noted below Extrem: Other: left foot- I&D site remains open, no purulent drainage, erythema and edema overall improved DS: Data Data Completed and Pending Completed studies during hospitalization [Text1]: Procedures Extraction of Right Upper Leg Subcutaneous Tissue and Fascia, Open Approach (01/17/25) Labs on day of discharge: Preliminary micro results at discharge 02/20/25 13:48 Blood Culture - Preliminary Blood - Venous No growth after 48 hours. 02/20/25 13:48 Blood Culture - Preliminary Blood - Venous No growth after 48 hours. Discharge Plan Discharge Anticipated Discharge Date/Time: 02/23/25 09:08 Patient Disposition: Home, Self-Care Discharge Diagnosis: left foot abscess s/p incision and drainage Referrals: Ayse Pierce MD [Primary Care Provider, Internal Medicine] - 1 Week Vasyl Pierre MD [Physician, General Surgery] - 1 Week Discharge Medications: New doxycycline monohydrate 100 mg capsule 100 mg PO BID Qty: 10 0RF No Action oxycodone 5 mg tablet 5 mg PO Q4H PRN (Reason: pain (scale score 7-10)) Qty: 20 0RF Rx Instructions: Partial Fill upon patient request. Discharge Orders: Discharge Order (Routine); Ordered 02/23/25 Ordered By: Esther Magdaleno Diet: Advance to usual diet Activity on Discharge: As tolerated Stand Alone Forms: Patient Portal Discharge page Print Language: Emirati Activity Restrictions/Additional Instructions: Follow up in office in a week. ([phone]) Take your antibiotics as prescribed. Wound care: iodoform packing to I&D site followed by dry fluffs, kerlix wrap, change daily and as needed Call Your Doctor If: ? ? -Your temperature exceeds 101.5? F? ? ? -You experience excessive pain or swelling, worsening redness of the foot ? ? -You have an unexpected reaction to medication ? ? -You experience continued vomiting/nausea Care Plan Goals: Return to baseline health and resume normal activities as tolerated. Wound healing. Health Concerns: left foot abscess and cellulitis Plan of Treatment: s/p I&D of the abscess IV transitioned to oral antibiotics local daily wound care Follow up in the office in 1 week Assessment: Improved Discharge Date/Time: 02/23/25 13:26
--- NOTE | 2025-03-10 14:44 | P.CDIM_ITS ---
PROVIDER RESPONSE TEXT: To clarify, the appropriate diagnosis supported by the clinical indicators: Other (explain): Only incision and drainage was performed, no debridement. QUERY TEXT: PHYSICIAN'S DOCUMENTATION REQUEST Date of Query: 03/09/2025 12:01 PM EDT Patient Name: Gini Fraga Admit Date: 02/20/2025 Dear Vasyl Pierre MD, RETROSPECTIVE QUERY A review of the medical record indicates additional documentation may be needed. Please review below and update the documentation accordingly. Clinical Indicators: ID 02/21/25 - Abscess left foot. A 15 blade was used to incise the abscess. A large collection was immediately drained of white purulent fluid. Wound cultures were obtained. Wound were irrigated with saline solution and peroxide. Wound were then packed with quarter inch iodoform packing. Could you provide, in the Progress Notes, further clarification regarding the depth of the debridement? Excisional debridement skin, subcutaneous, muscles, tendons, bone, ligament, bursa, fascia etc. Non-excisional debridement skin, subcutaneous, muscles, tendons, bone, ligament, bursa, fascia et. Other (explain) Clinically unable to determine (explain) Thank you, Alejandra Arnold, CCS, CDIS Use of terms such as suspected, likely, concern for, or probable (associated with a specific diagnosis that is being evaluated, monitored, or treated as if it exists) are acceptable and can be coded in the inpatient setting, when documented at the time of discharge. Please use your independent medical judgment in providing your response. THIS QUERY IS PART OF THE PERMANENT MEDICAL RECORD
--- NOTE | 2025-04-03 09:28 | P.CDIM_ITS ---
PROVIDER RESPONSE TEXT: To clarify, the appropriate diagnosis supported by the clinical indicators: Incision and Drainage left foot: Incision and drainage of abscess left foot subcutaneous tissue QUERY TEXT: PHYSICIAN'S DOCUMENTATION REQUEST Date of Query: 03/31/2025 08:42 AM EDT Patient Name: Gini Fraga Admit Date: 02/20/2025 Dear Vasyl Pierre MD, RETROSPECTIVE QUERY A review of the medical record indicates additional documentation may be needed. Please review below and update the documentation accordingly. Clinical Indicators: Op Report 02/21/2025 - Incision and Drainage abscess left foot. A 1.5 blade was used to incise the abscess. A large collection was immediately drained of white purulent fluid. Wound cultures obtained. Wounds were then irrigated with saline solution and peroxide. Could you provide, in the Progress Notes, further clarification regarding the Depth of the documented Incision and Drainage left foot: Incision and Drainage left foot Skin, subcutaneous, fascia, etc. Other specifics to the I&D Other (explain) Clinically unable to determine (explain) Thank you, Alejandra Arnold, CCS, CDIS Use of terms such as suspected, likely, concern for, or probable (associated with a specific diagnosis that is being evaluated, monitored, or treated as if it exists) are acceptable and can be coded in the inpatient setting, when documented at the time of discharge. Please use your independent medical judgment in providing your response. THIS QUERY IS PART OF THE PERMANENT MEDICAL RECORD
== END 2025-02-23 13:26 | disposition home or self-care (01) | DRG 364 ==
LOC: HO.ED 15:00 → HO.EDOVER 15:15 → HO.S3 02-21 07:38
PROVIDERS: Physician Assistant Medical; Admitting Provider Surgery; Emergency Provider Emergency Medicine; PCP Internal Medicine; Visit Provider Surgery
PROC: 0J9R0ZZ Drainage of Left Foot Subcutaneous Tissue and Fascia, Open Approach (ICD-10-PCS; principal; 2025-02-21 13:30)
DX: L02.612 Cutaneous abscess of left foot (principal); F17.210 Nicotine dependence, cigarettes, uncomplicated; L73.2 Hidradenitis suppurativa; Z71.6 Tobacco abuse counseling
CPT/HCPCS: 36415; 73630; 80048; 80053; 83605; 83735; 84702; 85025; 85652; 86140; 87040; 87070; 87205; 99285; J0131; J0696; J1100; J1171; J1836; J1885; J1956; J2003; J2250; J2270; J2405; J2704; J3010

== ENCOUNTER → 2025-02-20 12:31 | Outpatient (BNV) | payer MEDICAID, SELFPAY | PROVIDERS: PCP Internal Medicine; Visit Provider Radiology Diagnostic Radiology | DX: L02.612 Cutaneous abscess of left foot (principal) | CPT/HCPCS: 73630 ==

== ENCOUNTER → 2025-02-20 15:12 | Outpatient (BNV) | payer MEDICAID, SELFPAY | PROVIDERS: Admitting Provider Surgery; Emergency Provider Emergency Medicine; PCP Internal Medicine; Visit Provider Surgery | DX: L02.612 Cutaneous abscess of left foot (principal) | CPT/HCPCS: 10060; 99024; 99222; 99232 ==

== ENCOUNTER → 2025-03-07 13:42 | Outpatient (BNV) | payer MEDICAID, SELFPAY | PROVIDERS: PCP Internal Medicine; Visit Provider Radiology Diagnostic Radiology | DX: M19.072 Primary osteoarthritis, left ankle and foot (principal); M79.89 Other specified soft tissue disorders | CPT/HCPCS: 73720 ==

== ENCOUNTER 2025-03-07 13:45 | Outpatient (REF) | payer MEDICAID, SELFPAY ==
--- NOTE | ~2025-03-07 | MR_ITS ---
EXAMINATION: MR FOOT WITHOUT AND WITH CONTRAST, LEFT TECHNIQUE: Multiplanar multisequence MR imaging was performed through the left foot. INDICATION: M79.89 - Other specified soft tissue disorders, mass on the dorsal foot surgically removed July 2023, regrowth beginning September 2023 Contrast: 7 mm Gadavist PRIOR: X-ray performed 02/20/2025 FINDINGS: Lisfranc ligament: Lisfranc ligament appears intact. Soft tissues/Packer's Neuroma: There is a circumscribed lesion on the surface of the foot dorsal to the fourth and fifth tarsometatarsal joints measuring 8 x 4 x 8 mm (AP by cc by transverse). On T1 imaging, it is slightly hyperintense to skeletal muscle. On fluid sensitive sequences, it is mostly hyperintense with thin peripheral low signal and a curvilinear ring low signal giving it is targetoid appearance on the sagittal sequence. After contrast, there is no central enhancement. There is a thin band of hyperenhancement where it contacts skin. Does not invade across fascia and appears to be intact and the subcutaneous soft tissues. In the third web space, there is a 2 x 5 mm (transverse by CC) region that is low signal T1 imaging, low intermediate signal lucency sequences, with subtle enhancement that could represent a small Packer's neuroma. There is a multiloculated area in the subcutaneous soft tissues dorsal to the first MTP joint involving the region measuring 14 x 6 x 22 mm (AP by cc by transverse). On T1 imaging, the loculations are slightly hyperintense skeletal muscle with peripheral low signal. On fluid sensitive sequences, lesions are intermediate signal is slightly heterogeneous with thin peripheral low signal. After contrast, there is no appreciable internal enhancement. There is no muscle edema, atrophy, or fatty streaking. Metatarsophalangeal (MTP) joint and sesamoids of the great toe: Plantar plate and joint capsule structures are intact. Sesamoids are intact and unremarkable. Lesser MTP joints & Plantar plates: Plantar plates and joint capsule structures are intact. Bones/Marrow: Degenerative cystic changes present in the plantar aspect of the head and neck of the first metatarsal likely with an adjacent focal full-thickness articular cartilage defect. MR/MR foot LT wo/w con IMPRESSION: There is an nonenhancing superficial lesion involving the dorsum of the midfoot that measures 2 x 4 x 8 mm. It is likely a cystic containing proteinaceous debris. There is a multiloculated collection in the subcutaneous soft tissues plantar to the first MTP joint that could represent chronic loculated serous fluid or proteinaceous debris. 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 Degenerative changes in the plantar head and neck of the first metatarsal likely with an adjacent focal full-thickness articular cartilage defect in the plantar head of the first metatarsal. Electronically signed by: Adriano Carvajal MD 03/07/2025 03:25 PM EDT
--- OUTSIDE RECORDS SUMMARY | 2025-03-07 16:56 | XMS_ITS | Encounter Summary ---
Author Organization [facility] Address [address] [place], [place] [id number] Phone Care Team Providers Care Control Clerk Subassembly Name Role Phone Seng Suarez MD Unavailable [phone] Emily Albrecht CNM Unavailable [phone] Nia Skinner FISH NET MAKER Unavailable [phone] Georgiana Mcknight FISH NET MAKER Unavailable [phone] Jong Nolen MD Unavailable [phone] Star Ramon MD Unavailable [phone] Seng Suarez MD Primary Care Provider [phone] Ayse Pierce MD Primary Care Provider Encounter Details Date Type Department Care Team (Late st Contact Info) Description 03/13/2018 Ancillary Orders [facility], [address] [address] Judson Martínez MD [address] [place] [id number] [email or web address] Pelvic pain; Hematuria, unspecified type; [...] be adequately evaluated due to underdistention. POS [id number] Narrative 03/13/2018 7:18 PM EDT HISTORY: Hematuria, [...] is normal in size and echogenicity. It hbotuxas06.1 cm in the long axis. No evidence [...] be adequately evaluated due to underdistention. POS [id number] us Judson Martínez MD IMG US RENAL Final Re sult * US PELVIS TRANSABDOMINAL PLUS TRANSVAGINAL (03/13/2018 12:06 PM EDT) Anatomical Region Laterality Modality Pelvis, Uterus/Adnexa Ultrasound 03/13/2018 7:13 PM EDT Impressions 03/13/2018 7:15 PM EDT No explanation for pain. POS - [id number] Narrative 03/13/2018 7:15 PM EDT HISTORY: Pelvic [...] IMPRESSION: No explanation for pain. POS - [id number] us Judson Martínez MD IMG US PELVIS [...] documented as of this encounter Care Teams Control Clerk Subassembly Relationship Specialty Start Date End Date Seng Suarez MD [address] [place] [address] PCP - General 06/04/17 02/04/22 Ayse Pierce MD [address] [place] [address] [place] [address] PCP - General Internal Medicine 02/05/22 Seng Suarez MD [address] [place] [address] Historical LMR Provider 03/21/17 2 Emily Albrecht CNM [address] [place] [address] Historical LMR Provider 03/21/17 2 Nia Skinner NP [address] [place] [address] Historical LMR Provider 03/21/17 06/08/21 Georgiana Mcknight NP [address] [place] [address] Historical LMR Provider 03/21/17 2 Jong Nolen MD [address] [place] [phone] [email or web address] Historical LMR Provider 03/21/17 Star Ramon MD [address] [place] [address] Historical LMR Provider 03/21/17 2 documented as of this encounter Additional Source Comments The information contained in this document represents components of the legal health record. It is not the complete legal health record.[facility]
--- OUTSIDE RECORDS SUMMARY | 2025-03-07 16:56 | XMS_ITS | Encounter Summary ---
Author Organization [facility] Address [address] [place] [id number] Phone Care Team Providers Care Agribusiness Internship Name Role Phone Jong Nolen MD Unavailable [phone] Ayse Pierce MD Primary Care Provider Encounter Details Date Type Department Care Team (Late st Contact Info) Description 06/29/2023 Procedure Pass OR Admitting Dept - Virtual Department [address] [place] [address] Social History Tobacco Use Types Packs/Day Years [...] on filedocumented in this encounter Care Teams [employer]ribusiness Internship Relationship Specialty Start Date End Date Ayse Pierce MD [address] [place] [address] [place] [address] PCP - General Internal Medicine 02/05/22 Jong Nolen MD [address] [place] [address], [facility] [address] [place] [address] [email or web address] Historical LMR Provider 03/21/17 documented as of this encounter Additional Source Comments The information contained in this document represents components of the legal health record. It is not the complete legal health record.[facility]
--- OUTSIDE RECORDS SUMMARY | 2025-03-07 16:56 | XMS_ITS | Encounter Summary ---
Author Organization [facility] Address [address] [place], [place] [id number] Phone Care Team Providers Care Crop Puller Name Role Phone Jong Nolen MD Unavailable [phone] Ayse Pierce MD Primary Care Provider Encounter Details Date Type Department Care Team (Late st Contact Info) Description 02/13/2022 Procedure Pass OR Admitting Dept - Virtual Department [address] [place] [id number] Social History Tobacco Use Types Packs/Day Years [...] documented as of this encounter Care Teams Crop Puller Relationship Specialty Start Date End Date Ayse Pierce MD [address] [place] [address] [place] [address] PCP - General Internal Medicine 02/05/22 Jong Nolen MD [address] [place] [address] [email or web address] Historical LMR Provider 03/21/17 documented as of this encounter Additional Source Comments The information contained in this document represents components of the legal health record. It is not the complete legal health record.[facility]
--- OUTSIDE RECORDS SUMMARY | 2025-03-07 16:56 | XMS_ITS | Encounter Summary ---
Author Organization [facility] Address [address] [place], [place] [address] Phone Care Team Providers Care Supply Manager Name Role Phone Seng Suarez MD Unavailable [phone] Emily Albrecht CNM Unavailable [phone] Nia Skinner PSYCHIATRIC THERAPIST Unavailable [phone] Georgiana Mcknight PSYCHIATRIC THERAPIST Unavailable [phone] Jong Nolen MD Unavailable [phone] Star Ramon MD Unavailable [phone] Seng Suarez MD Primary Care Provider [phone] Ayse Pierce MD Primary Care Provider Encounter Details Date Type Department Care Team (Late st Contact Info) Description 07/22/2017 Procedure Pass OR Admitting Dept - Virtual Department [address] [place] [address] Social History Tobacco Use Types Packs/Day Years [...] documented as of this encounter Care Teams Supply Manager Relationship Specialty Start Date End Date Seng Suarez MD [address] [place] [address] PCP - General 06/04/17 02/04/22 Ayse Pierce MD [address] [place] [address] [place] [address] PCP - General Internal Medicine 02/05/22 Seng Suarez MD [address] [place] [address] Historical LMR Provider 03/21/17 2 Emily Albrecht CNM [address] [place] [address] Historical LMR Provider 03/21/17 2 Nia Skinner NP [address] [place] [address] Historical LMR Provider 03/21/17 06/08/21 Georgiana Mcknight NP [address] [place] [address] Historical LMR Provider 03/21/17 2 Jong Nolen MD [address] [place] [address] Historical LMR Provider 03/21/17 Star Ramon MD [address] [place] [address] Historical LMR Provider 03/21/1706/08/ 2 documented as of this encounter Additional Source Comments The information contained in this document represents components of the legal health record. It is not the complete legal health record.[facility]
--- OUTSIDE RECORDS SUMMARY | 2025-03-07 16:56 | XMS_ITS | Encounter Summary ---
Author Organization [facility] Address [address] [place], [place] [address] Phone Care Team Providers Care Compressor Operator Name Role Phone Seng Suarez MD Unavailable [phone] Emily Albrecht CNM Unavailable [phone] Nia Skinner [employer] OFFICER Unavailable [phone] Georgiana Mcknight [employer] OFFICER Unavailable [phone] Jong Nolen MD Unavailable [phone] Star Ramon MD Unavailable [phone] Seng Suarez MD Primary Care Provider [phone] Ayse Pierce MD Primary Care Provider Encounter Details Date Type Department Care Team (Late st Contact Info) Description 04/08/2018 Procedure Pass OR Admitting Dept - Virtual Department [address] [place] [address] Social History Tobacco Use Types Packs/Day Years [...] documented as of this encounter Care Teams Compressor Operator Relationship Specialty Start Date End Date Seng Suarez MD [address] [place] [address] PCP - General 06/04/17 02/04/22 Ayse Pierce MD [address] [place] [address] [place] [address] PCP - General Internal Medicine 02/05/22 Seng Suarez MD [address] [place] [address] Historical LMR Provider 03/21/17 2 Emily Albrecht CNM [address] [place] [address] Historical LMR Provider 03/21/17 2 Nia Skinner NP [address] [place] [address] Historical LMR Provider 03/21/17 06/08/21 Georgiana Mcknight NP [address] [place] [address] Historical LMR Provider 03/21/17 2 Jong Nolen MD [address] [place] [address] Historical LMR Provider 03/21/17 Star Ramon MD [address] [place] [address] Historical LMR Provider 03/21/1706/08/ 2 documented as of this encounter Additional Source Comments The information contained in this document represents components of the legal health record. It is not the complete legal health record.[facility]
--- OUTSIDE RECORDS SUMMARY | 2025-03-07 16:56 | XMS_ITS | Clinical Summary ---
Author Organization [facility] Address [address] [place], [place] [address] Phone Care Team Providers Care Fingerprint Expert Name Role Phone Jong Nolen MD Unavailable [phone] Ayse Pierce MD Primary Care Provider Allergies [...] [facility]phone [facility] [address] [place] [address] Keo Garcia LPN Imaging Follow Up 12/19/2024 Telephone [facility] [address] [place] [address] Jong Nolen MD Surgery Scheduling 12/16/2024 2:30 PM EDT Office Visit [facility] [address] [place] [address] Jong Nolen MD Endometriosis determined by laparoscopy [...] PM EDT) HCV NON-REACTIV E NON-REACTI VE [facility] Blood 08/16/2024 2:43 PM EDT 08/16/2024 2:45 PM EDT us Jong oNlen MD LAB BLOOD ORDERABLES Final Re sult [facility] [address] [place] [address] * Pap Test (06/17/2023 12:00 AM EST) 06/17/2023 06/18/2023 9:3 4 AM EST Narrative SEE NARRATIVE - 06/19/2023 3:33 [place] [address] Electrolytic De Scaler: Alisha Dean MD LANGUAGE PATH Cytology Report FINAL DIAGNOSIS A. PAP SMEAR (SUREPATH) CE: SPECIMEN ADEQUACY: Satisfactory for evaluation; transformation zone present. INTERPRETATION: NEGATIVE FOR INTRAEPITHELIAL LESION OR MALIGNANCY. Coccobacilli consistent with shift in shaen Electronically Signed Out By: ALICE Myers(ASCP) The [...] 59, 66, 68) Note: Testing performed by [facility] Onclarity HR-HPV analysis. Clinical correlation is advised. This HPV test was performed at [facility], [address] [place] [address]. This test has been FDA approved for SurePath cervical cytology specimens. The accuracy and precision of this test for all other specimen sources has been verified in the Cytopathology Laboratory of the [facility] and has not been cleared or approved by the U.S. Food and Drug Administration. Clinical correlation is advised. CLINICAL HISTORY Date of Last Menstrual Period: 04-15-2023 Other Clinical Conditions: Screening Pap SPECIMEN SOURCE A: PAP SMEAR (SUREPATH) CE Patient Name: GINI FRAGA : 1975 (Age: 48) Sex: F Institution: [facility] Location: [facility] Date of Collection: 06/17/2023 Date of Reported: 06/19/2023 15:33 Results to: Jong Nolen MD, BS us Jnog Nolen MD CYTOLOGY ORDERABLES Final Res ult SEE NARRATIVE from Last 3 Months or Most Recently Relevant to Health Maintenance Insurance [facility] [address] [place] [address] [place] [address] [place] [address] [place] [address] PCC Care Teams Fingerprint Expert Relationship Specialty Start Date End Date Ayse Pierce MD [address] [place] [address] [place] [address] PCP - General Internal Medicine 02/05/22 Jong Nolen MD 22 [facility], [address] [address] [email or web address] Historical LMR Provider 03/21/17 Additional Source Comments The information contained in this document represents components of the legal health record. It is not the complete legal health record.[facility]
== END 2025-03-07 13:46 | disposition home or self-care (01) ==
LOC: HO.MRI 13:45
PROVIDERS: PCP Internal Medicine; Visit Provider Student in an Organized Health Care Education/Training Program
DX: M79.89 Other specified soft tissue disorders (principal)
CPT/HCPCS: 73720; A9585

== ENCOUNTER 2025-03-16 11:02 | Outpatient (AMB) | payer MEDICAID, SELFPAY ==
--- OUTSIDE RECORDS SUMMARY | 2025-03-16 14:04 | XMS_ITS | Encounter Summary ---
Author Organization [facility] Address [address] [place], [place] [address] Phone Care Team Providers Care Hot Mill Operator Name Role Phone Seng Suarez MD Unavailable [phone] Emily Albrecht CNM Unavailable [phone] Nia Skinner [employer] FARM HAND Unavailable [phone] Georgiana Mcknight [employer] FARM HAND Unavailable [phone] Jong Nolen MD Unavailable [phone] Star Ramon MD Unavailable [phone] Seng Suarez MD Primary Care Provider [phone] Ayse Pierce MD Primary Care Provider Encounter Details Date Type Department Care Team (Late st Contact Info) Description 03/13/2018 Ancillary Orders [facility], [address] [address] Judson Martínez MD [address] [place] [address] [email or web address] Pelvic pain; Hematuria, unspecified type; [...] be adequately evaluated due to underdistention. POS [id number] Narrative 03/13/2018 7:18 PM EDT HISTORY: Hematuria, [...] is normal in size and echogenicity. It [id number] cm in the long axis. No evidence [...] be adequately evaluated due to underdistention. POS [id number] us Judson Martínez MD IMG US RENAL Final Re sult * US PELVIS TRANSABDOMINAL PLUS TRANSVAGINAL (03/13/2018 12:06 PM EDT) Anatomical Region Laterality Modality Pelvis, Uterus/Adnexa Ultrasound 03/13/2018 7:13 PM EDT Impressions 03/13/2018 7:15 PM EDT No explanation for pain. POS - [id number] Narrative 03/13/2018 7:15 PM EDT HISTORY: Pelvic [...] IMPRESSION: No explanation for pain. POS - [id number] us Judson Martínez MD IMG US PELVIS [...] documented as of this encounter Care Teams Hot Mill Operator Relationship Specialty Start Date End Date Seng Suarez MD [address] [place] [address] PCP - General 06/04/17 02/04/22 Ayse Pierce MD [address] [place] [address] [place] [address] PCP - General Internal Medicine 02/05/22 Seng Suarez MD [address] [place] [address] Historical LMR Provider 03/21/17 2 Emily Albrecht CNM [address] [place] [address] Historical LMR Provider 03/21/17 2 Nia Skinner NP [address] [place] [address] Historical LMR Provider 03/21/17 06/08/21 Georgiana Mcknight NP [address] [place] [address] Historical LMR Provider 03/21/17 2 Jong Nolen MD [address] [place] [address] [email or web address] Historical LMR Provider 03/21/17 Star Ramon MD [address] [place] [address] Historical LMR Provider 03/21/17 2 documented as of this encounter Additional Source Comments The information contained in this document represents components of the legal health record. It is not the complete legal health record.[facility]
--- OUTSIDE RECORDS SUMMARY | 2025-03-16 14:04 | XMS_ITS | Encounter Summary ---
Author Organization [facility] Address [address] [place] [address] Phone Care Team Providers Care Department Mgr Name Role Phone Jong Nolen MD Unavailable Ayse Pierce MD Primary Care Provider Encounter Details Date Type Department Care Team (Late st Contact Info) Description 06/29/2023 Procedure Pass OR Admitting Dept - Virtual Department [address] [place] [address] Social History Tobacco Use Types Packs/Day Years [...] on filedocumented in this encounter Care Teams Department Mgr Relationship Specialty Start Date End Date Ayse Pierce MD [address] [place] [address] [place] [address] PCP - General Internal Medicine 02/05/22 Jong Nolen MD [address] [place] [address], [facility] [address] [place] [address] [email or web address] Historical LMR Provider 03/21/17 documented as of this encounter Additional Source Comments The information contained in this document represents components of the legal health record. It is not the complete legal health record.[facility]
--- OUTSIDE RECORDS SUMMARY | 2025-03-16 14:04 | XMS_ITS | Encounter Summary ---
Author Organization [facility] Address [address] [place], [place] [address] Phone Care Team Providers Care Auto Inspection Specialist Name Role Phone Seng Suarez MD Unavailable [phone] Emily Albrecht CNM Unavailable [phone] Nia Skinner [employer] Unavailable [phone] Georgiana Mcknight [employer] Unavailable [phone] Jong Nolen MD Unavailable [phone] Star Ramon MD Unavailable [phone] Seng Suarez MD Primary Care Provider [phone] Ayse Pierce MD Primary Care Provider Encounter Details Date Type Department Care Team (Late st Contact Info) Description 04/08/2018 Procedure Pass OR Admitting Dept - Virtual Department [address] [place] [address] Social History Tobacco Use Types Packs/Day Years [...] as of this encounter Care Teams Auto Inspection Specialist Relationship Specialty Start Date End Date Seng Suarez MD [address] [place] [address] PCP - General 06/04/17 02/04/22 Ayse Pierce MD [address] [place] [address] [place] [address] PCP - General Internal Medicine 02/05/22 Seng Suarez MD [address] [place] [address] Historical LMR Provider 03/21/17 2 Emily Albrecht CNM [address] [place] [address] Historical LMR Provider 03/21/17 2 Nia Skinner NP [address] [place] [address] Historical LMR Provider 03/21/17 06/08/21 Georgiana Mcknight NP [address] [place] [address] Historical LMR Provider 03/21/17 2 Jong Nolen MD [address] [place] [address] Historical LMR Provider 03/21/17 Star Ramon MD [address] [place] [address] Historical LMR Provider 03/21/1706/08/ 2 documented as of this encounter Additional Source Comments The information contained in this document represents components of the legal health record. It is not the complete legal health record.[facility]
--- OUTSIDE RECORDS SUMMARY | 2025-03-16 14:04 | XMS_ITS | Encounter Summary ---
Author Organization [facility] Address [address] [place], [place] [address] Phone Care Team Providers Care Presser Cotton Ginning Name Role Phone Seng Suarez MD Unavailable [phone] Emily Albrecht CNM Unavailable [phone] Nia Skinner COOK HELPER VEGETABLE Unavailable [phone] Georgiana Mcknight COOK HELPER VEGETABLE Unavailable [phone] Jong Nolen MD Unavailable [phone] Star Ramon MD Unavailable [phone] Seng Suarez MD Primary Care Provider [phone] Ayse Pierce MD Primary Care Provider Encounter Details Date Type Department Care Team (Late st Contact Info) Description 07/22/2017 Procedure Pass OR Admitting Dept - Virtual Department [address] [place] [address] Social History Tobacco Use Types Packs/Day Years [...] documented as of this encounter Care Teams Presser Cotton Ginning Relationship Specialty Start Date End Date Seng Suarez MD [address] [place] [address] PCP - General 06/04/17 02/04/22 Ayse Pierce MD [address] [place] [address] [place] [address] PCP - General Internal Medicine 02/05/22 Seng Suarez MD [address] [place] [address] Historical LMR Provider 03/21/17 2 Emily Albrecht CNM [address] [place] [address] Historical LMR Provider 03/21/17 2 Nia Skinner NP [address] [place] [address] Historical LMR Provider 03/21/17 06/08/21 Georgiana Mcknight NP [address] [place] [address] Historical LMR Provider 03/21/17 2 Jong Nolen MD [address] [place] [address] Historical LMR Provider 03/21/17 Star Ramon MD [address] [place] [address] Historical LMR Provider 03/21/1706/08/ 2 documented as of this encounter Additional Source Comments The information contained in this document represents components of the legal health record. It is not the complete legal health record.[facility]
--- OUTSIDE RECORDS SUMMARY | 2025-03-16 14:04 | XMS_ITS | Clinical Summary ---
Author Organization [facility] Address [address] [place], [place] [address] Phone Care Team Providers Care Graphics Coordinator Name Role Phone Jong Nolen MD Unavailable [phone] Ayse Pierce MD Primary Care Provider [...] [facility]phone [facility] [address] [place] [address] Keo Garcia LPN Imaging Follow Up 12/19/2024 Telephone [facility] [address] [place] [address] Jong Nolen MD Surgery Scheduling 12/16/2024 2:30 PM EDT Office Visit [facility] [address] [place] [address] Jong Nolen MD Endometriosis determined by laparoscopy [...] 03/12/2018 INFLUENZA VACCINE (#1) 2024 COVID-19 VACCINE (2024-2 6 season) 2025 PAP SMEAR 06/17/2026 06/17/2023, 01/05/2017 [...] PM EDT) HCV NON-REACTIV E NON-REACTI VE [facility] Blood 08/16/2024 2:43 PM EDT 08/16/2024 2:45 PM EDT us Jong Nolen MD LAB BLOOD ORDERABLES Final Re sult [address] [address] * Pap Test (06/17/2023 12:00 AM EST) Report [address] [address] Wedding Planning Internship: Alisha Dean MD INDUSTRIAL SWEEPER CLEANER Cytology Report FINAL DIAGNOSIS A. PAP SMEAR [...] 59, 66, 68) Note: Testing performed by Tele[employer] Onclarity HR-HPV analysis. Clinical correlation is advised. This HPV test was performed at [facility], [address] [place] [address]. This test has been FDA approved for SurePath cervical cytology specimens. The accuracy and precision of this test for all other specimen sources has been verified in the Cytopathology Laboratory of the [facility] and has not been cleared or approved by the U.S. Food and Drug Administration. Clinical correlation is advised. CLINICAL HISTORY Date of Last Menstrual Period: 04-15-2023 Other Clinical Conditions: Screening Pap SPECIMEN SOURCE A: PAP SMEAR (SUREPATH) CE Patient Name: GINI FRAGA : 1975 (Age: 48) Sex: F Institution: [facility] Location: [facility] Date of Collection: 06/17/2023 Date of Reported: 06/19/2023 15:33 Results to: Jong Nolen MD, BS [facility] Final Diagnosis A. PAP SMEAR (SUREPATH) CE: SPECIMEN ADEQUACY: Satisfactory for evaluation; transformation zone present. INTERPRETATION: NEGATIVE FOR INTRAEPITHELIAL LESION OR MALIGNANCY. Coccobacilli consistent with shift in shane [facility] Results\Inter pretation A. PAP SMEAR (SUREPATH) CE: Human Papilloma Virus TestNEGATIVE for high-risk Human Papilloma Virus types 16, 18, 45 and the Other high risk probe set (Includes 31, 33, 35, 39, 51, 52, 56, 58, 59, 66, 68)Note: Testing performed by TeleDNA Onclarity HR-HPV analysis. Clinical correlation is advised. This HPV test was performed at [facility], [address] [place] [address]. This test has been FDA approved for SurePath cervical cytology specimens. The accuracy and precision of this test for all other specimen sources has been verified in the Cytopathology Laboratory of the [facility] and has not been cleared or approved by the U.S. Food and Drug Administration. Clinical correlation is advised. [facility] Conversion Type 06/17/2023 9:34 AM EST us Jong Nolen MD CYTOLOGY ORDERABLES Edited Re sult - Final [facility] [address] [place], [place] [id number] from Last 3 Months or Most Recently Relevant to Health Maintenance Insurance [place] [address] [facility] [address] [place] [address] [place] [place] [address] [facility] [address] [place] [address] [facility] Care Teams Graphics Coordinator Relationship Specialty Start Date End Date Ayse Pierce MD [address] [place] [address] [place] [address] PCP - General Internal Medicine 02/05/22 Jong Nolen MD [address] [place] [address], [facility] [address] [place] [address] [email or web address] Historical LMR Provider 03/21/17 Additional Source Comments The information contained in this document represents components of the legal health record. It is not the complete legal health record.[facility]
--- OUTSIDE RECORDS SUMMARY | 2025-03-16 14:04 | XMS_ITS | Encounter Summary ---
Author Organization [facility] Address [address] [place], [place] [address] Phone Care Team Providers Care Corrections Unit Supervisor Name Role Phone Jong Nolen MD Unavailable [phone] Ayse Pierce MD Primary Care Provider Encounter Details Date Type Department Care Team (Late st Contact Info) Description 02/13/2022 Procedure Pass OR Admitting Dept - Virtual Department [address] [place] [address] Social History Tobacco Use Types Packs/Day Years [...] documented as of this encounter Care Teams Corrections Unit Supervisor Relationship Specialty Start Date End Date Ayse Pierce MD [address] [place] [address] [place] [address] PCP - General Internal Medicine 02/05/22 Jong Nolen MD [address] [place] [address] [email or web address] Historical LMR Provider 03/21/17 documented as of this encounter Additional Source Comments The information contained in this document represents components of the legal health record. It is not the complete legal health record.[facility]
--- NOTE | 2025-03-24 14:47 | AM.OFFVISNUR ---
Intake Visit Reasons: foot wound check Allergies Iodinated Contrast Media (Contrast Dye) Allergy (Verified 03/16/25 13:47) Unknown Penicillins (PCN) Allergy (Verified 03/20/25 08:54) Hives shellfish derived Allergy (Verified 03/20/25 08:54) Anaphylaxis Sulfa (Sulfonamide Antibiotics) Allergy (Verified 03/20/25 08:54) Anaphylaxis prednisone Adverse Reaction (Verified 03/16/25 13:47) Agitated tamsulosin (From Flomax) Adverse Reaction (Verified 03/16/25 13:47) Involuntary Spasms tramadol Adverse Reaction (Verified 03/16/25 13:47) Agitated Nursing Note Pt reported to office for wound check of I&D site on foot. Incision looked closed and well healed. Pt repeatedly pressed and pushed on the area and is certain that there is a collection of pus that needs more surgery to fix . Dr. Ny available to see wound. He is scheduling her for the OR to drain it. Coding Level of Care Code Established Pt Est Pt Level 1 (21264) Patient Type Established History Problem Focused Exam Problem Focused Medical Decision Making Straight Forward Time Spent (min) 15 Comment wound assessment, wound teaching
== END 2025-03-16 15:57 | disposition home or self-care (01) ==
LOC: HO.HGS 11:03
PROVIDERS: PCP Internal Medicine; Visit Provider Surgery
DX: M79.89 Other specified soft tissue disorders (principal)
CPT/HCPCS: 99024

== ENCOUNTER → 2025-03-16 11:02 | Outpatient (BNVA) | payer MEDICAID, SELFPAY | PROVIDERS: PCP Internal Medicine; Visit Provider Surgery | DX: M79.89 Other specified soft tissue disorders (principal) | CPT/HCPCS: 99212 ==

== ENCOUNTER 2025-03-16 13:36 | Outpatient (AMB) | payer MEDICAID, SELFPAY ==
--- NOTE | 2025-03-16 13:42 | A.OFFVIS_ITS ---
Vital Signs 03/16/25 13:46 Height 5 ft 3 in Weight 164 lb BMI 29.0 BP 114/64 Blood Pressure Location Rt brachial Position Sitting Pulse 87 Intake Visit Reasons: ? infection of foot Intake Note: Patient here c/o new painful pus pocket on lt ball of foot. Completed Doxycycline course. Procedure: I&D w/Dr. Pierre 02-21-2025 Pharmaceutical Assistant Required: No Accompanied by: Self / Same As Patient Allergies Iodinated Contrast Media (Contrast Dye) Allergy (Verified 03/16/25 13:47) Unknown Penicillins (PCN) Allergy (Verified 03/20/25 08:54) Hives shellfish derived Allergy (Verified 03/20/25 08:54) Anaphylaxis Sulfa (Sulfonamide Antibiotics) Allergy (Verified 03/20/25 08:54) Anaphylaxis prednisone Adverse Reaction (Verified 03/16/25 13:47) Agitated tamsulosin (From Flomax) Adverse Reaction (Verified 03/16/25 13:47) Involuntary Spasms tramadol Adverse Reaction (Verified 03/16/25 13:47) Agitated Medication List - Last Reconciled 03/16/25 by Ronnie Ny MD doxycycline monohydrate 100 mg PO BID oxycodone 5 mg PO Q4H PRN HPI HPI ? infection of foot: Details: 49 year old female here for left foot swelling at the plantar aspect She actually had undergone an I&D of a plantar abscess with Dr. Pierre as an inpatient last 02/21/2025. She was discharged after 2 days She says that she has recurrent swelling of the same area that time. 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 She still continues to have significant pain and wants this opened up and drained. [facility] Medical History (Updated 03/16/25 @ 14:00 by Ronnie Ny MD) Swelling of left foot Abscess Kidney calculi Hidradenitis suppurativa Surgical History History of incision and drainage (01/17/25) Hx of wisdom tooth extraction Hx of breast reduction, elective Hx of unilateral oophorectomy Hx of laparoscopy Hx of cholecystectomy Hx of appendectomy Hx of cystoscopy Social History Household Members: Family Household Members Other:: mother Housing: House Are you a primary long term care phlebotomist to a significant other at home: No Do you presently have visiting nurse or other home services: No Alcohol intake: never Patient Tobacco Use Status: Current everyday Tobacco user Tobacco use type: Cigarette Cigarette Packs Per Day: 1 Cigarettes Per Day: 20.0 Second Hand Smoke Exposure: No Use of substances other than those prescribed or required for medical reasons: Yes Substance Use Type: Marijuana Are you DNR?: No Advance Directives: Yes Advance Directives on File: Yes Advance Directives Date on File: 02/21/25 service: No Review of Systems Const Denies chills and Denies fever(s) Card Denies chest pain, Denies dyspnea and Denies dyspnea on exertion Resp Denies cough, Denies dyspnea and Denies dyspnea on exertion GI Denies hematochezia and Denies change in bowel habits Denies hematuria Musc Denies back pain and Denies limited range of motion Neuro Denies focal weakness and Denies convulsions Psych Denies depression and Denies mood swings Physical Exam Vital Signs: Last Vital Signs Pulse 87 03/16/25 13:46 BP 114/64 03/16/25 13:46 BMI result Body Mass Index 29.0 Const General: comfortable and no acute distress Orientation/consciousness: patient oriented x3 Neck Neck: Yes no lymphadenopathy Resp Auscultation: clear to auscultation bilaterally Cardio Rhythm: regular rhythm GI Palpation (GI): Soft to palpation, nontender and no guarding Neuro General: patient oriented x3 Extrem Other: Plantar aspect left foot at the 1st metatarsal head -- swelling and redness, about 3 cm, no active drainage he has an open wound, no ulcer Assessment & Plan Assessment & Plan (1) Swelling of left foot: Code(s): M79.89 - Other specified soft tissue disorders Category: Medical Plan: She has this plantar swelling on the left foot as described above. Her MRI suggest a loculated fluid. She wants to proceed with I&D and she insists that this has be done under anesthesia because of her pain . This is the same area that had been drained previously last month by Dr. Mazzucco. I explained the technique of I and D in the operating room under anesthesia. I reviewed the risks including but not limited to bleeding, infections, poor healing, as well as the benefits and alternatives . She says she understands and wants to proceed. Coding Level of Care Code Est Pt Level 3 (47534) Diagnoses Swelling of left foot M79.89
[2025-03-16 13:46] VITALS: BP 114/64; PULSE 87; BMI 29.0
== END 2025-03-16 13:59 | disposition home or self-care (01) ==
LOC: HO.HGS 13:37
PROVIDERS: PCP Internal Medicine; Visit Provider Surgery
DX: M79.89 Other specified soft tissue disorders (principal)
CPT/HCPCS: 99213

== ENCOUNTER 2025-03-20 08:06 | Day surgery (SDC) | payer MEDICAID, SELFPAY ==
[2025-03-20] VITALS (16 sets, daily range): BP systolic 87–120; BP diastolic 43–70; PULSE 67–85; RESP 12–16; TEMP 35.9–36.7; O2SAT 95–100; BMI 28.3
[2025-03-20 08:58] LABS: UPreg QC Valid YES
--- NOTE | 2025-03-20 09:08 | P.CONAN_ITS ---
Documented by User: Florence Thibodeaux NP 03/17/25 10:18 HPI - Anesthesia Eval Consult details Narrative: 49yo F for I&D Abscess of Foot s/p same 01/2025 with GA-LMA PMF Active Problems Active Problems: All Active Problems Swelling of left foot (Acute) Other bursal cyst, left ankle and foot (Acute) Cavus deformity of both feet (Acute) Mass of soft tissue of foot (Acute) Metatarsalgia of both feet (Acute) Skin cyst (Acute) Plantar ulcer of left foot (Acute) Left flank pain (Acute) Tobacco use (Acute) Hidradenitis suppurativa (Acute) Past Medical History Medical History (Updated 03/16/25 @ 14:00 by Ronnie Ny MD) Swelling of left foot Abscess Kidney calculi Hidradenitis suppurativa Family History Family history of problems with anesthesia: No Surgical History Surgical History History of incision and drainage (01/17/25) Hx of wisdom tooth extraction Hx of breast reduction, elective Hx of unilateral oophorectomy Hx of laparoscopy Hx of cholecystectomy Hx of appendectomy Hx of cystoscopy History of Problems with Anesthesia: No Social History Social History Household Members: Family Household Members Other:: mother Housing: House Are you a primary home health aide caregiver to a significant other at home: No Do you presently have visiting nurse or other home services: No Alcohol intake: never Patient Tobacco Use Status: Current everyday Tobacco user Tobacco use type: Cigarette Cigarette Packs Per Day: 1 Cigarettes Per Day: 20.0 Second Hand Smoke Exposure: No Use of substances other than those prescribed or required for medical reasons: Yes Substance Use Type: Marijuana Are you DNR?: No Advance Directives: Yes Advance Directives on File: Yes Advance Directives Date on File: 02/21/25 service: No Meds Allergies Allergy/AdvReac Type Severity Reaction Status Date / Time Iodinated Contrast Media Allergy Unknown Verified 03/16/25 13:47 (Contrast Dye) Penicillins (PCN) Allergy Hives Verified 03/20/25 08:54 shellfish derived Allergy Anaphylaxis Verified 03/20/25 08:54 Sulfa (Sulfonamide Allergy Anaphylaxis Verified 03/20/25 08:54 Antibiotics) prednisone AdvReac Agitated Verified 03/16/25 13:47 tamsulosin (From Flomax) AdvReac Involuntary Verified 03/16/25 13:47 Spasms tramadol AdvReac Agitated Verified 03/16/25 13:47 Assessment and Plan Assessment Anesthesia Assessment: Chart Reviewed Final Anesthetic Review Family History of Problems with Anesthesia: No History of Problems with Anesthesia: No Documented by User: Kamille Sanchez, 03/20/25 09:10 PMF Past Medical History Medical History (Updated 03/16/25 @ 14:00 by Ronnie Ny MD) Swelling of left foot Abscess Kidney calculi Hidradenitis suppurativa Family History Family history of problems with anesthesia: No Surgical History Surgical History History of incision and drainage (01/17/25) Hx of wisdom tooth extraction Hx of breast reduction, elective Hx of unilateral oophorectomy Hx of laparoscopy Hx of cholecystectomy Hx of appendectomy Hx of cystoscopy History of Problems with Anesthesia: No Social History Social History Household Members: Family Household Members Other:: mother Housing: House Are you a primary home health aide caregiver to a significant other at home: No Do you presently have visiting nurse or other home services: No Alcohol intake: never Patient Tobacco Use Status: Current everyday Tobacco user Tobacco use type: Cigarette Cigarette Packs Per Day: 1 Cigarettes Per Day: 20.0 Second Hand Smoke Exposure: No Use of substances other than those prescribed or required for medical reasons: Yes Substance Use Type: Marijuana Are you DNR?: No Advance Directives: Yes Advance Directives on File: Yes Advance Directives Date on File: 02/21/25 service: No Meds Allergies Allergy/AdvReac Type Severity Reaction Status Date / Time Iodinated Contrast Media Allergy Unknown Verified 03/16/25 13:47 (Contrast Dye) Penicillins (PCN) Allergy Hives Verified 03/20/25 08:54 shellfish derived Allergy Anaphylaxis Verified 03/20/25 08:54 Sulfa (Sulfonamide Allergy Anaphylaxis Verified 03/20/25 08:54 Antibiotics) prednisone AdvReac Agitated Verified 03/16/25 13:47 tamsulosin (From Flomax) AdvReac Involuntary Verified 03/16/25 13:47 Spasms tramadol AdvReac Agitated Verified 03/16/25 13:47 Exam Exam Date and Time: 03/20/25 0908 Height,Weight and Vital Signs: Height 5 ft 3 in Weight 72.4 kg Vital Signs Temperature 96.7 F L 03/20/25 08:56 Pulse Rate 83 03/20/25 08:56 Respiratory Rate 16 03/20/25 08:56 Blood Pressure 120/70 03/20/25 08:56 Pulse Oximetry 98 03/20/25 08:56 Oxygen Delivery Method Room Air 03/20/25 08:56 Temperature 96.7 F L 03/20/25 08:56 Pulse Rate 83 03/20/25 08:56 Respiratory Rate 16 03/20/25 08:56 Blood Pressure 120/70 03/20/25 08:56 Pulse Oximetry 98 03/20/25 08:56 Oxygen Delivery Method Room Air 03/20/25 08:56 Airway Mallampati Class: I TM Dist: >3cm Neck ROM: Full Loose/Missing/Broken Teeth: No (patient denies any loose or broken teeth) Heart: S1S2 Lungs: CTAB Assessment and Plan Assessment Anesthesia Assessment: Anesthesia Plan Discussed and Chart Reviewed Final Anesthetic Review Family History of Problems with Anesthesia: No History of Problems with Anesthesia: No NPO: Yes ASA Class: II Final Preanesthetic Review: No Changes in Pt Med Stat, Meds/Allgs Chart Reviewed, Consent Obtained/Reviewed and Anes Risks/Benef Reviewed Patient Risk: Low Procedure Risk: Low Anesthetic Plan Anesthetic Plan: GA and Agree w/ Assess. and Plan Disposition: Standard PACU
--- NOTE | 2025-03-20 09:26 | MHC.SHP ---
Pre-Procedural Eval Section A - 24 Hr Update-Section A only Date of Service: 03/20/25 The patient is an INPATIENT: No Changes since office visit: No Cold of Flu in the past 2 weeks, No New Medical Problems, No Changes in Medication and No Patient answered all questions The patient has been examined within 24 hours of the surgical procedure. The History & Physical has been completed within 30 days and I have reviewed it.: Yes Section B - Complete if H&P > 30 days Chief Complaint: Other specified soft tissue disorders Allergies: Allergies Allergy/AdvReac Type Severity Reaction Status Date / Time Iodinated Contrast Media Allergy Unknown Verified 03/16/25 13:47 (Contrast Dye) Penicillins (PCN) Allergy Hives Verified 03/20/25 08:54 shellfish derived Allergy Anaphylaxis Verified 03/20/25 08:54 Sulfa (Sulfonamide Allergy Anaphylaxis Verified 03/20/25 08:54 Antibiotics) prednisone AdvReac Agitated Verified 03/16/25 13:47 tamsulosin (From Flomax) AdvReac Involuntary Verified 03/16/25 13:47 Spasms tramadol AdvReac Agitated Verified 03/16/25 13:47 Plan I have reviewed the history and physical and performed a pertinent physical examination on my patient. No changes have occurred unless specified. Time Spent With Patient Time: Total time managing care of this patient today ____ minutes.
[2025-03-20] MEDS: Lactated Ringers 1,000 ML 100 ML IVCONT (10:03)
--- NOTE | 2025-03-20 10:28 | W.PM.OPN ---
Operative Note Operative Note Date of Service: 03/20/25 Narrative: Preop diagnosis: Abscess, left foot, plantar area Postop diagnosis: The same Procedure: I&D of left foot abscess, with excisional debridement Surgeon: Ronnie Ny MD The patient is a 49 year old female seen in the office last week because of the recurrent area of swelling, pain and tenderness of the plantar aspect of the left foot. She actually had undergone I and D with Dr. Pierre about 2 weeks ago in the OR. Examination in the office revealed swelling, induration and tenderness consistent with an other abscess on the same area. She understood technique of I and D , and debridement in the OR as well as the risks, benefits, and alternatives and she had given consent . She was brought to the operating room. She was placed supine under general anesthesia via laryngeal mask airway. The left foot was prepped and draped in the usual sterile fashion. A surgical time-out was done. The patient received cefazolin 2 g IV preoperatively I made a generous cruciate incision on the area of induration on the left foot at the area of the metatarsal head plantar aspect with a blade 15. This carried down through the full-thickness skin and subcutaneous fat. A small abscess cavity was entered with note of scanty amounts of pus. Cultures were taken I then excised this overlying skin and subcutaneous fat to unroof this entire abscess cavity. An area about 2 x 2 cm was excised. We then copiously irrigated. I then applied dry dressings and wrapped the foot with Kerlix roll The patient tolerated procedure well. There were no immediate complications. She was extubated without difficulty and transferred to the recovery room with stable vital signs.
[2025-03-20] MEDS: oxyCODONE HCl Immed Release 5 MG TABLET PO (11:16)
== END 2025-03-20 14:35 | disposition home or self-care (01) ==
PROVIDERS: Nurse Practitioner; PCP Internal Medicine; Visit Provider Surgery
PROC: (CPT 11042; principal; 2025-03-20 10:00)
DX: L02.612 Cutaneous abscess of left foot (principal); M79.89 Other specified soft tissue disorders; Z79.899 Other long term (current) drug therapy; Z91.041 Radiographic dye allergy status; Z88.0 Allergy status to penicillin; Z88.2 Allergy status to sulfonamides; Z88.5 Allergy status to narcotic agent; Z88.8 Allergy status to other drugs, medicaments and biological substances
CPT/HCPCS: 11042; 10060; 81025; 87070; 87205; J0665; J0690; J1100; J1171; J1596; J2003; J2250; J2405; J2704; J3010

== ENCOUNTER → 2025-03-20 08:06 | Outpatient (BNV) | payer MEDICAID, SELFPAY | PROVIDERS: PCP Internal Medicine; Visit Provider Surgery | DX: L97.529 Non-pressure chronic ulcer of other part of left foot with unspecified severity (principal) | CPT/HCPCS: 10061 ==

== ENCOUNTER 2025-03-28 22:13 | Emergency (ER) | payer MEDICAID, SELFPAY ==
--- NOTE | ~2025-03-28 | XR_ITS ---
CLINICAL HISTORY: pain 3 views lumbar spine Comparison: None provided Findings: Normal vertebral body alignment. No acute fractures or dislocation. Moderate endplate, discogenic and facet arthropathy at L4-L5 and L5-S1. IMPRESSION: 1. No acute fracture or subluxation. 2. Moderate L4-L5 and L5-S1 arthropathy. MRI may be considered for further evaluation. This document has been electronically signed by: Ricardo Ordonez MD on 03/29/2025 00:57:51
[2025-03-28 22:30] VITALS: BP 110/67; PULSE 95; RESP 18; TEMP 36.5; O2SAT 97; BMI 28.5
--- OUTSIDE RECORDS SUMMARY | 2025-03-28 22:51 | XMS_ITS | Encounter Summary ---
Author Organization [facility] Address [address] [place], [place] [address] Phone Care Team Providers Care Screen Print Operator Name Role Phone Seng Suarez MD Unavailable [phone] Emily Albrecht CNM Unavailable [phone] Nia Skinner DRAWBENCH OPERATOR HELPER Unavailable [phone] Georgiana Mcknight DRAWBENCH OPERATOR HELPER Unavailable [phone] Jong Nolen MD Unavailable [phone] Star Ramon MD Unavailable [phone] Seng Suarez MD Primary Care Provider [phone] Ayse Pierce MD Primary Care Provider Encounter Details Date Type Department Care Team (Late st Contact Info) Description 07/22/2017 Procedure Pass OR Admitting Dept - Virtual Department [address] [place] [address] Social History Tobacco Use Types Packs/Day Years [...] documented as of this encounter Care Teams Screen Print Operator Relationship Specialty Start Date End Date Seng Suarez MD [address] [place] [address] PCP - General 06/04/17 02/04/22 Ayse Pierce MD [address] [place] [address] [place] [address] PCP - General Internal Medicine 02/05/22 Seng Suarez MD [address] [place] [address] Historical LMR Provider 03/21/17 2 Emily Albrecht CNM [address] [place] [address] Historical LMR Provider 03/21/17 2 Nia Skinner NP [address] [place] [address] Historical LMR Provider 03/21/17 06/08/21 Georgiana Mcknight NP [address] [place] [address] Historical LMR Provider 03/21/17 2 Jong Nolen MD [address] [place] [address] Historical LMR Provider 03/21/17 Star Ramon MD [address] [place] [address] Historical LMR Provider 03/21/1706/08/ 2 documented as of this encounter Additional Source Comments The information contained in this document represents components of the legal health record. It is not the complete legal health record.[facility]
--- OUTSIDE RECORDS SUMMARY | 2025-03-28 22:51 | XMS_ITS | Encounter Summary ---
Author Organization [facility] Address [address] [place], [place] [phone] Phone Care Team Providers Care File System Installer Name Role Phone Seng Suarez MD Unavailable [phone] Emily Albrecht CNM Unavailable [phone] Nia Skinner CHALKER SOLES Unavailable [phone] Georgiana Mcknight CHALKER SOLES Unavailable [phone] Jong Nolen MD Unavailable [phone] Star Ramon MD Unavailable [phone] Seng Suarez MD Primary Care Provider [phone] Ayse Pierce MD Primary Care Provider Encounter Details Date Type Department Care Team (Late st Contact Info) Description 03/13/2018 Ancillary Orders [facility], [address] [address] Judson Martínez MD [address] [place] [address] [email or web address] Pelvic pain; Hematuria, unspecified type; [...] be adequately evaluated due to underdistention. POS [id number] Narrative 03/13/2018 7:18 PM EDT HISTORY: Hematuria, [...] is normal in size and echogenicity. It qersfbut74.1 cm in the long axis. No evidence [...] be adequately evaluated due to underdistention. POS [id number] us Judson Martínez MD IMG US RENAL Final Re sult * US PELVIS TRANSABDOMINAL PLUS TRANSVAGINAL (03/13/2018 12:06 PM EDT) Anatomical Region Laterality Modality Pelvis, Uterus/Adnexa Ultrasound 03/13/2018 7:13 PM EDT Impressions 03/13/2018 7:15 PM EDT No explanation for pain. POS - [id number] Narrative 03/13/2018 7:15 PM EDT HISTORY: Pelvic [...] IMPRESSION: No explanation for pain. POS - [id number] us Judson Martínez MD IMG US PELVIS [...] documented as of this encounter Care Teams File System Installer Relationship Specialty Start Date End Date Seng Suarez MD [address] [place] [address] PCP - General 06/04/17 02/04/22 Ayse Pierce MD [address] [place] [address] [place] [address] PCP - General Internal Medicine 02/05/22 Seng Suarez MD [address] [place] [address] Historical LMR Provider 03/21/17 2 Emily Albrecht CNM [address] [place] [address] Historical LMR Provider 03/21/17 2 Nia Skinner NP [address] [place] [address] Historical LMR Provider 03/21/17 06/08/21 Georgiana Mcknight NP [address] [place] [address] Historical LMR Provider 03/21/17 2 Jong Nolen MD [address] [place] [address] [email or web address] Historical LMR Provider 03/21/17 Star Ramon MD [address] [place] [address] Historical LMR Provider 03/21/17 2 documented as of this encounter Additional Source Comments The information contained in this document represents components of the legal health record. It is not the complete legal health record.[facility]
--- OUTSIDE RECORDS SUMMARY | 2025-03-28 22:51 | XMS_ITS | Encounter Summary ---
Author Organization [facility] Address [address] [place], [place] [address] Phone Care Team Providers Care Librarian Specialist Name Role Phone Seng Suarez MD Unavailable [phone] Emily Albrecht CNM Unavailable [phone] Nia Skinner SUBSTATION WIREMAN Unavailable [phone] Georgiana Mcknight SUBSTATION WIREMAN Unavailable [phone] Jong Nolen MD Unavailable [phone] Star Ramon MD Unavailable [phone] Seng Suarez MD Primary Care Provider [phone] Ayse Pierce MD Primary Care Provider Encounter Details Date Type Department Care Team (Late st Contact Info) Description 04/08/2018 Procedure Pass OR Admitting Dept - Virtual Department [address] [place] [address] Social History Tobacco Use Types Packs/Day Years [...] documented as of this encounter Care Teams Librarian Specialist Relationship Specialty Start Date End Date Seng Suarez MD [address] [place] [address] PCP - General 06/04/17 02/04/22 Ayse Pierce MD [address] [place] [address] [place] [address] PCP - General Internal Medicine 02/05/22 Seng Suarez MD [address] [place] [address] Historical LMR Provider 03/21/17 2 Emily Albrecht CNM [address] [place] [address] Historical LMR Provider 03/21/17 2 Nia Skinner NP [address] [place] [address] Historical LMR Provider 03/21/17 06/08/21 Georgiana Mcknight NP [address] [place] [address] Historical LMR Provider 03/21/17 2 Jong Nolen MD [address] [place] [address] Historical LMR Provider 03/21/17 Star Ramon MD [address] [place] [address] Historical LMR Provider 03/21/1706/08/ 2 documented as of this encounter Additional Source Comments The information contained in this document represents components of the legal health record. It is not the complete legal health record.[facility]
--- OUTSIDE RECORDS SUMMARY | 2025-03-28 22:51 | XMS_ITS | Encounter Summary ---
Author Organization [facility] Address [address] [place] [id number] Phone Care Team Providers Care Flake Drier Name Role Phone Jong Nolen MD Unavailable [phone] Ayse Pierce MD Primary Care Provider Encounter Details Date Type Department Care Team (Late st Contact Info) Description 06/29/2023 Procedure Pass OR Admitting Dept - Virtual Department [address] [place] [address] Social History Tobacco Use Types Packs/Day Years [...] on filedocumented in this encounter Care Teams Flake Drier Relationship Specialty Start Date End Date Ayse Pierce MD [address] [place] [address] [place] [address] PCP - General Internal Medicine 02/05/22 Jong Nolen MD [address] [place] [address], [facility] [address] [place] [address] [email or web address] Historical LMR Provider 03/21/17 documented as of this encounter Additional Source Comments The information contained in this document represents components of the legal health record. It is not the complete legal health record.[facility]
--- OUTSIDE RECORDS SUMMARY | 2025-03-28 22:51 | XMS_ITS | Clinical Summary ---
Author Organization [facility] Address [address] [place], [place] [id number] Phone Care Team Providers Care Transplanter Name Role Phone Jong Nolen MD Unavailable [phone] Ayse Pierce MD Primary Care Provider Allergies [...] Telephone [facility] [address] [place] [address] Keo Garcia LPN Imaging Follow Up from Last 3 Months Family History Medical [...] 03/12/2018 INFLUENZA VACCINE (#1) 2024 COVID-19 VACCINE (1 - 2024-2 6 season) 2025 PAP SMEAR 06/17/2026 06/17/2023, [...] PM EDT) HCV NON-REACTIV E NON-REACTI VE [facility] Blood 08/16/2024 2:43 PM EDT 08/16/2024 2:45 PM EDT Jong Nolen MD LAB BLOOD ORDERABLES Final Re sult Performing Organization Address City/State/[facility] Co de Phone Number [address] [address] * Pap Test (06/17/2023 12:00 AM EST) Report [address] [address] Substation Operator Helper: Alisha Dean MD GOLF [employer] Cytology Report FINAL DIAGNOSIS A. PAP SMEAR [...] 59, 66, 68) Note: Testing performed by [facility] HR-HPV analysis. Clinical correlation is advised. This HPV test was performed at [facility], [address] [place] [address]. This test has been FDA approved for SurePath cervical cytology specimens. The accuracy and precision of this test for all other specimen sources has been verified in the Cytopathology Laboratory of the [facility] and has not been cleared or approved by the U.S. Food and Drug Administration. Clinical correlation is advised. CLINICAL HISTORY Date of Last Menstrual Period: 04-15-2023 Other Clinical Conditions: Screening Pap SPECIMEN SOURCE A: PAP SMEAR (SUREPATH) CE Patient Name: CASSANDRA FRAGA : 1975 (Age: 48) Sex: F Institution: [facility] Date of Collection: 06/17/2023 Date of Reported: 06/19/2023 15:33 Results to: Jong Nolen MD, BS [facility] Final Diagnosis A. PAP SMEAR (SUREPATH) CE: SPECIMEN ADEQUACY: Satisfactory for evaluation; transformation zone present. INTERPRETATION: NEGATIVE FOR INTRAEPITHELIAL LESION OR MALIGNANCY. Coccobacilli consistent with shift in shane [facility] Results\Inter pretation A. PAP SMEAR (SUREPATH) CE: Human Papilloma Virus TestNEGATIVE for high-risk Human Papilloma Virus types 16, 18, 45 and the Other high risk probe set (Includes 31, 33, 35, 39, 51, 52, 56, 58, 59, 66, 68)Note: Testing performed by Lamberto Ziebach Onclarity HR-HPV analysis. Clinical correlation is advised. This HPV test was performed at [facility], [address] [place] [address]. This test has been FDA approved for SurePath cervical cytology specimens. The accuracy and precision of this test for all other specimen sources has been verified in the Cytopathology Laboratory of the [facility] and has not been cleared or approved by the U.S. Food and Drug Administration. Clinical correlation is advised. [facility] Conversion Type (Conversion Source) 06/17/2023 06/18/2023 9:34 AM EST us Jong Nolen MD CYTOLOGY ORDERABLES Edited Re kashmir - Final [facility] [address] [place] [address] from Last 3 Months or Most Recently Relevant to Health Maintenance Insurance [facility] [address] [place] [address] [place] [address] [place] [address] [place] [address] [place] [address] Care Teams Transplanter Relationship Specialty Start Date End Date Ayse Pierce MD [address] [place] [address] [place] [address] PCP - General Internal Medicine 02/05/22 Jong Nolen MD [address] [place] [address], [facility] [address] [place] [address] [email or web address] Historical LMR Provider 03/21/17 Additional Source Comments The information contained in this document represents components of the legal health record. It is not the complete legal health record.[facility]
--- OUTSIDE RECORDS SUMMARY | 2025-03-28 22:51 | XMS_ITS | Encounter Summary ---
Author Organization [facility] Address [address] [place], [place] [phone] Phone Care Team Providers Care Heel Brusher Name Role Phone Jong Nolen MD Unavailable Ayse Pierce MD Primary Care Provider Encounter Details Date Type Department Care Team (Late st Contact Info) Description 02/13/2022 Procedure Pass OR Admitting Dept - Virtual Department [address] [place] [address] Social History Tobacco Use Types Packs/Day Years [...] documented as of this encounter Care Teams Heel Brusher Relationship Specialty Start Date End Date Ayse Pierce MD [address] [place] [address] [place] [address] PCP - General Internal Medicine 02/05/22 Jong Nolen MD [address] [place] [id number] [email or web address] Historical LMR Provider 03/21/17 documented as of this encounter Additional Source Comments The information contained in this document represents components of the legal health record. It is not the complete legal health record.[facility]
--- NOTE | 2025-03-29 | ED_ITS ---
HPI - General Adult General Chief complaint: Back Pain/Injury Stated complaint: Lower back pain Time Seen by Provider: 03/28/25 22:51 Source: patient, RN notes reviewed and old records reviewed Mode of arrival: ambulatory Limitations: no limitations History of Present Illness ED Provider: Mor HPI narrative: 49-year-old female presents for evaluation of left lower back pain. The patient has a history of hidradenitis pain She had a recent abscess drained from her left foot 8 days ago. She is not currently on antibiotics pain Denies any fevers or chills She reports that her foot has been healing well. She reports that she has been using a boot on her left foot at the surgeon's instructions. She states that the different height of the boot has aggravated an old back issu e. She reports previous disc herniations but states that she has not had imaging for told to 15 years She has pain to the left lower back that radiates down her left leg. She has pain with walking, certain position changes and with bearing down She is able to go to the bathroom but has pain with ?pushing. ? Related Data Previous Rx's ?Medication ?Instructions ?Recorded doxycycline monohydrate 100 mg 100 mg PO BID #10 caps 02/22/25 capsule oxycodone 5 mg tablet 5 mg PO Q4H PRN pain (scale score 02/23/25 7-10) #20 tabs ibuprofen 600 mg tablet 600 mg PO Q6H PRN pain #30 t abs 03/20/25 oxycodone-acetaminophen 5 mg-325 1 tab PO Q6H PRN pain #25 tabs 03/20/25 mg tablet lidocaine 5 % topical patch 1 patch topical DAILY PRN pain, 03/29/25 moderate #15 ea Allergies Allergy/AdvReac Type Severity Reaction Status Date / Time Iodinated Contrast Media Allergy Unknown Verified 03/28/25 22:34 (Contrast Dye) Penicillins (PCN) Allergy Hives Verified 03/28/25 22:34 shellfish derived Allergy Anaphylaxis Verified 03/28/25 22:34 Sulfa (Sulfonamide Allergy Anaphylaxis Verified 03/28/25 22:34 Antibiotics) prednisone AdvReac Agitated Verified 03/28/25 22:34 tamsulosin (From Flomax) AdvReac Involuntary Verified 03/28/25 22:34 Spasms tramadol AdvReac Agitated Verified 03/28/25 22:34 Review of Systems Constitutional: Constitutional: Denies body ache(s), Denies chills, Denies fever(s), Denies frequent falls and Denies headache(s) Eyes: Eyes: Denies blurry vision ENT: Denies vertigo, Denies dizziness and Denies headache(s) Cardiovascular: Cardiovascular: Denies chest pain and Denies dyspnea on exertion Respiratory: Respiratory: Denies cough and Denies dyspnea on exertion Gastrointestinal: Gastrointestinal: Denies abdominal pain, Denies nausea and Denies vomiting Musculoskeletal: Musculoskeletal: Reports back pain, Denies arthralgias, Denies joint swelling, Reports limited range of motion, Denies muscle weakness, Denies numbness and Reports radiating pain into limb Integumentary/Breasts: Skin/Breast: Denies rash Neurologic: Denies vertigo, Denies dizziness, Denies frequent falls, Denies headache(s) and Denies numbness Psychiatric: Psychiatric: Denies anxiety PMFSH Past Medical History Medical History (Updated 03/29/25 @ 00:06 by Franck Juares) Swelling of left foot Abscess Kidney calculi Hidradenitis suppurativa Surgical History History of incision and drainage (01/17/25) Hx of wisdom tooth extraction Hx of breast reduction, elective Hx of unilateral oophorectomy Hx of laparoscopy Hx of cholecystectomy Hx of appendectomy Hx of cystoscopy Social History Social History Household Members: Family Household Members Other:: mother Housing: House Are you a primary hospice patient care secretary to a significant other at home: No Do you presently have visiting nurse or other home services: No Alcohol intake: never Patient Tobacco Use Status: Current everyday Tobacco user Tobacco use type: Cigarette Cigarette Packs Per Day: 1 Cigarettes Per Day: 20.0 Smoked in Last 30 Days: Yes Second Hand Smoke Exposure: No Use of substances other than those prescribed or required for medical reasons: Yes Substance Use Type: Marijuana Substance Use Frequency: Daily Last Used Substance: Hours (ago) Advance Directives: Yes Advance Directives on File: Yes Advance Directives Date on File: 02/21/25 Patient : No service: No Physical Exam ED Vital Signs: Vital Signs - 24 hr 03/28/25 22:30 Temperature 97.7 F Pulse Rate 95 Respiratory Rate 18 Blood Pressure 110/67 Pulse Oximetry 97 Oxygen Delivery Method Room Air BMI result Body Mass Index 28.5 Const General: healthy appearing, comfortable, no acute distress, alert and awake Nutritional Appearance: well nourished Orientation/consciousness: patient oriented x3 HENMT Head: Yes normocephalic and Yes atraumatic Eyes Eyelids: Yes eyelids normal Conjunctivae: conjunctivae normal Sclerae: sclerae normal Corneas: corneas normal Pupils: Equal, round and reactive pupils present EOM: EOMs intact bilaterally Neck Neck: Yes full ROM Resp Effort & Inspection: normal respiratory effort, able to speak in complete sentences and not labored Back/Spine/Pelvis Other: There is tenderness across the lumbar paraspinous region. No step-offs or deformities to the lumbar spine. Negative straight leg raise bilaterally. Skin General skin exam: elasticity normal Neuro General: patient oriented x3 Cranial nerves: Yes Equal, round and reactive pupils present and Yes Bilaterally intact EOM present Cognition (Neuro): normal cognition Deep tendon reflexes (DTR's): Right patellar reflex intensity grade: 2+ and Left patellar reflex intensity grade: 2+ Extrem Other: Moving all extremities well without any obvious deformities Course Reevaluation(s) Reevaluation #1: Patient reports some improvement after Toradol injection. We will discharge her to follow up with the primary doctor and pain management Time: 01:05 Medications Administered Discontinued Medications Generic Name Dose Route Start Last Admin Trade Name Freq PRN Reason Stop Dose Admin Ketorolac Tromethamine 30 mg 03/28/25 23:30 03/28/25 23:37 Ketorolac Tromethamine 30 Mg/Ml Vial IM 03/28/25 23:31 30 mg ONCE ONE Administration Medical Decision Making Medical Decision Making [facility] Narrative: 49-year-old female presents for evaluation of acute on chronic back pain. Denies any recent falls or trauma, denies any fevers or chills and she is afebrile on presentation to the ED. Her pain is likely exacerbated by her walking boot that she has been using and a left foot after her recent surgery. She reports that she does not do well with steroids has a make her agitated. She has cyclobenzaprine at home but she has not taken it. She has been using ibuprofen and Tylenol without any significant improvement. She has no red flags or warning signs for cauda equina syndrome. No infectious symptoms to suggest epidural abscess. We will treat her pain with an injection of Toradol 30 mg IM. We will obtain an x-ray of the lumbar spine as she has not had 1 in many years. She would likely require outpatient follow up and further evaluation on a nonemergent basis Differential Diagnosis Differential Diagnoses: The differential diagnosis associated with the presentation includes Sciatica Acute on chronic back pain Disc herniation Radiculopathy Compression fracture Independent Interpretation I performed an independent interpretation of an: Plain X-Ray Interpretation: Agree with Radiology interpretation Radiology Impression Discussion of test interpretation with radiology: I have reviewed the radiologist's reading. Radiologist Impression: Findings: Normal vertebral body alignment. No acute fractures or dislocation. Moderate endplate, discogenic and facet arthropathy at L4-L5 and L5-S1. IMPRESSION: 1. No acute fracture or subluxation. 2. Moderate L4-L5 and L5-S1 arthropathy. MRI may be considered for further evaluation. This document has been electronically signed by: Ricardo Ordonez MD on 03/29/2025 00:57:51 Discharge Plan Discharge Clinical Impression: Acute exacerbation of chronic low back pain Patient Disposition: Home, Self-Care Instructions: Acute Low Back Pain (ED) Additional Instructions: You may continue ibuprofen/Tylenol as needed for pain. You may use lidocaine patches as needed for lower back pain. Follow up with your primary doctor and/or pain management. You may benefit from additional outpatient evaluation Your x-ray shows moderate L4/L5 and L5/S1 arthropathy. You may benefit from an outpatient MRI of the lumbar spine to better evaluate Prescriptions: New lidocaine 5 % adhesive patch,medicated 1 patch topical DAILY PRN (Reason: pain, moderate) Qty: 15 0RF Rx Instructions: leave on most painful area for up to 12 hrs No Action oxycodone 5 mg tablet 5 mg PO Q4H PRN (Reason: pain (scale score 7-10)) Qty: 20 0RF Rx Instructions: Partial Fill upon patient request. oxycodone-acetaminophen 5-325 mg tablet 1 tab PO Q6H PRN (Reason: pain) Qty: 25 0RF Rx Instructions: Partial Fill upon patient request. ibuprofen 600 mg tablet 600 mg PO Q6H PRN (Reason: pain) Qty: 30 0RF doxycycline monohydrate 100 mg capsule 100 mg PO BID Qty: 10 0RF Referrals: [facility] [place] [place] Pain Management [Provider Group, Pain Management] Referral Note: L4-L5 and L5-S1 arthropathy Print Language: Kenyan
[2025-03-29 01:26] VITALS: BP 147/70; PULSE 84; RESP 16; TEMP 36.4; O2SAT 97
== END 2025-03-29 01:27 | disposition home or self-care (01) ==
PROVIDERS: Emergency Provider Emergency Medicine; PCP Internal Medicine
DX: M54.50 Low back pain, unspecified (principal); G89.29 Other chronic pain; F17.200 Nicotine dependence, unspecified, uncomplicated; Z71.6 Tobacco abuse counseling; M12.9 Arthropathy, unspecified
CPT/HCPCS: 72100; 96372; 99284; J1885

== ENCOUNTER → 2025-03-28 23:30 | Outpatient (BNV) | payer MEDICAID, SELFPAY | PROVIDERS: Emergency Provider Emergency Medicine; PCP Internal Medicine; Visit Provider Radiology Diagnostic Radiology | DX: M47.817 Spondylosis without myelopathy or radiculopathy, lumbosacral region (principal) | CPT/HCPCS: 72100 ==

== ENCOUNTER 2025-03-30 11:17 | Outpatient (AMB) | payer MEDICAID, SELFPAY ==
--- NOTE | 2025-03-30 11:31 | MHC.OFFVIS ---
Vital Signs 03/30/25 11:39 Height 5 ft 3 in Weight 160 lb BMI 28.3 BP 107/53 L Blood Pressure Location Lt brachial Position Sitting Pulse 104 H Intake Visit Reasons: S/P I&D Lt foot abscess Intake Note: Patient here s/p I&D of left foot abscess, with excisional debridement. Patient c/o: reports constant pain at lt foot site. Keeps are covered w/dressing, wrap. Procedure (FM): I&D- 03/20/2025 Field Return Repairer Required: No Accompanied by: Self / Same As Patient Allergies Iodinated Contrast Media (Contrast Dye) Allergy (Verified 03/30/25 11:38) Unknown Penicillins (PCN) Allergy (Verified 03/30/25 11:38) Hives shellfish derived Allergy (Verified 03/30/25 11:38) Anaphylaxis Sulfa (Sulfonamide Antibiotics) Allergy (Verified 03/30/25 11:38) Anaphylaxis prednisone Adverse Reaction (Verified 03/30/25 11:38) Agitated tamsulosin (From Flomax) Adverse Reaction (Verified 03/30/25 11:38) Involuntary Spasms tramadol Adverse Reaction (Verified 03/30/25 11:38) Agitated HPI HPI S/P I&D Lt foot abscess: Details: Gini Fraga presents for a wound check. She underwent I&D of left foot abscess, with excisional debridement on 03/20/[address] Ny for recurrent left foot abscess, plantar aspect. Culture was taken at that time which showed mixed skin shane. She has been packing the area with a wet to dry 2x2 but now the area is very small. She reports continued sensitivity to the I&D/debridement site and pain when weight bearing on the site. She has been offloading on the forefoot and compensating with her right leg and now has some back pain secondary to this. She denies fevers, chills, nausea, vomiting. She does report thick white drainage when she was manually expressing the area yesterday. She continues to touch the open wound with ungloved hands while we are in the exam room. She does report a mild flare of her hidradenitis of her right groin. She has had multiple previous surgical excisions and debridements for her hidradenitis in the past, most recent on 01/17/25 where incision and drainage, debridement hidradenitis right upper inner thigh was performed by Dr. Pierre. She reports some hardness and mild pain of the excision site. She had been previously treated at [facility]. She reports seeing dermatology as well as infectious disease in the past and has had multiple antibiotic courses yearly for treatment. She does not think she has ever been treated with a biologic. [facility] Medical History (Updated 04/03/25 @ 10:13 by Esther Magdaleno PA-C) Swelling of left foot Abscess Kidney calculi Hidradenitis suppurativa Surgical History (Updated 03/30/25 @ 08:46 by PETE Gudino) History of incision and drainage (03/20/25) History of incision and drainage (01/17/25) Hx of wisdom tooth extraction Hx of breast reduction, elective Hx of unilateral oophorectomy Hx of laparoscopy Hx of cholecystectomy Hx of appendectomy Hx of cystoscopy Social History Household Members: Family Household Members Other:: mother Housing: House Are you a primary health care sanitary technician to a significant other at home: No Do you presently have visiting nurse or other home services: No Alcohol intake: never Patient Tobacco Use Status: Current everyday Tobacco user Tobacco use type: Cigarette Cigarette Packs Per Day: 1 Cigarettes Per Day: 20.0 Second Hand Smoke Exposure: No Substance Use Type: Marijuana Advance Directives Date on File: 02/21/25 service: No Review of Systems Const All systems reviewed & are unremarkable except as noted in HPI and below Physical Exam Vital Signs: Last Vital Signs Pulse 104 H 03/30/25 11:39 BP 107/53 L 03/30/25 11:39 BMI result Body Mass Index 28.3 Const General: comfortable, no acute distress, alert and anxious Orientation/consciousness: patient oriented x3 Resp Effort & Inspection: normal respiratory effort Skin Other: right groin- excision site almost completely healed- small opening with granulation tissue, no significant drainage, the surrounding area has multiple sinuses and she does have induration tissue that extends posteriorly about 6cm with a strip of very pale erythema, area is mildly tender Neuro General: patient oriented x3 and moves all extremities Extrem Other: left foot- open wound on plantar aspect at first metatarsal head- clean appearing with good granulation tissue, no drainage noted, some mild edema medially but no erythema, no fluctuance appreciated Assessment & Plan Assessment & Plan (1) Hidradenitis suppurativa: Comment: multiple i&d's Code(s): L73.2 - Hidradenitis suppurativa Category: Medical (2) Encounter for recheck of abscess following incision and drainage: Code(s): Z09 - Encounter for follow-up examination after completed treatment for conditions other than malignant neoplasm Category: Medical Plan 49 year old female who underwent I&D and excisional debridement of left foot abscess, plantar aspect on 03/20/25. She tolerated the procedure well. The wound is clean appearing and healing well without further evidence of abscess or infection. Silver alginate was placed to the open area followed by dry fluffs and kerlix wrap. She was instructed on local daily wound care with changing of the outer dressing daily and changing of the silver alginate every other day and as needed. She can follow up as needed for the foot if she develops any concerns. In regards to her hidradenitis, right groin, her disease is quite extensive. She has a very large area of chronic induration with multiple sinuses present. She has had multiple attempts at local excisions of the right groin. To ensure complete excision of this entire area, she would require a very wide excision extending to her right buttock area which would take months to heal with very good daily wound care and be very painful. This was discussed with her. I recommended evaluation by dermatology again to see if there are biologics she can attempt to try to reduce the inflammation and help with her hidradenitis to try and avoid such extensive excision. She is in agreement. She can follow up as needed if she develops any concerns in regards to this. Coding Level of Care Code Est Pt Level 3 (26577) Diagnoses Hidradenitis suppurativa L73.2 Encounter for recheck of abscess following incision and drainage Z09
[2025-03-30 11:39] VITALS: BP 107/53; PULSE 104; BMI 28.3
--- OUTSIDE RECORDS SUMMARY | 2025-03-30 14:10 | XMS_ITS | Encounter Summary ---
Author Organization [facility] Address [address] [place], [place] [address] Phone Care Team Providers Care Locomotive Operator Helper Name Role Phone Jong Nolen MD Unavailable [phone] Ayse Pierce MD Primary Care Provider Encounter Details Date Type Department Care Team (Late st Contact Info) Description 02/13/2022 Procedure Pass OR Admitting Dept - Virtual Department [address] [place] [phone] Social History Tobacco Use Types Packs/Day Years [...] documented as of this encounter Care Teams Locomotive Operator Helper Relationship Specialty Start Date End Date Ayse Pierce MD [address] [place] [address] [place] [address] PCP - General Internal Medicine 02/05/22 Jong Nolen MD [address] [place] [phone] [email or web address] Historical LMR Provider 03/21/17 documented as of this encounter Additional Source Comments The information contained in this document represents components of the legal health record. It is not the complete legal health record.[facility]
--- OUTSIDE RECORDS SUMMARY | 2025-03-30 14:10 | XMS_ITS | Encounter Summary ---
Author Organization [facility] Address [address] [place], [place] [id number] Phone Care Team Providers Care Intensive Care Medicine Specialist Name Role Phone Seng Suarez MD Unavailable [phone] Emily Albrecht CNM Unavailable [phone] Nia Skinner INDEPENDENT LIVING INSTRUCTOR Unavailable [phone] Georgiana Mcknight INDEPENDENT LIVING INSTRUCTOR Unavailable [phone] Jong Nolen MD Unavailable [phone] Star Ramon MD Unavailable [phone] Seng Suarez MD Primary Care Provider [phone] Ayse Pierce MD Primary Care Provider Encounter Details Date Type Department Care Team (Late st Contact Info) Description 04/08/2018 Procedure Pass OR Admitting Dept - Virtual Department [address] [place] [address] Social History Tobacco Use Types Packs/Day Years [...] Associated Diagnoses Date/Ti me LAPAROSCOPIC HYSTERECTOMY TO [place] WITH BILATERAL SALPINGECTOMY Endometriosis determined by laparoscopy documented as of this encounter Visit Diagnoses Not on filedocumented in this encounter Additional Health Concerns Infection Onset Date Last Indicated Resolved Time 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 Infection Utility 07/19/2012 07/19/2012 07/16/2022 1:[address] documented as of this encounter Care Teams Intensive Care Medicine Specialist Relationship Specialty Start Date End Date Seng Suarez MD [address] [place] [address] PCP - General 06/04/17 02/04/22 Ayse Pierce MD [address] [place] [address] [place] [address] PCP - General Internal Medicine 02/05/22 Seng Suarez MD [address] [place] [address] Historical LMR Provider 03/21/17 2 Emily Albrecht CNM [address] [place] [address] Historical LMR Provider 03/21/17 2 Nia Skinner NP [address] [place] [address] Historical LMR Provider 03/21/17 06/08/21 Georgiana Mcknight NP [address] [place] [address] Historical LMR Provider 03/21/17 2 Jong Nolen MD [address] [place] [address] Historical LMR Provider 03/21/17 Star Ramon MD [address] [place] [address] Historical LMR Provider 03/21/1706/08/ 2 documented as of this encounter Additional Source Comments The information contained in this document represents components of the legal health record. It is not the complete legal health record.[facility]
--- OUTSIDE RECORDS SUMMARY | 2025-03-30 14:10 | XMS_ITS | Encounter Summary ---
Author Organization [facility] Address [address] [place], [place] [address] Phone Care Team Providers Care Resolution Analyst Name Role Phone Seng Suarez MD Unavailable [phone] Emily Albrecht CNM Unavailable [phone] Nia Skinner ALLOY WEIGHER Unavailable [phone] Georgiana Mcknight ALLOY WEIGHER Unavailable [phone] Jong Nolen MD Unavailable [phone] Star Ramon MD Unavailable [phone] Seng Suarez MD Primary Care Provider [phone] Ayse Pierce MD Primary Care Provider Encounter Details Date Type Department Care Team (Late st Contact Info) Description 03/13/2018 Ancillary Orders [facility], [address] [address] Judson Martínez MD [address] [place] [address] [email or web address] Pelvic pain; Hematuria, unspecified type; [...] be adequately evaluated due to underdistention. POS [id number] Narrative 03/13/2018 7:18 PM EDT HISTORY: Hematuria, [...] is normal in size and echogenicity. It [id number] cm in the long axis. No evidence [...] be adequately evaluated due to underdistention. POS [id number] us Judson Martínez MD IMG US RENAL Final Re sult * US PELVIS TRANSABDOMINAL PLUS TRANSVAGINAL (03/13/2018 12:06 PM EDT) Anatomical Region Laterality Modality Pelvis, Uterus/Adnexa Ultrasound 03/13/2018 7:13 PM EDT Impressions 03/13/2018 7:15 PM EDT No explanation for pain. POS - [id number] Narrative 03/13/2018 7:15 PM EDT HISTORY: Pelvic [...] IMPRESSION: No explanation for pain. POS - [id number] us Judson Martínez MD IMG US PELVIS [...] documented as of this encounter Care Teams Resolution Analyst Relationship Specialty Start Date End Date Seng Suarez MD [address] [place] [address] PCP - General 06/04/17 02/04/22 Ayse Pierce MD [address] [place] [address] [place] [address] PCP - General Internal Medicine 02/05/22 Seng Suarez MD [address] [place] [address] Historical LMR Provider 03/21/17 2 Emily Albrecht CNM [address] [place] [address] Historical LMR Provider 03/21/17 2 Nia Skinner NP [address] [place] [address] Historical LMR Provider 03/21/17 06/08/21 Georgiana Mcknight NP [address] [place] [address] Historical LMR Provider 03/21/17 2 Jong Nolen MD [address] [place] [address] [email or web address] Historical LMR Provider 03/21/17 Star Ramon MD [address] [place] [address] Historical LMR Provider 03/21/17 2 documented as of this encounter Additional Source Comments The information contained in this document represents components of the legal health record. It is not the complete legal health record.[facility]
--- OUTSIDE RECORDS SUMMARY | 2025-03-30 14:10 | XMS_ITS | Clinical Summary ---
Author Organization [facility] Address [address] [place], [place] [id number] Phone Care Team Providers Care Offset Press Operator Apprentice Name Role Phone Jong Nolen MD Unavailable [phone] Ayse Pierce MD Primary Care Provider Allergies [...] [facility] [address] [place] [address] Keo Garcia LPN Imaging Follow [...] PM EDT) HCV NON-REACTIV E NON-REACTI VE [facility] Blood 08/16/2024 2:43 PM EDT 08/16/2024 2:45 PM EDT Jong Nolen MD LAB BLOOD ORDERABLES Final Re sult Performing Organization Address City/State/[facility] Co de Phone Number [address] [address] * Pap Test (06/17/2023 12:00 AM EST) Report [address] [address] Operations And Maintenance Technican: Alisha Dean MD MAP EDITOR Cytology Report FINAL DIAGNOSIS A. PAP SMEAR (SUREPATH) CE: SPECIMEN ADEQUACY: Satisfactory for evaluation; transformation zone present. INTERPRETATION: NEGATIVE FOR INTRAEPITHELIAL LESION OR MALIGNANCY. Coccobacilli consistent with shift in shnae Electronically Signed Out By: ALICE Myers(ASCP) The [...] 59, 66, 68) Note: Testing performed by [employer] HR-HPV analysis. Clinical correlation is advised. This HPV test was performed at [facility], [address] [place] [address]. This test has been FDA approved for SurePath cervical cytology specimens. The accuracy and precision of this test for all other specimen sources has been verified in the Cytopathology Laboratory of the [facility] and has not been cleared or approved by the U.S. Food and Drug Administration. Clinical correlation is advised. CLINICAL HISTORY Date of Last Menstrual Period: 04-15-2023 Other Clinical Conditions: Screening Pap SPECIMEN SOURCE A: PAP SMEAR (SUREPATH) CE Patient Name: CASSANDRA FRAGA : 1975 (Age: 48) Sex: F Institution: [facility] Location: [facility] Date of Collection: 06/17/2023 Date of Reported: 06/19/2023 15:33 Results to: Jong Nolen MD, BS [facility] Final Diagnosis A. PAP SMEAR (SUREPATH) CE: SPECIMEN ADEQUACY: Satisfactory for evaluation; transformation zone present. INTERPRETATION: NEGATIVE FOR INTRAEPITHELIAL LESION OR MALIGNANCY. Coccobacilli consistent with shift in shane [facility] Results\Inter pretation A. PAP SMEAR (SUREPATH) CE: Human Papilloma Virus TestNEGATIVE for high-risk Human Papilloma Virus types 16, 18, 45 and the Other high risk probe set (Includes 31, 33, 35, 39, 51, 52, 56, 58, 59, 66, 68)Note: Testing performed by [employer] HR-HPV analysis. Clinical correlation is advised. This HPV test was performed at [facility], [address] [place] [address]. This test has been FDA approved for SurePath cervical cytology specimens. The accuracy and precision of this test for all other specimen sources has been verified in the Cytopathology Laboratory of the [facility] and has not been cleared or approved by the U.S. Food and Drug Administration. Clinical correlation is advised. [facility] Conversion Type (Conversion Source) 06/17/2023 06/18/2023 9:34 AM EST us Jong Nolen MD CYTOLOGY ORDERABLES Edited Re [email or web address] - Final [facility] [address] [place] [address] from Last 3 Months or Most Recently Relevant to Health Maintenance Insurance [facility] [place] [address] [address] [place] [address] [place] [address] [place] [address] [place] [address] Care Teams Offset Press Operator Apprentice Relationship Specialty Start Date End Date Ayse Pierce MD [address] [place] [address] [place] [address] PCP - General Internal Medicine 02/05/22 Jong Nolen MD [address] [place] [address], [facility] [address] [place] [address] [email or web address] Historical LMR Provider 03/21/17 Additional Source Comments The information contained in this document represents components of the legal health record. It is not the complete legal health record.[facility]
--- OUTSIDE RECORDS SUMMARY | 2025-03-30 14:10 | XMS_ITS | Encounter Summary ---
Author Organization [facility] Address [address] [place], [place] [address] Phone Care Team Providers Care Leather Scrubber Name Role Phone Seng Suarez MD Unavailable [phone] Emily Albrecht CNM Unavailable [phone] Nia Skinner BUTTONHOLE TACKER Unavailable [phone] Georgiana Mcknight BUTTONHOLE TACKER Unavailable [phone] Jong Nolen MD Unavailable [phone] Star Ramon MD Unavailable [phone] Seng Suarez MD Primary Care Provider Ayse Pierce MD Primary Care Provider Encounter Details Date Type Department Care Team (Late st Contact Info) Description 07/22/2017 Procedure Pass OR Admitting Dept - Virtual Department [address] [place] [address] Social History Tobacco Use Types Packs/Day Years [...] documented as of this encounter Care Teams Leather Scrubber Relationship Specialty Start Date End Date Seng Suarez MD [address] [place] [address] PCP - General 06/04/17 02/04/22 Ayse Pierce MD [address] [place] [address] [place] [address] PCP - General Internal Medicine 02/05/22 Seng Suarez MD [address] [place] [address] Historical LMR Provider 03/21/17 2 Emily Albrecht CNM [address] [place] [address] Historical LMR Provider 03/21/17 2 Nai Skinner NP [address] [place] [address] Historical LMR Provider 03/21/17 06/08/21 Georgiana Mcknight NP [address] [place] [address] Historical LMR Provider 03/21/17 2 Jong Nolen MD [address] [place] [address] Historical LMR Provider 03/21/17 Star Ramon MD [address] [place] [address] Historical LMR Provider 03/21/1706/08/ 2 documented as of this encounter Additional Source Comments The information contained in this document represents components of the legal health record. It is not the complete legal health record.[facility]
--- OUTSIDE RECORDS SUMMARY | 2025-03-30 14:10 | XMS_ITS | Encounter Summary ---
Author Organization [facility] Address [address] [place] [address] Phone Care Team Providers Care E Commerce Analyst Name Role Phone Jong Nolen MD Unavailable [phone] Ayse Pierce MD Primary Care Provider Encounter Details Date Type Department Care Team (Late st Contact Info) Description 06/29/2023 Procedure Pass OR Admitting Dept - Virtual Department [address] [place] [address] Social History Tobacco Use Types Packs/Day Years [...] on filedocumented in this encounter Care Teams E Commerce Analyst Relationship Specialty Start Date End Date Ayse Pierce MD [address] [place] [address] [place] [address] PCP - General Internal Medicine 02/05/22 Jong Nolen MD [address] [place] [address], [facility] [address] [place] [address] [email or web address] Historical LMR Provider 03/21/17 documented as of this encounter Additional Source Comments The information contained in this document represents components of the legal health record. It is not the complete legal health record.[facility]
== END 2025-03-30 12:07 | disposition home or self-care (01) ==
LOC: HO.HGS 11:18
PROVIDERS: PCP Internal Medicine; Visit Provider Physician Assistant Surgical
DX: L73.2 Hidradenitis suppurativa (principal); Z09 Encounter for follow-up examination after completed treatment for conditions other than malignant neoplasm
CPT/HCPCS: 99024; 99499

== ENCOUNTER → 2025-03-30 11:17 | Outpatient (BNVA) | payer MEDICAID, SELFPAY | PROVIDERS: PCP Internal Medicine; Visit Provider Physician Assistant Surgical | DX: Z09 Encounter for follow-up examination after completed treatment for conditions other than malignant neoplasm (principal); L73.2 Hidradenitis suppurativa | CPT/HCPCS: 99212 ==